=== PATIENT | male | born 1975 | race Caucasian/White ===

== ENCOUNTER 2017-07-09 08:53 | Emergency (ER) | payer OTHER, SELFPAY ==
[2017-07-09 08:55] VITALS: BP 146/78; PULSE 81; RESP 18; TEMP 36.7; O2SAT 100; BMI 25.1
--- NOTE | 2017-07-09 09:05 | RAD_ITS ---
STUDY: X-RAY - RIGHT HAND REASON FOR EXAM: Male, 41 years old. Laceration to the distal aspect of the fifth digit. TECHNIQUE: 3 view(s) of the hand. COMPARISON: None. FINDINGS: Normal radiocarpal articulation. Normal distal radioulnar joint. Normal visualized carpal bones. Normal carpal articulations Normal carpometacarpal articulation of the thumb. Normal second through fifth carpometacarpal joints. Normal metacarpi. Normal metacarpophalangeal joint of the thumb. Normal interphalangeal joint of the thumb. Normal proximal and distal phalanges of the thumb. Normal metacarpophalangeal joints of the second through fifth fingers. Normal proximal and distal interphalangeal joints of the second through fifth fingers. Normal phalanges of the second through fifth fingers. Soft tissue injury. RAD/Hand Min 3 Views IMPRESSION: Soft tissue injury. No bony abnormality is seen. No radiopaque foreign body is present. Electronically Signed: Raheem Torres MD at 9:31 EST Tel [phone], Service support ,
--- NOTE | 2017-07-09 09:07 | ED.VISSUMM ---
- ER Visit Summary Date of Service: 07/09/17 Chief Complaint: Right small finger laceration History of Present Illness: The patient is a 41 M presenting with right small finger laceration. Patient states he was using a saw and looked down and noticed bleeding of his right small finger. He is unsure how this occurred. This was not a work-related injury. He is unsure of his last tetanus immunization. No other injuries. Physical Examination: Vitals are stable. Patient is afebrile. Alert no acute distress. HEENT exam is unremarkable. Lungs are clear and equal bilaterally. Heart is regular rate and rhythm. Extremities: 1.5 cm laceration to the dorsal finger pad of the distal right small finger, 2 cm laceration to the lateral nail on the volar aspect of the finger. Tendon function is intact. Skin is warm and dry. No focal neurologic deficit. Normal strength and sensation Remainder of exam is unremarkable. Emergency Department Course and Treatment: Patient was given tetanus IM. Laceration was repaired under sterile conditions. Irrigated with saline. 4, 5-0 simple sutures were placed in the dorsal laceration. 3, 5-0 simple sutures were placed in the volar laceration. Wound was cleaned and dressed. Advised wound care instructions. Advised to return to ED for any signs of infection. Disposition: Discharge home Impression: Right small finger laceration, laceration repair This note was generated with [employer] dictation software. It may contain incorrect words, spelling, and punctuation that were not noted in review of the chart prior to signing ED Disposition - Plan for ED Patient: Chief Complaint: Laceration Referrals: Luan Arnold [Primary Care Provider] -
[2017-07-09] MEDS: Diphth,Pertuss(Acell),Tet Vac 0.5 ML Vial IM (09:17)
--- NOTE | 2017-07-09 10:11 | ED.DEP ---
ED Disposition - Plan for ED Patient: Chief Complaint: Laceration Instructions: ED Laceration Hand Referrals: Luan Arnold [Primary Care Provider] -
[2017-07-09 10:21] VITALS: PULSE 89; RESP 18; O2SAT 98
--- NOTE | 2017-07-09 10:22 | ED.RN ---
THIS NURSE REVIEWED D/C INSTRUCTIONS WITH PT. PT VERBALIZED UNDERSTANDING OF INSTRUCTIONS. PT DENIES FURTHER NEEDS OR QUESTIONS AT THIS TIME. PT AMBULATES FROM ROOM ON OWN WITHOUT ASSISTANCE FROM STAFF
== END 2017-07-09 10:32 | disposition home or self-care (01) ==
PROVIDERS: Emergency Provider Emergency Medicine; Family Provider Family Medicine; PCP Family Medicine
DX: S61.316A Laceration without foreign body of right little finger with damage to nail, initial encounter (principal); W31.89XA Contact with other specified machinery, initial encounter; Y93.89 Activity, other specified; Y92.9 Unspecified place or not applicable; K21.9 Gastro-esophageal reflux disease without esophagitis; Z79.899 Other long term (current) drug therapy
CPT/HCPCS: 12002; 73130; 90471; 90715; 99283

== ENCOUNTER 2018-03-17 03:46 | Inpatient (IN) | payer OTHER, SELFPAY ==
[2018-03-17] VITALS (16 sets, daily range): BP systolic 95–126; BP diastolic 63–81; PULSE 56–84; RESP 16–21; TEMP 36.8–37.1; O2SAT 92–98; BMI 25.7
--- NOTE | 2018-03-17 03:42 | ECHOD_ITS ---
[id number] ECHO^ECHOD^Echo Complete [id number] TAG_START Cardiovascular Services Echocardiogram [address] [place], [place] [address] Ordering Physician: Yuli Zhang TAG_ENDED TAG_START Name: CRISTINA GÓMEZ Study Date: 03/18/2018 10:30 AM BP: 111/77 mmHg Patient Location: [facility] [place] BSA: 2.0 m2 : 1975 Gender: Male Height: 71 in Age: 42 yrs Weight: 175 lb History: Afib/Flutter, GERD, DARA, Palpitations TAG_ENDED Reason For Study: Afib/Flutter Procedure This was a 2D Doppler, Color Flow transthoracic echocardiogram. Exam performed in department. Left Ventricle Normal size and thickness. The estimated ejection fraction is 55 %. Unable to assess diastolic dysfunction due to arrhythmia. No regional wall motion abnormalities noted. TAG_START I Segments Size 1-2 small X - Cannot 1 - Normal 2 - 3 - Akinetic 4 - Dyskinetic3-5 moderate Interpret Hypokinetic 6-14 large 5 - Aneurysmal 15-16 diffuse TAG_ENDED Right Ventricle Normal size and thickness. Normal systolic function. Atria Normal left atrium. Normal right atrium. Normal atrial septum. Mitral Valve The mitral valve is structurally normal. No prolapse or stenosis seen. Tricuspid Valve Normal tricuspid valve. Trivial tricuspid valve insufficiency. Right ventricular systolic pressure estimated to be 36 mmHg. Aortic Valve Normal aortic valve. Trisinus/trileaflet aortic valve. Pulmonic Valve Normal pulmonic valve. Great Vessels Normal aortic root. Normal arch. Normal inferior vena cava. Inferior vena cava collapse with sniff. Pericardium/Pleural No pericardial effusion. MMode/2D Measurements & Calculations LVIDd: 4.4 cm IVSd: 1.1 cm LVOT diam: 2.0 cm LVIDs: 3.3 cm LVPWd: 1.00 cm LVOT area: 3.1 cm2 RVDd: 4.1 cm FS: 24.2 % Ao root diam: 4.0 cm LAV(MOD-bp): 57.9 ml LVAd ap4: 26.9 cm2 LA dimension: 3.5 cm LAV(MOD-bp) Indexed: 29.1 ml/m2 EDV(MOD-sp4): 76.8 ml LAV(MOD-sp2): 49.8 ml EDV(sp4-el): 80.0 ml LAV(MOD-sp4): 50.3 ml LVAs ap4: 17.2 cm2 ESV(MOD-sp4): 36.6 ml ESV(sp4-el): 37.1 ml EF(MOD-sp4): 52.3 % EF(sp4-el): 53.6 % SV(MOD-sp4): 40.2 ml SV(sp4-el): 42.9 ml LA A4 area: 19.4 cm2 RA A4 area: 18.1 cm2 Time Measurements MV dec time: 0.23 sec Doppler Measurements & Calculations MV E max salvador: 72.6 cm/sec Lat Peak E' Salvador: 16.1 cm/sec Med Peak E' Salvador: 8.7 cm/sec E/E' lat: 4.5 E/E' med: 8.3 Ao V2 max: 98.4 cm/sec LV V1 max: 86.2 cm/sec SV(LVOT): 46.8 ml Ao max P.9 mmHg LV V1 max P.0 mmHg Ao V2 mean: 69.7 cm/sec LV V1 mean P.4 mmHg Ao mean P.1 mmHg LV V1 mean: 54.7 cm/sec Ao V2 VTI: 16.6 cm LV V1 VTI: 15.1 cm VIC(I,D): 2.8 cm2 VIC(V,D): 2.7 cm2 PA V2 max: 88.9 cm/sec TR max salvador: 231.5 cm/sec TR max P.4 mmHg Interpretation Summary The estimated ejection fraction is 55 %. Unable to assess diastolic dysfunction due to arrhythmia. Trivial tricuspid valve insufficiency. Right ventricular systolic pressure estimated to be 36 mmHg. Pt appears to be in atrial fibrillation. There is no comparison study available. TAG_START TAG_ENDED Ordering Physician: Yuli Zhang Referring Physician: Luan Arnold Performed By: Matt Bhat RCS
[2018-03-17] MEDS: Enoxaparin 80 MG/0.8 ML Syringe SC ×2 (04:21→17:19)
--- NOTE | 2018-03-17 04:23 | PCM.HP.STD ---
Problem List (1) Atrial fibrillation with RVR Status: Acute (2) Chest pain Status: Acute Qualifiers: Chest pain type: unspecified Qualified Code(s): R07.9 - Chest pain, unspecified (3) Hypokalemia Status: Acute (4) Anxiety and depression Status: Chronic (5) Arrhythmia Status: Chronic Qualifiers: Arrhythmia type: unspecified cardiac arrhythmia Qualified Code(s): I49.9 - Cardiac arrhythmia, unspecified (6) GERD (gastroesophageal reflux disease) Status: Chronic Qualifiers: Esophagitis presence: esophagitis presence not specified Qualified Code(s): K21.9 - Gastro-esophageal reflux disease without esophagitis (7) DARA (obstructive sleep apnea) Status: Chronic History of Present Illness Date of Admission: 03/17/18 Chief Complaint: Palpitations, chest pain The patient is a 42 y/o M w/ PMHx: DARA, GERD w/ Hiatal Hernia, Anxiety and Depression, Tachycardic dysrhythmia who presented to OSH ED on 03/17/18 with onset of left sided, chest pain, described as pressure and tightness without radiation intermittently w/ palpitations x 3 days, worsened on day of transition to OSH ED w/ at that time associated dyspnea starting at ~ 9 pm, rated at that time 3-4/10 in severity, prompting transition to ED with noted new onset atrial fibrillation with RVR upon ED work-up with transition to [facility] as direct admission on 03/17/18 for continued cardiac evaluation and management. Patient normally follows w/ Dr. Petersen for his noted tachycardic dysrhythmia but has never had atrial fibrillation prior. At OSH ([facility]) ED work-up included VS: T 98.1, HR 100, RR 20, BP 165/93, 99% on RA, CBC w/ WBC 7.9, Hgb 17.3, Plts 283 without shift, CMP w/ K 3.1, BUN/Cr 13/1.0, glucose 142, Trop <0.01, D-dimer 232, follow-up CTPA negative for acute PE, no aneurysm, no infection, EKG atrial fibrillation w/ RVR. At the OSH patient was administered Potassium 40 mEq x 1, 20 mg IV cardizem and transitioned to Cardizem drip with rate improvement from 150s-->100. EMS had noted to [facility] upon presentation to their facility that upon evaluation initially at patient's home his rate was > 200. The patient noted that his chest pressure completely resolved with rate control. Past Medical History Past Medical History (Chronic Problems): Chronic Problems (Last Updated 08/15/17 @ 14:01 by Katya Alvarado) Anxiety and depression (Chronic) Arrhythmia (Chronic) DARA (obstructive sleep apnea) (Chronic) Other specified cardiac device in situ (Chronic) GERD (gastroesophageal reflux disease) (Chronic) Medical History: Medical History (Last Updated 08/15/17 @ 14:01 by Katya Alvarado) Other specified cardiac device in situ (Chronic) Z95.818 Palpitations (Acute) R00.2 GERD (gastroesophageal reflux disease) (Chronic) K21.9 Anxiety F41.9 Hiatal hernia K44.9 Inguinal hernia K40.90 DARA (obstructive sleep apnea) G47.33 Allergies No Known Allergies Allergy (Verified 03/17/18 04:03) Home Medications: Ambulatory Orders Medication Instructions Recorded Pantoprazole Sodium [Protonix] 20 mg PO DAILY 09/02/15 Paroxetine HCl [Paxil] 10 mg PO DAILY 09/02/15 Surgical History: Surgical History (Last Reviewed 12/12/17 @ 13:42 by Grace Berman) History of cholecystectomy Z90.49 History of nasal surgery Z98.890 Hx of appendectomy Z90.49 Surgical History: - - Loop recorder, cholecystectomy, appendectomy, neck surgery with fusion secondary to trauma. Psychiatric History: Anxiety, Depression Lives: Spouse/ Significant Other, With Family Smoking Status: Never smoker Tobacco Use: Non-smoker Alcohol: None Drugs: None - *Family History Maternal Family History: Family History (Last Reviewed 12/12/17 @ 13:42 by Grace Berman) Father Hypertension Sister SVT (supraventricular tachycardia) History Items: - - Patient notes a maternal and paternal family history of heart disease. Paternal Family History: Family History (Last Reviewed 12/12/17 @ 13:42 by Grace Berman) Father Hypertension Sister SVT (supraventricular tachycardia) History Items: - - Patient notes a maternal and paternal family history of heart disease. Review of Systems Constitutional: Reports: Fatigue. Denies: Chills, Fever, Weight Change HEENT: Denies: Head Aches, Sinus Congestion, Sinus Drainage Cardiovascular: Reports: Chest Pain, Chest Pressure, Chest Tightness, Palpitations. Denies: Light Headedness, Orthopnea, Syncope Respiratory: Reports: Shortness of Breath, Shortness of breath at rest, Shortness of breath upon exertion. Denies: Cough, Sputum production Gastrointestinal: Denies: Abdominal Pain, Nausea, Vomiting Genitourinary: Denies: Dysuria Musculoskeletal: Denies: Joint Pain, Joint Tenderness Skin: Denies: Rash, Wounds Neurological: Denies: Numbness, Tingling, Focal weakness Psychiatric: Denies: Anxiety, Depression, Homicidal Ideations, Suicidal Ideations Hematologic/ Lymphatic: Denies: Easy Bruising, Easy Bleeding VTE Information - Inpt Only VTE Present on Admission: No VTE Mechan Device Prophylaxis: SCD's VTE Pharm Prophylaxis ordered?: Yes Patient Problems: Active and Suspected Problems (Last Updated 08/15/17 @ 14:01 by Katya Alvarado) Atrial fibrillation with RVR (Acute) Chest pain (Acute) Hypokalemia (Acute) Subjective: Patient seated upright in the bed, no acute distress, denies any current chest discomfort. Objective: Physical Examination: General: awake, alert, oriented x 3 and cooperative, seated upright in bed in no apparent distress. Skin: normal color, turgor, no icterus, cyanosis. HEENT: AT/NC, EOMI, PERRLA, MMM, no carotid bruits or JVD noted. Lungs: CTA bilaterally, moderate effort, mild decrease BL bases, no rales, ronchi or wheezing. Heart: Regular, rate controlled; no gallop, rub audible. Abdomen: soft, NTTP, ND, normal BS, no HSM. Extremities: no cyanosis, clubbing, or edema. Neurological: patient awake, alert, oriented x 3; cognitive function intact; pupils equally reactive to light and accomodation; cranial nerves II-XII grossly normal, moving all 4 extremities, no focal deficits, strength preserved. Psychiatric: affect appears normal, no acute evidence of depressive or anxiety feelings. - Physical Exam Vital Signs Pulse 76 03/17/18 03:51 Weight: 184 lb 8.43 oz Body Mass Index (BMI) 25.7 Assessment/Plan All Active Problems (Last Updated 08/15/17 @ 14:01 by Katya Alvarado) Atrial fibrillation with RVR (Acute) Chest pain (Acute) Hypokalemia (Acute) Palpitations (Acute) The patient is a 42 y/o M w/ PMHx: DARA, GERD w/ Hiatal Hernia, Anxiety and Depression, Tachycardic dysrhythmia who presented to OSH ED on 03/17/18 with onset of left sided, chest pain, described as pressure and tightness without radiation intermittently w/ palpitations x 3 days, worsened on day of transition to OSH ED w/ at that time associated dyspnea starting at ~ 9 pm, rated at that time 3-4/10 in severity, prompting transition to ED with noted new onset atrial fibrillation with RVR upon ED work-up with transition to [facility] as direct admission on 03/17/18 for continued cardiac evaluation and management. (1) Chest pain w/ New onset, Paroxsymal atrial fibrillation: OSH EKG in ED w/ atrial fibrillation w/ RVR. Patient administered cardizem bolus at OSH ED and transitioned to cardizem drip with improvement. Will admit directed to PCU, maintain on telemetry, obtain cardiac enzyme serial set, obtain magnesium level, obtain ECHO, obtain TSH level. Will continue on cardizem drip with plan for oral transition after 24 hours if appropriate. Will initiate therapeutic lovenox pending CM assist w/ assessment for oral regimen costs if felt appropriate upon discharge, i.e. planned later cardioversion. Cardiology consulted, pending as given history of exact noted onset of symptoms if does not convert may be appropriate for cardioversion. From review of Dr. Petersen records patient had implantable loop recorder prior that did not demonstrate any episodes of AF. (2) Hypokalemia: Admission K+ 3.1, supplementation given at OSH ED, repeat level in AM. (3) Anxiety and Depression: Continue home paxil regimen. (4) DARA: CPAP non-compliant but given presentation likely contributing, will order CPAP and encourage. (5) GERD w/ Hiatal Hernia: PPI. (6) DVT Prophylaxis: SCDs, lovenox therapeutic regimen. Code Visit Inpatient E&M: 47394 Init Hosp L3
[2018-03-17] MEDS: 0.9% NaCl Peripheral Flush Adult/Peds IV ×2 (04:58→10:24)
[2018-03-17 05:04] LABS: Thyroid Stim Hormone (TSH) 1.72 uIU/mL (0.358-3.74)
[2018-03-17 05:16] LABS: Cholesterol 159 mg/dL (200); High Density Lipoprotein 41 mg/dL; Triglycerides 60 mg/dL; Very Low Density Lipoprotein 12 mg/dL (5-40)
--- NOTE | 2018-03-17 05:55 | EKG12_ITS ---
Test Reason : AM EKG Blood Pressure : / mmHG Vent. Rate : 062 BPM Atrial Rate : 067 BPM P-R Int : 000 ms QRS Dur : 084 ms QT Int : 398 ms P-R-T Axes : 000 069 049 degrees QTc Int : 403 ms Atrial fibrillation Abnormal ECG Confirmed by CLIFF BAILON, MARLI ([id number]), avid editor MARIA ELENA GÓMEZ ([id number]) on 03/21/2018 4:15:19 PM Referred By: LISETH Confirmed By:MARLI CORONADO MD
--- NOTE | 2018-03-17 07:40 | PN_ITS ---
Patient Problems: Active and Suspected Problems (Last Updated 08/15/17 @ 14:01 by Katya Alvarado) Atrial fibrillation with RVR (Acute) Chest pain (Acute) Hypokalemia (Acute) Subjective: Patient was seen and examined. Admitted last night with Valentina. deepthi with RVR. Patient has been off Cardizem drip for a couple of hours. Overnight, telemetry is showing controlled ventricular response with episodes of bradycardia. He denies any chest pain or dizziness or shortness of breath. He denies any history of A. fib. History of palpitations status post implanted loop recorder, follows with Dr. Petersen. He last saw Dr. Petersen in November 2017, device check showed no arrhythmias. Vitals/I&O's: Vital Signs Temp Pulse Resp BP Pulse Ox 98.2 F 56 L 19 H 97/67 97 03/17/18 03:51 03/17/18 07:37 03/17/18 06:00 03/17/18 06:00 03/17/18 04:15 Oxygen Delivery Method Room Air Weight: 83.7 kg Body Mass Index (BMI) 25.7 Intake and Output for Last 24 Hours 03/15/18 03/16/18 03/17/18 23:59 23:59 23:59 Intake Total 536 / 536 Balance 536 / 536 General: Alert, Oriented x3, Cooperative, No apparent distress HEENT: Atraumatic, PERRLA, EOMI, Normocephalic Oral: Moist Mucosa Neck: Supple, No JVD, Negative Carotid Bruits Lungs: Clear to auscultation, Normal air movement Cardiovascular: Regular rate, Regular Rhythm, Normal S1, Normal S2, No murmurs, - - Left precordial implanted loop recorder Abdomen: Bowel Sounds Present, Soft, Non Tender, Non-Distended, No Hepato- splenomegaly Extremities: No edema Skin: No rashes, No breakdown Musculoskeletal: No Tenderness to Palpation of Joints or Extremities Lymphatic: No Cervical, Supraclavicular, or Inguinal Adenopathy Neurological: Cranial nerves II-XII grossly intact, Motor Exam 5/5 strength throughout Psych/Mental Status: Normal Affect, Appropriate Laboratory Results 03/17/18 04:25: TSH 1.72 03/17/18 04:25: Troponin I < 0.015, Triglycerides 60, Cholesterol 159, LDL Cholesterol 106, VLDL Cholesterol 12, HDL Cholesterol 41 03/17/18 07:23: Troponin I Pending Current Medications Acetaminophen (Tylenol) 650 mg PO Q6H PRN PRN PRN Reason: Mild Pain (scale 0-3)/T>100.7 Al Hydroxide/Mg Hydroxide (Mylanta Ii) 30 ml PO Q6H PRN PRN PRN Reason: Gastric burning Enoxaparin Sodium (Lovenox) 80 mg SC Q12 [facility] Last Admin: 03/17/18 04:21 Dose: 80 mg Diltiazem HCl 125 mg/ Dextrose 125 mls @ 5 mls/hr IV .Q25H [facility] Last Admin: 03/17/18 04:25 Dose: Not Given Sodium Chloride () 250 mls @ 15 mls/hr IV .[id number] PRN PRN Reason: SALINE FLUSH Magnesium Hydroxide (Milk Of Magnesia) 30 ml PO DAILY PRN PRN Reason: Constipation Morphine Sulfate () 2 - 4 mg IV Q3H PRN PRN PRN Reason: Severe Pain (pain scale 6-10) Morphine Sulfate () 1 - 2 mg IV Q4H PRN PRN PRN Reason: Moderate Pain (pain scale 4-5) Ondansetron HCl (Zofran) 4 mg IV Q8H PRN PRN PRN Reason: NAUSEA Oxycodone HCl (Oxyir) 5 mg PO Q4H PRN PRN PRN Reason: Moderate Pain (pain scale 4-5) Pantoprazole Sodium (Protonix) 20 mg PO QHS [facility] Paroxetine HCl (Paxil) 10 mg PO DAILY [facility] Promethazine HCl (Phenergan) 12.5 mg IV Q6H PRN PRN PRN Reason: NAUSEA/VOMITING Sodium Chloride () 5 - 30 ml IV UD PRN PRN Reason: SALINE FLUSH Last Admin: 03/17/18 04:58 Dose: 20 ml Medical Necessity - Tobacco Use Smoking Status: Never smoker Tobacco Use: Non-smoker Assessment/Plan All Active Problems (Last Updated 08/15/17 @ 14:01 by Katya Alvarado) Atrial fibrillation with RVR (Acute) Chest pain (Acute) Hypokalemia (Acute) Palpitations (Acute) 42-year-old male with past medical history of palpitations status post imp lantable loop recorder, anxiety, GERD who comes in with palpitations that happened yesterday as well as chest discomfort. Patient was seen earlier in [facility] ED and diagnosed with A. fib and started on Cardizem drip and transferred here. He has since been managed in ICU in PCU status. 1. A. fib with RVR, newly diagnosed, history of palpitations, status post implantable loop recorder, [id number] score 0-1, started on therapeutic Lovenox for possible cardioversion if patient does not spontaneously cardiovert Cardiology consulted, off Cardizem at the moment, will continue to monitor on te lemetry. Would hold off starting Cardizem drip or oral beta-blockers as patient's heart rate keeps going down to less than 39. 2D echo is pending 2. Chest discomfort, likely related to A. fib with RVR, EKG shows no acute ST-T changes, initial troponin is negative, will trend troponins 3. Hypokalemia, replace, recheck pending 4. GERD, on PPI 5. Anxiety, on Paxil 6. DVT prophylaxis-patient is on therapeutic Lovenox Code Visit Inpatient E&M: 61753 Subs Hosp L2
[2018-03-17] MEDS: PARoxetine 10 MG Tablet PO (10:20)
[2018-03-17] MEDS: dilTIAZem CD 120 MG Capsule PO (10:20)
[2018-03-17 10:34] LABS: Absolute Lymphocyte Count 1.97 X10^3/ul (0.83-4.51); Absolute Neutrophil Count 2.4 X10^3/uL (2.0-7.7); Basophil# 0.01 X10^3/uL; Basophil% 0.2 % (0-1); Eosinophil# 0.05 X10^3/uL; Hematocrit 41.8 % (40-54); Hemoglobin 14.5 g/dl (13.0-16.5); Lymphocyte # 1.97 X10^3/ul (4.0); Lymphocyte % 41.2 % (19-41); Mean Corp Hgb Conc 34.7 g/gl (32-36); Mean Corpuscular Hgb 30.3 pg (27.0-32.0); Mean Corpuscular Volume 87.4 fL (80-94); Mean Platelet Vol. 10.1 fl (6.2-12.0); Monocyte# 0.37 X10^3/uL; Monocyte% 7.7 % (0-10); Neutrophil # 2.38 X10^3/uL (2.7-7.7); Neutrophil % 49.9 % (47-70); Platelet Count 214 K/mm3 (150-450); RBC Distribution Width CV 12.7 % (11.6-14.6); RBC Distribution Width SD 40.8 fl (35.1-43.9); Red Blood Count 4.78 M/mm3 (4.6-6.2); White Blood Count 4.8 K/mm3 (4.4-11.0)
[2018-03-17 10:35] LABS: POSITIVE COUNT NO; POSITIVE DIFFERENTIAL NO; POSITIVE MORPHOLOGY NO
[2018-03-17 10:41] LABS: Erythrocyte Sedimentation Rate < 1 mm/hr (0-15)
[2018-03-17 10:49] LABS: ALB/GLOB Ratio 1.1 RATIO (0.9-2.4); AST(SGOT) 10 U/L (15-37); Alanine Aminotransfer ALT/SGPT 19 U/L (16-61); Albumin, Serum 3.2 g/dL (3.2-5.0); Alkaline Phosphatase 47 U/L (45-117); Anion Gap 6 (5-15); BUN 10 mg/dL (7-18); BUN/Creat Ratio 11.2 RATIO (10-20); Calcium,Total 8.1 mg/dL (8.5-10.1); Chloride 108 mmol/L (98-107); Creatinine, Serum 0.89 mg/dL (0.70-1.30); EST Glomerular Filtration Rate 98 mL/min (>60); Est Glom Filt Rate - Afr Amer 119 mL/min (>60); Estimated Creatinine Clearance 112.81 ml/min; Glucose 117 mg/dL (74-106); Potassium 3.9 mmol/L (3.5-5.1); Protein, Total 6.2 g/dL (6.4-8.2); Sodium Level 142 mmol/L (136-145)
--- NOTE | 2018-03-17 11:02 | PCM.CONS.C ---
Problem List (1) Atrial fibrillation with RVR Status: Acute (2) Chest pain Status: Acute Qualifiers: Chest pain type: unspecified Qualified Code(s): R07.9 - Chest pain, unspecified (3) Arrhythmia Status: Chronic Qualifiers: Arrhythmia type: unspecified cardiac arrhythmia Qualified Code(s): I49.9 - Cardiac arrhythmia, unspecified (4) DARA (obstructive sleep apnea) Status: Chronic (5) Palpitations Status: Acute Reason for Consult Date of Consultation: 03/17/18 Reason for Consultation: Atrial fibrillation, palpitations, chest pain. History of Present Illness: The patient is a 42 year old M nondiabetic, non-smoker, patient of Dr. Landeros, [employer] of [facility], history of obstructive sleep apnea but does not use his CPAP, occasional alcohol use, does use chewing tobacco. Patient has never been diagnosed with atrial fibrillation before but has had palpitations in the past specifically according to him supraventricular tachycardia which lasted about a minute. He did have a loop recorder inserted about 2 years ago. He also states he had a heart catheterization about 5-6 years ago which was reportedly normal. His last stress test was 2 years ago which was reportedly normal per the patient and his significant other. Yesterday evening, while sitting in the [facility] house, the patient developed palpitations, and when they did not resolved he was put on the monitor at the fire station and found to be in atrial fibrillation with rapid ventricular response. When it did not improve after a few minutes he was brought here by squad for evaluation. In the emergency room he was found to have atrial fibrillation with rapid ventricular response, and was treated with IV Cardizem and placed on a Cardizem drip. In addition he has complained of intermittent chest pain which he describes as a pressure-like sensation and non-pleuritic over the last 3 days. His pain lasted 1-2 minutes, had no associated shortness of breath, nausea, vomiting or pleuritic nature. Overnight the patient's heart rate was controlled with IV Cardizem drip and it has been discontinued this morning. His troponins are negative x2 at this point. His EKG from 02/04/18 showed normal sinus rhythm, normal axis, normal intervals. No previous myocardial infarction. His EKG from 03/17/18 shows atrial fibrillation with controlled ventricular spines, and J-point elevation along the inferior and lateral leads. Patient denies any presyncope, syncope, flulike symptoms, or recent colds. [] Past Medical History Allergies/Adverse Reactions: Allergies No Known Allergies Allergy (Verified 03/17/18 04:03) Home Medications: Ambulatory Orders Medication Instructions Recorded Pantoprazole Sodium [Protonix] 20 mg PO QHS 09/02/15 Paroxetine HCl [Paxil] 10 mg PO DAILY 09/02/15 Past Medical History (Chronic Problems): Chronic Problems (Last Updated 08/15/17 @ 14:01 by Katya Alvarado) Anxiety and depression (Chronic) Arrhythmia (Chronic) DARA (obstructive sleep apnea) (Chronic) Other specified cardiac device in situ (Chronic) GERD (gastroesophageal reflux disease) (Chronic) Surgical History: - - Loop recorder, cholecystectomy, appendectomy, neck surgery with fusion secondary to trauma. Psychiatric History: Anxiety, Depression - *Family History Maternal Family History: Family History (Last Reviewed 12/12/17 @ 13:42 by Grace Berman) Father Hypertension Sister SVT (supraventricular tachycardia) History Items: - - Patient notes a maternal and paternal family history of heart disease. Paternal Family History: Family History (Last Reviewed 12/12/17 @ 13:42 by Grace Berman) Father Hypertension Sister SVT (supraventricular tachycardia) History Items: - - Patient notes a maternal and paternal family history of heart disease. Lives: Spouse/ Significant Other, With Family Smoking Status: Never smoker Tobacco Use: Non-smoker Alcohol: None Drugs: None Review of Systems - Review of Systems General: Denies: Fever, Night Sweats, Fatigue Cardiovascular: Reports: Chest Discomfort, Chest Discomfort at Rest, Palpitations. Denies: Shortness of Breath, Orthopnea, PND, Peripheral Edema, Lightheadedness, Dizziness, Near Syncope, Syncope Respiratory: Denies: Cough, Sputum Production, Hemoptysis Gastrointestinal: Denies: Hematemesis, Hematochezia, Melena Genitourinary: Denies: Dysuria, Hematuria Skin: Denies: Rash Subjectve: Patient laying in bed, no acute distress. Objective: Vital Signs Temp Pulse Resp BP Pulse Ox 98.2 F 60 18 108/70 98 03/17/18 08:00 03/17/18 08:00 03/17/18 08:00 03/17/18 08:00 03/17/18 08:00 Oxygen Delivery Method Room Air Weight: 184 lb 8.43 oz Body Mass Index (BMI) 25.7 Intake and Output for Last 24 Hours 03/15/18 03/16/18 03/17/18 23:59 23:59 23:59 Intake Total 536 / 536 Balance 536 / 536 General: Awake, Alert, Oriented x 3 HEENT: PERRL, EOMI, Sclera Non Icteric Neck: Supple, Good ROM, No Lymph Node Enlargement Lungs: Clear to auscultation Cardiovascular: Irregular Rhythm, Normal S1, Normal S2, No Murmurs, No Rubs, No Gallops Vascular: No Carotid Bruits, Normal Femoral Pulses, Normal Radial Pulses, Normal Dorsalis Pedal Pulse, Normal Posterior Tibial Pulses Abdomen: Bowel Sounds Present, Soft, Non Tender, No HSM, No Organomegaly Extremities: No Cyanosis, No Clubbing, No edema Neurological: No Focal Motor or Sensory Deficit 03/17/18 04:25: Troponin I < 0.015, Triglycerides 60, Cholesterol 159, LDL Cholesterol 106, VLDL Cholesterol 12, HDL Cholesterol 41 03/17/18 07:23: Troponin I < 0.015 03/17/18 10:25: Troponin I < 0.015 03/17/18 10:25: Sodium 142, Potassium 3.9, Chloride 108 H, Carbon Dioxide 28.0, Anion Gap 6, BUN 10, Creatinine 0.89, Est GFR (MDRD) Af Amer 119, Est GFR (MDRD) Non-Af 98, BUN/Creatinine Ratio 11.2, Glucose 117 H, Calcium 8.1 L, Total Bilirubin 0.80 03/17/18 10:25: WBC 4.8, RBC 4.78, Hgb 14.5, Hct 41.8, MCV 87.4, MCH 30.3, MCHC 34.7, RDW 12.7, RDW Differential 40.8, Plt Count 214, MPV 10.1, Immature Gran % (Auto) 0.000, Neut % (Auto) 49.9, Lymph % (Auto) 41.2 H, [place] % (Auto) 7.7, Eos % (Auto) 1.0, Baso % (Auto) 0.2, Absolute Neuts (auto) 2.4, Total Counted Not Reportable Rhythm: Telemetry shows atrial fibrillation with controlled ventricular response. EKG: As above ECHO: Pending Stress Test: Pending Cardiac Cath: PCI: CT Surgery: Holter monitor: EPS: PPM: CXR: Chest CT Scan: Assessment/Plan 1. Atrial fibrillation: Patient has recurrent palpitations and in fact has a loop recorder placed several years ago. His last catheterization was around 5 or 6 years ago and was reportedly normal. Nonetheless the patient has developed chest pain on and off for the past 3 days which appears to be pressure-like in quality and last 1-2 minutes. Superimposed upon this the patient developed atrial fibrillation with rapid ventricular response. He has known sleep apnea but does not use a CPAP as he is unable to tolerate the mask. At this point I recommend the patient be completely ruled out for myocardial infarction with a third set of troponins. If all 3 are negative I recommend he undergo a 2D echo with Doppler as well as a treadmill echocardiogram to assess for possible coronary ischemia. If either 1 of these are grossly abnormal he may require a diagnostic coronary angiogram. If his echo and stress test are within normal limits we will hold off on catheterization. In the meantime we have discontinued his IV Cardizem drip and will switch him to Cardizem CD 120 mg p.o. daily. In addition we will check a sed rate a TSH and T4 as well. Patient denies [id number] medications, and has not had alcohol in several weeks. I would not recommend a drug screening at this time. In addition he will continue on full dose Lovenox therapy at 1 mg/kg subcu twice daily. Would recommend switching him over to Eliquis therapy if his stress test is negative and would then recommend DC cardioversion in 3 weeks time if he does not spontaneously convert. Another alternative would be a transesophageal echocardiogram guided DC cardioversion, but he would still require anticoagulation therapy. I will defer this to Dr. Petersen his primary color making supervisor. 2. Hypercholesterolemia: Patient's LDL and HDL cholesterol are fairly well controlled given his risk factors. 3. Thank you very much for the opportunity to participate in the cardiac care of your patient. Consultation time took place between 830 and 9:05 AM. Code Visit Inpatient E&M: 10810 In Hosp L2
--- NOTE | 2018-03-17 11:06 | CON.PCM_ITS ---
Problem List (1) Atrial fibrillation with RVR Status: Acute (2) Chest pain Status: Acute Qualifiers: Chest pain type: unspecified Qualified Code(s): R07.9 - Chest pain, unspecified (3) Arrhythmia Status: Chronic Qualifiers: Arrhythmia type: unspecified cardiac arrhythmia Qualified Code(s): I49.9 - Cardiac arrhythmia, unspecified (4) DARA (obstructive sleep apnea) Status: Chronic (5) Palpitations Status: Acute Reason for Consult Date of Consultation: 03/17/18 Reason for Consultation: Atrial fibrillation, palpitations, chest pain. History of Present Illness: The patient is a 42 year old M nondiabetic, non-smoker, patient of Dr. Landeros, [employer] of [facility], history of obstructive sleep apnea but does not use his CPAP, occasional alcohol use, does use chewing tobacco. Patient has never been diagnosed with atrial fibrillation before but has had palpitations in the past specifically according to him supraventricular tachyc ardia which lasted about a minute. He did have a loop recorder inserted about 2 years ago. He also states he had a heart catheterization about 5-6 years ago which was reportedly normal. His last stress test was 2 years ago which was reportedly normal per the patient and his significant other. Yesterday evening, while sitting in the [facility] house, the patient developed palpitations, and when they did not resolved he was put on the monitor at the fire station and found to be in atrial fibrillation with rapid ventricular response. When it did not improve after a few minutes he was brought here by squad for evaluation. In the emergency room he was found to have atrial fibrillation with rapid ventricular response, and was treated with IV Cardizem and placed on a Cardizem drip. In addition he has complained of intermittent chest pain which he describes as a pressure-like sensation and non-pleuritic over the last 3 days. His pain lasted 1-2 minutes, had no associated shortness of breath, nausea, vomiting or pleuritic nature. Overnight the patient's heart rate was controlled with IV Cardizem drip and it has been discontinued this morning. His troponins are negative x2 at this point. His EKG from 02/04/18 showed normal sinus rhythm, normal axis, normal intervals. No previous myocardial infarction. His EKG from 03/17/18 shows atrial fibrillation with controlled ventricular spines, and J-point elevation along the inferior and lateral leads. Patient denies any presyncope, syncope, flulike symptoms, or recent colds. [] Past Medical History Allergies/Adverse Reactions: Allergies No Known Allergies Allergy (Verified 03/17/18 04:03) Home Medications: Ambulatory Orders Medication Instructions Recorded Pantoprazole Sodium [Protonix] 20 mg PO QHS 09/02/15 Paroxetine HCl [Paxil] 10 mg PO DAILY 09/02/15 Past Medical History (Chronic Problems): Chronic Problems (Last Updated 08/15/17 @ 14:01 by Katya Alvarado) Anxiety and depression (Chronic) Arrhythmia (Chronic) DARA (obstructive sleep apnea) (Chronic) Other specified cardiac device in situ (Chronic) GERD (gastroesophageal reflux disease) (Chronic) Surgical History: - - Loop recorder, cholecystectomy, appendectomy, neck surgery with fusion secondary to trauma. Psychiatric History: Anxiety, Depression - *Family History Maternal Family History: Family History (Last Reviewed 12/12/17 @ 13:42 by Grace Berman) Father Hypertension Sister SVT (supraventricular tachycardia) History Items: - - Patient notes a maternal and paternal family history of heart disease. Paternal Family History: Family History (Last Reviewed 12/12/17 @ 13:42 by Grace Berman) Father Hypertension Sister SVT (supraventricular tachycardia) History Items: - - Patient notes a maternal and paternal family history of heart disease. Lives: Spouse/ Significant Other, With Family Smoking Status: Never smoker Tobacco Use: Non-smoker Alcohol: None Drugs: None Review of Systems - Review of Systems General: Denies: Fever, Night Sweats, Fatigue Cardiovascular: Reports: Chest Discomfort, Chest Discomfort at Rest, Palpitations. Denies: Shortness of Breath, Orthopnea, PND, Peripheral Edema, Lightheadedness, Dizziness, Near Syncope, Syncope Respiratory: Denies: Cough, Sputum Production, Hemoptysis Gastrointestinal: Denies: Hematemesis, Hematochezia, Melena Genitourinary: Denies: Dysuria, Hematuria Skin: Denies: Rash Subjectve: Patient laying in bed, no acute distress. Objective: Vital Signs Temp Pulse Resp BP Pulse Ox 98.2 F 60 18 108/70 98 03/17/18 08:00 03/17/18 08:00 03/17/18 08:00 03/17/18 08:00 03/17/18 08:00 Oxygen Delivery Method Room Air Weight: 184 lb 8.43 oz Body Mass Index (BMI) 25.7 Intake and Output for Last 24 Hours 03/15/18 03/16/18 03/17/18 23:59 23:59 23:59 Intake Total 536 / 536 Balance 536 / 536 General: Awake, Alert, Oriented x 3 HEENT: PERRL, EOMI, Sclera Non Icteric Neck: Supple, Good ROM, No Lymph Node Enlargement Lungs: Clear to auscultation Cardiovascular: Irregular Rhythm, Normal S1, Normal S2, No Murmurs, No Rubs, No Gallops Vascular: No Carotid Bruits, Normal Femoral Pulses, Normal Radial Pulses, Normal Dorsalis Pedal Pulse, Normal Posterior Tibial Pulses Abdomen: Bowel Sounds Present, Soft, Non Tender, No HSM, No Organomegaly Extremities: No Cyanosis, No Clubbing, No edema Neurological: No Focal Motor or Sensory Deficit 03/17/18 04:25: Troponin I < 0.015, Triglycerides 60, Cholesterol 159, LDL Cholesterol 106, VLDL Cholesterol 12, HDL Cholesterol 41 03/17/18 07:23: Troponin I < 0.015 03/17/18 10:25: Troponin I < 0.015 03/17/18 10:25: Sodium 142, Potassium 3.9, Chloride 108 H, Carbon Dioxide 28.0, Anion Gap 6, BUN 10, Creatinine 0.89, Est GFR (MDRD) Af Amer 119, Est GFR (MDRD) Non-Af 98, BUN/Creatinine Ratio 11.2, Glucose 117 H, Calcium 8.1 L, Total Bilir ubin 0.80 03/17/18 10:25: WBC 4.8, RBC 4.78, Hgb 14.5, Hct 41.8, MCV 87.4, MCH 30.3, MCHC 34.7, RDW 12.7, RDW Differential 40.8, Plt Count 214, MPV 10.1, Immature Gran % (Auto) 0.000, Neut % (Auto) 49.9, Lymph % (Auto) 41.2 H, [place] % (Auto) 7.7, Eos % (Auto) 1.0, Baso % (Auto) 0.2, Absolute Neuts (auto) 2.4, Total Counted Not Reportable Rhythm: Telemetry shows atrial fibrillation with controlled ventricular response. EKG: As above ECHO: Pending Stress Test: Pending Cardiac Cath: PCI: CT Surgery: Holter monitor: EPS: PPM: CXR: Chest CT Scan: Assessment/Plan 1. Atrial fibrillation: Patient has recurrent palpitations and in fact has a loop recorder placed several years ago. His last catheterization was around 5 or 6 years ago and was reportedly normal. Nonetheless the patient has developed chest pain on and off for the past 3 days which appears to be pressure-like in quality and last 1-2 minutes. Superimposed upon this the patient developed atrial fibrillation with rapid ventricular response. He has known sleep apnea but does not use a CPAP as he is unable to tolerate the mask. At this point I recommend the patient be completely ruled out for myocardial infarction with a third set of troponins. If all 3 are negative I recommend he undergo a 2D echo with Doppler as well as a treadmill echocardiogram to assess for possible coronary ischemia. If either 1 of these are grossly abnormal he may require a diagnostic coronary angiogram. If his echo and stress test are within normal limits we will hold off on catheterization. In the meantime we have discontinued his IV Cardizem drip and will switch him to Cardizem CD 120 mg p.o. daily. In addition we will check a sed rate a TSH and T4 as well. Patient denies [id number] medications, and has not had alcohol in several weeks. I would not recommend a drug screening at this time. In addition he will continue on full dose Lovenox therapy at 1 mg/kg subcu twice daily. Would recommend switching him over to Eliquis therapy if his stress test is negative and would then recommend DC cardioversion in 3 weeks time if he does not spontaneously convert. Another alternative would be a transesophageal echocardiogram guided DC cardioversion, but he would still require anticoagulation therapy. I will defer this to Dr. Petersen his primary assistant golf coach. 2. Hypercholesterolemia: Patient's LDL and HDL cholesterol are fairly well controlled given his risk factors. 3. Thank you very much for the opportunity to participate in the cardiac care of your patient. Consultation time took place between 830 and 9:05 AM. Code Visit Inpatient E&M: 04658 Init Hosp L2
[2018-03-17] MEDS: Pantoprazole Sodium 20 MG Tablet PO (22:26)
[2018-03-18] VITALS (7 sets, daily range): BP systolic 111–126; BP diastolic 75–81; PULSE 65–94; RESP 17–18; TEMP 36.7–36.9; O2SAT 96–97
[2018-03-18] MEDS: Enoxaparin 80 MG/0.8 ML Syringe SC (05:37)
--- NOTE | 2018-03-18 05:55 | STE_ITS ---
[id number] ECHO^CYNTHIA^Stress Test Echo w/o Contrast [id number] TAG_START Cardiovascular Services Stress Echocardiogram [address] [address] Ordering Physician: Roel Mckoy TAG_ENDED TAG_START Name: CRISTINA GÓMEZ Study Date: 03/18/2018 10:12 AM BP: 118/84 mmHg Patient Location: ICU^[id number] BSA: 2.0 m2 : 1975 Gender: Male Height: 71 in Age: 42 yrs Weight: 175 lb History: DARA, New Onset Atrial Fibrillation, SVT, Depression, Anxiety, Loop Recorder Medications: Cardizem, Lovenox, Protonix, Paxil TAG_ENDED Reason For Study: Atrial Fibrillation Stress Results Protocol: Silvestre Protocol Maximum Predicted HR: 176 bpm Target HR: 150 bpm % Maximum Predicted HR: 102 % DurationHeart Rate Stage (mm:ss) (bpm) BP Comment Baseline 86 118/84No Chest Pain Silvestre Protocol Stage I 3:00 148 132/70No Chest Pain Silvestre Protocol Stage II 3:00 126 142/72No Chest Pain Silvestre Protocol Stage III 3:00 179 140/62No Chest Pain Recovery 122 122/60No Chest Pain Stress Duration: 9:00 mm:ss Maximum Stress HR: 179 bpm METS: 10 TAG_START I Segments Size 1-2 small X - Cannot 1 - Normal 2 - 3 - Akinetic 4 - Dyskinetic3-5 moderate Interpret Hypokinetic 6-14 large 5 - Aneurysmal 15-16 diffuse TAG_ENDED Baseline Echocardiogram Findings The estimated ejection fraction is 55 %. Stress Echo Wall motion Data Resting WM Intermediate WM Stress WM Wall Motion Stress No regional wall motion abnormalities noted. EKG Data Atrial fibrillation with controlled ventricular response. The patient exercised according to the regular Silvestre protocol for a total duration of 9:00. The maximum heart rate attained was 193 beats per minute. This was 109% of maximum predicted heart rate. The patient exercised into stage 4 of the Silvestre protocol. During stress, there were no ST or T wave changes noted to suggest ischemia. No clinical angina was noted. Interpretation Summary The estimated ejection fraction is 55 %. Normal, adequate, treadmill echocardiogram. Negative for ischemia by EKG and echocardiographic criteria. No anginal symptoms noted. Patient had baseline atrial fibrillation with controlled ventricular response to increased, which remained persistent during stress testing. He had rare PVCs. Appropriate blood pressure response to exercise. Average exercise capacity for age. Final LVEF of 65%. No complications. TAG_START TAG_ENDED Ordering Physician: Roel Mckoy Referring Physician: Roel Mckoy Performed By: Matt Bhat RCS
[2018-03-18 06:23] LABS: Absolute Lymphocyte Count 2.39 X10^3/ul (0.83-4.51); Absolute Neutrophil Count 2.1 X10^3/uL (2.0-7.7); Basophil# 0.05 X10^3/uL; Eosinophil# 0.08 X10^3/uL; Eosinophils% 1.6 % (0-5); Hematocrit 47.5 % (40-54); Hemoglobin 16.3 g/dl (13.0-16.5); Lymphocyte # 2.39 X10^3/ul (4.0); Lymphocyte % 47.7 % (19-41); Mean Corp Hgb Conc 34.3 g/gl (32-36); Mean Corpuscular Volume 87.5 fL (80-94); Mean Platelet Vol. 10.6 fl (6.2-12.0); Monocyte# 0.43 X10^3/uL; Monocyte% 8.6 % (0-10); Neutrophil # 2.06 X10^3/uL (2.7-7.7); Neutrophil % 41.1 % (47-70); Platelet Count 226 K/mm3 (150-450); RBC Distribution Width CV 12.7 % (11.6-14.6); RBC Distribution Width SD 40.2 fl (35.1-43.9); Red Blood Count 5.43 M/mm3 (4.6-6.2)
[2018-03-18 06:31] LABS: Anion Gap 7 (5-15); BUN 13 mg/dL (7-18); BUN/Creat Ratio 13.5 RATIO (10-20); Calcium,Total 8.6 mg/dL (8.5-10.1); Chloride 105 mmol/L (98-107); Creatinine, Serum 0.96 mg/dL (0.70-1.30); EST Glomerular Filtration Rate 90 mL/min (>60); Est Glom Filt Rate - Afr Amer 109 mL/min (>60); Estimated Creatinine Clearance 104.58 ml/min; Glucose 94 mg/dL (74-106); Potassium 4.1 mmol/L (3.5-5.1); Sodium Level 141 mmol/L (136-145)
[2018-03-18 06:39] LABS: POSITIVE COUNT NO; POSITIVE DIFFERENTIAL NO; POSITIVE MORPHOLOGY NO
--- NOTE | 2018-03-18 09:05 | PCM.PN.HOSP ---
Patient Problems: Active and Suspected Problems (Last Updated 08/15/17 @ 14:01 by Katya Alvarado) Atrial fibrillation with RVR (Acute) Chest pain (Acute) Hypokalemia (Acute) Subjective: Patient was seen and examined. No new complaints. Remains in atrial fibrillation, rate controlled. No acute events overnight. Going for stress echo this morning. Objective: Physical exam: General: Alert, Oriented x3, Cooperative, No apparent distress HEENT: Atraumatic, PERRLA, EOMI, Normocephalic Oral: Moist Mucosa Neck: Supple, No JVD, Negative Carotid Bruits Lungs: Clear to auscultation, Normal air movement Cardiovascular: Regular rate, Regular Rhythm, Normal S1, Normal S2, No murmurs, - - Left precordial implanted loop recorder Abdomen: Bowel Sounds Present, Soft, Non Tender, Non-Distended, No Hepato-splenomegaly Extremities: No edema Skin: No rashes, No breakdown Musculoskeletal: No Tenderness to Palpation of Joints or Extremities Lymphatic: No Cervical, Supraclavicular, or Inguinal Adenopathy Neurological: Cranial nerves II-XII grossly intact, Motor Exam 5/5 strength throughout Psych/Mental Status: Normal Affect, Appropriate Vitals/I&O's: Vital Signs Temp Pulse Resp BP Pulse Ox 98.4 F 81 18 111/75 96 03/18/18 08:24 03/18/18 08:24 03/18/18 08:24 03/18/18 08:24 03/18/18 08:24 Oxygen Delivery Method Room Air Weight: 83.7 kg Body Mass Index (BMI) 25.7 Intake and Output for Last 24 Hours 03/16/18 03/17/18 03/18/18 23:59 23:59 23:59 Intake Total 1496 / 1496 780 / 780 Balance 1496 / 1496 780 / 780 Laboratory Results 03/17/18 10:25: Troponin I < 0.015 03/17/18 10:25: Sodium 142, Potassium 3.9, Chloride 108 H, Carbon Dioxide 28.0, Anion Gap 6, BUN 10, Creatinine 0.89, Estim Creat Clear Calc 112.81, Est GFR (MDRD) Af Amer 119, Est GFR (MDRD) Non-Af 98, BUN/Creatinine Ratio 11.2, Glucose 117 H, Calcium 8.1 L, Total Bilirubin 0.80, AST 10 L, ALT 19, Alkaline Phosphatase 47, Total Protein 6.2 L, Albumin 3.2, Globulin 3.0, Albumin/Globulin Ratio 1.1 03/17/18 10:25: WBC 4.8, RBC 4.78, Hgb 14.5, Hct 41.8, MCV 87.4, MCH 30.3, MCHC 34.7, RDW 12.7, RDW Differential 40.8, Plt Count 214, MPV 10.1, Immature Gran % (Auto) 0.000, Neut % (Auto) 49.9, Lymph % (Auto) 41.2 H, [place] % (Auto) 7.7, Eos % (Auto) 1.0, Baso % (Auto) 0.2, Absolute Neuts (auto) 2.4, Absolute Lymphs (auto) 1.97, Total Counted Not Reportable 03/17/18 10:25: ESR < 1 03/18/18 05:40: WBC 5.0, RBC 5.43, Hgb 16.3, Hct 47.5, MCV 87.5, MCH 30.0, MCHC 34.3, RDW 12.7, RDW Differential 40.2, Plt Count 226, MPV 10.6, Immature Gran % (Auto) 0.000, Neut % (Auto) 41.1 L, Lymph % (Auto) 47.7 H, [place] % (Auto) 8.6, Eos % (Auto) 1.6, Baso % (Auto) 1.0, Absolute Neuts (auto) 2.1, Absolute Lymphs (auto) 2.39, Total Counted Not Reportable 03/18/18 05:40: Sodium 141, Potassium 4.1, Chloride 105, Carbon Dioxide 29.0, Anion Gap 7, BUN 13, Creatinine 0.96, Estim Creat Clear Calc 104.58, Est GFR (MDRD) Af Amer 109, Est GFR (MDRD) Non-Af 90, BUN/Creatinine Ratio 13.5, Glucose 94, Calcium 8.6 Current Medications Acetaminophen (Tylenol) 650 mg PO Q6H PRN PRN PRN Reason: Mild Pain (scale 0-3)/T>100.7 Al Hydroxide/Mg Hydroxide (Mylanta Ii) 30 ml PO Q6H PRN PRN PRN Reason: Gastric burning Diltiazem HCl (Cardizem Cd) 120 mg PO DAILY [facility] Last Admin: 03/17/18 10:20 Dose: 120 mg Enoxaparin Sodium (Lovenox) 80 mg SC Q12@0600,1800 [facility] Last Admin: 03/18/18 05:37 Dose: 80 mg Sodium Chloride () 250 mls @ 15 mls/hr IV .[id number] PRN PRN Reason: SALINE FLUSH Magnesium Hydroxide (Milk Of Magnesia) 30 ml PO DAILY PRN PRN Reason: Constipation Morphine Sulfate () 2 - 4 mg IV Q3H PRN PRN PRN Reason: Severe Pain (pain scale 6-10) Morphine Sulfate () 1 - 2 mg IV Q4H PRN PRN PRN Reason: Moderate Pain (pain scale 4-5) Ondansetron HCl (Zofran) 4 mg IV Q8H PRN PRN PRN Reason: NAUSEA Oxycodone HCl (Oxyir) 5 mg PO Q4H PRN PRN PRN Reason: Moderate Pain (pain scale 4-5) Pantoprazole Sodium (Protonix) 20 mg PO QHS [facility] Last Admin: 03/17/18 22:26 Dose: 20 mg Paroxetine HCl (Paxil) 10 mg PO DAILY [facility] Last Admin: 03/17/18 10:20 Dose: 10 mg Promethazine HCl (Phenergan) 12.5 mg IV Q6H PRN PRN PRN Reason: NAUSEA/VOMITING Sodium Chloride () 5 - 30 ml IV UD PRN PRN Reason: SALINE FLUSH Last Admin: 03/17/18 10:24 Dose: 10 ml Medical Necessity - Tobacco Use Smoking Status: Never smoker Tobacco Use: Non-smoker Assessment/Plan All Active Problems (Last Updated 08/15/17 @ 14:01 by aKtya Alvarado) Atrial fibrillation with RVR (Acute) Chest pain (Acute) Hypokalemia (Acute) Palpitations (Acute) 42-year-old male with past medical history of palpitations status post implantable loop recorder, anxiety, GERD who comes in with palpitations that happened 2 days ago as well as chest discomfort. Patient was seen earlier in [facility] ED and diagnosed with A. fib and started on Cardizem drip and transferred here. Remains in ICU in PCU status. 1. A. fib with RVR, newly diagnosed, [id number] score 0-1, history of palpitations, status post implantable loop recorder, TSH is normal, no electrolyte abnormalities, Remains in A. fib, rate controlled, started on Cardizem, on Lovenox therapeutic dosing 2. Chest discomfort, likely related to A. fib with RVR, EKG shows no acute ST-T changes, troponins negative, stress echo this a.m. 3. Hypokalemia, resolved 4. GERD, on PPI 5. Anxiety, on Paxil 6. DVT prophylaxis-patient is on therapeutic Lovenox Code Visit Inpatient E&M: 16983 Subs Hosp L2
--- NOTE | 2018-03-18 09:10 | PN_ITS ---
Patient Problems: Active and Suspected Problems (Last Updated 08/15/17 @ 14:01 by Katya Alvarado) Atrial fibrillation with RVR (Acute) Chest pain (Acute) Hypokalemia (Acute) Subjective: Patient was seen and examined. No new complaints. Remains in atrial fibrillation, rate controlled. No acute events overnight. Going for stress echo this morning. Objective: Physical exam: General: Alert, Oriented x3, Cooperative, No apparent distress HEENT: Atraumatic, PERRLA, EOMI, Normocephalic Oral: Moist Mucosa Neck: Supple, No JVD, Negative Carotid Bruits Lungs: Clear to auscultation, Normal air movement Cardiovascular: Regular rate, Regular Rhythm, Normal S1, Normal S2, No murmurs, - - Left precordial implanted loop recorder Abdomen: Bowel Sounds Present, Soft, Non Tender, Non-Distended, No Hepato- splenomegaly Extremities: No edema Skin: No rashes, No breakdown Musculoskeletal: No Tenderness to Palpation of Joints or Extremities Lymphatic: No Cervical, Supraclavicular, or Inguinal Adenopathy Neurological: Cranial nerves II-XII grossly intact, Motor Exam 5/5 strength throughout Psych/Mental Status: Normal Affect, Appropriate Vitals/I&O's: Vital Signs Temp Pulse Resp BP Pulse Ox 98.4 F 81 18 111/75 96 03/18/18 08:24 03/18/18 08:24 03/18/18 08:24 03/18/18 08:24 03/18/18 08:24 Oxygen Delivery Method Room Air Weight: 83.7 kg Body Mass Index (BMI) 25.7 Intake and Output for Last 24 Hours 03/16/18 03/17/18 03/18/18 23:59 23:59 23:59 Intake Total 1496 / 1496 780 / 780 Balance 1496 / 1496 780 / 780 Laboratory Results 03/17/18 10:25: Troponin I < 0.015 03/17/18 10:25: Sodium 142, Potassium 3.9, Chloride 108 H, Carbon Dioxide 28.0, Anion Gap 6, BUN 10, Creatinine 0.89, Estim Creat Clear Calc 112.81, Est GFR (MDRD) Af Amer 119, Est GFR (MDRD) Non-Af 98, BUN/Creatinine Ratio 11.2, Glucose 117 H, Calcium 8.1 L, Total Bilirubin 0.80, AST 10 L, ALT 19, Alkaline Phosphatase 47, Total Protein 6.2 L, Albumin 3.2, Globulin 3.0, Albumin/Globulin Ratio 1.1 03/17/18 10:25: WBC 4.8, RBC 4.78, Hgb 14.5, Hct 41.8, MCV 87.4, MCH 30.3, MCHC 34.7, RDW 12.7, RDW Differential 40.8, Plt Count 214, MPV 10.1, Immature Gran % (Auto) 0.000, Neut % (Auto) 49.9, Lymph % (Auto) 41.2 H, [place] % (Auto) 7.7, Eos % (Auto) 1.0, Baso % (Auto) 0.2, Absolute Neuts (auto) 2.4, Absolute Lymphs (auto) 1.97, Total Counted Not Reportable 03/17/18 10:25: ESR < 1 03/18/18 05:40: WBC 5.0, RBC 5.43, Hgb 16.3, Hct 47.5, MCV 87.5, MCH 30.0, MCHC 34.3, RDW 12.7, RDW Differential 40.2, Plt Count 226, MPV 10.6, Immature Gran % (Auto) 0.000, Neut % (Auto) 41.1 L, Lymph % (Auto) 47.7 H, [place] % (Auto) 8.6, Eos % (Auto) 1.6, Baso % (Auto) 1.0, Absolute Neuts (auto) 2.1, Absolute Lymphs (auto) 2.39, Total Counted Not Reportable 03/18/18 05:40: Sodium 141, Potassium 4.1, Chloride 105, Carbon Dioxide 29.0, Anion Gap 7, BUN 13, Creatinine 0.96, Estim Creat Clear Calc 104.58, Est GFR (MDRD) Af Amer 109, Est GFR (MDRD) Non-Af 90, BUN/Creatinine Ratio 13.5, Glucose 94, Calcium 8.6 Current Medications Acetaminophen (Tylenol) 650 mg PO Q6H PRN PRN PRN Reason: Mild Pain (scale 0-3)/T>100.7 Al Hydroxide/Mg Hydroxide (Mylanta Ii) 30 ml PO Q6H PRN PRN PRN Reason: Gastric burning Diltiazem HCl (Cardizem Cd) 120 mg PO DAILY [facility] Last Admin: 03/17/18 10:20 Dose: 120 mg Enoxaparin Sodium (Lovenox) 80 mg SC Q12@0600,1800 [facility] Last Admin: 03/18/18 05:37 Dose: 80 mg Sodium Chloride () 250 mls @ 15 mls/hr IV .[id number] PRN PRN Reason: SALINE FLUSH Magnesium Hydroxide (Milk Of Magnesia) 30 ml PO DAILY PRN PRN Reason: Constipation Morphine Sulfate () 2 - 4 mg IV Q3H PRN PRN PRN Reason: Severe Pain (pain scale 6-10) Morphine Sulfate () 1 - 2 mg IV Q4H PRN PRN PRN Reason: Moderate Pain (pain scale 4-5) Ondansetron HCl (Zofran) 4 mg IV Q8H PRN PRN PRN Reason: NAUSEA Oxycodone HCl (Oxyir) 5 mg PO Q4H PRN PRN PRN Reason: Moderate Pain (pain scale 4-5) Pantoprazole Sodium (Protonix) 20 mg PO QHS [facility] Last Admin: 03/17/18 22:26 Dose: 20 mg Paroxetine HCl (Paxil) 10 mg PO DAILY [facility] Last Admin: 03/17/18 10:20 Dose: 10 mg Promethazine HCl (Phenergan) 12.5 mg IV Q6H PRN PRN PRN Reason: NAUSEA/VOMITING Sodium Chloride () 5 - 30 ml IV UD PRN PRN Reason: SALINE FLUSH Last Admin: 03/17/18 10:24 Dose: 10 ml Medical Necessity - Tobacco Use Smoking Status: Never smoker Tobacco Use: Non-smoker Assessment/Plan All Active Problems (Last Updated 08/15/17 @ 14:01 by Katya Alvarado) Atrial fibrillation with RVR (Acute) Chest pain (Acute) Hypokalemia (Acute) Palpitations (Acute) 42-year-old male with past medical history of palpitations status post implantable loop recorder, anxiety, GERD who comes in with palpitations that happened 2 days ago as well as chest discomfort. Patient was seen earlier in [facility] ED and diagnosed with A. fib and started on Cardizem drip and transferred here. Remains in ICU in PCU status. 1. A. fib with RVR, newly diagnosed, [id number] score 0-1, history of palpitations, status post implantable loop recorder, TSH is normal, no electrolyte abnormalities, Remains in A. fib, rate controlled, started on Cardizem, on Lovenox therapeutic dosing 2. Chest discomfort, likely related to A. fib with RVR, EKG shows no acute ST-T changes, troponins negative, stress echo this a.m. 3. Hypokalemia, resolved 4. GERD, on PPI 5. Anxiety, on Paxil 6. DVT prophylaxis-patient is on therapeutic Lovenox Code Visit Inpatient E&M: 30155 Subs Hosp L2
--- NOTE | 2018-03-18 09:29 | CASEMGMT ---
RN JAMAAL Donnelly Pt presented to ER with atrial fib. To ICU on cardizem gtt. Presently on Lovenox, probable Eliquis on dc. If ordered, on dc, can give Eliquis savings card. PCP: Dr. Bhavya Arnold [facility] Insurance: [employer] Prescription Benefit:?yes LNOK: , Mavis Thrasher Living Arrangements: own home Transportation: drives DME/HHC: CPAP- does not wear. ? Plan: Home.
--- NOTE | 2018-03-18 10:49 | PN.CARD_ITS ---
Subjectve: The patient is awake and alert this day. He denies any additional ongoing palpitations or rapid rates or chest discomfort/dyspnea. He states he feels much better since his cardiac rate is under better control. Objective: Vital Signs Temp Pulse Resp BP Pulse Ox 98.4 F 81 18 111/75 96 03/18/18 08:24 03/18/18 08:24 03/18/18 08:24 03/18/18 08:24 03/18/18 08:24 Oxygen Delivery Method Room Air Weight: 184 lb 8.43 oz Body Mass Index (BMI) 25.7 Intake and Output for Last 24 Hours 03/16/18 03/17/18 03/18/18 23:59 23:59 23:59 Intake Total 1496 / 1496 780 / 780 Balance 1496 / 1496 780 / 780 General: Awake, Alert, Oriented x 3, Cooperative, No Acute Distress HEENT: Atraumatic, Normocephalic, PERRL, EOMI, Sclera Non Icteric Oral: Moist Mucosa Neck: Supple, Good ROM, No JVD Lungs: Clear to auscultation Cardiovascular: Irregular Rhythm, Normal S1, Normal S2 Vascular: No Carotid Bruits Abdomen: Bowel Sounds Present, Soft, Non Tender Extremities: No Cyanosis, No Clubbing, No edema Neurological: No Focal Motor or Sensory Deficit Psych/Mental Status: Appropriate, Normal Affect 03/17/18 10:25: Troponin I < 0.015 03/17/18 10:25: Sodium 142, Potassium 3.9, Chloride 108 H, Carbon Dioxide 28.0, Anion Gap 6, BUN 10, Creatinine 0.89, Est GFR (MDRD) Af Amer 119, Est GFR (MDRD) Non-Af 98, BUN/Creatinine Ratio 11.2, Glucose 117 H, Calcium 8.1 L, Total Bilirubin 0.80 03/18/18 05:40: WBC 5.0, RBC 5.43, Hgb 16.3, Hct 47.5, MCV 87.5, MCH 30.0, MCHC 34.3, RDW 12.7, RDW Differential 40.2, Plt Count 226, MPV 10.6, Immature Gran % (Auto) 0.000, Neut % (Auto) 41.1 L, Lymph % (Auto) 47.7 H, [place] % (Auto) 8.6, Eos % (Auto) 1.6, Baso % (Auto) 1.0, Absolute Neuts (auto) 2.1, Total Counted Not Reportable 03/18/18 05:40: Sodium 141, Potassium 4.1, Chloride 105, Carbon Dioxide 29.0, Anion Gap 7, BUN 13, Creatinine 0.96, Est GFR (MDRD) Af Amer 109, Est GFR (MDRD) Non-Af 90, BUN/Creatinine Ratio 13.5, Glucose 94, Calcium 8.6 Rhythm: Atrial fibrillation EKG: Atrial fibrillation ECHO: Pending Stress Test: Pending Medical Necessity - Tobacco Use Smoking Status: Never smoker Tobacco Use: Non-smoker Assessment/Plan 1. Atrial fibrillation At the present time he feels better with his rate under better control. His cardiac enzymes have been negative. His ECG is demonstrated no new acute changes. He is pending evaluation with an echocardiogram to assess his atrial size and ventricular wall motion/systolic function and a exercise tolerance test/imaging study in the form of a stress echocardiogram to evaluate for any obvious ongoing evidence of stress-induced myocardial ischemia that would warrant further invasive evaluation and/or care. Depending upon the results, especially if he does not need additional invasive evaluation or care, then he will be considered for medical management with rate control therapy and anticoagulant therapy. He can then be considered for future attempt at regaining sinus rhythm with synchronized biphasic DC cardioversion if he does not regain sinus rhythm himself in the interim. 2. Obstructive sleep apnea He will need continued evaluation and care of this as this may be a contributing factor to his atrial dysrhythmia. 3. Chest pain Is unclear whether his chest discomfort is related to his atrial dysrhythmia or a separate finding either cardiac or noncardiac. Thus he will continue his cardiac evaluation and care as noted above. Comment: The above was discussed and reviewed with the patient and his spouse. This note was generated using a voice recognition system and there may be incorrect words, spelling or punctuation that were not noted when reviewing the office note prior to saving.
--- NOTE | 2018-03-18 11:31 | PN.CARD_ITS ---
Subjectve: Patient doing well, no 24-hour events. Telemetry showed atrial for ablation with controlled ventricular response. Troponins negative x3. Echo and stress test negative today. Objective: Vital Signs Temp Pulse Resp BP Pulse Ox 98.4 F 81 18 111/75 96 03/18/18 08:24 03/18/18 08:24 03/18/18 08:24 03/18/18 08:24 03/18/18 08:24 Oxygen Delivery Method Room Air Weight: 184 lb 8.43 oz Body Mass Index (BMI) 25.7 Intake and Output for Last 24 Hours 03/16/18 03/17/18 03/18/18 23:59 23:59 23:59 Intake Total 1496 / 1496 780 / 780 Balance 1496 / 1496 780 / 780 General: Awake, Alert, Oriented x 3 HEENT: PERRL, EOMI, Sclera Non Icteric Neck: Supple, Good ROM, No Lymph Node Enlargement Lungs: Clear to auscultation Cardiovascular: Irregular Rhythm, Normal S1, Normal S2, No Murmurs, No Rubs, No Gallops Vascular: No Carotid Bruits, Normal Femoral Pulses, Normal Radial Pulses, Normal Dorsalis Pedal Pulse, Normal Posterior Tibial Pulses Abdomen: Bowel Sounds Present, Soft, Non Tender, No HSM, No Organomegaly Extremities: No Cyanosis, No Clubbing, No edema Neurological: No Focal Motor or Sensory Deficit 03/18/18 05:40: WBC 5.0, RBC 5.43, Hgb 16.3, Hct 47.5, MCV 87.5, MCH 30.0, MCHC 34.3, RDW 12.7, RDW Differential 40.2, Plt Count 226, MPV 10.6, Immature Gran % (Auto) 0.000, Neut % (Auto) 41.1 L, Lymph % (Auto) 47.7 H, [place] % (Auto) 8.6, Eos % (Auto) 1.6, Baso % (Auto) 1.0, Absolute Neuts (auto) 2.1, Total Counted Not Reportable 03/18/18 05:40: Sodium 141, Potassium 4.1, Chloride 105, Carbon Dioxide 29.0, Anion Gap 7, BUN 13, Creatinine 0.96, Est GFR (MDRD) Af Amer 109, Est GFR (MDRD) Non-Af 90, BUN/Creatinine Ratio 13.5, Glucose 94, Calcium 8.6 Rhythm: EKG: ECHO: Mild global LV dysfunction with an EF around 55%, RVSP of 36 mmHg. Stress Test: Negative for inducible ischemia. Cardiac Cath: PCI: CT Surgery: Holter monitor: EPS: PPM: CXR: Chest CT Scan: Medical Necessity - Tobacco Use Smoking Status: Never smoker Tobacco Use: Non-smoker Assessment/Plan 1. Atrial fibrillation: Patient has recurrent palpitations and in fact has a loop recorder placed several years ago. His last catheterization was around 5 or 6 years ago and was reportedly normal. Nonetheless the patient has developed chest pain on and off for the past 3 days prior to admission which appears to be pressure-like in quality and last 1-2 minutes. Superimposed upon this the patient developed atrial fibrillation with rapid ventricular response. He has known sleep apnea but does not use a CPAP as he is unable to tolerate the mask. Patient underwent a 2D echo with Doppler this morning which demonstrated mild global LV dysfunction with EF around 55%, RVSP of 36 mmHg. His stress echocardiogram was negative for inducible ischemia. At this point I would recommend discontinuation of his Lovenox and switching him to Eliquis 5 mg p.o. twice daily and continuing his Cardizem CD 120 mg p.o. daily. He will need anticoagulation for a total of 3 weeks time followed by elective DC cardioversion if he does not spontaneously convert. He does not require a catheterization at this time. I believe the patient may be discharged home. He can follow-up with Dr. Mckoy going forward. 2. Hypercholesterolemia: Patient's LDL and HDL cholesterol are fairly well controlled given his risk factors. 3. Thank you very much for the opportunity to participate in the cardiac care of your patient. Patient may be discharged home and follow-up with Dr. Mckoy going forward. Recommend repeat office visit in 2 weeks time for EKG and blood pressure. Code Visit Inpatient E&M: 56441 Subs Hosp L2
--- NOTE | 2018-03-18 11:38 | PCM.DC ---
- Discharge Diagnoses Current Active Problems: Current Active and Chronic Problems (Last Updated 08/15/17 @ 14:01 by Katya Alvarado) Atrial fibrillation with RVR (Acute) Chest pain (Acute) Hypokalemia (Acute) Anxiety and depression (Chronic) Arrhythmia (Chronic) DARA (obstructive sleep apnea) (Chronic) Reason(s) for Visit for Discharge Instructions: Palpitations, chest discomfort You will use the following diet at home:: Cardiac Your food should be the consistency of: Regular Your liquids should be the consistency of: Regular/Thin Discharge Activity: Return to Normal Activity Additional Instructions: You are being discharged on Eliquis and Cardizem. Continue to monitor your blood pressure and heart rate. Let your outbound sales agent knowe if you experience any dizziness, SOB or chest discomfort Allergies/Adverse Reactions: Allergies No Known Allergies Allergy (Verified 03/17/18 04:03) Medications to take at Discharge Pantoprazole Sodium [Protonix] 20 mg PO QHS 09/02/15 Paroxetine HCl [Paxil] 10 mg PO DAILY 09/02/15 Apixaban [Eliquis] 5 mg PO BID #60 tablet 03/18/18 Diltiazem CD [Cardizem CD] 120 mg PO DAILY #30 capsule 03/18/18 The following prescriptions were given: Diltiazem CD [Cardizem CD] 120 mg PO DAILY #30 capsule Apixaban [Eliquis] 5 mg PO BID #60 tablet Primary Care Physician: Luan Arnold [Primary Care Provider] - Please follow up with your Primary Care Physician in: within 1-2 weeks Test Results: Test results from this visit will be discussed in further detail at your follow-up appointment, if applicable. Please Follow Up With: Roel Mckoy MD When: in 3-4 weeks Proposed Discharge Date: 03/18/18
--- NOTE | 2018-03-18 11:41 | DCINST_ITS ---
- Discharge Diagnoses Current Active Problems: Current Active and Chronic Problems (Last Updated 08/15/17 @ 14:01 by Katya Alvarado) Atrial fibrillation with RVR (Acute) Chest pain (Acute) Hypokalemia (Acute) Anxiety and depression (Chronic) Arrhythmia (Chronic) DARA (obstructive sleep apnea) (Chronic) Reason(s) for Visit for Discharge Instructions: Palpitations, chest discomfort You will use the following diet at home:: Cardiac Your food should be the consistency of: Regular Your liquids should be the consistency of: Regular/Thin Discharge Activity: Return to Normal Activity Additional Instructions: You are being discharged on Eliquis and Cardizem. Continue to monitor your blood pressure and heart rate. Let your scientific software developer knowe if you experience any dizziness, SOB or chest discomfort Allergies/Adverse Reactions: Allergies No Known Allergies Allergy (Verified 03/17/18 04:03) Medications to take at Discharge Pantoprazole Sodium [Protonix] 20 mg PO QHS 09/02/15 Paroxetine HCl [Paxil] 10 mg PO DAILY 09/02/15 Apixaban [Eliquis] 5 mg PO BID #60 tablet 03/18/18 Diltiazem CD [Cardizem CD] 120 mg PO DAILY #30 capsule 03/18/18 The following prescriptions were given: Diltiazem CD [Cardizem CD] 120 mg PO DAILY #30 capsule Apixaban [Eliquis] 5 mg PO BID #60 tablet Primary Care Physician: Luan Arnold [Primary Care Provider] - Please follow up with your Primary Care Physician in: within 1-2 weeks Test Results: Test results from this visit will be discussed in further detail at your follow- up appointment, if applicable. Please Follow Up With: Roel Mckoy MD When: in 3-4 weeks Proposed Discharge Date: 03/18/18
[2018-03-18] MEDS: PARoxetine 10 MG Tablet PO (11:43)
[2018-03-18] MEDS: dilTIAZem CD 120 MG Capsule PO (11:43)
--- NOTE | 2018-03-18 11:44 | DS.PCM_ITS ---
Discharge Date and Diagnosis - Problem List Patient Problems: Active and Suspected Problems (Last Updated 08/15/17 @ 14:01 by Katya Alvarado) Atrial fibrillation with RVR (Acute) Chest pain (Acute) Hypokalemia (Acute) Date of Admission: 03/17/18 Date of Discharge: 03/18/18 - Primary Discharge Diagnosis Active and Suspected Problems (Last Updated 08/15/17 @ 14:01 by Katya Alvarado) Atrial fibrillation with RVR (Acute) Chest pain (Acute) Hypokalemia (Acute) - Secondary Discharge Diagnosis Chronic Problems (Last Updated 08/15/17 @ 14:01 by Katya Alvarado) Anxiety and depression (Chronic) Arrhythmia (Chronic) DARA (obstructive sleep apnea) (Chronic) Other specified cardiac device in situ (Chronic) GERD (gastroesophageal reflux disease) (Chronic) Hospital Course and Treatment Imaging Results: 03/18/18 05:55 Stress Test Echo w/o Contrast [ECHO] Routine Cardiology Operations: None Procedures: 2-D Echocardiogram, Stress test Summary of Care Provided: 42-year-old male with past medical history of palpitations status post implantable loop recorder, follows with cardiology in the outpatient, anxiety, GERD, DARA, not on CPAP who comes in with palpitations and chest discomfort that happened on the day of admission. 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 He made a friend put him on telemetry and showed A. fib. He was sent to the [facility] ED. There, he was diagnosed with A. fib and started on Cardizem drip and subsequently transferred here. He was managed in ICU in PCU status. He was on Cardizem drip for a few hours. Cardizem drip was switched of one heart rate was controlled. His low potassium noted in the ED was corrected on admission here. Cardiology was consulted. Transitioned to oral Cardizem. Troponins x3 were negative. He underwent stress echo was negative. He was discharged on Cardizem p.o. as well as Eliquis. He would follow-up with cardiology in 2 weeks for blood pressure check as well as repeat EKG. He will follow-up with cardiology for DC cardioversion in 3-4 weeks. Patient Problems: Active and Suspected Problems (Last Updated 08/15/17 @ 14:01 by Katya Alvarado) Atrial fibrillation with RVR (Acute) Chest pain (Acute) Hypokalemia (Acute) Subjective: See progress note on day of discharge. Objective: See progress note on day of discharge. - Physical Exam Vital Signs Temp Pulse Resp BP Pulse Ox 98.4 F 81 18 111/75 96 03/18/18 08:24 03/18/18 08:24 03/18/18 08:24 03/18/18 08:24 03/18/18 08:24 Oxygen Delivery Method Room Air Weight: 83.7 kg Body Mass Index (BMI) 25.7 Intake and Output for Last 24 Hours 03/16/18 03/17/18 03/18/18 23:59 23:59 23:59 Intake Total 1496 / 1496 780 / 780 Balance 1496 / 1496 780 / 780 Laboratory Tests Past 24 Hrs 03/18/18 03/18/18 05:40 05:40 WBC 5.0 RBC 5.43 Hgb 16.3 Hct 47.5 MCV 87.5 MCH 30.0 MCHC 34.3 RDW 12.7 RDW Differential 40.2 Plt Count 226 MPV 10.6 Immature Gran % (Auto) 0.000 Neut % (Auto) 41.1 L Lymph % (Auto) 47.7 H [place] % (Auto) 8.6 Eos % (Auto) 1.6 Baso % (Auto) 1.0 Absolute Neuts (auto) 2.1 Absolute Lymphs (auto) 2.39 Total Counted Not Reportable Sodium 141 Potassium 4.1 Chloride 105 Carbon Dioxide 29.0 Anion Gap 7 BUN 13 Creatinine 0.96 Estim Creat Clear Calc 104.58 Est GFR (MDRD) Af Amer 109 Est GFR (MDRD) Non-Af 90 BUN/Creatinine Ratio 13.5 Glucose 94 Calcium 8.6 Discharge Diet: Low fat/ Low Cholesterol, 2000 mg Sodium Diet Discharge Activity: Return to Normal Activity Home Medications: Medications to take at Discharge Pantoprazole Sodium [Protonix] 20 mg PO QHS 09/02/15 Paroxetine HCl [Paxil] 10 mg PO DAILY 09/02/15 Apixaban [Eliquis] 5 mg PO BID #60 tablet 03/18/18 Diltiazem CD [Cardizem CD] 120 mg PO DAILY #30 capsule 03/18/18 Following Prescrptions Were Given to Patient: Diltiazem CD [Cardizem CD] 120 mg PO DAILY #30 capsule Apixaban [Eliquis] 5 mg PO BID #60 tablet Primary Care Physician: Luan Arnold [Primary Care Provider] - Please follow up with your Primary Care Physician in: within 1-2 weeks Please Follow Up With: Roel Mckoy MD When: in 3-4 weeks Disposition: Home Minutes spent on discharge:: 35 Patient Condition:: Stable Medical Necessity - Tobacco Use Smoking Status: Never smoker Tobacco Use: Non-smoker Meaningful Use Info Meaningful Use Diagnoses (Choose all that apply): None applicable Code Visit OBSV E&M: 45118 Observation care discharge
== END 2018-03-18 12:55 | disposition home or self-care (01) | DRG 310 ==
PROVIDERS: Internal Medicine; Internal Medicine Cardiovascular Disease; Admitting Provider Family Medicine; Family Provider Family Medicine; PCP Family Medicine; Visit Provider Family Medicine
DX: I48.91 Unspecified atrial fibrillation (principal); G47.33 Obstructive sleep apnea (adult) (pediatric); K21.9 Gastro-esophageal reflux disease without esophagitis; K44.9 Diaphragmatic hernia without obstruction or gangrene; E87.6 Hypokalemia; F41.9 Anxiety disorder, unspecified; R07.9 Chest pain, unspecified; F32.9 Major depressive disorder, single episode, unspecified
CPT/HCPCS: 80048; 80053; 80061; 84443; 84484; 85025; 85652; 93005; 93017; 93306; 93350; A4216

== ENCOUNTER 2018-04-07 11:34 | Emergency (ER) | payer OTHER, SELFPAY ==
[2018-04-07 11:36] VITALS: BP 163/96; PULSE 90; RESP 12; TEMP 36.8; O2SAT 97; BMI 27.8
--- NOTE | 2018-04-07 11:57 | EKG12_ITS ---
Test Reason : PALPS Blood Pressure : / mmHG Vent. Rate : 089 BPM Atrial Rate : 090 BPM P-R Int : 190 ms QRS Dur : 090 ms QT Int : 346 ms P-R-T Axes : 071 071 036 degrees QTc Int : 420 ms Normal sinus rhythm Normal ECG Confirmed by AMOS BAILON, VANDANA ([id number]), newspaper editor managing MARIA ELENA GÓMEZ ([id number]) on 04/10/2018 1:00:52 PM Referred By: IVELISSE/RUBINA Confirmed By:VANDANA TRINIDAD MD
--- NOTE | 2018-04-07 12:11 | ED.VISSUMM ---
- ER Visit Summary Date of Service: 04/07/18 Chief Complaint: [] Palpitations history of A. 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 fib RVR he was admitted to the hospital extensive workup echogram and other evaluation per cardiology. He was seen by Dr. Petersen. He was started on Cardizem CD 120 a day and Eliquis which has been taking he has been doing fine, he indicates he was instructed to follow-up with [facility] cardiology for an abalation procedure, there is some issue with his insurance companies preferring that he have that procedure at [facility] has been trying to work through that, he was told to contact his chicken hatchery helper regarding that, because of the weekend he was unable to reach anyone, he does not have that appointment scheduled because of all the above, Today he was usual state of health when he had about a 4 to 5-minute spell of rapid heart rate that resolved spontaneously and he came to the emergency department Had no fever no cough no chest pain he is feeling fine otherwise he does report he drank about 2 cups of coffee just before the onset of the rapid heart rate he has no current symptoms Physical Examination: [] 163/90, General, no distress resting comfortably no complaints HEENT is generally unremarkable The neck is supple no adenopathy Cardiovascular, regular rate and rhythm, he is in a sinus rhythm about 80 on the monitor Lungs, clear bilateral Abdomen, soft nontender Extremities, no clubbing cyanosis or edema Neurologic, awake alert answering questions appropriately moving all 4 extremities Thank Test Results: [] Emergency Department Course and Treatment: [] EKG shows a sinus rhythm he has no complaints she is resting comfortably in the bed, we did page Dr. Petersen his chicken hatchery helper to discuss the above, Dr. Villafuerte, was manager simulation discussed the case with him in detail agreed he can be discharged home for studies are unremarkable he asked the patient was started on Cardizem 180 a day continue the anticoagulation and that he should follow-up with the cardiovascular center [facility] or [facility] approved by his insurance company Discussed all the above with the patient he is remained in a sinus rhythm he will avoid the coffee he was given a prescription for the Cardizem 180 a day and he will return for change in symptoms Treatment Plan: [] Home stable Disposition: [] Impression: [] Palpitations, history of A. fib RVR This note was generated with [employer] dictation software. It may contain incorrect words, spelling, and punctuation that were not noted in review of the chart prior to signing ED Disposition - Plan for ED Patient: Chief Complaint: Palpitations Referrals: Luan Arnold [Primary Care Provider] -
[2018-04-07 12:16] LABS: Absolute Lymphocyte Count 2.17 X10^3/ul (0.83-4.51); Absolute Neutrophil Count 2.8 X10^3/uL (2.0-7.7); Basophil# 0.05 X10^3/uL; Basophil% 0.9 % (0-1); Eosinophil# 0.07 X10^3/uL; Eosinophils% 1.2 % (0-5); Hematocrit 45.6 % (40-54); Hemoglobin 16.6 g/dl (13.0-16.5); Lymphocyte # 2.17 X10^3/ul (4.0); Lymphocyte % 38.5 % (19-41); Mean Corp Hgb Conc 36.4 g/gl (32-36); Mean Corpuscular Hgb 30.9 pg (27.0-32.0); Mean Corpuscular Volume 84.8 fL (80-94); Mean Platelet Vol. 10.5 fl (6.2-12.0); Monocyte# 0.53 X10^3/uL; Monocyte% 9.4 % (0-10); Neutrophil % 49.8 % (47-70); POSITIVE COUNT NO; POSITIVE DIFFERENTIAL NO; POSITIVE MORPHOLOGY NO; Platelet Count 243 K/mm3 (150-450); RBC Distribution Width CV 12.3 % (11.6-14.6); RBC Distribution Width SD 37.8 fl (35.1-43.9); Red Blood Count 5.38 M/mm3 (4.6-6.2); White Blood Count 5.6 K/mm3 (4.4-11.0)
--- NOTE | 2018-04-07 12:16 | ED.DCSUM_ITS ---
- ER Visit Summary Date of Service: 04/07/18 Chief Complaint: [] Palpitations history of A. 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 fib RVR he was admitted to the hospital extensive workup echogram and other evaluation per cardiology. He was seen by Dr. Petersen. He was started on Cardizem CD 120 a day and Eliquis which has been taking he has been doing fine, he indicates he was instructed to follow-up with [facility] cardiology for an abalation procedure, there is some issue with his insurance companies preferring that he have that procedure at [facility] has been trying to work through that, he was told to contact his cardiac cath lab radiology technologist regarding that, because of the weekend he was unable to reach anyone, he does not have that appointment scheduled because of all the above, Today he was usual state of health when he had about a 4 to 5-minute spell of rapid heart rate that resolved spontaneously and he came to the emergency department Had no fever no cough no chest pain he is feeling fine otherwise he does report he drank about 2 cups of coffee just before the onset of the rapid heart rate he has no current symptoms Physical Examination: [] 163/90, General, no distress resting comfortably no complaints HEENT is generally unremarkable The neck is supple no adenopathy Cardiovascular, regular rate and rhythm, he is in a sinus rhythm about 80 on the monitor Lungs, clear bilateral Abdomen, soft nontender Extremities, no clubbing cyanosis or edema Neurologic, awake alert answering questions appropriately moving all 4 extremities Thank Test Results: [] Emergency Department Course and Treatment: [] EKG shows a sinus rhythm he has no complaints she is resting comfortably in the bed, we did page Dr. Petersen his cardiac cath lab radiology technologist to discuss the above, Dr. Villafuerte, was decoration checker discussed the case with him in detail agreed he can be discharged home for studies are unremarkable he asked the patient was started on Cardizem 180 a day continue the anticoagulation and that he should follow-up with the cardiovascular center [facility] or [facility] approved by his insurance company Discussed all the above with the patient he is remained in a sinus rhythm he will avoid the coffee he was given a prescription for the Cardizem 180 a day and he will return for change in symptoms Treatment Plan: [] Home stable Disposition: [] Impression: [] Palpitations, history of A. fib RVR This note was generated with [employer] dictation software. It may contain incorrect words, spelling, and punctuation that were not noted in review of the chart prior to signing ED Disposition - Plan for ED Patient: Chief Complaint: Palpitations Referrals: Luan Arnold [Primary Care Provider] -
[2018-04-07] MEDS: dilTIAZem 60 MG Tablet PO (12:21)
[2018-04-07 12:37] LABS: Anion Gap 9 (5-15); BUN 14 mg/dL (7-18); BUN/Creat Ratio 13.1 RATIO (10-20); Calcium,Total 8.4 mg/dL (8.5-10.1); Chloride 106 mmol/L (98-107); Creatinine, Serum 1.07 mg/dL (0.70-1.30); EST Glomerular Filtration Rate 80 mL/min (>60); Est Glom Filt Rate - Afr Amer 96 mL/min (>60); Estimated Creatinine Clearance 90.97 ml/min; Glucose 121 mg/dL (74-106); Potassium 3.4 mmol/L (3.5-5.1); Sodium Level 140 mmol/L (136-145)
--- NOTE | 2018-04-07 13:35 | ED.DEP ---
ED Disposition - Plan for ED Patient: Chief Complaint: Palpitations Instructions: ED Palpitations, ED Paroxysmal Atrial Flutter Referrals: Luan Arnold [Primary Care Provider] -
[2018-04-07 13:46] VITALS: BP 142/85; PULSE 78; RESP 22; O2SAT 96
[2018-04-07 14:10] VITALS: PULSE 75; RESP 14; O2SAT 99
== END 2018-04-07 14:58 | disposition home or self-care (01) ==
LOC: ED 12:50
PROVIDERS: Emergency Provider Emergency Medicine; Family Provider Family Medicine; PCP Family Medicine
DX: I48.91 Unspecified atrial fibrillation (principal); Z79.01 Long term (current) use of anticoagulants
CPT/HCPCS: 80048; 84484; 85025; 93005; 99285; A4216

== ENCOUNTER 2018-04-08 11:12 | Emergency (ER) | payer OTHER, SELFPAY ==
[2018-04-07 11:36] VITALS: BMI 27.8
[2018-04-08 11:13] VITALS: BP 135/99; PULSE 76; RESP 15; TEMP 37.1; O2SAT 97; BMI 25.1
--- NOTE | 2018-04-08 12:09 | ED.DCSUM_ITS ---
- ER Visit Summary Date of Service: 04/08/18 Chief Complaint: Palpitations History of Present Illness: The patient is a 42 M presenting for evaluation secondary to palpitations. Patient states that the end of last month he was in the hospital secondary to new onset atrial fibrillation. Patient reports that he had rates close to 200, was brought into the hospital and was rate controlled. He was still in atrial fibrillation when he was discharged, but had plans for outpatient cardioversion. Patient spontaneously cardioverted however. Patient is currently on Eliquis for blood thinning, and on Cardizem for rate control. Patient states that intermittently he has been having issues with significant palpitations with any sort of exertion. He was seen in the emergency department for this yesterday, and had his Cardizem increased from 120 mg daily to 180 mg daily. Patient states he was unable to obtain in the 180 mg tablets as his pharmacy did not have them so he only took 120 mg today. Patient states that even with light exertion he is having issues with palpitations. Denies any chest pain or shortness of breath. He denies any significant caffeine usage. He denies any fevers or other associated symptoms. Physical Examination: Vital signs are within normal limits, patient is afebrile. General: Patient is well-nourished well-developed and in no acute distress. Head: Normocephalic, atraumatic Eyes: Pupils equal round and reactive bilaterally, extra occular motion intact bialterally ENT: Moist mucous membranes Neck: Supple, no lymphadenopathy, no JVD, no meningismus CVS: Heart regular rate and rhythm, no murmurs, rubs or gallops, radial pulses 2+ bilaterally Resp: Respirations nondistressed, lung sounds clear bilaterally Abdomen: Soft, nontender, nondistended, no palpable masses, normal bowel sounds Back: Nontender Extremities: Nontender, atraumatic, active full range of motion, no peripheral edema Skin: warm, no rashes, no petechia Neuro: Alert and oriented x 4, CN 2-12 intact, no lateralizing neurological defecits Psyc: Normal affect Test Results: EKG demonstrates sinus rhythm at [address] segments normal T waves no evidence of acute ischemia or arrhythmia Emergency Department Course and Treatment: Patient presenting for evaluation secondary to palpitations. Patient had a recent workup for paroxysmal A. fib. I do not believe that he requires further workup as he is currently on anticoagulation and medical therapy. I discussed his case with Dr. Freeman. He recommended giving the patient an additional dose of Cardizem in the emergency department. He then recommended that the patient start on his increased dose of Cardizem 180 mg daily, and in addition to that he will call in flecainide for the patient to start on. I informed the patient of this, and the patient was discharged in stable condition. Disposition: Discharge Impression: 1. Paroxysmal A. fib This note was generated with [employer] dictation software. It may contain incorrect words, spelling, and punctuation that were not noted in review of the chart prior to signing ED Disposition - Plan for ED Patient: Disposition: Home or Assisted Living Chief Complaint: Palpitations Diagnosis: Afib Instructions: ED Afib Referrals: Chino Petersen MD [STAFF PHYSICIAN] -
[2018-04-08 12:21] VITALS: BP 134/95; PULSE 75; PULSE 80; RESP 11; RESP 17; O2SAT 98
[2018-04-08] MEDS: dilTIAZem CD 120 MG Capsule PO (12:21)
--- NOTE | 2018-04-08 12:33 | EKGRS_ITS ---
Test Reason : PALPATATIONS Blood Pressure : / mmHG Vent. Rate : 075 BPM Atrial Rate : 075 BPM P-R Int : 184 ms QRS Dur : 084 ms QT Int : 370 ms P-R-T Axes : 059 058 036 degrees QTc Int : 413 ms Normal sinus rhythm Normal ECG Confirmed by AMOS BAILON, VANDANA ([id number]), scientific editor MARIA ELENA GÓMEZ ([id number]) on 04/10/2018 11:19:01 AM Referred By: YANIQUE Confirmed By:VANDANA TRINIDAD MD
== END 2018-04-08 12:22 | disposition home or self-care (01) ==
LOC: ED 12:13
PROVIDERS: Emergency Provider Emergency Medicine; Family Provider Family Medicine; PCP Family Medicine
DX: I48.0 Paroxysmal atrial fibrillation (principal); F32.9 Major depressive disorder, single episode, unspecified; Z79.01 Long term (current) use of anticoagulants; Z79.899 Other long term (current) drug therapy
CPT/HCPCS: 93005; 99284

== ENCOUNTER 2018-05-01 21:30 | Emergency (ER) | payer OTHER, SELFPAY ==
[2018-05-01 21:31] VITALS: BP 116/78; PULSE 76; RESP 12; TEMP 36.8; O2SAT 98; BMI 26.0
--- NOTE | 2018-05-01 21:55 | EKG12_ITS ---
Test Reason : CP Blood Pressure : / mmHG Vent. Rate : 070 BPM Atrial Rate : 070 BPM P-R Int : 206 ms QRS Dur : 090 ms QT Int : 392 ms P-R-T Axes : 078 062 044 degrees QTc Int : 423 ms Normal sinus rhythm Normal ECG Confirmed by AMOS BAILON, VANDANA ([id number]), editorial project manager MARIA ELENA GÓMEZ ([id number]) on 05/03/2018 9:49:38 AM Referred By: DR JEAN BAPTISTE Confirmed By:VANDANA TRINIDAD MD
--- NOTE | 2018-05-01 22:00 | RAD_ITS ---
STUDY: X-RAY CHEST REASON FOR EXAM: Male, 42 years old. Chest pain TECHNIQUE: AP portable COMPARISON: August 06, 2012 FINDINGS: The lungs are clear and expanded. There is no demonstrated pleural abnormality. Normal size heart. Normal mediastinum and brittni. Normal visualized pulmonary arteries. Normal visualized aortic arch and descending thoracic aorta. Normal visualized thoracic spine. Normal visualized ribs, clavicles, and shoulders. There is no demonstrated abnormality of the visualized soft tissue structures of the upper abdomen. RAD/Chest 1 View (Portable) IMPRESSION: Normal x-ray examination of the chest. Electronically Signed: Marlon Hansen MD at 23:05 EST , Service support ,
[2018-05-01] MEDS: 0.9% Normal Saline 1,000 ML 150 ML IV (22:03)
[2018-05-01] MEDS: Aspirin 81 MG TAB.CHEW 324 MG PO (22:04)
[2018-05-01 22:26] LABS: Anion Gap 8 (5-15); BUN 18 mg/dL (7-18); BUN/Creat Ratio 16.5 RATIO (10-20); Calcium,Total 8.4 mg/dL (8.5-10.1); Chloride 102 mmol/L (98-107); Creatinine, Serum 1.09 mg/dL (0.70-1.30); EST Glomerular Filtration Rate 78 mL/min (>60); Est Glom Filt Rate - Afr Amer 94 mL/min (>60); Glucose 88 mg/dL (74-106); Potassium 3.6 mmol/L (3.5-5.1); Sodium Level 141 mmol/L (136-145)
[2018-05-01 22:27] LABS: Absolute Lymphocyte Count 1.72 X10^3/ul (0.83-4.51); Absolute Neutrophil Count 2.3 X10^3/uL (2.0-7.7); Basophil# 0.03 X10^3/uL; Basophil% 0.7 % (0-1); Eosinophil# 0.05 X10^3/uL; Eosinophils% 1.1 % (0-5); Hemoglobin 15.2 g/dl (13.0-16.5); Lymphocyte # 1.72 X10^3/ul (4.0); Lymphocyte % 37.3 % (19-41); Mean Corp Hgb Conc 35.3 g/gl (32-36); Mean Corpuscular Hgb 29.8 pg (27.0-32.0); Mean Corpuscular Volume 84.3 fL (80-94); Monocyte# 0.49 X10^3/uL; Monocyte% 10.6 % (0-10); Neutrophil # 2.31 X10^3/uL (2.7-7.7); Neutrophil % 50.1 % (47-70); Platelet Count 232 K/mm3 (150-450); RBC Distribution Width CV 11.9 % (11.6-14.6); RBC Distribution Width SD 36.5 fl (35.1-43.9); White Blood Count 4.6 K/mm3 (4.4-11.0)
[2018-05-01 22:30] LABS: POSITIVE COUNT NO; POSITIVE DIFFERENTIAL NO; POSITIVE MORPHOLOGY NO
[2018-05-01 22:38] VITALS: BP 115/86; PULSE 66; RESP 16; O2SAT 99
--- NOTE | 2018-05-01 23:05 | ED.DCSUM_ITS ---
- ER Visit Summary Date of Service: 05/01/18 Chief Complaint: Chest pain History of Present Illness: The patient is a [address] Trinity Arnold. He reports that he had right-sided chest pain 6 days ago. He went to [facility] and had a blood work and EKG that were normal. He was ramos sferred to [facility] and had a heart catheterization 5 days ago. Reports that this showed a 40% LAD lesion. However, he states that there was not good flow through this. Because of this he was transferred to [facility]. Saw cardiothoracic surgeon there who stated that at this time he does not need a bypass but he is right on the verge of that. He was discharged yesterday. Is instructed to go to the hospital if he developed chest pain. Patient reports that approximately 1 hour ago at rest he had the onset of a dull right-sided chest pain is 4-10 at worst and is pain-free currently. It was worsened by nothing including exertion. Is relieved by nitroglycerin. States that he is nauseated after taking nitro. He denies any nausea prior to this. No shortness of breath or diaphoresis. Review of systems is otherwise negative. Physical Examination: Vitals: Stable. Afebrile. General: Well-nourished and well-developed. Head: Normocephalic atraumatic. Neck: Supple, no lymphadenopathy. No JVD. Nontender. Cardiovascular: Regular rate and rhythm. No murmurs. Respiratory: No respiratory distress. Clear to auscultation bilaterally. Abdominal: Soft, nontender, nondistended, normal bowel sounds. No guarding, rebound, or peritoneal signs. Back: Nontender. Extremities: Nontender, no edema. Skin: Normal color, no rash. Neurologic: Alert and oriented ?3. Cranial nerves II through XII are intact. Normal strength and sensation. Psych: Normal affect. Test Results: EKG sinus at 70 and is unchanged from last month. Troponin is negative. Chem-7 more for calcium 8.4. CBC is more for monocytes of 11. Chest x-ray is normal. Emergency Department Course and Treatment: Patient was treated with aspirin p.o. After his labs returned he was given Imdur p.o. Treatment Plan: Patient was discussed with Dr. Freeman. He will be placed on Imdur at home. Instructed follow-up Dr. Petersen as soon as possible. Return to the emergency department for any worsening symptoms. Disposition: To home in improved and stable condition. Impression: 1. Atypical chest pain. 2. MEAGAN score of 2. 3. Coagulopathy on Eliquis. This note was generated with [employer] dictation software. It may contain incorrect words, spelling, and punctuation that were not noted in review of the chart prior to signing ED Disposition - Plan for ED Patient: Disposition: [facility] Chief Complaint: Chest Pain Instructions: ED Chest Pain Atypical Unkn Cause Prescriptions: Isosorbide Mononitrate [Imdur] 30 mg PO DAILY #30 tablet Referrals: Chino Petersen MD [STAFF PHYSICIAN] - As soon as possible
[2018-05-01] MEDS: Isosorbide Mononitrate 30 MG Tablet PO (23:30)
[2018-05-01 23:39] VITALS: BP 109/81; PULSE 72; RESP 18; O2SAT 100
--- NOTE | 2018-05-01 23:40 | ED.RN ---
THIS NURSE REVIEWED D/C INSTRUCTIONS WITH PT AND VISITOR. PT VERBALIZED UNDERSTANDING OF INSTRUCTIONS. IV D/C. IV CATHETER INTACT. PT TOLERATED WELL. PT DENIES FURTHER NEEDS OR QUESTIONS AT THIS TIME. PT AMBULATES FROM ROOM ON OWN WITHOUT ASSISTANCE FROM STAFF
--- OUTSIDE RECORDS SUMMARY | 2018-06-17 22:51 | XMS RPT_ITS | Summary of Care ---
:1975 Author Organization [facility] Address [address] [place] [address] Phone Care Team Providers Name Role Phone Unavailable Primary Care Provider Unavailable Reason for Visit Reason Comments Referral Encounter Details Date Type Department Care Team Description 04/02/2018 Telephone [facility] EvgenyMine Referral [address] [place] [address] Social History Tobacco Use Types Packs/Day Years Used Date Never Assessed Sex Assigned at Date Recorded Not on file as of this encounter Plan of Treatment Upcoming Encounters Date Type Specialty Care Team Description 04/18/2018 Clinical Support Cardiovascular Medicine Encounter 04/18/2018 Office Visit Electrophysiology Celeste Rush MD [address] [facility] [address] [place] [address] Health Maintenance Due Date Last Done Comments HIV SCREENING DISCUSSION 1986 TETANUS 09/14/1991 TDAP (ADULT) 1992 LIPID SCREENING 2013 INFLUENZA VACCINE (#1) 2018 as of this encounter
--- OUTSIDE RECORDS SUMMARY | 2018-06-17 22:51 | XMS RPT_ITS | Summary of Care ---
:1975 Author Organization [facility] Address [address] [place] [address] Phone Care Team Providers Name Role Phone Unavailable Primary Care Provider Unavailable Encounter Details Date Type Department Care Team Description 04/03/2018 Outside Orders Central Scheduling Provider, [address] [address] Allergies No Known Allergiesas of this encounter Medications Prescription Sig. Disp. Refills Start Date End Date Status pantoprazole [address] Take 20 mg by Active tablet DR mouth daily. paroxetine 10 MG Tab Take 10 mg by Active tablet mouth daily. apixaban (ELIQUIS) 5 MG Take 5 mg by mouth Active Tab tablet every 12 hours. diltiazem 120 MG Cap SR Take 120 mg by Active 24HR capsule XL mouth daily. as of this encounter Social History Tobacco Use Types Packs/Day Years Used Date Never Smoker Smokeless Tobacco: Never Used Alcohol Use Drinks/Week oz/Week Comments No Sex Assigned at Date Recorded Not on file as of this encounter Plan of Treatment Upcoming Encounters Date Type Specialty Care Team Description 04/18/2018 Clinical Support Cardiovascular Medicine Encounter 04/18/2018 Office Visit Electrophysiology Celeste Rush MD [address] [place] [address] Health Maintenance Due Date Last Done Comments HIV SCREENING DISCUSSION 1986 TETANUS 09/14/1991 TDAP (ADULT) 1992 LIPID SCREENING 2013 INFLUENZA VACCINE (#1) 2018 as of this encounter Procedures Procedure Name Priority Date/Time Associated Diagnosis Comments ECG (OUTSIDE) Routine 04/01/2018 12:00 AM EST STRESS TEST (OUTSIDE) Routine 03/18/2018 12:00 AM EDT in this encounter Results ECG (OUTSIDE) (04/01/2018) Narrative Performed At STRESS TEST (OUTSIDE) (03/18/2018) Narrative Performed At in this encounter
--- OUTSIDE RECORDS SUMMARY | 2018-06-17 22:53 | XMS RPT_ITS ---
:1975 Author Organization OHIP Support Name Relationship Address Phone MAVIS GÓMEZ Unavailable [address] + [place], [place] [phone] MAVIS GÓMEZ Unavailable [address] Unavailable [place], [place] [phone] NOT GIVEN Unavailable [address] [place] [address] MAVIS GÓMEZ Unavailable [address] + [place], [place] [phone] MAVIS GÓMEZ Unavailable [address] Unavailable [place], [place] [phone] NOT GIVEN Unavailable [address] Unavailable [place], [place] [phone] [place] [address] 1 Unavailable [address] + [place] [address] MAVIS GÓMEZ Unavailable [address] + [place] [address] MAVIS GÓMEZ Unavailable [address] + [place], [place] [phone] MAVIS GÓMEZ Unavailable [address] Unavailable [place], [place] [phone] NOT GIVEN Unavailable [address] [place] [address] [facility] 1 Unavailable [address] + [place] [address] MAVIS GÓMEZ Unavailable [address] + [place] [address] MAVIS GÓMEZ Unavailable [address] + [place] [address] MAVIS GÓMEZ Unavailable [address] + [place] [address] MAVIS GÓMEZ Unavailable [address] + [place], [place] [phone] MAVIS GÓMEZ Unavailable [address] Unavailable [place], [place] [phone] NOT GIVEN Unavailable [address] [place] [address] MAVIS GÓMEZ Unavailable [address] + [place], [place] [phone] MAVIS GÓMEZ Unavailable [address] Unavailable [place], [place] [phone] NOT GIVEN Unavailable [address] [place] [address] [facility] 1 Unavailable [address] + [place] [address] MAVIS GÓMEZ Unavailable [address] + [place] [address] [facility] 1 Unavailable [address] + [place] [address] MAVIS GÓMEZ Unavailable [address] + [place] [address] [facility] 1 Unavailable [address] + [place] [address] MAVIS GÓMEZ Unavailable [address] + [place] [address] [facility] 1 Unavailable [address] + [facility] [place] [place] [address] MAVIS GÓMEZ Unavailable [address] + [place] [address] [facility] 1 Unavailable [address] + [place] [address] MAVIS GÓMEZ Unavailable [address] + [place] [address] [facility] 1 Unavailable [address] + [place] [address] MAVIS GÓMEZ Unavailable [address] + [place] [address] [facility] 1 Unavailable [address] + [place] [address] MAVIS GÓMEZ Unavailable [address] + [place] [address] [facility] 1 Unavailable [address] + [place] [address] MAVIS GÓMEZ Unavailable [address] + [place] [address] [facility] 1 Unavailable [address] + [place] [address] MAVIS GÓMEZ Unavailable [address] + [place] [address] [facility] 1 Unavailable [address] + [place] [address] MAVIS GÓMEZ Unavailable [address] + [place] [address] MAVIS GÓMEZ Unavailable [address] + [place], [place] [phone] MAVIS GÓMEZ Unavailable [address] Unavailable [place], [place] [phone] NOT GIVEN Unavailable [address] [place] [address] [facility] 1 Unavailable / +/ [place] [address] MAVIS GÓMEZ Unavailable [address] + [place] [address] MAVIS GÓMEZ Unavailable [address] + [place], [place] [phone] MAVIS GÓMEZ Unavailable [address] Unavailable [place], [place] [phone] NOT GIVEN Unavailable [address] [place] [address] [facility] 1 Unavailable / +/ [place] [address] MAVIS GÓMEZ Unavailable [address] + [place] [address] [facility] 1 Unavailable / +/ [place] [address] MAVIS GÓMEZ Unavailable [address] + [place] [address] [facility] 1 Unavailable / +/ [place] [address] MAVIS GÓMEZ Unavailable [address] + [place] [address] [facility] 1 Unavailable / +/ [facility] [place] [place] [address] GÓMEZ, MAVIS Unavailable [address] [facility] [address] + [place] [address] [facility] 1 Unavailable / +/ [facility] [place] [place] [address] GÓMEZ, MAVIS Unavailable [address] [facility] [address] + [place] [address] [facility] 1 Unavailable / +/ [facility] [place] [address] GÓMEZ, MAVIS Unavailable [address] [facility] [address] + [place] [address] Care Team Providers Name Role Phone Brown, Luan Primary Care Unavailable Rebel Melendez Attending Unavailable Chino Petersen Attending Unavailable Brown, Luan Referring Unavailable Brown, Luan Primary Care Unavailable Dinah Torres Attending Unavailable Katya Alvarado Attending Unavailable Nelsy Awad Attending Unavailable Brown, Luan Referring Unavailable Nelsy Awad Attending Unavailable Brown, Luan Referring Unavailable Nelsy Awad Attending Unavailable Brown, Luan Referring Unavailable Brown, Luan Primary Care Unavailable Quique Pruitt Attending Unavailable Brown, Luan Referring Unavailable Brown, Luan Primary Care Unavailable Nelsy Awad Attending Unavailable Brown, Luan Referring Unavailable White, Yuli Admitting Unavailable White, Yuli Attending Unavailable Brown, Luan Primary Care Unavailable Roel Mckoy Consulting Unavailable White, Yuli Admitting Unavailable White, Yuli Attending Unavailable Brown, Luan Primary Care Unavailable White, Yuli Consulting Unavailable White, Yuli Admitting Unavailable Roel Mckoy Attending Unavailable Brown, Luan Primary Care Unavailable Roel Mckoy Consulting Unavailable White, Yuli Consulting Unavailable White, Yuli Admitting Unavailable Paintsil, Livingston Attending Unavailable Brown, Luan Primary Care Unavailable Javi Mckoyel Consulting Unavailable White, Yuli Consulting Unavailable White, Yuli Admitting Unavailable Chino Petersen Attending Unavailable Brown, Luan Primary Care Unavailable Javi Mckoyel Consulting Unavailable White, Yuli Consulting Unavailable Nelsy Awad Attending Unavailable Brown, Luan Referring Unavailable Quique Pruitt Attending Unavailable Brown, Luan Referring Unavailable Roel Mckoy Attending Unavailable White, Yuli Referring Unavailable Brown, Luan Primary Care Unavailable Deepa Harman Attending Unavailable Brown, Luan Primary Care Unavailable Elpidio Negron Attending Unavailable NESTOR LYON MD Admitting Unavailable NESTOR LYON MD Attending Unavailable PHYSICIAN, NOT RECORDED Primary Care Unavailable IRON VALDES, DR. Rosa BANKS Consulting Unavailable LUCIA VALDES, DR. LR Consulting Unavailable JULIAN VALDES, MD. JUNIE Palacio Consulting Unavailable DALTON CALDWELL Admitting Unavailable DAVID BRADY Referring Unavailable IZAIAH, ALYSIA Attending Unavailable IZAIAH, ALYSIA Referring Unavailable CANTILLOROEL Salvador Admitting Unavailable IZAIAH, ALYSIA Attending Unavailable SILVESTRE CHO Referring Unavailable DREANN-MARIE KAPLAN Admitting Unavailable KARTHIK REYES Attending Unavailable JAMIE QUINONES Referring Unavailable JUNIE REYES Attending Unavailable CHINO PETERSEN Referring Unavailable LUAN TYLER Primary Care Unavailable JAYSON, LUAN Referring Unavailable ALFREDO IBARRA DO Admitting Unavailable ALFREDO IBARRA DO Attending Unavailable ALFREDO IBARRA DO Primary Care Unavailable LUAN TYLER Consulting Unavailable PROVIDER, UNKNOWN Consulting Unavailable PROVIDER, UNKNOWN Consulting Unavailable PROVIDER, UNKNOWN Consulting Unavailable SHAWN CERVANTES DO Admitting Unavailable SHAWN CERVANTES DO Attending Unavailable LUAN TYLER Referring Unavailable SHAWN CERVANTES DO Primary Care Unavailable LUAN TYLER Consulting Unavailable PROVIDER, UNKNOWN Consulting Unavailable PROVIDER, UNKNOWN Consulting Unavailable PROVIDER, UNKNOWN Consulting Unavailable LUCILLE LOPEZ MD Admitting Unavailable LUCILLE LOPEZ MD Attending Unavailable LUCILLE LOPEZ MD Primary Care Unavailable LUAN TYLER Consulting Unavailable LUAN TYLER Referring Unavailable PROVIDER, UNKNOWN Consulting Unavailable PROVIDER, UNKNOWN Consulting Unavailable PROVIDER, UNKNOWN Consulting Unavailable HABERBERGER, RONAN M Admitting Unavailable HABERBERGER, RONAN M Attending Unavailable LUAN TYLER Referring Unavailable HABERBERGER, RONAN M Primary Care Unavailable LUAN TYLER Consulting Unavailable PROVIDER, UNKNOWN Consulting Unavailable PROVIDER, UNKNOWN Consulting Unavailable PROVIDER, UNKNOWN Consulting Unavailable HABERBERGER, RONAN M Admitting Unavailable HABERBERGER, RONAN M Attending Unavailable LUAN TYLER Referring Unavailable HABERBERGER, RONAN M Primary Care Unavailable JAYSON LUAN Consulting Unavailable PROVIDER, UNKNOWN Consulting Unavailable PROVIDER, UNKNOWN Consulting Unavailable PROVIDER, UNKNOWN Consulting Unavailable TOR, DR FREDDY Frost Admitting Unavailable TOR, DR FREDDY Frost Attending Unavailable TOR, DR FREDDY Frost Primary Care Unavailable LUAN TYLER Consulting Unavailable PROVIDER, UNKNOWN Consulting Unavailable PROVIDER, UNKNOWN Consulting Unavailable PROVIDER, UNKNOWN Consulting Unavailable EPIFANIO, DR STACI Tomlinson Admitting Unavailable EPIFANIO, DR STACI Tomlinson Attending Unavailable LUAN TYLER Referring Unavailable EPIFANIO, DR STACI Tomlinson Primary Care Unavailable LUAN TYLER Consulting Unavailable PROVIDER, UNKNOWN Consulting Unavailable PROVIDER, UNKNOWN Consulting Unavailable PROVIDER, UNKNOWN Consulting Unavailable PROBLEMS PROBLEMS DATE TYPE CONDITION / CODE ATTENDING STATUS SOURCE 05/26/2018 Active Unknown / UNK(Unknown) KARTHIK REYES Active [facility] [place] Repository 05/09/2018 Active Paroxysmal atrial IZAIAH, Active [facility] fibrillation / [facility] I48.0(ICD-10) [place] Repository 05/09/2018 Active Acute ischemic heart IZAIAH, Active [facility] disease, unspecified / [facility] I24.9(ICD-10) [place] Repository 05/08/2018 Active Chest pain, IZAIAH, Active [facility] unspecified / [facility] R07.9(ICD-10) [place] Repository 04/29/2018 Active Supraventricular IZAIAH, Active [facility] tachycardia / [facility] I47.1(ICD-10) [place] Repository 04/29/2018 Active Tachycardia, IZAIAH, Active [place] unspecified / [facility] R00.0(ICD-10) [place] Repository 04/29/2018 Active Orthostatic IZAIAH, Active [facility] hypotension / [facility] I95.1(ICD-10) [place] Repository 04/28/2018 Active Atherosclerotic heart IZAIAH, 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 Results must be interpreted within the clinical setting. 1.Non-ischemic pathology can also cause elevated troponin levels (e.g., acute pulmonary embolism, myocarditis, pericarditis, heart failure, intracranial injury, rhabdomyolisis, sepsis, shock and renal insufficiency). 2.Approximately 1% of healthy adults have elevated troponin levels. 3.Analytical false positive results rarely occur(due to multiple interferences such as heterophile antibodies). Performed By: #### [id number] #### [facility],[address] [place] [id number] CBC Collected: 06/11/2018 Status: F Source: [facility] 8:32 AM [facility] REPOSITORY TYPE CODE TESTS RESULT OUT OF RANGE REFERENCE UNITS LAB CBC(LOINC) CBC Result Comment: CBC-COMPLETE BLOOD COUNT LAB WBC(LOINC) 4.5 - 10.8 x 10EE3/UL WBC 5.0 LAB RBC(LOINC) 4.50 - x 10EE6/UL 6.00 RBC 5.43 LAB HEMOGLOBIN(LOINC) 13.0 - g/dl 17.5 HEMOGLOBIN 16.8 LAB HEMATOCRIT(LOINC) 40.0 - % 52.0 HEMATOCRIT 46.6 LAB MCV(LOINC) 81 - 98 fl MCV 86 LAB MCH(LOINC) 27 - 33 pg MCH 31 LAB MCHC(LOINC) 32 - 36 X10 3 MCHC 36 LAB RDW/CV(LOINC) 12.0 - % 15.6 RDW/CV 13.1 LAB PLATELET(LOINC) 150 - 450 x10EE3/UL PLATELET 225 LAB MPV(LOINC) 6.4 - 10.5 fl MPV 8.9 Result Comment: AUTOMATED DIFFERENTIAL LAB NEUT %(LOINC) 46.0 - 76.0 % NEUT % 52.0 LAB LYMPH %(LOINC) 20.0 - 45.0 % LYMPH % 35.2 LAB MONOS %(LOINC) 0.0 - 10.0 % MONOS % 9.9 LAB EO %(LOINC) 0.0 - 7.0 % EO % 1.9 LAB BASO %(LOINC) 0.0 - 2.0 % BASO % 1.0 LAB Lymph #(LOINC) 0.80 - 2.80 x10EE3/U L Lymph # 1.80 LAB Neut #(LOINC) 1.50 - 7.10 x10EE3/U L Neut # 2.60 LAB Wake #(LOINC) 0.20 - 1.00 x10EE3/U L Wake # 0.50 LAB EO #(LOINC) 0.00 - 0.50 x10EE3/U L EO # 0.10 LAB Baso #(LOINC) 0.00 - 0.10 x10EE3/U L Baso # 0.00 LAB MANUAL DIFF(LOINC) MANUAL DIFF N/A LAB MORPHOLOGY(LOINC ) MORPHOLOGY N/A Result Comment: {CD] Performed By: #### [id number] #### [place] [id number] TROPONIN Collected: 06/11/2018 Status: F Source: [facility] 8:32 [facility] REPOSITORY TYPE CODE TESTS RESULT OUT OF REFERENCE UNITS RANGE LAB TROPONIN 0.00 - 0.05 ng/ml I(LOINC) TROPONIN I <0.01 Result Comment: Elevated troponin (above the 99th percentile) usually indicates myocardial ischemia. Results must be interpreted within the clinical setting. 1.Non-ischemic pathology can also cause elevated troponin levels (e.g., acute pulmonary embolism, myocarditis, pericarditis, heart failure, intracranial injury, rhabdomyolisis, sepsis, shock and renal insufficiency). 2.Approximately 1% of healthy adults have elevated troponin levels. 3.Analytical false positive results rarely occur(due to multiple interferences such as heterophile antibodies). Performed By: #### [id number] #### [place] [id number] CMP WITH EGFR Collected: 06/11/2018 Status: F Source: [facility] 8:[address] [place] [address] TYPE CODE TESTS RESULT OUT OF RANGE REFERENCE UNITS LAB CMP with eGFR(LOINC) CMP with eGFR Result Comment: COMPREHENSIVE METABOLIC PANEL LAB SODIUM(LOINC) 136 - 145 mmol/l SODIUM 137 LAB POTASSIUM(LOINC) 3.5 - 5.1 mmol/L POTASSIUM 4.2 LAB CHLORIDE(LOINC) 98 - 107 mmol/L CHLORIDE 101 LAB CO2(LOINC) 21.0 - mmol/L 31.0 CO2 31.0 LAB GLUCOSE(LOINC) 74 - 106 mg/dl GLUCOSE High 107 LAB BUN(LOINC) 6 - 20 mg/dl BUN 16 LAB CREATININE(LOINC) 0.7 - 1.3 mg/dl CREATININE 1.0 LAB AST/SGOT(LOINC) 13 - 39 U/L AST/SGOT 23 LAB ALK PHOS(LOINC) 38 - 126 U/L ALK PHOS 51 LAB CALCIUM(LOINC) 8.6 - mg/dl 10.2 CALCIUM 9.4 LAB TOTAL 6.4 - 8.3 g/dl PROTEIN(LOINC) TOTAL PROTEIN 7.1 LAB ALBUMIN(LOINC) 3.4 - 4.8 g/dL ALBUMIN 4.6 LAB GLOBULIN(LOINC) 1.5 - 3.8 G/DL GLOBULIN 2.5 LAB A/G RATIO(LOINC) 0.9 - 1.6 A/G High RATIO 1.8 LAB TOTAL BILI(LOINC) 0.0 - 1.5 mg/dl TOTAL BILI 1.0 LAB B/C RATIO(LOINC) 0 - 30 ratio B/C RATIO 16 LAB ALT/SGPT(LOINC) 10 - 40 U/L ALT/SGPT High 42 LAB ANION GAP(LOINC) 10 - 20 mmol/L ANION Low GAP 9 LAB AGE(LOINC) years AGE 42 LAB eGFR(LOINC) 60 - 999 ML/MINUTE eGFR >60 LAB eGFR(AA)(LOINC) 60 - 999 ML/MINUTE eGFR(AA) >60 Result Comment: ACCORDING TO THE NATIONAL KIDNEY DISEASE EDUCATION PROGRAM(NKDE), A NORMAL eGFR IS A VALUE GREATER THAN OR EQUAL TO 60 ML/MIN/1.73 SQ METERS. CHRONIC KIDNEY DISEASE: <60mL/MIN/1.73 SQ METERS KIDNEY FAILURE: <15mL/MIN/1.73 SQ METERS THIS TEST SHOULD ONLY BE USED FOR PATIENTS 18 YEARS OF AGE AND OLDER. Performed By: #### [id number] #### [facility],[address] [place] [address] CNC Observed: 05/30/2018 Status: COMPLETED Source: [place] 12:00 AM [facility] [place] REPOSITORY Letter Text May 30, 2018 Cristina Gómez [address] [place] [address] Dear Mr. Gómez, The nurses and staff of J5-2 nursing unit at [facility] hope this letter finds you feeling well and progressing in your recovery. It was an honor for us to provide your nursing care. We know that placing our Patients First and maintaining a culture of continuous improvement, each and every day, are essential to the success of our organization. We want to hear from you. If you have any comments, questions or concerns about your hospital stay, please feel free to contact me, Juan Ramon Monge RN at [phone] or e-mail [email or web address]. Additionally, you will receive a survey in the mail asking you to rate the care you received while in the hospital. Please take the time to complete and send back the survey. I personally review all the results and would appreciate your feedback. Please consider completing this survey for each individual visit. Thank you in advance for your participation and thank you for choosing the [facility] for your healthcare needs. Sincerely, Juan Ramon Monge RN Nurse [employer] Operator J5-2 Thoracic Surgery Step-down Unit NURSING PROG Observed: 05/28/2018 Status: COMPLETED Source: [place] 2:14 PM [facility] REPOSITORY HNO ID: [id number] Author: Valerie (Rn) NIRU Aviles Service: (none) Author Type: Registered Nurse Type: Nursing Progress Note Filed: 05/28/2018 2:17 PM Note Text: Nursing Progress Note Patient Name: Cristina Gómez [address] Event(s) / Intervention Note: The patient complained of the following problems: chest pain. The time of the event occurred at: 1415. The following intervention(s) were initiated: primary team [id number] paged and notified. BP 117/57 HR 67, NSR on tele. Pt describes the pain to be dull and achy, not radiating with no SOB or palpitations. After the initiated interventions, the following observation(s) were made: nothing further noted. Will continue to observe and check with patient.. This note was completed by: Valerie Aviles RN CNDS Observed: 05/28/2018 Status: COMPLETED Source: [place] 1:29 PM [facility] REPOSITORY HNO ID: [id number] Author: Karthik Reyes Service: Cardiovascular Medicine Author Type: Physician Type: Discharge Summaries Filed: 06/10/2018 11:30 AM Note Text: Department of Cardiovascular Medicine Discharge Summary PATIENT NAME: Cristina Gómez ADMISSION DATE: 05/26/2018 DISCHARGE DATE: 05/28/2018 Attending Physician: Karthik Reyes Code Status: Not on file Primary Service: i Clinical Cardiology A Admission Diagnosis: Discharge Diagnosis: Chest pain Secondary Diagnoses: Patient Active Hospital Problem List: Angina at rest (HCC) (05/26/2018) Reason for Hospitalization: Chest Pain Hospital Course: Mr. 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 He was medically managed and planned to follow up with Dr. Bliss on 06/13 for coronary CTA for anatomic and functional evaluation of myocardial bridge, as well as for stress testing He was readmitted on 05/26/2017 due to similar complains. Pain resolved with nitroglycerine patch. Patient got a CTA Coronaries for anatomical and function evaluation - which showed 'normal variant coronary anatomy without evidence of atherosclerotic changes or stenotic disease'. Patient has a loop recorder tod detect underlying arrhythmias which did showed sinus rhythm and no evidence of arryhtmias since 05/08. Dr. Bliss has been following this patient as outpatient and recommended a - Dobutamine nuclear stress testing PET which is now rescheduled for Jun 13 2017. Consults: None Major Procedure or Operation: None Other Procedures, Testing AND Radiology: None Patient Condition at Discharge: Improved Disposition: Home/Self Care Information Provided to the Patient: Patient given copy of After Visit Summary which included activity instructions, diet instructions, wound care instructions, medication instructions and follow up appointment ALLERGIES No Known Allergies Discharge Medications: Current Discharge Medication List CONTINUE these medications which have NOT CHANGED atorvastatin (LIPITOR) 80 mg Take 80 mg by mouth daily at bedtime. Qty: 90 tablet Refills: 3 metoprolol succinate ER (TOPROL XL) 12.5 mg Take 12.5 mg by mouth twice daily. Qty: 90 tablet Refills: 3 esomeprazole (NexIUM) 1 capsule Take 1 capsule by mouth once daily. flecainide (TAMBOCOR) 1 tablet Take 1 tablet by mouth every 12 hours. aspirin 81 mg Take 81 mg by mouth once daily. Qty: 90 tablet Refills: 1 nitroglycerin sublingual (NITROQUICK) 0.4 mg Dissolve 0.4 mg under the tongue every 5 minutes as needed. Qty: 1 Bottle of 25 Refills: 0 ELIQUIS 5 mg Take 5 mg by mouth twice daily. 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 Highest Readmission Risk Score: 9 The 30 day readmissions risk score is derived from an internally validated risk model which evaluates patient level characteristics, utilization history, medication orders and lab results up until the day of discharge. Patients with a score of 40 or above are considered highest risk for readmission. Specific patient level drivers will be listed at the bottom of the summary. This patient?s risk for 30-day readmission is determined using the following contributing drivers Pt variables contributing to increased readmission risk: 12 Most Recent BUN Result 11 Active Medication Orders 8.8 First Resulted Calcium During Admission 2 Number of Hospitalizations (12 mos.) 1 Insurance - Medicare 1 Active Anticoagulant Electronically SIGNED by Licensed Independent Practitioner: Vale Castanon DO PROGRESS Observed: 05/28/2018 Status: COMPLETED Source: [place] 5:54 AM [facility] REPOSITORY [facility] ID: [id number] Author: Karthik Reyes Service: Cardiovascular Medicine Author Type: Physician Type: Progress Notes Filed: 05/28/2018 1:09 PM Note Text: [facility]ICINE PROGRESS NOTE PRIMARY SERVICE: Hvi Clinical Cardiology A HOSPITAL DAY: # 2 INTERVAL HISTORY No overnight events. VSS. No chest pain. Loop recorder shows no arrhythmias since 04/28. CTA yesterday - Normal variant coronary anatomy without evidence of atherosclerotic changes or stenotic disease. Plan for today Dobutamine stress test. Possible discharge if patient is pain free. PHYSICAL EXAM BP 115/61 Pulse 62 Temp 36.7 ?C (98 ?F) (Oral) Resp 18 Ht 177.8 cm (5' 10) Wt 78.7 kg (173 lb 8 oz) SpO2 95% BMI 24.89 kg/m? Intake/Output Summary (Last 24 hours) at 05/28/18 0556 Last data filed at 05/27/18 1807 Gross per 24 hour Intake 820 ml Output 400 ml Net 420 ml General Appearance: Well developed HEENT: PERRLA and EOM's intact Lungs: Clear Heart: Regular rate AND rhythm Abdomen: Soft Skin: Warm Musculoskeletal: No deformities Neurologic/Psychiatric: Oriented to time, place AND person MEDICATIONS Current hospital medications: perflutren lipid microspheres 1.1 mg/mL 1.3 mL injection (TouchOfModern) 1.3 mL INTRAVENOUS DIRECTED PRN iv contrast (radiology procedure) INTRAVENOUS DIRECTED PRN flecainide 100 mg tab(s) (TAMBOCOR) 100 mg ORAL q 12 H apixaban 5 mg tab(s) (ELIQUIS) 5 mg ORAL BID pantoprazole DR 40 mg tab(s) (PROTONIX) 40 mg ORAL DAILY (6 AM) aspirin 81 mg chewable tab(s) 81 mg ORAL DAILY nitroglycerin sublingual 0.4 mg tab(s) (NITROQUICK) 0.4 mg SUBLINGUAL q 5 MIN PRN atorvastatin 80 mg tab(s) (LIPITOR) 80 mg ORAL AT BEDTIME metoprolol succinate ER 12.5 mg tab(s) (TOPROL XL) 12.5 mg ORAL BID acetaminophen 325-650 mg tab(s) (TYLENOL) 325-650 mg ORAL q 4 H PRN docusate sodium 100 mg cap(s) (COLACE) 100 mg ORAL BID PRN PARoxetine 10 mg tab(s) (PAXIL) 10 mg ORAL DAILY DATA Recent Labs 05/28/18 0320 05/27/18 0257 05/26/18 2315 WBC 5.05 5.40 5.16 HB 15.9 14.5 14.7 HCT 44.3 41.2 41.0 PLT 244 211 216 Recent Labs 05/28/18 0320 05/27/18 0257 05/26/18 2315 NA 141 143 142 K 3.8 4.2 4.6 CO2 27 29 28 BUN 12 10 10 CREAT 0.97 1.05 0.98 GLUC 81 93 101* MG 2.2 2.0 2.1 IMAGING EKG: most recent image reviewed, most recent report reviewed, Sinus rhythm ? TELE: most recent recordings reviewed ? CXR: most recent image reviewed, most recent report reviewed ? Echocardiogram: most recent image reviewed, most recent report reviewed, 04/29/2018 - Exam indication: Acute chest pain with suspected CA - The left ventricle is normal in size. There is no left ventricular hypertrophy. Left ventricular systolic function is normal. EF = 58 ? 5% (2D 4-ch.) Optison contrast used for endocardial border detection. Normal left ventricular diastolic function. - The right ventricle is normal in size. Right ventricular systolic function is normal. - Estimated right ventricular systolic pressure is 22 mmHg consistent with normal pulmonary artery pressures. Estimated right atrial pressure is 5 mmHg. - Exam was compared with the prior echocardiographic exam performed on 02-04-2014. Similar findings reported. ? Cardiac Catheterization: most recent image reviewed, most recent report reviewed, 05/08/2018 Coronary Anatomy: Left Dominant Injection Site(s): Left Main Coronary Artery and Right Coronary Artery LMT: - The proximal LMT is narrowed 20 % - focal disease. ?Additional Comment: There is an area of mild disease in the proximal LMT with <30% stenosis. IVUS showed eccentric plaque in this location with minimal luminal area of 12.4 mm2. ? LAD: - The proximal LAD - mild diffuse disease. - The mid LAD - mild diffuse disease and myocardial bridge. - The distal - mild diffuse disease and myocardial bridge. ?Additional Comment: The proximal LAD has no significant disease and gives rise to ?a large first diagonal vessel. In the mid to distal LAD there is a long segment myocardial bridge with mild systolic compression. The mid and distal LAD also have ?mild diffuse coronary artery disease. iFR before the myocardial bridge was 0.92, and iFR after the myocardial bridge was 0.89. The distal LAD wraps around the apex ?to supply the distal posterior interventricular septum. ? LCX: - The Circumflex is normal. ?Additional Comment: Large, dominant vessel with no significant disease. ? RAMUS: - The Ramus is normal. RCA: - RCA is normal. ?Additional Comment: Small, non-dominant vessel. ? IVUS Results: There is eccentric plaque in the proximal LMT with minimal luminal area of 12.4 mm2. Impression: 1. Mild eccentric plaque in the proximal LMT with <30% stenosis, MLA 12.4 mm2 2. 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 3. Mild coronary artery disease in the LAD. ? Recommended Treatment: Medical Therapy. Plan: 1. Risk factor reduction and optimal medical therapy for coronary artery disease. 2. Follow up with Dr. Bliss for coronary CTA and exercise stress test for further anatomic/functional evaluation of LAD myocardial bridge. ASSESSMENT AND PLAN None. ?Last triggered event dated 03/17/18 EGM shows AF with 4 second pause. ?AF triggered event dated 03/16/18 lasting 53 hours. Anticoagulants listed Eliquis ? ASSESSMENT AND PLAN: 42 year old male with PMH significant for paroxysmal atrial fibrillation on flecainide, CAD with myocardial bridge, anxiety, POTS syndrome who presents as a transfer from an outside hospital for further evaluation of chest pain, resolved on presentation. ? #Chest pain - Occurred at rest, R sided, substernal, relieved with nitroglycerin - Trop negative, EKG w/o ischemic changes - Arrived with nitroglycerin patch, chest pain free - Known history of CAD and myocardial bridge, treated with medical therapy a recent admission, due for stress test and coronary CTA for anatomical and functional evaluation - History of arrhythmia with loop recorder - Pain does not coorelate with food, he has been on acid suppression as well as had normal manometry back in 2014 during initial evaluation ? Plan: - Repeat troponin, EKG - Monitor on telemetry - Consider exercise stress testing to assess for ischemia - Loop recorder check to assess for arrhythmia which may be precipitating chest pain/tachycardia and increasing myocardial demand ? #Myocardial bridge #CAD - Long segment myocardial bridge in the mid-distal LAD with mild systolic compression and iFR 0.89 beyond the bridge, and 0.92 proximal to the bridge - Due for CTA evaluation as outpatient - Has been prescribed and taking NG as outpatient for relief, with good response ? Plan: - Continue atorvastatin 80mg - Continue ASA 81mg - Continue metoprolol succinate 12.5mg BID - Consider discontinuation of nitrates for pain, can consider CCB (limited titration of beta oralia due to HR - Reach out to Dr. Bliss for further recommendations given the continuity on last admissions, he was due to follow up on 06/13 for further evaluation - Can consider coronary CTA ? #Paroxysmal atrial fibrillation - CHADSVASC 1 (vascular disease history) - Sinus rhythm on arrival EKG ? Plan: - Continue apixaban 5mg BID - Continue flecainide 100mg q12hr - Monitor on tele - Maintain K >4, Mg >2 ? #POTS - Diagnosed 2013 after abnormal tilt table test and other evaluation, seen by Dr. Quinones on 12/28/2014, continued on conservative management ? Plan: - Monitor for symptoms ? #Anxiety - Related to health conditions ? Plan: - Continue paroxetine ? Case discussed with Dr. Reyes Case to be discussed with staff SIGNATURE: Veronica Kumari MD PATIENT NAME: Cristina Gómez DATE: May 28, 2018 TIME: 5:56 AM PAGER/CONTACT #: SEE BELOW For communication after 5 pm on weekdays and after 12 pm on weekends, please page the following: - Clinical Cardiology patients on all floors: page [phone] - Other Cardiology patients on J5 and J6: page [phone] - Other Cardiology patients on J7 and J8: page [phone] [facility] STAFF PHYSICIAN NOTE OF PERSONAL INVOLVEMENT IN CARE ? I have reviewed the history and physical examination obtained and documented by the resident and I personally participated in the trejo components. I have discussed the case and management of the patient's care. The following comments revise or confirm relevant trejo components of their note. ? Very pleasant 42-year-old man admitted for evaluation and management of chest discomfort. He has a history of paroxysmal atrial fibrillation [on flecainide], history of intermittent PVCs/NSVT [has a loop recorder], POTS, mild angiographic CAD, mid LAD myocardial bridging. Has had recurrent admissions for assessment of chest discomfort. ? No new symptoms. Underwent a coronary CT yesterday BP 114/71 Pulse 68 Temp 36.8 ?C (98.2 ?F) (Oral) Resp 18 Ht 177.8 cm (5' 10) Wt 76.7 kg (169 lb) SpO2 98% BMI 24.25 kg/m? ? ? Troponins negative ILR check with no arrhythmias since 05/08/18 ECG - sinus bradycardia, otherwise normal ? Cardiac catheterization performed 05/08/18 reviewed. Impression: 1. Mild eccentric plaque in the proximal LMT with <30% stenosis, MLA 12.4 mm2 2. 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 3. Mild coronary artery disease in the LAD. ? Recommended Treatment: Medical Therapy. CT chest - Left Anterior Descending Coronary Artery: The LAD is a normal size vessel that wraps around the apex. It gives rise to 2 acute diagonal branches. ? Incidental note of a shallow (2 mm) short bridge of the mid LAD. ?There is no significant atherosclerotic change or stenotic disease. ? ? ? 1. Recurrent chest pain, negative troponins. No significant ECG changes. He does have mild angiographic CAD and evidence of a mid to distal LAD myocardial bridge with a negative iFR. Coronary CT with no significant new findings, note made of a shallow short bridge in the mid LAD. - Continue current medications - Anticipate discharge today - Follow-up with Dr. Bliss with a prior dobutamine PET ? ? Karthik Reyes M.D. [facility] Department of Cardiovascular Medicine Heart and Vascular [place] [facility] Desk J2-[address] [place] [address] Office ? [phone] extension [phone] Office Appointments: [phone] -[phone] extension [phone] CBC Collected: 05/28/2018 Status: F Source: [place] 3:20 AM [facility] REPOSITORY TYPE CODE TESTS RESULT OUT OF REFERENCE UNITS RANGE LAB WBC 3.70-11.00 k/uL WBC 5.05 LAB RBC 4.20-6.00 m/uL RBC 5.22 LAB HGB 13.0-17.0 g/dL Hemoglobin 15.9 LAB HCT 39.0-51.0 % Hematocrit 44.3 LAB MCV 80.0-100.0 fL MCV 84.9 LAB MCH 26.0-34.0 pG MCH 30.5 LAB MCHC 30.5-36.0 g/dL MCHC 35.9 LAB RDWCV 11.5-15.0 % RDW-CV 12.0 LAB PLTCT 150-400 k/uL Platelet Count 244 LAB MPV 9.0-12.7 fL MPV 10.9 LAB ABSNUC <0.01 k/uL Absolute High nRBC 0.01 Performed By: #### CBC, PT, BMP, MG1 #### [place] [address] PROTIME Collected: 05/28/2018 Status: F Source: [place] 3:20 AM [facility] REPOSITORY TYPE CODE TESTS RESULT OUT OF RANGE REFERENCE UNITS LAB PSEC 9.7-13.0 sec PT Sec 11.0 LAB INR 0.9-1.3 PT INR 1.0 Result Comment: Vitamin K Antagonist (VKA) Therapeutic Range: INR 2 to 3 (Target INR of 2.5) Note: For patients treated with VKA drugs, such as warfarin, the [employer]eless College of Chest [employer]icians 2012 Guideline recommends a therapeutic INR range of 2 to 3 (target INR of 2.5). This recommendation includes high-risk patients with antiphospholipid syndrome with previous arterial or venous thromboembolism, current-generation mechanical or bioprosthetic aortic heart valve replacement. Note: Patients with mechanical aortic valve replacement and additional risk factors for thromboembolic events (atrial fibrillation, previous thromboembolism, LV dysfunction, hypercoagulable conditions) or an older generation mechanical AVR (i.e., ball in-Cage) or any mechanical MVR should have a INR therapeutic range of 2.5 to 3.5 (target INR of 3). Tamiko GH, et al. Chest 2012, 141:7S-47S Mary RA, et al. [facility] 2017, 70: 252-289 Performed By: #### CBC, PT, BMP, MG1 #### [facility] [address] [place] [address] BASIC METABOLIC PANL Collected: 05/28/2018 Status: F Source: [place] 3:20 AM [facility] REPOSITORY TYPE CODE TESTS RESULT OUT OF REFERENCE UNITS RANGE LAB GLU 74-99 mg/dL Glucose 81 Result Comment: The Stateless Diabetes Association (ADA) provides guidance for cutoff values for fasting glucose and random glucose. The ADA defines fasting as no caloric intake for at least 8 hours. Fas ting plasma glucose results between 100 to 125 mg/dL indicate increased risk for diabetes (prediabetes). Fasting plasma glucose results greater than or equal to 126 mg/dL meet the criteria for diagnosis of diabetes. In the absence of unequivocal hyperglycemia, results should be confirmed by repeat testing. In a patient with classic symptoms of hyperglycemia or hyperglycemic crisis, random plasma glucose results greater than or equal to 200 mg/dL meet the criteria for diagnosis of diabetes. Reference: Standards of Medical Care in Diabetes 2016, Stateless Diabetes Association. Diabetes Care. 2016.39(Suppl 1). LAB BUN 9-24 mg/dL BUN 12 LAB CRET 0.73-1.22 mg/dL Creatinine 0.97 LAB NA 136-144 mmol/L Sodium 141 LAB K 3.7-5.1 mmol/L Potassium 3.8 LAB CL 97-105 mmol/L Chloride 102 LAB CO2 22-30 mmol/L CO2 27 LAB AGAP 9-18 mmol/L Anion Gap 12 LAB CA 8.5-10.2 mg/dL Calcium, Total 9.0 LAB GFRAA eGFR- Amer. >60 LAB GFRNAA . eGFR-All Other Races >60 Result Comment: eGFR (Estimated GFR) Units of measure: mL/min/1.73 meters squared eGFR is derived from the reexpressed MDRD Study equation using the following parameters: serum creatinine, age, gender and race. The creatinine assay has been calibrated to be traceable to IDMS. An eGFR <60 mL/min/1.73m2 for >3 months is consistent with chronic kidney disease. Refer to KDOQI guidelines for clinical interpretation. In patients with unstable renal function, e.g. those with acute kidney injury, the eGFR may not accurately reflect actual GFR. Performed By: #### CBC, PT, BMP, MG1 #### [facility] [place] [address] [place], [place] [address] MAGNESIUM Collected: 05/28/2018 Status: F Source: [place] 3:20 AM [facility] REPOSITORY TYPE CODE TESTS RESULT OUT OF REFERENCE UNITS RANGE LAB MG 1.7-2.3 mg/dL Magnesium 2.2 Performed By: #### CBC, PT, BMP, MG1 #### [facility] [address] [place], [place] [address] CK, TOTAL AND CKMB Collected: 05/27/2018 Status: F Source: [place] 4:56 PM [facility] REPOSITORY TYPE CODE TESTS RESULT OUT OF REFERENCE UNITS RANGE LAB CK 51-298 U/L 58 CK LAB MB <7.7 ng/mL MB <1.0 LAB CKMBRI 0.0-4.0 % CK CK MB MB % not % reported with CK <100 U/L. Performed By: #### CKCKMB, KARLA #### [facility] [place] [address] [place], [place] [address] TROPONIN T Collected: 05/27/2018 Status: F Source: [place] 4:56 PM [facility] REPOSITORY TYPE CODE TESTS RESULT OUT OF REFERENCE UNITS RANGE LAB TROPT 0.000-0.029 ng/mL Troponin T <0.010 Performed By: #### CKCKMB, KARLA #### [facility] [address] [place], [place] [address] CTA CORONARY W IVCON Observed: 05/27/2018 Status: F Source: [place] 2:59 PM [facility] REPOSITORY * * *Final Report* * * DATE OF EXAM: May 27 2018 2:59PM JQC [id number] - CTA CORONARY W IVCON / PROCEDURE REASON: Map coronary arteries, prior to repeat cardiac revascularization * * * * Physician Interpretation * * * * Coronary CTA dated 05/27/2018 2:59 PM Comparison: None History: 42 year old male with atrial fibrillation and suspected coronary artery disease. There is need to define coronary anatomy. Technique: Multi-detector CT technology was employed (Siemens Somatom Force dual source scanner). Axial, sequential imaging with prospective gating and minimal slice thickness was performed following the IV administration of contrast material. Because of the patient's cardiovascular disease history, a low-osmolar contrast agent was used (70 ml Omnipaque 350). The patient was premedicated with 0.3 mg sublingual nitroglycerin for heart rate control and coronary dilation, respectively. CT Dose-Length Product (DLP): [address] Dose Reduction Employed: Yes For optimization of anatomic evaluation, multiplanar reconstruction, maximum intensity projections, and advanced 3-D off-line postprocessing were performed on a dedicated stand-alone workstation under the direct supervision of the interpreting physician. RESULT: Potential study limitations: None. The chest wall, mediastinum, and pericardium are unremarkable. The pulmonary arteries appear normal. No significant adenopathy is identified in the axilla, mediastinum, and brittni. Lung windows reveal left lower lung lobe atelectasis. There is no pulmonary parenchymal mass, infiltrate, or pleural effusion. The cardiac chambers demonstrate normal atrioventricular and ventriculoarterial concordance, and systemic and pulmonary venous return. The cardiac chamber sizes appear normal. The aortic valve is trileaflet, and free from calcifications. The visualized thoracic aorta is normal in course, caliber, and contour. There is no acute aortic pathology, such as dissection, intramural hematoma, or contained rupture. The aortic arch is not included on this examination. Coronary anatomy: There is normal origin of the coronary arteries. Left Main Coronary Artery: The left main is normal sized vessel that trifurcates into the LAD, ramus intermedius and circumflex. There is no significant atherosclerotic change or stenotic disease. Left Anterior Descending Coronary Artery: The LAD is a normal size vessel that wraps around the apex. It gives rise to 2 acute diagonal branches. Incidental note of a shallow (2 mm) short bridge of the mid LAD. There is no significant atherosclerotic change or stenotic disease. Ramus intermedius Artery: The ramus artery is a normal size vessel. There is no significant atherosclerotic change or stenotic disease. Left Circumflex Coronary Artery: The LCX is a normal size vessel, which is dominant. It gives rise to 2 obtuse marginal branches. In its distal segment it bifurcates into the PDA and PV branch. There is no significant atherosclerotic change or stenotic disease. Right Coronary Artery: The RCA is a normal size vessel, which is non-dominant. It gives rise to a conus branch, AV hamilton branch, and 1 acute marginal branches. There is no significant atherosclerotic change or stenotic disease. Limited images of the upper abdomen reveal no abnormalities of the visualized organs. IMPRESSION: Normal variant coronary anatomy without evidence of atherosclerotic changes or stenotic disease. Associate Professor Of Mathematics: ZACH Transcribe Date/Time: May 27 2018 3:04P Dictated by : MELINA BELTRE MD This examination was interpreted and the report reviewed and electronically signed by: CHINO BOYLE MD on May 27 2018 5:35PM EST [id number] Observed: 05/27/2018 Status: COMPLETED Source: [place] 2:55 PM [facility] REPOSITORY HNO ID: [id number] Author: VINAYAK Decker (Ct) Service: Radiology Author Type: Clinical Dairy Lab Technician Type: Progress Notes Filed: 05/27/2018 2:59 PM Note Text: Radiology Service Progress Note PATIENT NAME: Cristina Gómez DATE OF SERVICE: May 27, 2018 TIME: 2:59 PM PATIENT IDENTITY VERIFICATION COMPLETED USING TWO (2) METHODS: Patient confirmed name verbally and ID band matches.. PATIENT GENDER DATA: Male PATIENT RELEVANT IMPLANT DATA REVIEWED: Yes RADIOLOGY DEPARTMENT: CT; Exam(s) Completed: CTA Cardiac PERIPHERAL IV DATA: Inpatient: see LDA documentation SIGNED BY: VINAYAK Decker May 27, 2018 2:59 PM PROGRESS Observed: 05/27/2018 Status: COMPLETED Source: [place] 2:46 PM [facility] REPOSITORY O ID: [id number] Author: Mónica (Rn) NIRU Siddiqui Service: Radiology Author Type: Registered Nurse Type: Progress Notes Filed: 05/27/2018 2:48 PM Note Text: Radiology Service Progress Note PATIENT NAME: Cristina Gómez DATE OF SERVICE: May 27, 2018 TIME: 2:46 PM PATIENT WEIGHT: 173 LBS PATIENT IDENTITY VERIFICATION COMPLETED USING TWO (2) METHODS: Patient confirmed name verbally and ID band matches.. PATIENT GENDER DATA: Male CONTRAST INDUCED NEPHROPATHY RISK FACTORS: Not applicable CREATININE: Creatinine Date Value Ref Range Status 05/27/2018 1.05 0.73 - 1.22 mg/dL Final 05/26/2018 0.98 0.73 - 1.22 mg/dL Final 05/09/2018 1.02 0.73 - 1.22 mg/dL Final eGFR-All Other Races Date Value Ref Range Status 05/27/2018 >60 . Final Comment: eGFR (Estimated GFR) Units of measure: mL/min/1.73 meters squared eGFR is derived from the reexpressed MDRD Study equation using the following parameters: serum creatinine, age, gender and race. The creatinine assay has been calibrated to be traceable to IDMS. An eGFR <60 mL/min/1.73m2 for >3 months is consistent with chronic kidney disease. Refer to KDOQI guidelines for clinical interpretation. In patients with unstable renal function, e.g. those with acute kidney injury, the eGFR may not accurately reflect actual GFR. eGFR- Date Value Ref Range Status 05/27/2018 >60 Final P.O.C.T. RESULTS: N/A May 27, 2018 TREATMENT: No Hydration needed. ALLERGIES: Reviewed and unchanged CONTRAST ALLERGY: NO. IV SITE: Inpatient - refer to LDA documentation IV SITE APPEARANCE: Clean,Dry and Intact SIGNED BY: Mónica Siddiqui RN May 27, 2018 2:46 PM Radiology Service Progress Note PATIENT NAME: Cristina Gómez DATE OF SERVICE: May 27, 2018 TIME: 2:47 PM PATIENT IDENTITY VERIFICATION COMPLETED USING TWO (2) METHODS: Patient confirmed name verbally and ID band matches.. PATIENT GENDER DATA: Male PATIENT RELEVANT IMPLANT DATA REVIEWED: Yes ALLERGIES: Reviewed and unchanged MEDICATIONS REVIEWED: YES PROCEDURE TYPE: CT: Beta Blocking and CT: NTG SL PATIENT SCREENING: CHF: No, Heart Block: No, Aortic Stenosis: No, Aortic Insufficiency: No, Asthmatic/Bronchospastic Disease: No, IV Beta Blocking (Lopressor/Metoprolol Tartrate): No and Medications that may enhance heart rate, slowing the effect of betablockers or calcium channel blockers: No Aortic Stenosis: No, Aortic Insufficiency: No, Constrictive Pericarditis: No, Hypertrophic/Restrictive Cardiomyopathy: No, Use of Phosphodiesterase - 5 Inhibitors: No and Stress test planned for later today: No IV SITE: Inpatient - refer to LDA documentation PERIPHERAL IV ACCESS: Inpatient see LDA documentation CARDIAC MEDICATIONS: Nitroglycerin 0.3 mg SL given and Metoprolol (Lopressor) 5 mg IV dose(s) given for a total of 0 mg given PATIENT DISCHARGED TO: Patient transferred to [facility]. Report called to floor RN. SIGNED BY: Mónica Siddiqui RN May 27, 2018 2:47 PM PROGRESS Observed: 05/27/2018 Status: COMPLETED Source: [place] 2:45 PM [facility] [place] REPOSITORY HNO ID: [id number] Author: Mónica Del Rosario) NIRU Siddiqui Service: Radiology Author Type: Registered Nurse Type: Progress Notes Filed: 05/27/2018 2:46 PM Note Text: PATIENT EDUCATION RADIOLOGY TOPIC: Pre- Procedure Teaching:Logistics / Protocols / Complication Prevention Post- Procedure Teaching: Symptom Management / Wound Care READINESS TO LEARN COGNITIVE ABILITY: Alert and oriented MOTIVATION TO LEARN: Eager Interested FAMILY SUPPORT: Unable to assess - Family not present INSTRUCTION PROVIDED TO: Patient PATIENT LEARNS BEST BY: Individual Instruction Verbal Instruction FACTORS AFFECTING LEARNING: None PHYSICAL LIMITATIONS AFFECTING LEARNING: None LEARNING RESPONSE Procedure: Radiology Procedures: CTA Coronary METHOD OF INSTRUCTION: Verbal instruction PATIENT / FAMILY RESPONSE: Verbalizes understanding of: Pre Procedure Instructions Post Procedure Instructions FOLLOW-UP PLAN: Complete - No need for follow-up Electronically Signed By Mónica Siddiqui RN CASE MGT INIT Observed: 05/27/2018 Status: COMPLETED Source: [place] 8:48 AM [facility] REPOSITORY HNO ID: [id number] Author: Denisha CastroRn) NIRU Triana Service: Care Management Author Type: Registered Nurse Type: Care Mgt Initial Assessment Filed: 05/27/2018 9:21 AM Note Text: CARE MANAGEMENT: ASSESSMENT AND DISCHARGE PLAN SERVICE DATE: 05/27/2018 SERVICE TIME: 8:30 PRIMARY CARE PHYSICIAN: Luan Tyler MD ADMISSION STATUS: Inpatient Needs Prior to Discharge: None 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 Health Issues Impacting Discharge Plan: Readmit with Chest pain Last Admission Date: Previous admit date: 05/06/2018 Is this Within the Past 30 days? Yes Is This a Planned Readmission? No: Recurrent symptoms of underlying disease Followed Up with Appointment Prior to Admission: Patient scheduled, but readmitted prior Where Did the Patient Come From? Home Intervention Taken to Avoid Future Readmission? Advance Directive: Current Advance Directive: None Instrument Maker And Repairer Attempted to Assist with AD Completion: Yes Health Literacy: 1. How often do you need to have someone help you when you read instructions, pamphlets, or other written material from your doctor or pharmacy? Never - 1 2. How confident are you filling out medical forms by yourself? Extremely - 1 If Patient scores > 3 on either question, the following interventions were put into place: Patient did not score > 3 FUNCTIONAL AND COGNITIVE/BEHAVIORAL PRIOR TO ADMISSION: Baseline Mental Status: Alert AND Oriented, Person, Place , Time and Situation Functional Status: Independent Does Patient Currently Receive Any Community Services or Home Care? None Equipment Prior to Admission: None Has the Patient Been in a Long Term Facility in the Past 30 days? 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 No Caregiver Needed Patient's transition needs and plan for meeting these needs: To return to home Does the patient have an acute stroke diagnosis, or has the patient had a stroke during this admission? No Medication Adherence: I am convinced of the importance of my prescription medication: Agree completely - 0 I worry that my prescription medication will do more harm than good to me Disagree completely - 0 I feel financially burdened by my cms-bg-exckrs expenses for my prescription medication: Disagree completely - 0 Patient is categorized as low risk < 2 Are you interested in bedside delivery of your medications? No Food Concerns: In the Last Month, Have You had Trouble Getting Food? No trouble getting food During the Last Month, Have You Worried Whether Your Food Would Run Out Before You Had Enough Money to Buy More? No Is the Patient Psychosocially Complex? No ASSESSMENT AND PLAN: Medical Needs: Readmit with CP PAST MEDICAL HISTORY Diagnosis Date - Anxiety ? - Arrhythmia ? - Cardiac device in situ ? - Chest pain ? - Coronary artery disease 04/28/2018 - Depression ? - Epigastric pain 08/06/13 - GERD (gastroesophageal reflux disease) 08/06/13 - Hiatal hernia ? - Hypokalemia ? - Inguinal hernia ? - Light headedness 08/06/13 - DARA (obstructive sleep apnea) ? - PAF (paroxysmal atrial fibrillation) ([facility]) ? - Palpitations Psychosocial Needs: None FREEDOM OF CHOICE EXPLAINED: No as no skilled DC needs identified at present. POTENTIAL TRANSITION PLANS Home 42 yr old male from [facility] readmitted last pm with c/o Chest Pain. Recent admission ADMISSION DATE: 05/06/2018 DISCHARGE DATE: 05/09/2018 Met with pt re dc needs/planning and transition of care. 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 Awaiting medical POC. Anticiapte basic DC needs. CM following. SIGNATURE: Denisha Triana RN PATIENT NAME: Cristina Gómez DATE: May 27, 2018 TIME: 8:48 AM PAGER/CONTACT #: [phone] CBC Collected: 05/27/2018 Status: F Source: [place] 2:57 AM [facility] REPOSITORY TYPE CODE TESTS RESULT OUT OF REFERENCE UNITS RANGE LAB WBC 3.70-11.00 k/uL WBC 5.40 LAB RBC 4.20-6.00 m/uL RBC 4.84 LAB HGB 13.0-17.0 g/dL Hemoglobin 14.5 LAB HCT 39.0-51.0 % Hematocrit 41.2 LAB MCV 80.0-100.0 fL MCV 85.1 LAB MCH 26.0-34.0 pG MCH 30.0 LAB MCHC 30.5-36.0 g/dL MCHC 35.2 LAB RDWCV 11.5-15.0 % RDW-CV 12.3 LAB PLTCT 150-400 k/uL Platelet Count 211 LAB MPV 9.0-12.7 fL MPV 11.1 LAB ABSNUC <0.01 k/uL Absolute nRBC <0.01 Performed By: #### CBC, PT, BMP, MG1 #### [facility] [address] [place], [place] [address] PROTIME Collected: 05/27/2018 Status: F Source: [place] 2:57 AM [facility] REPOSITORY TYPE CODE TESTS RESULT OUT OF RANGE REFERENCE UNITS LAB PSEC 9.7-13.0 sec PT Sec 11.4 LAB INR 0.9-1.3 PT INR 1.1 Result Comment: Vitamin K Antagonist (VKA) Therapeutic Range: INR 2 to 3 (Target INR of 2.5) Note: For patients treated with VKA drugs, such as warfarin, the Stateless College of Chest Physicians 2012 Guideline recommends a therapeutic INR range of 2 to 3 (target INR of 2.5). This recommendation includes high-risk patients with antiphospholipid syndrome with previous arterial or venous thromboembolism, current-generation mechanical or bioprosthetic aortic heart valve replacement. Note: Patients with mechanical aortic valve replacement and additional risk factors for thromboembolic events (atrial fibrillation, previous thromboembolism, LV dysfunction, hypercoagulable conditions) or an older generation mechanical AVR (i.e., ball in-Cage) or any mechanical MVR should have a INR therapeutic range of 2.5 to 3.5 (target INR of 3). Tamiko GH, et al. Chest 2012, 141:7S-47S Mary RA, et al. JAC 2017, 70: 252-289 Performed By: #### CBC, PT, BMP, MG1 #### [facility] [address] [place], [place] [address] BASIC METABOLIC PANL Collected: 05/27/2018 Status: F Source: [place] 2:57 AM [facility] REPOSITORY TYPE CODE TESTS RESULT OUT OF REFERENCE UNITS RANGE LAB GLU 74-99 mg/dL Glucose 93 Result Comment: The Stateless Diabetes Association (ADA) provides guidance for cutoff values for fasting glucose and random glucose. The ADA defines fasting as no caloric intake for at least 8 hours. Fas ting plasma glucose results between 100 to 125 mg/dL indicate increased risk for diabetes (prediabetes). Fasting plasma glucose results greater than or equal to 126 mg/dL meet the criteria for diagnosis of diabetes. In the absence of unequivocal hyperglycemia, results should be confirmed by repeat testing. In a patient with classic symptoms of hyperglycemia or hyperglycemic crisis, random plasma glucose results greater than or equal to 200 mg/dL meet the criteria for diagnosis of diabetes. Reference: Standards of Medical Care in Diabetes 2016, Stateless Diabetes Association. Diabetes Care. 2016.39(Suppl 1). LAB BUN 9-24 mg/dL BUN 10 LAB CRET 0.73-1.22 mg/dL Creatinine 1.05 LAB NA 136-144 mmol/L Sodium 143 LAB K 3.7-5.1 mmol/L Potassium 4.2 LAB CL 97-105 mmol/L Chloride 103 LAB CO2 22-30 mmol/L CO2 29 LAB AGAP 9-18 mmol/L Anion Gap 11 LAB CA 8.5-10.2 mg/dL Calcium, Total 8.8 LAB GFRAA eGFR- Amer. >60 LAB GFRNAA . eGFR-All Other Races >60 Result Comment: eGFR (Estimated GFR) Units of measure: mL/min/1.73 meters squared eGFR is derived from the reexpressed MDRD Study equation using the following parameters: serum creatinine, age, gender and race. The creatinine assay has been calibrated to be traceable to IDMS. An eGFR <60 mL/min/1.73m2 for >3 months is consistent with chronic kidney disease. Refer to KDOQI guidelines for clinical interpretation. In patients with unstable renal function, e.g. those with acute kidney injury, the eGFR may not accurately reflect actual GFR. Performed By: #### CBC, PT, BMP, MG1 #### [facility] [address], [place] [address] MAGNESIUM Collected: 05/27/2018 Status: F Source: [place] 2:57 AM [facility] REPOSITORY TYPE CODE TESTS RESULT OUT OF REFERENCE UNITS RANGE LAB MG 1.7-2.3 mg/dL Magnesium 2.0 Performed By: #### CBC, PT, BMP, MG1 #### [facility] [address] [place], [place] [address] CK, TOTAL AND CKMB Collected: 05/27/2018 Status: F Source: [place] 2:57 AM [facility] REPOSITORY TYPE CODE TESTS RESULT OUT OF REFERENCE UNITS RANGE LAB CK 51-298 U/L 58 CK LAB MB <7.7 ng/mL MB <1.0 LAB CKMBRI 0.0-4.0 % CK CK MB MB % not % reported with CK <100 U/L. Performed By: #### CKCKMB, KARLA #### [address] [address] TROPONIN T Collected: 05/27/2018 Status: F Source: [place] 2:57 AM [facility] REPOSITORY TYPE CODE TESTS RESULT OUT OF REFERENCE UNITS RANGE LAB TROPT 0.000-0.029 ng/mL Troponin T <0.010 Performed By: #### CKCKMB, KARLA #### [place] [id number] [place], [place] [address] CBC AND DIFFERENTIAL Collected: 05/26/2018 Status: F Source: [place] 11:15 PM [facility] REPOSITORY TYPE CODE TESTS RESULT OUT OF REFERENCE UNITS RANGE LAB WBC 3.70-11.00 k/uL WBC 5.16 LAB RBC 4.20-6.00 m/uL RBC 4.77 LAB HGB 13.0-17.0 g/dL Hemoglobin 14.7 LAB HCT 39.0-51.0 % Hematocrit 41.0 LAB MCV 80.0-100.0 fL MCV 86.0 LAB MCH 26.0-34.0 pG MCH 30.8 LAB MCHC 30.5-36.0 g/dL MCHC 35.9 LAB RDWCV 11.5-15.0 % RDW-CV 12.2 LAB PLTCT 150-400 k/uL Platelet Count 216 LAB MPV 9.0-12.7 fL MPV 11.2 LAB ANEUT % Neut% 44.4 LAB AANEUT 1.45-7.50 k/uL Abs Neut 2.28 LAB ALYMP % Lymph% 44.6 LAB AALYMP 1.00-4.00 k/uL Abs Lymph 2.30 LAB AMONO % Wake% 8.3 LAB AAMONO <0.87 k/uL Abs Wake 0.43 LAB AEOS % Eosin% 1.7 LAB AAEOS <0.46 k/uL Abs Eosin 0.09 LAB ABASO % Baso% 1.0 LAB AABASO <0.11 k/uL Abs Baso 0.05 LAB AUNRBC 0 /100 WBC NRBCs 0.0 LAB ABNRBC <0.01 k/uL Absolute nRBC <0.01 LAB DTYP DTYPE Auto Diff Performed By: #### CBCDIF, CKCKMB, CMP, MG1, KARLA #### [facility] [address] [place], [place] [address] CK, TOTAL AND CKMB Collected: 05/26/2018 Status: F Source: [place] 11:15 PM [facility] REPOSITORY TYPE CODE TESTS RESULT OUT OF RANGE REFERENCE UNITS LAB CK 51-298 U/L CK 67 Result Comment: Results may be falsely increased due to interference by hemolysis. Suggest reorder as clinically indicated. LAB MB <7.7 ng/mL <1.0 MB LAB CKMBRI 0.0-4.0 % CK MB % not reported CK MB % with CK <100 U/L. Performed By: #### CBCDIF, CKCKMB, CMP, MG1, KARLA #### [address] [address] COMP METABOLIC PANEL Collected: 05/26/2018 Status: F Source: [place] 11:15 PM [facility] REPOSITORY TYPE CODE TESTS RESULT OUT OF REFERENCE UNITS RANGE LAB TP 6.3-8.0 g/dL Low Protein, Total 6.2 LAB ALB 3.9-4.9 g/dL Low Albumin 3.8 LAB CA 8.5-10.2 mg/dL Calcium, Total 8.8 LAB TBIL 0.2-1.3 mg/dL Bilirubin, Total 0.6 LAB ALKP 38-113 U/L Alkaline Phosphatase 51 LAB AST 14-40 U/L AST 27 Result Comment: Results may be falsely increased due to interference by hemolysis. Suggest reorder as clinically indicated. LAB GLU 74-99 mg/dL High Glucose 101 Result Comment: The Stateless Diabetes Association (ADA) provides guidance for cutoff values for fasting glucose and random glucose. The ADA defines fasting as no caloric intake for at least 8 hours. Fas ting plasma glucose results between 100 to 125 mg/dL indicate increased risk for diabetes (prediabetes). Fasting plasma glucose results greater than or equal to 126 mg/dL meet the criteria for diagnosis of diabetes. In the absence of unequivocal hyperglycemia, results should be confirmed by repeat testing. In a patient with classic symptoms of hyperglycemia or hyperglycemic crisis, random plasma glucose results greater than or equal to 200 mg/dL meet the criteria for diagnosis of diabetes. Reference: Standards of Medical Care in Diabetes 2016, Stateless Diabetes Association. Diabetes Care. 2016.39(Suppl 1). LAB BUN 9-24 mg/dL BUN 10 LAB CRET 0.73-1.22 mg/dL Creatinine 0.98 LAB NA 136-144 mmol/L Sodium 142 LAB K 3.7-5.1 mmol/L Potassium 4.6 Result Comment: Results may be falsely increased due to interference by hemolysis. Suggest reorder as clinically indicated. LAB CL 97-105 mmol/L Chloride 103 LAB CO2 22-30 mmol/L CO2 28 LAB AGAP 9-18 mmol/L Anion Gap 11 LAB ALT 10-54 U/L ALT 40 Result Comment: Results may be falsely increased due to interference by hemolysis. Suggest reorder as clinically indicated. LAB GFRAA eGFR- Amer. >60 LAB GFRNAA . eGFR-All Other Races >60 Result Comment: eGFR (Estimated GFR) Units of measure: mL/min/1.73 meters squared eGFR is derived from the reexpressed MDRD Study equation using the following parameters: serum creatinine, age, gender and race. The creatinine assay has been calibrated to be traceable to IDMS. An eGFR <60 mL/min/1.73m2 for >3 months is consistent with chronic kidney disease. Refer to KDOQI guidelines for clinical interpretation. In patients with unstable renal function, e.g. those with acute kidney injury, the eGFR may not accurately reflect actual GFR. Performed By: #### CBCDIF, CKCKMB, CMP, MG1, KARLA #### [facility] [address] [place], [place] [address] MAGNESIUM Collected: 05/26/2018 Status: F Source: [place] 11:15 PM [facility] REPOSITORY TYPE CODE TESTS RESULT OUT OF REFERENCE UNITS RANGE LAB MG 1.7-2.3 mg/dL Magnesium 2.1 Result Comment: Results may be falsely increased due to interference by hemolysis. Suggest reorder as clinically indicated. Performed By: #### CBCDIF, CKCKMB, CMP, MG1, KARLA #### [facility] [address] [place], [place] [address] TROPONIN T Collected: 05/26/2018 Status: F Source: [place] 11:15 PM [facility] REPOSITORY TYPE CODE TESTS RESULT OUT OF REFERENCE UNITS RANGE LAB TROPT 0.000-0.029 ng/mL Troponin T <0.010 Result Comment: Results may be falsely decreased due to interference by hemolysis. Suggest reorder as clinically indicated. Performed By: #### CBCDIF, CKCKMB, CMP, MG1, KARLA #### [facility] [address] [place], [place] [address] ECG COMPLETE W Observed: 05/26/2018 Status: F Source: [place] INTERPRETATION 9:50 PM [facility] REPOSITORY NAME : CRISTINA GÓMEZ PID : [id number] : 1975 Gender : Male Race : ORD : [id number] Procedure Date : May 26 2018 21:50:42 Edit Date : May 28 2018 11:37:18 Diagnosis:SINUS BRADYCARDIA OTHERWISE NORMAL ECG Confirmed by MD ROCKY, PhD, DEMETRIO ([id number]) on 05/28/2018 11:37:13 AM Ventricular Rate : 55 BPM Atrial Rate : 55 BPM P-R Interval : 200 ms QRS Duration : 92 ms Q-T Interval : 440 ms QTC Calculation(Bezet) : 420 ms P Maypearl : 52 degrees R Maypearl : 60 degrees T Maypearl : 37 degrees Test Reason : chest pain Location : 352 : J52 4 Overread By : MD ROCKY, PhD,DEMETRIO Edited By : MD ROCKY, PhD,DEMETRIO Referred By : , Acquired by : YANE ORELLANA PROGRESS Observed: 05/26/2018 Status: COMPLETED Source: [place] 9:34 PM [facility] REPOSITORY HNO ID: [id number] Author: Simi Contreras (Rt) Service: Radiology Author Type: Dairy Lab Technician Type: Progress Notes Filed: 05/26/2018 9:35 PM Note Text: Radiology Service Progress Note PATIENT NAME: Cristina Gómez DATE OF SERVICE: May 26, 2018 TIME: 9:34 PM PATIENT IDENTITY VERIFICATION COMPLETED USING TWO (2) METHODS: Patient confirmed name verbally and Date of . PATIENT GENDER DATA: Male PATIENT RELEVANT IMPLANT DATA REVIEWED: Yes RADIOLOGY DEPARTMENT: General X-ray: Exam(s) Completed: Chest X-Ray PERIPHERAL IV DATA: Not applicable SIGNED BY: RT Cecilia May 26, 2018 9:34 PM XR CHEST 2V FRONTAL/LAT Observed: 05/26/2018 Status: F Source: [place] 9:33 PM [facility] REPOSITORY * * *Final Report* * * DATE OF EXAM: May 26 2018 9:33PM JIX [id number] - XR CHEST 2V FRONTAL/LAT / PROCEDURE REASON: Chest pain * * * * Physician Interpretation * * * * EXAMINATION: CHEST RADIOGRAPH (2 VIEW FRONTAL and LATERAL) CLINICAL HISTORY: Chest pain, MQ: XC2_5 Comparison: 04/28/2018 RESULT: Lines, tubes, and devices: A loop recorder superimposes the left hemithorax in the anterior chest wall. Lungs and pleura: The lungs are free of focal consolidation. There is no pleural effusion or pneumothorax. Cardiomediastinal silhouette: The heart size is normal. The mediastinal contours are unchanged. Other: Minimal endplate degenerative changes are seen in the thoracic spine. IMPRESSION: No acute radiographic abnormality. Associate Professor Of Mathematics: PSCB Transcribe Date/Time: May 27 2018 6:57A Dictated by : MARY MIJARES MD This examination was interpreted and the report reviewed and electronically signed by: MARY MIJARES MD on May 27 2018 6:58AM EST [id number] HISTORY PHYSICAL Observed: 05/26/2018 Status: COMPLETED Source: [place] 9:08 PM [facility] REPOSITORY HNO ID: [id number] Author: Karthik Reyes Service: Cardiovascular Medicine Author Type: Physician Type: HANDP Filed: 05/27/2018 2:55 PM Note Text: [facility] H[facility] PHYSICAL Cristina Gómez [id number] PRIMARY SERVICE: Cardiology: Clinical CHIEF COMPLAINT: Chest pain HPI: This is a 42 year old male with PMH significant for: - Paroxysmal atrial fibrillation on flecainide 100mg q12h, and apixaban 5mg BID - History of NSVT, PVC with loop recorder - POTS, diagnosed 2014 on tilt table - C4-C5 fusion Presenting as a transfer from [facility] for further evaluation of chest pain. He was recently admitted twice in April 2018 to the Interventional Cardiology service. First on 04/28 after presenting to an outside hospital with chest pain, OSH cardiac cath report noted L main disease, yet no significant stenosis on review, planned for medical management, discharged with follow up. 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 He was medically managed and planned to follow up with Dr. Bliss on 06/13 for coronary CTA for anatomic and functional evaluation of myocardial bridge, as well as for stress testing. Since his recent discharge, he endorses intermittent chest pain at rest, which has been relieved with 1 SL nitroglycerin, as well as some residual tingling on his L chest following the recent cardiac cath. He presented to the ED today after an episode of R sided, substernal chest pain which awoke him from a nap. He denies any associated SOB, palpitations, loss of consciousness, focal weakness, numbness, nausea, or any other symptoms. He waited for about 10 mins for the pain to subside, eventually took 1 SL nitroglycerin without relief. In concern that this pain was different from his prior presentations, he presented to his local ED. When he arrived, he was vitally stable and saturating well on room air, his chest pain was 5/10 on presentation. EKG showed sinus rhythm, and sinus rhythm with 1st degree AV block. Labs were notable for WBC 4.9, Hb 16.3, CMP unremarkable, troponin I negative. He was given 1L normal saline, 3 SL nitroglycerin tabs, and eventually had nitro patch placed, after which his pain subsided completely and was rated 0/10. He denies any illicit drug use, excessive alcohol use (1-2 beers on weekends), and has quit smoking cigarettes since his recent hospitalization. HISTORY History obtained from: Patient PAST MEDICAL HISTORY: PAST MEDICAL HISTORY Diagnosis Date - Anxiety - Arrhythmia - Cardiac device in situ - Chest pain - Coronary artery disease 04/28/2018 - Depression - Epigastric pain 08/06/13 - GERD (gastroesophageal reflux disease) 08/06/13 - Hiatal hernia - Hypokalemia - Inguinal hernia - Light headedness 08/06/13 - DARA (obstructive sleep apnea) - PAF (paroxysmal atrial fibrillation) (HCC) - Palpitations - Paroxysmal atrial fibrillation (HCC) 04/29/2018 PAST SURGICAL HISTORY: PAST SURGICAL HISTORY Procedure Laterality Date - EGD W/O OR W/BRUSH/WASH 08/06/13 - G-ESOPH REFLX TST W/ELECTROD 08/06/13 - LAPAROSCOPIC APPENDECTOMY 2010 - LAPAROSCOPIC CHOLEYCYSTECTOMY 2010 - PAST SURGICAL HISTORY OF fusion c4 and c5 FAMILY HISTORY: FAMILY HISTORY Problem Relation Age of Onset - Diabetes Maternal Grandfather - Heart Paternal Grandmother - Cancer Paternal Grandmother - Hypertension Father - Cancer Paternal Grandfather lung - Heart Sister SVT SOCIAL HISTORY: Social History Substance Use Topics - Smoking status: Never Smoker - Smokeless tobacco: Never Used - Alcohol use No 1-2 beers/week Quit tobacco, 2 months ago MEDICATIONS: Prior to Admission Medications: atorvastatin (LIPITOR) 80 mg tablet Take 1 tablet by mouth daily at bedtime. metoprolol succinate ER (TOPROL XL) 25 mg 24 hr tablet Take 0.5 tablets by mouth twice daily. esomeprazole (NEXIUM) 40 mg capsule Take 1 capsule by mouth once daily. flecainide (TAMBOCOR) 100 mg tablet Take 1 tablet by mouth every 12 hours. aspirin 81 mg chewable tablet Take 1 tablet by mouth once daily. nitroglycerin sublingual (NITROQUICK) 0.4 mg SL tablet Dissolve 1 tablet under the tongue every 5 minutes as needed. ELIQUIS 5 mg tab(s) Take 5 mg by mouth twice daily. Current hospital medications: flecainide 100 mg tab(s) (TAMBOCOR) 100 mg ORAL q 12 H apixaban 5 mg tab(s) (ELIQUIS) 5 mg ORAL BID pantoprazole DR 40 mg tab(s) (PROTONIX) 40 mg ORAL DAILY (6 AM) aspirin 81 mg chewable tab(s) 81 mg ORAL DAILY nitroglycerin sublingual 0.4 mg tab(s) (NITROQUICK) 0.4 mg SUBLINGUAL q 5 MIN PRN atorvastatin 80 mg tab(s) (LIPITOR) 80 mg ORAL AT BEDTIME metoprolol succinate ER 12.5 mg tab(s) (TOPROL XL) 12.5 mg ORAL BID acetaminophen 325-650 mg tab(s) (TYLENOL) 325-650 mg ORAL q 4 H PRN docusate sodium 100 mg cap(s) (COLACE) 100 mg ORAL BID PRN PARoxetine 10 mg tab(s) (PAXIL) 10 mg ORAL DAILY ALLERGIES: ALLERGIES No Known Allergies COMPLETE REVIEW OF SYSTEMS: PAIN ASSESSMENT: Negative for pain presently GENERAL: No weight loss, malaise or fevers HEENT: + Headache following nitroglycerin application NECK: Negative for lumps, goiter, pain and significant neck swelling RESPIRATORY: Negative for cough, wheezing or shortness of breath CARDIOVASCULAR: Negative for chest pain (at present), leg swelling or palpitations GI: Negative for abdominal discomfort, nausea, vomiting MUSCULOSKELETAL: Negative for joint pain or swelling, back pain or muscle pain. SKIN: Negative for lesions, rash, and itching. PSYCH: Negative for anxiety See HPI: Remaining ROS reviewed and negative. PHYSICAL EXAM: 05/26/18 2000 05/26/18 2258 05/27/18 0148 05/27/18 0533 BP: 116/75 120/74 116/72 Pulse: 60 68 68 Resp: 16 17 Temp: 36.8 ?C (98.2 ?F) 36.6 ?C (97.9 ?F) 36.4 ?C (97.6 ?F) TempSrc: Oral Oral Oral SpO2: 97% 97% 98% General: Well developed and well nourished appearance. No acute distress. Skin: No rash on chest, arms or legs. Warm, dry. Head/Eyes: Sclera clear, normal conjunctiva. EOMI. Mouth/Pharynx: Teeth: Fair dentition. Neck: No JVD. Supple. No lesions. Lungs: Normal respiratory effort. Clear lungs without rhonchi, rales, wheezing. Breasts: Deferred Heart: Normal PMI. No lifts or thrills. Regular rate and rhythm. Normal S1, S2. No S3. No S4. No murmurs. No rubs. Vascular: DP/Radial pulses normal. Abdomen: Soft abdomen, nontender, nondistended without mass. Normal bowel sounds. Musculoskeletal: No kyphoscoliosis. No joint deformities. Extremities: No clubbing or cyanosis. No edema. Warm digits. Neurologic/Psychiatric: Oriented to person, place, time. Normal affect. No gross focal neurologic deficits. DATA: Laboratory: Recent Labs 05/27/1825605/26/185 WBC 5.40 5.16 HB 14.5 14.7 HCT 41.2 41.0 PLT 211 216 Recent Labs 05/27/1825605/26/185 NA 143 142 K 4.2 4.6 BUN 10 10 CREAT 1.05 0.98 GLUC 93 101* MG 2.0 2.1 Recent Labs 05/26/182314 CK 67 MB <1.0 TROPT <0.010 Recent Labs 05/27/18256 INR 1.1 EKG: most recent image reviewed, most recent report reviewed, Sinus rhythm TELE: most recent recordings reviewed CXR: most recent image reviewed, most recent report reviewed Echocardiogram: most recent image reviewed, most recent report reviewed, 04/29/2018 - Exam indication: Acute chest pain with suspected CA - The left ventricle is normal in size. There is no left ventricular hypertrophy. Left ventricular systolic function is normal. EF = 58 ? 5% (2D 4-ch.) Optison contrast used for endocardial border detection. Normal left ventricular diastolic function. - The right ventricle is normal in size. Right ventricular systolic function is normal. - Estimated right ventricular systolic pressure is 22 mmHg consistent with normal pulmonary artery pressures. Estimated right atrial pressure is 5 mmHg. - Exam was compared with the prior echocardiographic exam performed on 02-04-2014. Similar findings reported. Cardiac Catheterization: most recent image reviewed, most recent report reviewed, 05/08/2018 Coronary Anatomy: Left Dominant Injection Site(s): Left Main Coronary Artery and Right Coronary Artery LMT: - The proximal LMT is narrowed 20 % - focal disease. ?Additional Comment: There is an area of mild disease in the proximal LMT with <30% stenosis. IVUS showed eccentric plaque in this location with minimal luminal area of 12.4 mm2. ? LAD: - The proximal LAD - mild diffuse disease. - The mid LAD - mild diffuse disease and myocardial bridge. - The distal - mild diffuse disease and myocardial bridge. ?Additional Comment: The proximal LAD has no significant disease and gives rise to ?a large first diagonal vessel. In the mid to distal LAD there is a long segment myocardial bridge with mild systolic compression. The mid and distal LAD also have ?mild diffuse coronary artery disease. iFR before the myocardial bridge was 0.92, and iFR after the myocardial bridge was 0.89. The distal LAD wraps around the apex ?to supply the distal posterior interventricular septum. ? LCX: - The Circumflex is normal. ?Additional Comment: Large, dominant vessel with no significant disease. ? RAMUS: - The Ramus is normal. RCA: - RCA is normal. ?Additional Comment: Small, non-dominant vessel. ? IVUS Results: There is eccentric plaque in the proximal LMT with minimal luminal area of 12.4 mm2. Impression: 1. Mild eccentric plaque in the proximal LMT with <30% stenosis, MLA 12.4 mm2 2. 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 3. Mild coronary artery disease in the LAD. ? Recommended Treatment: Medical Therapy. Plan: 1. Risk factor reduction and optimal medical therapy for coronary artery disease. 2. Follow up with Dr. Bliss for coronary CTA and exercise stress test for further anatomic/functional evaluation of LAD myocardial bridge. Loop recorder evaluation 05/08/2018: PRESENTING RHYTHM: Normal Sinus Rhythm ? BATTERY STATUS: Normal. ? ARRHYTHMIAS since 04/08/18 remote: None. Last triggered event dated 03/17/18 EGM shows AF with 4 second pause. AF triggered event dated 03/16/18 lasting 53 hours. Anticoagulants listed Eliquis ASSESSMENT AND PLAN: 42 year old male with PMH significant for paroxysmal atrial fibrillation on flecainide, CAD with myocardial bridge, anxiety, POTS syndrome who presents as a transfer from an outside hospital for further evaluation of chest pain, resolved on presentation. #Chest pain - Occurred at rest, R sided, substernal, relieved with nitroglycerin - Trop negative, EKG w/o ischemic changes - Arrived with nitroglycerin patch, chest pain free - Known history of CAD and myocardial bridge, treated with medical therapy a recent admission, due for stress test and coronary CTA for anatomical and functional evaluation - History of arrhythmia with loop recorder - Pain does not coorelate with food, he has been on acid suppression as well as had normal manometry back in 2014 during initial evaluation Plan: - Repeat troponin, EKG - Monitor on telemetry - Consider exercise stress testing to assess for ischemia - Loop recorder check to assess for arrhythmia which may be precipitating chest pain/tachycardia and increasing myocardial demand #Myocardial bridge #CAD - Long segment myocardial bridge in the mid-distal LAD with mild systolic compression and iFR 0.89 beyond the bridge, and 0.92 proximal to the bridge - Due for CTA evaluation as outpatient - Has been prescribed and taking NG as outpatient for relief, with good response Plan: - Continue atorvastatin 80mg - Continue ASA 81mg - Continue metoprolol succinate 12.5mg BID - Consider discontinuation of nitrates for pain, can consider CCB (limited titration of beta oralia due to HR - Reach out to Dr. Bliss for further recommendations given the continuity on last admissions, he was due to follow up on 06/13 for further evaluation - Can consider coronary CTA #Paroxysmal atrial fibrillation - CHADSVASC 1 (vascular disease history) - Sinus rhythm on arrival EKG Plan: - Continue apixaban 5mg BID - Continue flecainide 100mg q12hr - Monitor on tele - Maintain K >4, Mg >2 #POTS - Diagnosed 2013 after abnormal tilt table test and other evaluation, seen by Dr. Quinones on 12/28/2014, continued on conservative management Plan: - Monitor for symptoms #Anxiety - Related to health conditions Plan: - Continue paroxetine Case discussed with Dr. Reyes SIGNATURE: Vale Castanon DO PAGER: [phone] DATE OF SERVICE: 05/26/2018 TIME OF SERVICE: 9:[address] [facility] STAFF PHYSICIAN NOTE OF PERSONAL INVOLVEMENT IN CARE I have reviewed the history and physical examination obtained and documented by the resident and I personally participated in the trejo components. I have discussed the case and management of the patient's care. The following comments revise or confirm relevant trejo components of their note. Very pleasant 42-year-old man admitted for evaluation and management of chest discomfort. He has a history of paroxysmal atrial fibrillation [on flecainide], history of intermittent PVCs/NSVT [has a loop recorder], POTS, mild angiographic CAD, mid LAD myocardial bridging. Has had recurrent admissions for assessment of chest discomfort. Currently free of symptoms. Physical Examination: BP 114/72 Pulse 72 Temp 36.7 ?C (98 ?F) (Oral) Resp 18 Wt 78.7 kg (173 lb 8 oz) SpO2 96% BMI 24.89 kg/m? General: Well appearing, in no acute distress. Skin: No clubbing. No cyanosis. Neck: Supple, JVP normal, no carotid bruits, carotids have a normal upstroke, no thyromegaly. Lungs: Clear to auscultation bilaterally. Heart: Regular rhythm. PMI 5th ICS LMCL, S1nl, S2nl. No murmur, added sounds or rub Abdomen: Soft, nontender, BS normal, no organomegaly, no bruits. Extremities: No peripheral edema bilaterally. Grade 4/4 distal pulses bilaterally. Neuro: Oriented x3, alert, cooperative, gait coordinated. Troponins negative ILR check with no arrhythmias since 05/08/18 ECG - sinus bradycardia, otherwise normal Cardiac catheterization performed 05/08/18 reviewed. Impression: 1. Mild eccentric plaque in the proximal LMT with <30% stenosis, MLA 12.4 mm2 2. 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 3. Mild coronary artery disease in the LAD. ? Recommended Treatment: Medical Therapy. 1. Recurrent chest pain, negative troponins. No significant ECG changes. He does have mild angiographic CAD and evidence of a mid to distal LAD myocardial bridge with a negative iFR. Discussed with his teacher industrial arts [Dr Bliss]. There is still some concern that his myocardial bridge may be contributing to his symptoms. She has planned for a coronary CT + a dobutamine PET followed by a dobutamine iFR cath if necessary. - Continue current medications - Ambulate - We will see if we can get a coronary CTA as an inpatient. Karthik Reyes M.D. [facility] Department of Cardiovascular Medicine Heart and Vascular [place] [facility] Desk M5-[address] [place] [address] Office ? [phone] extension [phone] Office Appointments: [phone] -[phone] extension [phone] NURSING PROG Observed: 05/26/2018 Status: COMPLETED Source: [place] 8:55 PM [facility] REPOSITORY HNO ID: [id number] Author: Simi (Nakul Freitas RN Service: Nursing Author Type: Registered Nurse Type: Nursing Progress Note Filed: 05/26/2018 8:59 PM Note Text: Admission/Transfer Note PATIENT NAME: Cristina Gómez Patient admitted from outside hospital via stretcher in stable condition with Heparin drip running at 1000 units/hr (19mL) infused on transport. Medication has been disconnected awaiting MD orders. No current complaint of Chest pain, vitals WNL (see flowsheet). Actions taken: Patient oriented to room and call light function. Skin assessment done with NIRU Brenner. Pt. Educated on falls risk precautions. Will continue to monitor. This note was completed by: Simi Freitas RN TROPONIN Collected: 05/26/2018 Status: F Source: [facility] 6:00 PM [facility] REPOSITORY TYPE CODE TESTS RESULT OUT OF REFERENCE UNITS RANGE LAB TROPONIN 0.00 - 0.05 ng/ml I(LOINC) TROPONIN I <0.01 Result Comment: Elevated troponin (above the 99th percentile) usually indicates myocardial ischemia. Results must be interpreted within the clinical setting. 1.Non-ischemic pathology can also cause elevated troponin levels (e.g., acute pulmonary embolism, myocarditis, pericarditis, heart failure, intracranial injury, rhabdomyolisis, sepsis, shock and renal insufficiency). 2.Approximately 1% of healthy adults have elevated troponin levels. 3.Analytical false positive results rarely occur(due to multiple interferences such as heterophile antibodies). Performed By: #### [id number] #### [facility],[address] [place] [address] CBC Collected: 05/26/2018 Status: F Source: [facility] 2:50 PM [facility] REPOSITORY TYPE CODE TESTS RESULT OUT OF RANGE REFERENCE UNITS LAB CBC(LOINC) CBC Result Comment: CBC-COMPLETE BLOOD COUNT LAB WBC(LOINC) 4.5 - 10.8 x 10EE3/UL WBC 4.9 LAB RBC(LOINC) 4.50 - x 10EE6/UL 6.00 RBC 5.39 LAB HEMOGLOBIN(LOINC) 13.0 - g/dl 17.5 HEMOGLOBIN 16.3 LAB HEMATOCRIT(LOINC) 40.0 - % 52.0 HEMATOCRIT 46.3 LAB MCV(LOINC) 81 - 98 fl MCV 86 LAB MCH(LOINC) 27 - 33 pg MCH 30 LAB MCHC(LOINC) 32 - 36 X10 3 MCHC 35 LAB RDW/CV(LOINC) 12.0 - % 15.6 RDW/CV 12.9 LAB PLATELET(LOINC) 150 - 450 x10EE3/UL PLATELET 212 LAB MPV(LOINC) 6.4 - 10.5 fl MPV 9.2 Result Comment: AUTOMATED DIFFERENTIAL LAB NEUT %(LOINC) 46.0 - 76.0 % Low NEUT % 43.2 LAB LYMPH %(LOINC) 20.0 - 45.0 % LYMPH % High 45.3 LAB MONOS %(LOINC) 0.0 - 10.0 % MONOS % 8.3 LAB EO %(LOINC) 0.0 - 7.0 % EO % 2.3 LAB BASO %(LOINC) 0.0 - 2.0 % BASO % 0.9 LAB Lymph #(LOINC) 0.80 - 2.80 x10EE3/U L Lymph # 2.20 LAB Neut #(LOINC) 1.50 - 7.10 x10EE3/U L Neut # 2.10 LAB Wake #(LOINC) 0.20 - 1.00 x10EE3/U L Wake # 0.40 LAB EO #(LOINC) 0.00 - 0.50 x10EE3/U L EO # 0.10 LAB Baso #(LOINC) 0.00 - 0.10 x10EE3/U L Baso # 0.00 LAB MANUAL DIFF(LOINC) MANUAL DIFF N/A LAB MORPHOLOGY(LOINC ) MORPHOLOGY N/A Result Comment: {CD] Performed By: #### [id number] #### [facility],[address] [place] [address] TROPONIN Collected: 05/26/2018 Status: F Source: [facility] 2:50 PM [facility] REPOSITORY TYPE CODE TESTS RESULT OUT OF REFERENCE UNITS RANGE LAB TROPONIN 0.00 - 0.05 ng/ml I(LOINC) TROPONIN I <0.01 Result Comment: Elevated troponin (above the 99th percentile) usually indicates myocardial ischemia. Results must be interpreted within the clinical setting. 1.Non-ischemic pathology can also cause elevated troponin levels (e.g., acute pulmonary embolism, myocarditis, pericarditis, heart failure, intracranial injury, rhabdomyolisis, sepsis, shock and renal insufficiency). 2.Approximately 1% of healthy adults have elevated troponin levels. 3.Analytical false positive results rarely occur(due to multiple interferences such as heterophile antibodies). Performed By: #### [id number] #### [facility],[address] [place], [place] [id number] CMP WITH EGFR Collected: 05/26/2018 Status: F Source: [facility] 2:50 PM [facility] REPOSITORY TYPE CODE TESTS RESULT OUT OF RANGE REFERENCE UNITS LAB CMP with eGFR(LOINC) CMP with eGFR Result Comment: COMPREHENSIVE METABOLIC PANEL LAB SODIUM(LOINC) 136 - 145 mmol/l SODIUM 140 LAB POTASSIUM(LOINC) 3.5 - 5.1 mmol/L POTASSIUM 3.6 LAB CHLORIDE(LOINC) 98 - 107 mmol/L CHLORIDE 103 LAB CO2(LOINC) 21.0 - mmol/L 31.0 CO2 30.4 LAB GLUCOSE(LOINC) 74 - 106 mg/dl GLUCOSE High 125 LAB BUN(LOINC) 6 - 20 mg/dl BUN 10 LAB CREATININE(LOINC) 0.7 - 1.3 mg/dl CREATININE 1.0 LAB AST/SGOT(LOINC) 13 - 39 U/L AST/SGOT 20 LAB ALK PHOS(LOINC) 38 - 126 U/L ALK PHOS 51 LAB CALCIUM(LOINC) 8.6 - mg/dl 10.2 CALCIUM 9.0 LAB TOTAL 6.4 - 8.3 g/dl PROTEIN(LOINC) TOTAL PROTEIN 6.7 LAB ALBUMIN(LOINC) 3.4 - 4.8 g/dL ALBUMIN 4.4 LAB GLOBULIN(LOINC) 1.5 - 3.8 G/DL GLOBULIN 2.3 LAB A/G RATIO(LOINC) 0.9 - 1.6 A/G High RATIO 1.9 LAB TOTAL BILI(LOINC) 0.0 - 1.5 mg/dl TOTAL BILI 0.7 LAB B/C RATIO(LOINC) 0 - 30 ratio B/C RATIO 10 LAB ALT/SGPT(LOINC) 10 - 40 U/L ALT/SGPT High 43 LAB ANION GAP(LOINC) 10 - 20 mmol/L ANION GAP 10 LAB AGE(LOINC) years AGE 42 LAB eGFR(LOINC) 60 - 999 ML/MINUTE eGFR >60 LAB eGFR(AA)(LOINC) 60 - 999 ML/MINUTE eGFR(AA) >60 Result Comment: ACCORDING TO THE NATIONAL KIDNEY DISEASE EDUCATION PROGRAM(NKDE), A NORMAL eGFR IS A VALUE GREATER THAN OR EQUAL TO 60 ML/MIN/1.73 SQ METERS. CHRONIC KIDNEY DISEASE: <60mL/MIN/1.73 SQ METERS KIDNEY FAILURE: <15mL/MIN/1.73 SQ METERS THIS TEST SHOULD ONLY BE USED FOR PATIENTS 18 YEARS OF AGE AND OLDER. Performed By: #### [id number] #### [facility],[address] [place] [id number] EMERGENCY REPORT Observed: 05/26/2018 Status: F Source: [facility] 2:38 PM [facility] REPORT NAME ACCOUNT SEX AGE ADMIT DISCHARGE PT MED. RECORD# NUMBER DATE DATE TYPE DALIA [id number] Loy 42 05/26/18 3 CRISTINA [id number] ROOM: ER DATE OF : 1975 DICTATING PHYSICIAN: Freddy Alexis CHIEF COMPLAINT: Chest pain. HISTORY OF PRESENT ILLNESS: The patient presents with mid to right-sided chest pain that he had when he awoke after falling asleep on a chair at home. He has known coronary artery disease. He is being evaluated at the [facility] for this. He has been having some intermittent chest pain usually that comes at rest or with very minimal activity, and it usually improves with nitroglycerin. He awoke with a fairly severe 7 out of 10 pain that is not radiating. He did take a nitro, which helped, but he continues to have pain after 15 minutes so presents here for evaluation. He has no associated nausea, vomiting, shortness of breath, or diaphoresis. PAST MEDICAL HISTORY: As mentioned, known coronary artery disease. He had a heart catheterization, which showed 40% proximal LAD lesion and a 20% mid LAD lesion. This was done just in the last couple of months. He has a teacher industrial arts at the [facility], and is scheduled to see them within the next couple of weeks. He did have an episode of atrial fibrillation earlier and an episode of V tach earlier. He is on his medications per med rec list. Otherwise, other medical problems include reflux and elevated cholesterol. PAST SURGICAL HISTORY: Previous appendectomy, cholecystectomy, and orthopedic cervical surgery. MEDICATIONS: Per med rec list. ALLERGIES: No known allergies. 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 He does not smoke. He uses oral tobacco occasionally. He drinks alcohol rarely. He does not use other drugs. He is and accompanied here with his . REVIEW OF SYSTEMS: No recent injury or trauma. No fever or chills. No underlying bowel or bladder symptoms. No rashes or bleeding disorders. PHYSICAL EXAMINATION: This is a 42-year-old well-nourished, developed pleasant male alert, appropriate, does not appear toxic or in acute distress. Skin is pink, warm, and dry. HEENT: All normal. Neck is supple without adenopathy. Lungs are clear Page 1 of 2 CRISTINA GÓMEZ Emergency Room Report without crackles or wheezes. Cardiac exam is regular rhythm without any ectopy, murmurs, gallops, or rubs. He has no chest wall tenderness. Abdomen is soft and nontender. Good peripheral pulses. Good capillary refill. No cyanosis, clubbing, or edema. No redness, tenderness, or asymmetry. Vital signs: Temperature 97.3, pulse 71, respirations 16, blood pressure 130/97. DIAGNOSTIC DATA: EKG on arrival showed a normal sinus rhythm, basically normal EKG. A number of laboratory studies were obtained and these were essentially all within normal limits most notably with a troponin of less than 0.01. CBC was normal. CMP was normal. EMERGENCY DEPARTMENT COURSE AND TREATMENT: His O2 saturation was 98%. He was given another nitroglycerin sublingual and his pain resolved completely after that. I paged and eventually talked to the teacher industrial arts that is content director for his teacher industrial arts, Dr. Cooney, at the [facility]. He at that point felt that if his troponins ruled out and he remained pain free that he could be discharged to home with some change in his medications. However, just after I talked to him on the phone and went in to talk to Cristina, he states that his pain was starting to return, so at that point he was given another nitroglycerin, which improved. It actually took 3 more nitroglycerin to completely relieve his pain and Nitro paste was placed at that time. He presently remains pain free. DIAGNOSIS: Atypical chest pain. PLAN/DISPOSITION: With his recurrence of pain, I felt that transfer to [facility] is most appropriate. I discussed it with the teacher industrial arts content director there, and they did accept the patient in transfer. He did recommend starting heparin as well, which has been done. 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 Review of his previous records revealed that all troponins have always been negative. He is awaiting transfer to [facility] as of this dictation. Dictated By: Freddy Alexis MD 05/26/18 17:44 JOB #: [id number] Transcribed By: am 05/26/18 18:45 Electronically signed by: NICHOL Alexis M.D. 05/30/18 19:55 Page 2 of 2 CRISTINA GÓMEZ Emergency Room Report CARDIOLOGY VISIT Observed: 05/20/2018 Status: F Source: [place] RE[place] 11:29 [place] [facility] [place] [facility] [address] [place] [address]. [address] [place] [address] OFFICE VISIT Date of Service: 05/20/18 MR#: [id number] Acct: [id number] Name: CRISTINA GÓMEZ Rep #: [id number] : 1975 Provider: Chino Petersen MD Age/Sex: 42/M [place] [facility] [place] Status: Signed HPI HPI Details: CRISTINA GÓMEZ, is a 42 M who presents to the office today for outpatient cardiovascular follow-up. 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 He was evaluated at his local institution and then at [facility] in [place], [place]. This led to a diagnostic cardiac catheterization. Based upon the report his left ventricle was thought to be normal with an LVEF of 55-60%, the left main coronary artery had what was thought to be a proximal 40% stenosis, the LAD had a mid 20% stenosis, there was no comment on any evidence of CAD regarding the LCx or RCA systems. He subsequently underwent FFR of the mid LAD which was reported at 0.75 after a bridging segment and 0.82 prior to a bridging segment. The left main also underwent evaluation with an intravascular ultrasound with a report of 6.2 mm . He was then transferred to the [facility] for an additional opinion. After further review at the [facility] he was deemed not to have angiographically significant appearing CAD and was thought to be able to remain on his medical management including his antiarrhythmic therapy with flecainide. He states that he does have another appointment with the [facility] system to further evaluate his bridging segment. He is unsure as to what diagnostic study they are planning for him. At the present time he states he is back to work and back to normal activity. He has had no symptoms of chest discomfort or difficulty breathing. He has had no issues of ongoing palpitations or rapid rates. There is been no near syncope or syncope. He is continued with his medications without any adverse event Intake Vital Signs05/20/18 Body Mass Index (BMI) 26.0 05/20/18 Height 5 ft 11 in 05/20/18 Weight: 176 lb 05/20/18 Body Mass Index (BMI) 24.5 05/20/18 Blood Pressure 110/68 Intake Visit Reasons: post cath at [place] Allergies No Known Allergies Allergy (Verified 05/20/18 10:41) Medications Paroxetine HCl [Paxil] 10 mg PO DAILY 09/02/15 [History Confirmed 05/20/18] apixaban 5 mg tablet 5 mg PO BID #180 tab 04/01/18 [Rx Confirmed 05/20/18] flecainide 100 mg tablet 100 mg PO Q12H #60 tab 04/08/18 [Rx Confirmed 05/20/18] Esomeprazole Mag Trihydrate [Nexium] 20 mg PO DAILY 05/01/18 [History Confirmed 05/20/18] Nitroglycerin [Nitrostat] 0.4 mg SUBLINGUAL Q5M PRN 05/01/18 [History Confirmed 05/20/18] aspirin 81 mg tablet,delayed release 81 mg PO DAILY 05/20/18 [History Confirmed 05/20/18] atorvastatin 80 mg tablet 80 mg PO QHS 05/20/18 [History Confirmed 05/20/18] metoprolol tartrate 25 mg tablet 12.5 mg PO BID tab 05/20/18 [History Confirmed 05/20/18] [facility] Medical History Paroxysmal atrial fibrillation (Chronic) Atrial fibrillation with RVR (Acute) Chest pain (Acute) Hypokalemia (Acute) Anxiety and depression (Chronic) Arrhythmia (Chronic) DARA (obstructive sleep apnea) (Chronic) Other specified cardiac device in situ (Chronic) Palpitations (Acute) GERD (gastroesophageal reflux disease) (Chronic) Anxiety (Chronic) Hiatal hernia (Chronic) Inguinal hernia (Chronic) DARA (obstructive sleep apnea) (Chronic) Surgical History History of fusion of cervical spine (Chronic 09/2013) History of cholecystectomy (Resolved) History of nasal surgery (Resolved) Hx of appendectomy (Resolved) Family History Father Hypertension Sister SVT (supraventricular tachycardia) Social History Smoking Status: Never smoker alcohol intake: never substance use type: does not use caffeine: Yes Type: coffee Number of servings: 1 ROS Const Const: Positive for fatigue (started beta oralia); negative for weakness, weight gain, weight loss, frequent falls or excessive sweating Eyes Eyes: Negative for change in vision, blurry vision or transient loss of vision ENT ENT: Negative for dizziness or balance problems Cardio Chest Pain: No Palpitations: Yes (occasional) feels like its: irregular Edema: None Muscle aches with walking: None Resp Respiratory: Negative for SOB with activity or SOB at rest GI GI: Negative vomiting or vomiting blood/hematemesis : Negative for hematuria Musc Musc: Positive for muscle aches/ myalgia (joints); negative for balance problems, muscle weakness or joint pain Skin Skin: Negative non-healing lesions or rash Neuro Neuro: Negative for weakness, blurry vision, dizziness, lightheadedness, frequent falls or orthostatic symptoms Hardeep Hematologic/Lymphatic: Negative for easy bleeding Endo Endo: Positive for fatigue (started beta oralia); negative for excessive sweating Psych Psych: Negative for anxiety or depression Allergy Allergy/Immunology: Negative for hives, Negative for rash Cardiology Exam Const Appearance: cooperative, healthy appearing, comfortable, no acute distress, well developed and well groomed Nutritional Appearance: average body habitus and well nourished Orientation: alert, awake and oriented x3 Head Head: normal to inspection, normocephalic and atraumatic Ears: hearing grossly normal bilaterally Nose: external nose normal Face and Sinus: face symmetric Mouth: oral mucosae normal Teeth and gingiva: fair dentition Eyes Eyelids: eyelids normal Conjunctivae: conjunctivae normal Pupils: PERRL EOM: EOM intact bilaterally Neck Neck: no JVD, normal visual inspection and full ROM Carotids: normal carotid upstroke Chest Chest inspection: normal inspection of the chest, normal respiratory effort and symmetric chest movement; negative cough Auscultation: Bilateral: Clear to Auscultation Cardio Rate: regular rate Rhythm: regular rhythm Heart sounds: S1 normal and S2 normal; negative rub, gallop or murmur GI GI: normal to inspection, soft and bowel sounds present Neuro General: alert, awake and oriented x3 Skin Skin: no rashes or lesions noted Extremities Pulses: Normal: Right Posterior Tibial Pulse, Left Posterior Tibial Pulse, Right Radial Pulse, Left Radial Pulse Lower Extremity Edema: None: Bilateral Psych Psychological: normal affect Assessment AND Plan 1. CAD (coronary artery disease) I25.10 Plan Based upon the aforementioned findings he does have an element of coronary artery disease. However it appears it was deemed non-angiographically and nonhemodynamically significant. He was told by the [facility] team, as per their medical records, that he could remain on medical management including his flecainide therapy. Thus at the present time he will continue risk factor evaluation care as well. He will continue with follow-up with the [facility] as previously arranged. He will keep us updated on his additional diagnostic studies or therapeutic interventions. 2. Paroxysmal atrial fibrillation I48.0 Plan He appears remaining in a regular controlled rhythm at this time. He will continue his current medical management. He will be followed for any obvious changes. Plan Detail Other Medications New: Additional Comments He will be scheduled for an outpatient visit approximately 6 months unless needed sooner. Thank you for allowing me to participate in the care of your patient. Please don't hesitate to call if any issues arise. This note was generated using a voice recognition system and there may be incorrect words, spelling or punctuation that were not noted when reviewing the office note prior to saving. Follow Up 6 Months (PFM) Coding Level of Care Code Off vis,est,level 3 Diagnoses CAD (coronary artery disease) I25.10 Paroxysmal atrial fibrillation I48.0 Coding Level of Care Code Off vis,est,level 3 Diagnoses CAD (coronary artery disease) I25.10 Paroxysmal atrial fibrillation I48.0 Supplemental Info Supplemental Information Labs LDL Cholesterol 106 mg/dL (0-130) 03/17/18 HDL Cholesterol 41 mg/dL (40-) 03/17/18 Triglycerides 60 mg/dL (-199) 03/17/18 VLDL Cholesterol 12 mg/dL (5-40) 03/17/18 Diagnostics Electrocardiogram 05/01/18 Echocardiogram 03/17/18 Stress Echocardiogram 03/18/18 Stress Test 10/03/16 Pacemaker Check 03/20/18 Chest X-Ray 05/01/18 05/20/18 1129 <Electronically signed by Chino Petersen MD> Date Chino Petersen MD Cosigner Signature: Date (if applicable) CC: Luan Tyler MD PROGRESS Observed: 05/09/2018 Status: COMPLETED Source: [place] 1:52 PM [facility] [place] REPOSITORY O ID: [id number] Author: Jose Bay (Jabari) Yoko Service: Cardiovascular Medicine Author Type: Physician General House Worker Type: Progress Notes Filed: 05/09/2018 1:54 PM Note Text: [facility] PROGRESS NOTE Cristina Gómez [id number] PRIMARY SERVICE: Cardiology: Interventional [facility]VI Staff Note: ASSESSMENT AND PLAN: Problem Sob (Shortness of Breath) see plan CAD Paroxysmal Atrial Fibrillation (Hcc) History- afib and history of SVT--- has history of orthostasis tachycardia Tilt 01/2014: Formal Read: Abnormal tilt with early progressive orthostatic tachycardia, mild diastolic and systolic orthostasis, but no symptoms, syncope, loss of consciousness, vasovagal response, EKG changes or arrhythmias last seen by shonna in 12/2014 with loop recorder implant- no records from then -has been on Diltiazem, flecanide and eliquis at home which have been held Plan see plan CAD for management Resume flecanide Post cath resume eliquis, start metoprolol 12.5 bid, stop cardizem Pots (Postural Orthostatic Tachycardia Syndrome) see plan CAD Coronary Artery Disease On 04/28/2018 he was transferred to [facility] for CABG, however the data obtained includes an IVUS of LM that is 6.2 mm2 and an FFR that is >0.8, and only decreases to 0.75 when distal to a myocardial bridge in distal LAD, and given such data, no clear indication for CABG. Plan was for aggressive cardiovascular risk factor modifications and follow up with EP re his symptomatic PVC's (might be realted to his bridge) and his POTS. He was scheduled for follow up with local EP. Echo - The left ventricle is normal in size. There is no left ventricular hypertrophy. Left ventricular systolic function is normal. EF = 58 ? 5% (2D 4-ch.) Optison contrast used for endocardial border detection. Normal left ventricular diastolic function. - The right ventricle is normal in size. Right ventricular systolic function is normal. - Estimated right ventricular systolic pressure is 22 mmHg consistent with normal pulmonary artery pressures. Estimated right atrial pressure is 5 mmHg. He presents to OSH with complaints of midsternal radiating to Left chest, chest pain associated with SOB with exertion, including walking with trash cans last PM. Biomakers negative, EKG with NSR with no acute changes. Transferred to [facility] for further evaluation. He is stable with no chest pain on admission. Plan -Plan cardiac cath on Sun to repeat LM images and IVUS for further assessment - ASA 81 mg daily - Atorvastatin 80 mg daily - At this time will again hold Diltiazem until ischemia ruled out.monitor need for EP to come back to assess prior. If cath okay can again resume. -Will hold eliquis and bridge with heparin -cath 05/08/18 Impression: 1. Mild eccentric plaque in the proximal LMT with <30% stenosis. 2. 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 3. Mild coronary artery disease in the mid to distal LAD. ? Recommended Treatment: Medical Therapy ? SUBJECTIVE: INTERVAL HISTORY: No CP, SOB See HPI: Remaining ROS reviewed and negative OBJECTIVE: MEDICATIONS: Current hospital medications: acetaminophen 325-650 mg tab(s) (TYLENOL) 325-650 mg ORAL q 4 H PRN apixaban 5 mg tab(s) (ELIQUIS) 5 mg ORAL BID aspirin 81 mg chewable tab(s) 81 mg ORAL DAILY atorvastatin 80 mg tab(s) (LIPITOR) 80 mg ORAL AT BEDTIME docusate sodium 100 mg cap(s) (COLACE) 100 mg ORAL BID PRN flecainide 100 mg tab(s) (TAMBOCOR) 100 mg ORAL q 12 H metoprolol succinate ER 12.5 mg tab(s) (TOPROL XL) 12.5 mg ORAL BID NaCl 0.9% 2-10 mL 2-10 mL INTRAVENOUS q 12 H nitroglycerin sublingual 0.4 mg tab(s) (NITROQUICK) 0.4 mg SUBLINGUAL q 5 MIN PRN potassium chloride ER 10-60 mEq tab(s) (K-DUR, KLOR-CON) 10- 60 mEq ORAL PRN PHYSICAL EXAM: 05/09/18 0617 05/09/18 0700 05/09/18 0904 05/09/18 1155 BP: 112/65 123/62 Pulse: 81 83 Resp: 16 Temp: (!) 35.4 ?C (95.7 ?F) TempSrc: Oral SpO2: 97% Weight: 77.9 kg (171 lb 12.8 oz) Height: 177.8 cm (5' 10) General Appearance: Well developed HEENT: Neck: JVD - no Lungs: Clear Heart: Regular rate AND rhythm, 1/6 DAVID LSB Abdomen: Soft, Non-tender and Organomegaly - no Skin: Warm and Dry Extremities: No edema. Pulses palpable throughout. R radial 2+, no hematoma Musculoskeletal: No deformities Neurologic/Psychiatric: Oriented to time, place AND person Intake/Output Summary (Last 24 hours) at 05/09/18 1354 Last data filed at 05/09/18 1032 Gross per 24 hour Intake 0 ml Output 1450 ml Net -1450 ml TELEMETRY: , Kermit DATA: Laboratory: Recent Labs 05/09/18 0704 05/08/18 1046 05/08/18 0442 05/07/18 2102 WBC 5.78 4.69 5.48 -- HB 15.1 15.4 15.7 -- HCT 43.0 43.9 44.0 -- PLT 237 258 249 -- NA 141 141 -- -- K 4.1 4.2 -- 4.0 CHLOR 103 104 -- -- CO2 25 27 -- -- BUN 11 12 -- -- CREAT 1.02 1.04 -- -- GLUC 87 88 -- -- Care Coordination Discharge Management: I personally spent greater than 30 minutes involved in the discharge management of this patient. All medications and potential SE were discussed with the patient Case discussed with Dr. Bliss SIGNATURE: Jose Babcock PA-C PAGER: [phone] DATE of SERVICE: 05/09/2018 TIME of SERVICE: 0900 PLAN OF CARE Observed: 05/09/2018 Status: COMPLETED Source: [place] 9:16 AM [facility] REPOSITORY HNO ID: [id number] Author: Mariama Galindo (Solid Waste Collector) Service: (none) Author Type: (none) Type: Plan of Care Filed: 05/09/2018 9:16 AM Note Text: BATCH MAKER BEDSIDE DELIVERY SURVEY 1. Patient to use [facility] Bedside Delivery - YES 2. If fax, patient would like us to fax prescriptions to Pharmacy of choice a. Pharmacy: b. Location: c. Phone: 3. Insurance card on file - YES 4. Credit card for payment - NO No prescriptions yet. Please page [phone] upon discharge. CBC Collected: 05/09/2018 Status: F Source: [place] 7:04 AM [facility] REPOSITORY TYPE CODE TESTS RESULT OUT OF REFERENCE UNITS RANGE LAB WBC 3.70-11.00 k/uL WBC 5.78 LAB RBC 4.20-6.00 m/uL RBC 5.06 LAB HGB 13.0-17.0 g/dL Hemoglobin 15.1 LAB HCT 39.0-51.0 % Hematocrit 43.0 LAB MCV 80.0-100.0 fL MCV 85.0 LAB MCH 26.0-34.0 pG MCH 29.8 LAB MCHC 30.5-36.0 g/dL MCHC 35.1 LAB RDWCV 11.5-15.0 % RDW-CV 12.3 LAB PLTCT 150-400 k/uL Platelet Count 237 LAB MPV 9.0-12.7 fL MPV 10.7 LAB ABSNUC <0.01 k/uL Absolute nRBC <0.01 Performed By: #### CBC, BMP, MG1 #### [facility] [address] [place], [place] [address] BASIC METABOLIC PANL Collected: 05/09/2018 Status: F Source: [place] 7:04 AM [facility] REPOSITORY TYPE CODE TESTS RESULT OUT OF REFERENCE UNITS RANGE LAB GLU 74-99 mg/dL Glucose 87 Result Comment: The Stateless Diabetes Association (ADA) provides guidance for cutoff values for fasting glucose and random glucose. The ADA defines fasting as no caloric intake for at least 8 hours. Fas ting plasma glucose results between 100 to 125 mg/dL indicate increased risk for diabetes (prediabetes). Fasting plasma glucose results greater than or equal to 126 mg/dL meet the criteria for diagnosis of diabetes. In the absence of unequivocal hyperglycemia, results should be confirmed by repeat testing. In a patient with classic symptoms of hyperglycemia or hyperglycemic crisis, random plasma glucose results greater than or equal to 200 mg/dL meet the criteria for diagnosis of diabetes. Reference: Standards of Medical Care in Diabetes 2016, Stateless Diabetes Association. Diabetes Care. 2016.39(Suppl 1). LAB BUN 9-24 mg/dL BUN 11 LAB CRET 0.73-1.22 mg/dL Creatinine 1.02 LAB NA 136-144 mmol/L Sodium 141 LAB K 3.7-5.1 mmol/L Potassium 4.1 LAB CL 97-105 mmol/L Chloride 103 LAB CO2 22-30 mmol/L CO2 25 LAB AGAP 9-18 mmol/L Anion Gap 13 LAB CA 8.5-10.2 mg/dL Calcium, Total 8.9 LAB GFRAA eGFR- Amer. >60 LAB GFRNAA . eGFR-All Other Races >60 Result Comment: eGFR (Estimated GFR) Units of measure: mL/min/1.73 meters squared eGFR is derived from the reexpressed MDRD Study equation using the following parameters: serum creatinine, age, gender and race. The creatinine assay has been calibrated to be traceable to IDMS. An eGFR <60 mL/min/1.73m2 for >3 months is consistent with chronic kidney disease. Refer to KDOQI guidelines for clinical interpretation. In patients with unstable renal function, e.g. those with acute kidney injury, the eGFR may not accurately reflect actual GFR. Performed By: #### CBC, BMP, MG1 #### [facility] [address] [place], [place] [address] MAGNESIUM Collected: 05/09/2018 Status: F Source: [place] 7:04 AM [facility] REPOSITORY TYPE CODE TESTS RESULT OUT OF REFERENCE UNITS RANGE LAB MG 1.7-2.3 mg/dL Magnesium 2.0 Performed By: #### CBC, BMP, MG1 #### [facility] [address] [place], [place] [id number] CNCO Observed: 05/09/2018 Status: COMPLETED Source: [place] 12:00 AM [facility] REPOSITORY Letter Text Name: Cristina Gómez : 1975 [facility]#: [id number] Date of Service: 05/09/2018 Page:2 Alysia Bliss MD, MSc [facility] Department of Cardiovascular Medicine Adult Congenital Heart Disease Interventional Cardiology [address] [place] [address] Office: [phone] Appointment Desk: [phone] 05/09/2018 Re: Cristina Gómez DATE OF : 1975 To Whom It May Concern: I had the pleasure of seeing , and he is cleared to return to work SundayMay 122017 from a cardiac standpoint. Please do not hesitate to contact my office if you have any questions or if I can be of further assistance. Again, thank you for allowing me to participate in the care of Cristina Gómez. Sincerely, Alysia Bliss MD, MSc (Signed electronically to expedite mailing) / cc: CRISTINA GÓMEZ [address] [address] Letter Text May 22, 2018 Cristina Gómez [address] [address] Dear Mr. Gómez, The nurses and staff of J7-3 nursing unit at [facility] hope this letter finds you feeling well and progressing in your recovery. It was an honor for us to provide your nursing care. We know that placing our Patients First and maintaining a culture of continuous improvement, each and every day, are essential to the success of our organization. We want to hear from you. If you have any comments, questions or concerns about your hospital stay, please feel free to contact me, Elder Peralta RN at [phone] or e-mail [email or web address]. Additionally, you will receive a survey in the mail asking you to rate the care you received while in the hospital. Please take the time to complete and send back the survey. I personally review all the results and would appreciate your feedback. Please consider completing this survey for each individual visit. Thank you in advance for your participation and thank you for choosing the [facility] for your healthcare needs. Sincerely, Elder Peralta RN Nurse Bullet Slug Casting Machine Operator J7-3 Cardiology Step-down Unit PLAN OF CARE Observed: 05/08/2018 Status: COMPLETED Source: [place] 6:44 PM [facility] REPOSITORY HNO ID: [id number] Author: Junie Michael MD (Fel) Service: Cardiovascular Medicine Author Type: Fellow Type: Plan of Care Filed: 05/08/2018 6:52 PM Note Text: Cardiology X-Cover Reason for call: Right visual field disturbance. Mr. Gómez is a 42M with pAF admitted with chest pain. Now s/p C ro r/o LMCA disease. Upon return to room he reports that he felt well but upon sitting up he felt Right visual field waves worse with looking right. No nausea, no dizziness. Upon arrival patient eating dinner with no complaints. Says that waves have receeded and are now essentially gone though can be provoked by looking right quickly. Tele shows ongoing NSR, no AF. Exam: Well appearing, at bedside. Making jokes Full visual hill intact to Normal finger to nose Normal eye tracking though Right sided beating saccades lasting 2 beats that worsen vis CN intact. Assessment: Resolving visual field disturbance: Normal neurologic exam, though low threshold for cross-sectional imaging and neurology consultation. - Given resolution, will monitor patient closely. Advised patient to call with any change or worsening. At this time suspect this may be secondary to saccades from medications impacting vestibular system Junie Michael MD Cardiovascular Medicine Fellow Pager [phone] (please see below for after hours communication) ? For communication after 5 pm on weekdays and after 12 pm on weekends, please page the following: - Clinical Cardiology patients on all floors: page [phone] - For patients on Heart Failure A, Imaging, Clinical SOX ANALYST/PA: page [phone] - For patients on EP, EP TCI, Intervention, Heart Failure B, J33: page [phone] NURSING PROG Observed: 05/08/2018 Status: COMPLETED Source: [place] 6:34 PM [facility] REPOSITORY HNO ID: [id number] Author: Ghislaine Del Rosario) NIRU Jade Service: (none) Author Type: Registered Nurse Type: Nursing Progress Note Filed: 05/08/2018 6:42 PM Note Text: Nursing Progress Note Patient Name: Cristina Gómez Patient Location: [facility] 009/J7-3-09 Event(s) / Intervention Note: The patient complained of the following problems: vision changes to right .reports it is like a wave to right eye denies cp or sob vss occurred at 1830 neuro check wnl tiated: Dr. michael notified.and came to bedside for exam After the initiated interventions, the following observation(s) were made: patient appears improved.pt reports it is getting better. This note was completed by: Ghislaine Jade RN PROGRESS Observed: 05/08/2018 Status: COMPLETED Source: [place] 12:11 PM [facility] [place] REPOSITORY O ID: [id number] Author: Ricardo Hebert ([facility]) [place] Service: Cardiovascular Medicine Author Type: Nurse Practitioner Type: Progress Notes Filed: 05/08/2018 12:12 PM Note Text: [facility] CARDIOVASCULAR MEDICINE PROGRESS NOTE PRIMARY SERVICE: Hvi Card Intervention HOSPITAL DAY: # 2 INTERVAL HISTORY Hemodynamically stable overnight. Plan for C today. PHYSICAL EXAM BP 109/67 Pulse 68 Temp 36.3 ?C (97.3 ?F) (Oral) Resp 18 Ht 177.8 cm (5' 10) Wt 78.2 kg (172 lb 8 oz) SpO2 97% BMI 24.75 kg/m? Intake/Output Summary (Last 24 hours) at 05/08/18 1211 Last data filed at 05/08/18 0900 Gross per 24 hour Intake 860 ml Output 1430 ml Net -570 ml General Appearance: No acute distress HEENT: JVD - no Lungs: Clear and Respiratory effort: normal Heart: Regular rate AND rhythm and S1, S2 normal Abdomen: Soft, Round and Non-tender Skin: Warm and Dry Musculoskeletal: No deformities Neurologic/Psychiatric: Oriented to time, place AND person MEDICATIONS Current hospital medications: acetaminophen 325-650 mg tab(s) (TYLENOL) 325-650 mg ORAL q 4 H PRN aspirin 81 mg chewable tab(s) 81 mg ORAL DAILY atorvastatin 80 mg tab(s) (LIPITOR) 80 mg ORAL AT BEDTIME docusate sodium 100 mg cap(s) (COLACE) 100 mg ORAL BID PRN flecainide 100 mg tab(s) (TAMBOCOR) 100 mg ORAL q 12 H NaCl 0.9% 2-10 mL 2-10 mL INTRAVENOUS q 12 H NaCl 0.9% iv infusion 150 mL/hr INTRAVENOUS CONTINUOUS nitroglycerin sublingual 0.4 mg tab(s) (NITROQUICK) 0.4 mg SUBLINGUAL q 5 MIN PRN potassium chloride ER 10-60 mEq tab(s) (K-DUR, KLOR-CON) 10- 60 mEq ORAL PRN DATA Recent Labs 05/08/18 1046 05/08/18 0442 05/07/18 0530 WBC 4.69 5.48 5.75 HB 15.4 15.7 16.2 HCT 43.9 44.0 46.2 PLT 258 249 280 Recent Labs 05/07/18 2102 05/07/18 1610 05/06/18 1212 NA -- -- 140 K 4.0 3.7 3.6* CO2 -- -- 23 BUN -- -- 15 CREAT -- -- 0.96 GLUC -- -- 93 IMAGING Reviewed ASSESSMENT AND PLAN Cristina Gómez is a 42 year old male with history of atrial fibrillation (on Cardizem, Flecainide, and Eliquis) and POTS. On 04/28/2018 he was transferred to [facility] for CABG, however the data obtained includes an IVUS of LM that is 6.2 mm2 and an FFR that is >0.8, and only decreases to 0.75 when distal to a myocardial bridge in distal LAD, and given such data, no clear indication for CABG. Plan was for aggressive cardiovascular risk factor modifications and follow up with EP re his symptomatic PVC's (might be realted to his bridge) and his POTS. He was scheduled for follow up with local EP. He presents to OSH with complaints of midsternal radiating to Left chest, chest pain associated with SOB with exertion, including walking with trash cans last PM. Biomakers negative, EKG with NSR with no acute changes. Transferred to [facility] for further evaluation. He is stable with no chest pain on admission. Plan for [facility] 05/08 Problem Sob (Shortness of Breath) see plan CAD. Chest Pain see plan CAD. Paroxysmal Atrial Fibrillation (Hcc) History- afib and history of SVT--- has history of orthostasis tachycardia Tilt 01/2014: Formal Read: Abnormal tilt with early progressive orthostatic tachycardia, mild diastolic and systolic orthostasis, but no symptoms, syncope, loss of consciousness, vasovagal response, EKG changes or arrhythmias last seen by shonna in 12/2014 with loop recorder implant- no records from then -has been on Diltiazem, flecanide and eliquis at home which have been held Plan see plan CAD for management Resume flecanide Pots (Postural Orthostatic Tachycardia Syndrome) see plan CAD. Coronary Artery Disease On 04/28/2018 he was transferred to [facility] for CABG, however the data obtained includes an IVUS of LM that is 6.2 mm2 and an FFR that is >0.8, and only decreases to 0.75 when distal to a myocardial bridge in distal LAD, and given such data, no clear indication for CABG. Plan was for aggressive cardiovascular risk factor modifications and follow up with EP re his symptomatic PVC's (might be realted to his bridge) and his POTS. He was scheduled for follow up with local EP. Echo - The left ventricle is normal in size. There is no left ventricular hypertrophy. Left ventricular systolic function is normal. EF = 58 ? 5% (2D 4-ch.) Optison contrast used for endocardial border detection. Normal left ventricular diastolic function. - The right ventricle is normal in size. Right ventricular systolic function is normal. - Estimated right ventricular systolic pressure is 22 mmHg consistent with normal pulmonary artery pressures. Estimated right atrial pressure is 5 mmHg. He presents to OSH with complaints of midsternal radiating to Left chest, chest pain associated with SOB with exertion, including walking with trash cans last PM. Biomakers negative, EKG with NSR with no acute changes. Transferred to [facility] for further evaluation. He is stable with no chest pain on admission. Plan -Plan cardiac cath on Sun to repeat LM images and IVUS for further assessment - ASA 81 mg daily - Atorvastatin 80 mg daily - At this time will again hold Diltiazem until ischemia ruled out.monitor need for EP to come back to assess prior. If cath okay can again resume. -Will hold eliquis and bridge with heparin ? Case to be discussed with staff SIGNATURE: Anup Schofield CNP PATIENT NAME: Cristina Gómez DATE: May 08, 2018 TIME: 12:11 PM PAGER/CONTACT #: SEE BELOW For communication after 5 pm on weekdays and after 12 pm on weekends, please page the following: - Clinical Cardiology patients on all floors: page [phone] - Other Cardiology patients on J5 and J6: page [phone] - Other Cardiology patients on J7 and J8: page [phone] ETX [id number] CBC Collected: 05/08/2018 Status: F Source: [place] 10:46 AM [facility] REPOSITORY TYPE CODE TESTS RESULT OUT OF REFERENCE UNITS RANGE LAB WBC 3.70-11.00 k/uL WBC 4.69 LAB RBC 4.20-6.00 m/uL RBC 5.16 LAB HGB 13.0-17.0 g/dL Hemoglobin 15.4 LAB HCT 39.0-51.0 % Hematocrit 43.9 LAB MCV 80.0-100.0 fL MCV 85.1 LAB MCH 26.0-34.0 pG MCH 29.8 LAB MCHC 30.5-36.0 g/dL MCHC 35.1 LAB RDWCV 11.5-15.0 % RDW-CV 12.0 LAB PLTCT 150-400 k/uL Platelet Count 258 LAB MPV 9.0-12.7 fL MPV 10.5 LAB ABSNUC <0.01 k/uL Absolute nRBC <0.01 Performed By: #### CBC, BMP, MG1 #### [facility] [address] [place], [place] [address] BASIC METABOLIC PANL Collected: 05/08/2018 Status: F Source: [place] 10:46 AM [facility] REPOSITORY TYPE CODE TESTS RESULT OUT OF REFERENCE UNITS RANGE LAB GLU 74-99 mg/dL Glucose 88 Result Comment: The Stateless Diabetes Association (ADA) provides guidance for cutoff values for fasting glucose and random glucose. The ADA defines fasting as no caloric intake for at least 8 hours. Fas ting plasma glucose results between 100 to 125 mg/dL indicate increased risk for diabetes (prediabetes). Fasting plasma glucose results greater than or equal to 126 mg/dL meet the criteria for diagnosis of diabetes. In the absence of unequivocal hyperglycemia, results should be confirmed by repeat testing. In a patient with classic symptoms of hyperglycemia or hyperglycemic crisis, random plasma glucose results greater than or equal to 200 mg/dL meet the criteria for diagnosis of diabetes. Reference: Standards of Medical Care in Diabetes 2016, Stateless Diabetes Association. Diabetes Care. 2016.39(Suppl 1). LAB BUN 9-24 mg/dL BUN 12 LAB CRET 0.73-1.22 mg/dL Creatinine 1.04 LAB NA 136-144 mmol/L Sodium 141 LAB K 3.7-5.1 mmol/L Potassium 4.2 LAB CL 97-105 mmol/L Chloride 104 LAB CO2 22-30 mmol/L CO2 27 LAB AGAP 9-18 mmol/L Anion Gap 10 LAB CA 8.5-10.2 mg/dL Calcium, Total 9.0 LAB GFRAA eGFR- Amer. >60 LAB GFRNAA . eGFR-All Other Races >60 Result Comment: eGFR (Estimated GFR) Units of measure: mL/min/1.73 meters squared eGFR is derived from the reexpressed MDRD Study equation using the following parameters: serum creatinine, age, gender and race. The creatinine assay has been calibrated to be traceable to IDMS. An eGFR <60 mL/min/1.73m2 for >3 months is consistent with chronic kidney disease. Refer to KDOQI guidelines for clinical interpretation. In patients with unstable renal function, e.g. those with acute kidney injury, the eGFR may not accurately reflect actual GFR. Performed By: #### CBC, BMP, MG1 #### [facility] [address] [place], [place] [address] MAGNESIUM Collected: 05/08/2018 Status: F Source: [place] 10:46 AM [facility] REPOSITORY TYPE CODE TESTS RESULT OUT OF REFERENCE UNITS RANGE LAB MG 1.7-2.3 mg/dL Magnesium 2.0 Performed By: #### CBC, BMP, MG1 #### [facility] [address] [place], [place] [address] ECG COMPLETE W Observed: 05/08/2018 Status: F Source: [place] [facility] 10:28 AM [facility] REPOSITORY NAME : CRISTINA GÓMEZ PID : [id number] : 1975 Gender : Male Race : ORD : [id number] Procedure Date : May 08 2018 10:28:29 Edit Date : May 09 2018 10:57:13 Diagnosis:NORMAL SINUS RHYTHM NORMAL ECG Confirmed by RAMON HERRERA M.D. ([id number]) on 05/09/2018 10:47:32 AM Ventricular Rate : 67 BPM Atrial Rate : 67 BPM P-R Interval : 202 ms QRS Duration : 92 ms Q-T Interval : 402 ms QTC Calculation(Bezet) : 424 ms P Maypearl : 86 degrees R Maypearl : 59 degrees T Maypearl : 63 degrees Test Reason : CHEST PAIN / SOB Location : 373 : [id number] Overread By : RAMON HERRERA M.D. Edited By : RAMON HERRERA M.D. Referred By : Freddy SCHOFIELD Acquired by : LINDA ELMORE CBC Collected: 05/08/2018 Status: F Source: [place] 4:42 AM [facility] REPOSITORY TYPE CODE TESTS RESULT OUT OF REFERENCE UNITS RANGE LAB WBC 3.70-11.00 k/uL WBC 5.48 LAB RBC 4.20-6.00 m/uL RBC 5.16 LAB HGB 13.0-17.0 g/dL Hemoglobin 15.7 LAB HCT 39.0-51.0 % Hematocrit 44.0 LAB MCV 80.0-100.0 fL MCV 85.3 LAB MCH 26.0-34.0 pG MCH 30.4 LAB MCHC 30.5-36.0 g/dL MCHC 35.7 LAB RDWCV 11.5-15.0 % RDW-CV 12.1 LAB PLTCT 150-400 k/uL Platelet Count 249 LAB MPV 9.0-12.7 fL MPV 11.0 LAB ABSNUC <0.01 k/uL Absolute nRBC <0.01 Performed By: #### CBC #### [facility] [address] [place] [address] POTASSIUM Collected: 05/07/2018 Status: F Source: [place] 9:02 PM [facility] REPOSITORY TYPE CODE TESTS RESULT OUT OF REFERENCE UNITS RANGE LAB K 3.7-5.1 mmol/L Potassium 4.0 Performed By: #### K1 #### [facility] [address] [place], [place] [address] PROGRESS Observed: 05/07/2018 Status: COMPLETED Source: [place] 7:08 PM [facility] REPOSITORY HNO ID: [id number] Author: Jose Bay (Jabari) Yoko Service: Cardiovascular Medicine Author Type: Physician General House Worker Type: Progress Notes Filed: 05/07/2018 7:13 PM Note Text: [facility] PROGRESS NOTE Cristina Gómez [id number] PRIMARY SERVICE: Cardiology: Interventional HVI Staff Note: ASSESSMENT AND PLAN: Problem Sob (Shortness of Breath) see plan CAD. Chest Pain see plan CAD. Paroxysmal Atrial Fibrillation (Hcc) History- afib and history of SVT--- has history of orthostasis tachycardia Tilt 01/2014: Formal Read: Abnormal tilt with early progressive orthostatic tachycardia, mild diastolic and systolic orthostasis, but no symptoms, syncope, loss of consciousness, vasovagal response, EKG changes or arrhythmias last seen by shonna in 12/2014 with loop recorder implant- no records from then -has been on Diltiazem, flecanide and eliquis at home which have been held Plan see plan CAD for management Resume flecanide Pots (Postural Orthostatic Tachycardia Syndrome) see plan CAD. Coronary Artery Disease On 04/28/2018 he was transferred to [facility] for CABG, however the data obtained includes an IVUS of LM that is 6.2 mm2 and an FFR that is >0.8, and only decreases to 0.75 when distal to a myocardial bridge in distal LAD, and given such data, no clear indication for CABG. Plan was for aggressive cardiovascular risk factor modifications and follow up with EP re his symptomatic PVC's (might be realted to his bridge) and his POTS. He was scheduled for follow up with local EP. Echo - The left ventricle is normal in size. There is no left ventricular hypertrophy. Left ventricular systolic function is normal. EF = 58 ? 5% (2D 4-ch.) Optison contrast used for endocardial border detection. Normal left ventricular diastolic function. - The right ventricle is normal in size. Right ventricular systolic function is normal. - Estimated right ventricular systolic pressure is 22 mmHg consistent with normal pulmonary artery pressures. Estimated right atrial pressure is 5 mmHg. He presents to OSH with complaints of midsternal radiating to Left chest, chest pain associated with SOB with exertion, including walking with trash cans last PM. Biomakers negative, EKG with NSR with no acute changes. Transferred to [facility] for further evaluation. He is stable with no chest pain on admission. Plan -Plan cardiac cath on Sun to repeat LM images and IVUS for further assessment - ASA 81 mg daily - Atorvastatin 80 mg daily - At this time will again hold Diltiazem and Flecainide until ischemia ruled out.monitor need for EP to come back to assess prior. If cath okay can again resume. -Will hold eliquis and bridge with heparin ? SUBJECTIVE: INTERVAL HISTORY: No CP, SOB See HPI: Remaining ROS reviewed and negative OBJECTIVE: MEDICATIONS: Current hospital medications: acetaminophen 325-650 mg tab(s) (TYLENOL) 325-650 mg ORAL q 4 H PRN aspirin 81 mg chewable tab(s) 81 mg ORAL DAILY atorvastatin 80 mg tab(s) (LIPITOR) 80 mg ORAL AT BEDTIME docusate sodium 100 mg cap(s) (COLACE) 100 mg ORAL BID PRN [START ON 05/08/2018] flecainide 100 mg tab(s) (TAMBOCOR) 100 mg ORAL q 12 H NaCl 0.9% 2-10 mL 2-10 mL INTRAVENOUS q 12 H nitroglycerin sublingual 0.4 mg tab(s) (NITROQUICK) 0.4 mg SUBLINGUAL q 5 MIN PRN potassium chloride ER 10-60 mEq tab(s) (K-DUR, KLOR-CON) 10- 60 mEq ORAL PRN PHYSICAL EXAM: 05/07/18 0940 05/07/18 1410 05/07/18 1538 05/07/18 1821 BP: 115/71 121/69 111/61 116/65 Pulse: 68 74 75 73 Resp: 16 Temp: (!) 35.7 ?C (96.3 ?F) 36.2 ?C (97.2 ?F) 36.6 ?C (97.9 ?F) TempSrc: Oral Oral Oral SpO2: 96% 97% 97% Weight: Height: General Appearance: Well developed HEENT: Neck: JVD - no Lungs: Clear Heart: Regular rate AND rhythm, 1/6 DAVID LSB Abdomen: Soft, Non-tender and Organomegaly - no Skin: Warm and Dry Extremities: No edema. Pulses palpable throughout. Musculoskeletal: No deformities Neurologic/Psychiatric: Oriented to time, place AND person Intake/Output Summary (Last 24 hours) at 05/07/18 1913 Last data filed at 05/07/18 1500 Gross per 24 hour Intake 360 ml Output 1750 ml Net -1390 ml TELEMETRY: SR DATA: Laboratory: Recent Labs 05/07/18 1610 05/07/18 0530 05/06/18 1212 WBC -- 5.75 5.79 HB -- 16.2 16.7 HCT -- 46.2 47.5 PLT -- 280 298 NA -- -- 140 K 3.7 -- 3.6* CHLOR -- -- 102 CO2 -- -- 23 BUN -- -- 15 CREAT -- -- 0.96 GLUC -- -- 93 Echo: CONCLUSIONS: - Exam indication: Acute chest pain with suspected CA - The left ventricle is normal in size. There is no left ventricular hypertrophy. Left ventricular systolic function is normal. EF = 58 ? 5% (2D 4-ch.) Optison contrast used for endocardial border detection. Normal left ventricular diastolic function. - The right ventricle is normal in size. Right ventricular systolic function is normal. - Estimated right ventricular systolic pressure is 22 mmHg consistent with normal pulmonary artery pressures. Estimated right atrial pressure is 5 mmHg. - Exam was compared with the prior echocardiographic exam performed on 02-04-2014. Similar findings reported. Case discussed with Dr. Bliss SIGNATURE: Jose Babcock PA-C PAGER: [phone] DATE of SERVICE: 05/07/2018 TIME of SERVICE: 0900 POTASSIUM Collected: 05/07/2018 Status: F Source: [place] 4:10 PM [facility] REPOSITORY TYPE CODE TESTS RESULT OUT OF REFERENCE UNITS RANGE LAB K 3.7-5.1 mmol/L Potassium 3.7 Performed By: #### K1 #### [facility] [address] [place], [place] [address] CASE MGT INIT Observed: 05/07/2018 Status: COMPLETED Source: [place] NATALIIA 12:19 PM [facility] REPOSITORY HNO ID: [id number] Author: Juno (Rn) NIRU Tripp Service: Case Management Author Type: Registered Nurse Type: Care Mgt Initial Assessment Filed: 05/07/2018 12:57 PM Note Text: CARE MANAGEMENT: ASSESSMENT AND DISCHARGE PLAN SERVICE DATE: 05/07/2018 SERVICE TIME: 12:20 PM PRIMARY CARE PHYSICIAN: Luan Tyler MD-confirmed ADMISSION STATUS: Inpatient Needs Prior to Discharge: None 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 Yes Is This a Planned Readmission? No: Recurrent symptoms of underlying disease Followed Up with Appointment Prior to Admission: Patient scheduled, but readmitted prior Where Did the Patient Come From? Home Intervention Taken to Avoid Future Readmission? 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 How often do you need to have someone help you when you read instructions, pamphlets, or other written material from your doctor or pharmacy? Never - 1 2. How confident are you filling out medical forms by yourself? Extremely - 1 If Patient scores > 3 on either question, the following interventions were put into place: Patient did not score > 3 FUNCTIONAL AND COGNITIVE/BEHAVIORAL PRIOR TO ADMISSION: Baseline Mental Status: Alert AND Oriented, Person, Place , Time and Situation Functional Status: Independent Does Patient Currently Receive Any Community Services or Home Care? None Equipment Prior to Admission: None Has the Patient Been in a Long Term Facility in the Past 30 days? No SOCIAL: Living Arrangement: Home Lives With: Spouse and children Financial Resources: Employed: [employer] Primary Contact: Extended Emergency Contact Information Primary Emergency Contact: Mavis Gómez Address: [address] [address] Mobile Relation: Spouse Supportive: Yes Other Important Patient Contacts: None Caregiver Assessment: Caregiver is ready, willing and able to meet the patient's needs as recommended by the inter-professional team? No Caregiver Needed Patient's transition needs and plan for meeting these needs: Independent with ADLs prior to admssion. Does the patient have an acute stroke diagnosis, or has the patient had a stroke during this admission? No Medication Adherence: I am convinced of the importance of my prescription medication: Agree completely - 0 I worry that my prescription medication will do more harm than good to me Disagree mostly - 0 I feel financially burdened by my cwl-uq-tcsala expenses for my prescription medication: Disagree mostly -0 Patient is categorized as low risk < 2 Are you interested in bedside delivery of your medications? Yes Food Concerns: In the Last Month, Have You had Trouble Getting Food? No trouble getting food During the Last Month, Have You Worried Whether Your Food Would Run Out Before You Had Enough Money to Buy More? No Is the Patient Psychosocially Complex? No ASSESSMENT AND PLAN: Medical Needs: None Psychosocial Needs: None FREEDOM OF CHOICE EXPLAINED: N/A POTENTIAL TRANSITION PLANS No Services Indicated 42 YO presents with chest pain. Met with patient at the bedside, explained CM role. 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 Has transportation upon discharge. No skilled needs identified. CM will continue to follow medical course and discharge accordingly. SIGNATURE: Juno Tripp RN PATIENT NAME: Cristina Gómez DATE: May 07, 2018 TIME: 12:19 PM PAGER/CONTACT #: [phone] CBC Collected: 05/07/2018 Status: F Source: [place] 5:30 AM [facility] REPOSITORY TYPE CODE TESTS RESULT OUT OF REFERENCE UNITS RANGE LAB WBC 3.70-11.00 k/uL WBC 5.75 LAB RBC 4.20-6.00 m/uL RBC 5.34 LAB HGB 13.0-17.0 g/dL Hemoglobin 16.2 LAB HCT 39.0-51.0 % Hematocrit 46.2 LAB MCV 80.0-100.0 fL MCV 86.5 LAB MCH 26.0-34.0 pG MCH 30.3 LAB MCHC 30.5-36.0 g/dL MCHC 35.1 LAB RDWCV 11.5-15.0 % RDW-CV 12.4 LAB PLTCT 150-400 k/uL Platelet Count 280 LAB MPV 9.0-12.7 fL MPV 11.2 LAB ABSNUC <0.01 k/uL Absolute nRBC <0.01 Performed By: #### CBC #### [facility] [address] [place], [place] [address] CNDS Observed: 05/06/2018 Status: COMPLETED Source: [place] 1:16 PM [facility] REPOSITORY O ID: [id number] Author: Jose Babcock (Pa) Service: Cardiovascular Medicine Author Type: Physician General House Worker Type: Discharge Summaries Filed: 05/09/2018 2:26 PM Note Text: Attestation signed by Alysia Bliss at 05/15/2018 12:[address] 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 I have reviewed the documentation obtained and documented by the Nurse Practitioner and have reviewed and updated the problem list as appropriate. I have personally performed a face to face assessment of the patient and have personally participated in the trejo components. I have discussed the case and management of the patient's care. STAFF PHYSICIAN: Alysia Bliss MD DATE OF SERVICE: May 09, 2018 TIME OF SERVICE: 12:35 PM Department of Cardiovascular Medicine Discharge Summary PATIENT NAME: Cristina Gómez ADMISSION DATE: 05/06/2018 DISCHARGE DATE: 05/09/2018 Attending Physician: Alysia Bliss Code Status: Not on file Primary Service: Hvi Card Intervention Admission Diagnosis: Chest Pain Discharge Diagnosis: Chest pain Secondary Diagnoses: Patient Active Hospital Problem List: Coronary artery disease (04/28/2018) Paroxysmal atrial fibrillation (HCC) (04/29/2018) POTS (postural orthostatic tachycardia syndrome) (04/29/2018) SOB (shortness of breath) (05/06/2018) Chest pain (05/06/2018) Reason for Hospitalization: Cristina Gómez is a 42 year old male with history of atrial fibrillation (on Cardizem, Flecainide, and Eliquis) and POTS. On 04/28/2018 he was transferred to [facility] for CABG, however the data obtained includes an IVUS of LM that is 6.2 mm2 and an FFR that is >0.8, and only decreases to 0.75 when distal to a myocardial bridge in distal LAD, and given such data, no clear indication for CABG. Plan was for aggressive cardiovascular risk factor modifications and follow up with EP re his symptomatic PVC's (might be realted to his bridge) and his POTS. He was scheduled for follow up with local EP. ? He presents to OSH with complaints of midsternal radiating to Left chest, chest pain associated with SOB with exertion, including walking with trash cans last PM. Biomakers negative, EKG with NSR with no acute changes. Transferred to [facility] for further evaluation. He is stable with no chest pain on admission. Hospital Course: Patient was underwent cardiac catheterization with recommendations for medical therapy and follow up coronary CTA and exercise stress test in 1 month. Peak CK/Troponin 65/<0.01. Also patient had transient visual field disturbance post cath and this am lasting 10 minutes, resolved and neuro exam was normal. He will be scheduled for Neuro outpt evaluation. Consults: None Major Procedure or Operation: Cardiac cath Impression: 1. Mild eccentric plaque in the proximal LMT with <30% stenosis. 2. 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 3. Mild coronary artery disease in the mid to distal LAD. ? Recommended Treatment: Medical Therapy. Plan: 1. Risk factor reduction and optimal medical therapy for coronary artery disease. 2. Follow up with Dr. Bliss for coronary CTA and exercise stress test for further anatomic/functional evaluation of LAD myocardial bridge. Other Procedures, Testing AND Radiology: Echo: CONCLUSIONS: - Exam indication: Acute chest pain with suspected CA - The left ventricle is normal in size. There is no left ventricular hypertrophy. Left ventricular systolic function is normal. EF = 58 ? 5% (2D 4-ch.) Optison contrast used for endocardial border detection. Normal left ventricular diastolic function. - The right ventricle is normal in size. Right ventricular systolic function is normal. - Estimated right ventricular systolic pressure is 22 mmHg consistent with normal pulmonary artery pressures. Estimated right atrial pressure is 5 mmHg. - Exam was compared with the prior echocardiographic exam performed on 02-04-2014. Similar findings reported. ? Patient Condition at Discharge: Stable Disposition: Home/Self Care Information Provided to the Patient: Patient given copy of After Visit Summary which included activity instructions, diet instructions, wound care instructions, medication instructions and follow up appointment ALLERGIES No Known Allergies Discharge Medications: Current Discharge Medication List START taking these medications iv contrast (will be provided with radiology test) CTA Coronary. No IV access, insert saline lock prior to the sedation, infusion, injection for imaging exam. Discontinue saline lock post exam. If Pt. has a central line or IVAD, may access for administration according to line specific nursing protocol. Once exam is complete flush line and de-access according to line specific nursing protocol in the CT contrast administration guidelines link. Qty: 1 Each Refills: 0 metoprolol succinate ER (TOPROL XL) 12.5 mg Take 12.5 mg by mouth twice daily. Qty: 90 tablet Refills: 3 CONTINUE these medications which have CHANGED atorvastatin (LIPITOR) 80 mg Take 80 mg by mouth daily at bedtime. Qty: 90 tablet Refills: 3 CONTINUE these medications which have NOT CHANGED aspirin 81 mg Take 81 mg by mouth once daily. Qty: 90 tablet Refills: 1 ELIQUIS 5 mg Take 5 mg by mouth twice daily. Refills: 0 esomeprazole (NexIUM) 1 capsule Take 1 capsule by mouth once daily. flecainide (TAMBOCOR) 1 tablet Take 1 tablet by mouth every 12 hours. nitroglycerin sublingual (NITROQUICK) 0.4 mg Dissolve 0.4 mg under the tongue every 5 minutes as needed. Qty: 1 Bottle of 25 Refills: 0 STOP taking these medications diltiazem CD (CARDIZEM CD, CARTIA XT) 120 mg Comments: Reason for Stopping: hyoscyamine (LEVSIN) 0.125 mg Comments: Reason for Stopping: LORazepam (ATIVAN) 0.5 mg tab Comments: Reason for Stopping: Transitions of Care Critical Issues: Outpatient Management: * Are there important medication changes and/or outstanding issues that need to be addressed: None * What is the plan for follow up: Dr. Reyes EP- appointment has been requested for you- Please call to schedule follow up appointment. [address], [place] [address] [address]. Petersen -appointment has been requested for you- Please call to schedule follow up appointment. [address], [place] [address] Future Appointments Date Time Provider Department Center 06/13/2018 10:30 AM [id number] FABIÁN-2 CAFSMN CARD J BLD 06/13/2018 12:45 PM [id number] MAIN J (I-STAT) RCTMJ RADIO J BLDG 06/13/2018 1:45 PM [id number], JOANNA CARCMN CARD J BLD 06/13/2018 1:45 PM [id number], JOANNA CARCMN CARD J BLD Please see local Neurologist to evaluate your visual disturbance. Highest Readmission Risk Score: 6 The 30 day readmissions risk score is derived from an internally validated risk model which evaluates patient level characteristics, utilization history, medication orders and lab results up until the day of discharge. Patients with a score of 40 or above are considered highest risk for readmission. Specific patient level drivers will be listed at the bottom of the summary. This patient?s risk for 30-day readmission is determined using the following contributing drivers Pt variables contributing to increased readmission risk: 11 Most Recent BUN Result 1 Insurance - Medicare 1 Number of Hospitalizations (12 mos.) Electronically SIGNED by Licensed Independent Practitioner: Melissa Umana APRN.SCRUB WOMAN HISTORY PHYSICAL Observed: 05/06/2018 Status: COMPLETED Source: [place] 1:02 PM [facility] REPOSITORY HNO ID: [id number] Author: Melissa Umana Service: Cardiovascular Medicine Author Type: Nurse Practitioner Type: HANDP Filed: 05/06/2018 1:26 PM Note Text: Attestation signed by Alysia Bliss at 05/15/2018 12:[address] [facility] STAFF PHYSICIAN NOTE OF PERSONAL INVOLVEMENT IN CARE IMPRESSION/PLAN: Patient is a 42 year old male with afib, and CAD, and above stated history, outside cath with no indication for CABG, but sent back for chest pain, we will repeat our own investigation here for a definitive answer. Continue medical management. I have reviewed the documentation obtained and documented by the Nurse Practitioner and have reviewed and updated the problem list as appropriate. I have personally performed a face to face assessment of the patient and have personally participated in the trejo components. I have discussed the case and management of the patient's care. STAFF PHYSICIAN: Alysia Bliss MD DATE OF SERVICE: May 06, 2018 TIME OF SERVICE: 12:31 PM [facility] CARDIOVASCULAR MEDICINE HISTORY AND PHYSICAL (Template ID [id number]) Cristina Gómez [id number] PRIMARY SERVICE: Cardiovascular Medicine: Intervention DATE OF ADMISSION: 05/06/2018 CHIEF COMPLAINT chest pain HISTORY OF PRESENT ILLNESS Cristina Gómez is a 42 year old male with history of atrial fibrillation (on Cardizem, Flecainide, and Eliquis) and POTS. On 04/28/2018 he was transferred to [facility] for CABG, however the data obtained includes an IVUS of LM that is 6.2 mm2 and an FFR that is >0.8, and only decreases to 0.75 when distal to a myocardial bridge in distal LAD, and given such data, no clear indication for CABG. Plan was for aggressive cardiovascular risk factor modifications and follow up with EP re his symptomatic PVC's (might be realted to his bridge) and his POTS. He was scheduled for follow up with local EP. He presents to OSH with complaints of midsternal radiating to Left chest, chest pain associated with SOB with exertion, including walking with trash cans last PM. Biomakers negative, EKG with NSR with no acute changes. Transferred to [facility] for further evaluation. He is stable with no chest pain on admission. PAST MEDICAL HISTORY PAST MEDICAL HISTORY Diagnosis Date - Anxiety - Arrhythmia - Cardiac device in situ - Chest pain - Coronary artery disease 04/28/2018 - Depression - Epigastric pain 08/06/13 - GERD (gastroesophageal reflux disease) 08/06/13 - Hiatal hernia - Hypokalemia - Inguinal hernia - Light headedness 08/06/13 - DARA (obstructive sleep apnea) - PAF (paroxysmal atrial fibrillation) (HCC) - Palpitations - Paroxysmal atrial fibrillation (HCC) 04/29/2018 PAST SURGICAL HISTORY Procedure Laterality Date - EGD W/O OR W/BRUSH/WASH 08/06/13 - G-ESOPH REFLX TST W/ELECTROD 08/06/13 - LAPAROSCOPIC APPENDECTOMY 2010 - LAPAROSCOPIC CHOLEYCYSTECTOMY 2010 - PAST SURGICAL HISTORY OF fusion c4 and c5 FAMILY HISTORY FAMILY HISTORY Problem Relation Age of Onset - Diabetes Maternal Grandfather - Heart Paternal Grandmother - Cancer Paternal Grandmother - Hypertension Father - Cancer Paternal Grandfather lung - Heart Sister SVT SOCIAL HISTORY Social History Substance Use Topics - Smoking status: Never Smoker - Smokeless tobacco: Never Used - Alcohol use No HOME MEDICATIONS aspirin 81 mg chewable tablet Take 1 tablet by mouth once daily. atorvastatin (LIPITOR) 80 mg tablet Take 1 tablet by mouth daily at bedtime. diltiazem CD (CARDIZEM CD, CARTIA XT) 120 mg 24 hr capsule Take 120 mg by mouth once daily. ELIQUIS 5 mg tab(s) Take 5 mg by mouth twice daily. esomeprazole (NEXIUM) 40 mg capsule Take 1 capsule by mouth once daily. flecainide (TAMBOCOR) 100 mg tablet Take 1 tablet by mouth every 12 hours. nitroglycerin sublingual (NITROQUICK) 0.4 mg SL tablet Dissolve 1 tablet under the tongue every 5 minutes as needed. hyoscyamine (LEVSIN) 0.125 mg tablet Take 1 tablet by mouth three times daily with meals. LORazepam (ATIVAN) 0.5 mg tab Take by mouth every 6 hours as needed. INPATIENT MEDICATIONS No current hospital medications on file. ALLERGIES ALLERGIES No Known Allergies REVIEW OF SYSTEMS Constitutional: No weight loss, malaise or fevers. HEENT: Negative for frequent or significant headaches Respiratory: see HPI Cardiovascular: see HPI Gastrointestinal: Negative for abdominal discomfort, blood in stools or black stools or change in bowel habits Genitourinary: No history of dysuria, frequency, or incontinence Endocrine: Negative for cold or heat intolerance, polyuria, polydipsia and goiter Hematologic: Negative for prolonged bleeding, bruising easily or swollen nodes Neurologic: No history or headaches, syncope, paralysis, seizures or tremors Integumentary: Negative for lesions, rash, and itching. PHYSICAL EXAM BP 121/71 Pulse 77 Temp 36.3 ?C (97.3 ?F) (Oral) Resp 18 Ht 177.8 cm (5' 10) Wt 77.9 kg (171 lb 12.8 oz) SpO2 96% BMI 24.65 kg/m? General: no acute distress- walking around hallways without difficulty Skin warm and dry Neck- no JVP or bruits Lungs- breath sounds clear throughout. Heart- RRR, no murmur Abd- Soft nontedner, +BSx4 ext- no edema, distal pulses intact. Musculoskeletal: No deformities Neurologic/Psychiatric: Oriented to time, place AND person, MAEx4 and No gross focal neurologic deficits DATA Laboratory: No results found for: CHOL, HDL, LDL, TG No results found for: HBA1C EKG: reviewed Chest Radiograph: reviewed Echocardiogram: reveiwed Stress Testing: NA Cardiac Catheterization: reviewed Other Radiology: reviewed ASSESSMENT AND PLAN Cristina Gómez is a 42 year old male with history of atrial fibrillation (on Cardizem, Flecainide, and Eliquis) and POTS. On 04/28/2018 he was transferred to [facility] for CABG, however the data obtained includes an IVUS of LM that is 6.2 mm2 and an FFR that is >0.8, and only decreases to 0.75 when distal to a myocardial bridge in distal LAD, and given such data, no clear indication for CABG. Plan was for aggressive cardiovascular risk factor modifications and follow up with EP re his symptomatic PVC's (might be realted to his bridge) and his POTS. He was scheduled for follow up with local EP. He presents to OSH with complaints of midsternal radiating to Left chest, chest pain associated with SOB with exertion, including walking with trash cans last PM. Biomakers negative, EKG with NSR with no acute changes. Transferred to [facility] for further evaluation. He is stable with no chest pain on admission. Active Hospital Problems Diagnosis - Coronary artery disease On 04/28/2018 he was transferred to [facility] for CABG, however the data obtained includes an IVUS of LM that is 6.2 mm2 and an FFR that is >0.8, and only decreases to 0.75 when distal to a myocardial bridge in distal LAD, and given such data, no clear indication for CABG. Plan was for aggressive cardiovascular risk factor modifications and follow up with EP re his symptomatic PVC's (might be realted to his bridge) and his POTS. He was scheduled for follow up with local EP. Echo - The left ventricle is normal in size. There is no left ventricular hypertrophy. Left ventricular systolic function is normal. EF = 58 ? 5% (2D 4-ch.) Optison contrast used for endocardial border detection. Normal left ventricular diastolic function. - The right ventricle is normal in size. Right ventricular systolic function is normal. - Estimated right ventricular systolic pressure is 22 mmHg consistent with normal pulmonary artery pressures. Estimated right atrial pressure is 5 mmHg. He presents to OSH with complaints of midsternal radiating to Left chest, chest pain associated with SOB with exertion, including walking with trash cans last PM. Biomakers negative, EKG with NSR with no acute changes. Transferred to [facility] for further evaluation. He is stable with no chest pain on admission. Plan -Plan cardiac cath on Sun to repeat LM images and IVUS for further assessment - ASA 81 mg daily - Atorvastatin 80 mg daily - At this time will again hold Diltiazem and Flecainide until ischemia ruled out.monitor need for EP to come back to assess prior. If cath okay can again resume. -Will hold eliquis and bridge with heparin. ? - Paroxysmal atrial fibrillation (HCC) History- afib and history of SVT--- has history of orthostasis tachycardia Tilt 01/2014: Formal Read: Abnormal tilt with early progressive orthostatic tachycardia, mild diastolic and systolic orthostasis, but no symptoms, syncope, loss of consciousness, vasovagal response, EKG changes or arrhythmias last seen by shonna in 12/2014 with loop recorder implant- no records from then -has been on Diltiazem, flecanide and eliquis at home which have been held Plan see plan CAD for management - SOB (shortness of breath) see plan CAD - Chest pain see plan CAD - POTS (postural orthostatic tachycardia syndrome) see plan CAD Case to be discussed with staff- Dr. Izaiah Umana APRN.[employer]CR[employer] WOMAN Pager [phone] (please see below for after hours communication) 05/06/2018 1:02 PM For communication after 5 pm on weekdays and after 12 pm on weekends, please page the following: - Clinical Cardiology patients on all floors: page [phone] - Other Cardiology patients on J5 and J6: page [phone] - Other Cardiology patients on J7 and J8: page [phone] CBC Collected: 05/06/2018 Status: F Source: [place] 12:12 PM [facility] REPOSITORY TYPE CODE TESTS RESULT OUT OF REFERENCE UNITS RANGE LAB WBC 3.70-11.00 k/uL WBC 5.79 LAB RBC 4.20-6.00 m/uL RBC 5.62 LAB HGB 13.0-17.0 g/dL Hemoglobin 16.7 LAB HCT 39.0-51.0 % Hematocrit 47.5 LAB MCV 80.0-100.0 fL MCV 84.5 LAB MCH 26.0-34.0 pG MCH 29.7 LAB MCHC 30.5-36.0 g/dL MCHC 35.2 LAB RDWCV 11.5-15.0 % RDW-CV 12.2 LAB PLTCT 150-400 k/uL Platelet Count 298 LAB MPV 9.0-12.7 fL MPV 11.1 LAB ABSNUC <0.01 k/uL Absolute nRBC <0.01 Performed By: #### CBC #### [facility] [address] [place], [place] [address] APTT Collected: 05/06/2018 Status: F Source: [place] 12:12 PM [facility] REPOSITORY TYPE CODE TESTS RESULT OUT OF RANGE REFERENCE UNITS LAB APTT 23.0-32.4 sec APTT 29.1 Result Comment: Unfractionated Heparin Therapeutic Ranges: Standard Heparin Nomogram: 53 to 78 seconds (anti-Xa level of 0.3 to 0.7 U/ml) Low Dose/ACS Nomogram: 49 to 67 seconds (anti-Xa level of 0.2 to 0.5 U/ml) Stroke Treatment Nomogram: 49 to 67 seconds (anti-Xa level of 0.2 to 0.5 U/ml) Note: The APTT therapeutic range has been determined for the current lot of laboratory APTT reagent in use throughout the [facility]. Performed By: #### PTT, CKCKMB, CMP, KARLA #### [facility] [address] [place], [place] [address] CK, TOTAL AND CKMB Collected: 05/06/2018 Status: F Source: [place] 12:12 PM [facility] REPOSITORY TYPE CODE TESTS RESULT OUT OF REFERENCE UNITS RANGE LAB CK 51-298 U/L 65 CK LAB MB <7.7 ng/mL MB <1.0 LAB CKMBRI 0.0-4.0 % CK CK MB MB % not % reported with CK <100 U/L. Performed By: #### PTT, CKCKMB, CMP, KARLA #### [facility] [address] [place], [place] [address] COMP METABOLIC PANEL Collected: 05/06/2018 Status: F Source: [place] 12:12 PM [facility] REPOSITORY TYPE CODE TESTS RESULT OUT OF REFERENCE UNITS RANGE LAB TP 6.3-8.0 g/dL Protein, Total 7.1 LAB ALB 3.9-4.9 g/dL Albumin 4.4 LAB CA 8.5-10.2 mg/dL Calcium, Total 9.3 LAB TBIL 0.2-1.3 mg/dL Bilirubin, Total 0.6 LAB ALKP 38-113 U/L Alkaline Phosphatase 63 LAB AST 14-40 U/L AST 25 Result Comment: Results may be falsely increased due to interference by hemolysis. Suggest reorder as clinically indicated. LAB GLU 74-99 mg/dL Glucose 93 Result Comment: The Stateless Diabetes Association (ADA) provides guidance for cutoff values for fasting glucose and random glucose. The ADA defines fasting as no caloric intake for at least 8 hours. Fas ting plasma glucose results between 100 to 125 mg/dL indicate increased risk for diabetes (prediabetes). Fasting plasma glucose results greater than or equal to 126 mg/dL meet the criteria for diagnosis of diabetes. In the absence of unequivocal hyperglycemia, results should be confirmed by repeat testing. In a patient with classic symptoms of hyperglycemia or hyperglycemic crisis, random plasma glucose results greater than or equal to 200 mg/dL meet the criteria for diagnosis of diabetes. Reference: Standards of Medical Care in Diabetes 2016, Stateless Diabetes Association. Diabetes Care. 2016.39(Suppl 1). LAB BUN 9-24 mg/dL BUN 15 LAB CRET 0.73-1.22 mg/dL Creatinine 0.96 LAB NA 136-144 mmol/L Sodium 140 LAB K 3.7-5.1 mmol/L Potassium Low 3.6 LAB CL 97-105 mmol/L Chloride 102 LAB CO2 22-30 mmol/L CO2 23 LAB AGAP 9-18 mmol/L Anion Gap 15 LAB ALT 10-54 U/L ALT 32 LAB GFRAA eGFR- Amer. >60 LAB GFRNAA . eGFR-All Other Races >60 Result Comment: eGFR (Estimated GFR) Units of measure: mL/min/1.73 meters squared eGFR is derived from the reexpressed MDRD Study equation using the following parameters: serum creatinine, age, gender and race. The creatinine assay has been calibrated to be traceable to IDMS. An eGFR <60 mL/min/1.73m2 for >3 months is consistent with chronic kidney disease. Refer to KDOQI guidelines for clinical interpretation. In patients with unstable renal function, e.g. those with acute kidney injury, the eGFR may not accurately reflect actual GFR. Performed By: #### PTT, CKCKMB, CMP, KARLA #### [facility] [place] [address] [place], [place] [address] TROPONIN T Collected: 05/06/2018 Status: F Source: [place] 12:12 PM [facility] REPOSITORY TYPE CODE TESTS RESULT OUT OF REFERENCE UNITS RANGE LAB TROPT 0.000-0.029 ng/mL Troponin T <0.010 Performed By: #### PTT, CKCKMB, CMP, KARLA #### [facility] [place] [address] [place], [place] [address] TROPONIN Collected: 05/05/2018 Status: F Source: [place] 11:27 PM [facility] REPOSITORY TYPE CODE TESTS RESULT OUT OF REFERENCE UNITS RANGE LAB TROPONIN 0.00 - 0.05 ng/ml I(LOINC) TROPONIN I <0.01 Result Comment: Elevated troponin (above the 99th percentile) usually indicates myocardial ischemia. Results must be interpreted within the clinical setting. 1.Non-ischemic pathology can also cause elevated troponin levels (e.g., acute pulmonary embolism, myocarditis, pericarditis, heart failure, intracranial injury, rhabdomyolisis, sepsis, shock and renal insufficiency). 2.Approximately 1% of healthy adults have elevated troponin levels. 3.Analytical false positive results rarely occur(due to multiple interferences such as heterophile antibodies). Performed By: #### [id number] #### [place] [address] TROPONIN Collected: 05/05/2018 Status: F Source: [facility] 4:57 PM [facility] REPOSITORY TYPE CODE TESTS RESULT OUT OF REFERENCE UNITS RANGE LAB TROPONIN 0.00 - 0.05 ng/ml I(LOINC) TROPONIN I <0.01 Result Comment: Elevated troponin (above the 99th percentile) usually indicates myocardial ischemia. Results must be interpreted within the clinical setting. 1.Non-ischemic pathology can also cause elevated troponin levels (e.g., acute pulmonary embolism, myocarditis, pericarditis, heart failure, intracranial injury, rhabdomyolisis, sepsis, shock and renal insufficiency). 2.Approximately 1% of healthy adults have elevated troponin levels. 3.Analytical false positive results rarely occur(due to multiple interferences such as heterophile antibodies). Performed By: #### [id number] #### [place] [id number] TROPONIN Collected: 05/05/2018 Status: F Source: [facility] 2:00 PM [facility] REPOSITORY TYPE CODE TESTS RESULT OUT OF REFERENCE UNITS RANGE LAB TROPONIN 0.00 - 0.05 ng/ml I(LOINC) TROPONIN I <0.01 Result Comment: Elevated troponin (above the 99th percentile) usually indicates myocardial ischemia. Results must be interpreted within the clinical setting. 1.Non-ischemic pathology can also cause elevated troponin levels (e.g., acute pulmonary embolism, myocarditis, pericarditis, heart failure, intracranial injury, rhabdomyolisis, sepsis, shock and renal insufficiency). 2.Approximately 1% of healthy adults have elevated troponin levels. 3.Analytical false positive results rarely occur(due to multiple interferences such as heterophile antibodies). Performed By: #### [id number] #### [facility],[address] [place] [address] CHEST 1 VIEW Observed: 05/05/2018 Status: F Source: [facility] 11:15 AM [facility] REPOSITORY [place] [address] Patient: CRISTINA GÓMEZ Phone#: : 1975 Age: 42 Gender: M Pt. Type: ER Account: [id number] Location: [facility] Ordering: DR. RONAN LEONARD Exam Date: 05/05/2018/11:06 Family Phys: LUAN TYLER Charge Code: 781130 Physician: [place] Order #: [id number] DLP Dose#: PROCEDURE: X-RAY CHEST 1 VIEW COMPARISON: [facility], XR, CHEST 1 VIEW, 04/25/2018, 14:56. INDICATIONS: Shortness of breath. FINDINGS: LUNGS: Normal. No significant pulmonary parenchymal abnormalities. VASCULATURE: Normal. Unremarkable pulmonary vasculature. CARDIAC: Normal. No cardiac silhouette abnormality or cardiomegaly. MEDIASTINUM: Normal. No visible mass or adenopathy. PLEURA: Normal. No effusion or pleural thickening. BONES: Normal. No fracture or visible bony lesion. OTHER: Device projects over the left axilla. Monitoring leads project across thorax. CONCLUSION: No acute disease. No significant change has occurred. Dictated by: Daisy Brooks MD on 05/05/2018 at 16:49 Approved by: Daisy Brooks MD on 05/05/2018 at 16:49 CBC Collected: 05/05/2018 Status: F Source: [facility] 11:05 AM [facility] REPOSITORY TYPE CODE TESTS RESULT OUT OF RANGE REFERENCE UNITS LAB CBC(LOINC) CBC Result Comment: CBC-COMPLETE BLOOD COUNT LAB WBC(LOINC) 4.5 - 10.8 x 10EE3/UL WBC 5.1 LAB RBC(LOINC) 4.50 - x 10EE6/UL 6.00 RBC 5.73 LAB HEMOGLOBIN(LOINC) 13.0 - g/dl 17.5 HEMOGLOBIN 17.2 LAB HEMATOCRIT(LOINC) 40.0 - % 52.0 HEMATOCRIT 48.8 LAB MCV(LOINC) 81 - 98 fl MCV 85 LAB MCH(LOINC) 27 - 33 pg MCH 30 LAB MCHC(LOINC) 32 - 36 X10 3 MCHC 35 LAB RDW/CV(LOINC) 12.0 - % 15.6 RDW/CV 12.8 LAB PLATELET(LOINC) 150 - 450 x10EE3/UL PLATELET 287 LAB MPV(LOINC) 6.4 - 10.5 fl MPV 9.4 Result Comment: AUTOMATED DIFFERENTIAL LAB NEUT %(LOINC) 46.0 - 76.0 % NEUT % 55.1 LAB LYMPH %(LOINC) 20.0 - 45.0 % LYMPH % 34.2 LAB MONOS %(LOINC) 0.0 - 10.0 % MONOS % 9.0 LAB EO %(LOINC) 0.0 - 7.0 % EO % 1.3 LAB BASO %(LOINC) 0.0 - 2.0 % BASO % 0.4 LAB Lymph #(LOINC) 0.80 - 2.80 x10EE3/U L Lymph # 1.80 LAB Neut #(LOINC) 1.50 - 7.10 x10EE3/U L Neut # 2.80 LAB Wake #(LOINC) 0.20 - 1.00 x10EE3/U L Wake # 0.50 LAB EO #(LOINC) 0.00 - 0.50 x10EE3/U L EO # 0.10 LAB Baso #(LOINC) 0.00 - 0.10 x10EE3/U L Baso # 0.00 LAB MANUAL DIFF(LOINC) MANUAL DIFF N/A LAB MORPHOLOGY(LOINC ) MORPHOLOGY N/A Result Comment: {CD] Performed By: #### [id number] #### [facility],[address] [place] [address] TROPONIN Collected: 05/05/2018 Status: F Source: [facility] 11:05 AM [facility] REPOSITORY TYPE CODE TESTS RESULT OUT OF REFERENCE UNITS RANGE LAB TROPONIN 0.00 - 0.05 ng/ml I(LOINC) TROPONIN I <0.01 Result Comment: Elevated troponin (above the 99th percentile) usually indicates myocardial ischemia. Results must be interpreted within the clinical setting. 1.Non-ischemic pathology can also cause elevated troponin levels (e.g., acute pulmonary embolism, myocarditis, pericarditis, heart failure, intracranial injury, rhabdomyolisis, sepsis, shock and renal insufficiency). 2.Approximately 1% of healthy adults have elevated troponin levels. 3.Analytical false positive results rarely occur(due to multiple interferences such as heterophile antibodies). Performed By: #### [id number] #### [facility],[address] [place] [address] BMP WITH EGFR Collected: 05/05/2018 Status: F Source: [facility] 11:05 AM [facility] REPOSITORY TYPE CODE TESTS RESULT OUT OF RANGE REFERENCE UNITS LAB BMP with eGFR(LOINC) BMP with eGFR Result Comment: BASIC METABOLIC PANEL LAB SODIUM(LOINC) 136 - 145 mmol/l SODIUM 136 LAB POTASSIUM(LOINC) 3.5 - 5.1 mmol/L POTASSIUM 3.7 LAB CHLORIDE(LOINC) 98 - 107 mmol/L CHLORIDE 99 LAB CO2(LOINC) 21.0 - mmol/L 31.0 CO2 29.2 LAB GLUCOSE(LOINC) 74 - 106 mg/dl GLUCOSE 102 LAB BUN(LOINC) 6 - 20 mg/dl BUN 17 LAB CREATININE(LOINC) 0.7 - 1.3 mg/dl CREATININE 1.0 LAB CALCIUM(LOINC) 8.6 - mg/dl 10.2 CALCIUM 9.2 LAB ANION GAP(LOINC) 10 - 20 mmol/L ANION GAP 12 LAB AGE(LOINC) years AGE 42 LAB eGFR(LOINC) 60 - 999 ML/MINUTE eGFR >60 LAB eGFR(AA)(LOINC) 60 - 999 ML/MINUTE eGFR(AA) >60 Result Comment: ACCORDING TO THE NATIONAL KIDNEY DISEASE EDUCATION PROGRAM(NKDE), A NORMAL eGFR IS A VALUE GREATER THAN OR EQUAL TO 60 ML/MIN/1.73 SQ METERS. CHRONIC KIDNEY DISEASE: <60mL/MIN/1.73 SQ METERS KIDNEY FAILURE: <15mL/MIN/1.73 SQ METERS THIS TEST SHOULD ONLY BE USED FOR PATIENTS 18 YEARS OF AGE AND OLDER. Performed By: #### [id number] #### [facility],[address] [place], [place] [id number] BNP (B-TYPE NATRIURETIC Collected: 05/05/2018 Status: F [facility]05 AM [facility] REPOSITORY TYPE CODE TESTS RESULT OUT OF RANGE REFERENCE UNITS LAB BNP(LOINC) 1 - 100 pg/ml BNP 4 Performed By: #### [id number] #### [facility],[address] [place], [place] [id number] 12 LEAD ELECTROCARDIOGRAM Observed: 05/03/2018 Status: F Source: [place] 9:50 AM [facility] [place] Cardiovascular Services [address] [place] [id number] 12 Lead EKG 05/01/182137 MR#: [id number] Acct: [id number] Name: CRISTINA GÓMEZ Rep #: [id number] : 1975 42 From: Edinson Freeman MD Attending Dr: Status: DEP ER Ordering Dr: Rebel Melendez MD Date: 05/01/18 Location: ED Sex: M C Admitted: Test Reason : CP Blood Pressure : / mmHG Vent. Rate : 070 BPM Atrial Rate : 070 BPM P-R Int : 206 ms QRS Dur : 090 ms QT Int : 392 ms P-R-T Axes : 078 062 044 degrees QTc Int : 423 ms Normal sinus rhythm Normal ECG Confirmed by AMOS BAILON, EDINSON ([id number]), business editor MARIA ELENA GÓMEZ ([id number]) on 05/03/2018 9:49:38 AM Referred By: DR JEAN BAPTISTE Confirmed By:EDINSON FREEMAN MD 05/03/18 0949 Date Edinson Freeman MD CC: Rebel Melendez MD; Luan Tyler MD Signed CNCO Observed: 05/03/2018 Status: COMPLETED Source: [place] 12:00 AM CLINIC OTHER CAMPUS REPOSITORY Letter Text [facility] [place] [address] [facility] [address] Dept: [phone] Dept Junie Reyes MD May 03, 2018 Cristina Gómez [address] [place] [id number] 1975 Dear Cristina Gómez, We missed seeing you for your scheduled appointment with Dr. Reyes on 04/29/18. Our goal is to offer the best possible care to our patients, so we are concerned when you are unable to keep a scheduled appointment. Please call us at [phone] so that we can reschedule your appointment for a day and time that will work for you. If you find it difficult to keep your appointment, please notify our office at least 24 hours in advance so that we may reschedule your appointment. We are glad that you have chosen [facility] for your cardiovascular needs and hope to continue serving you in the future. Sincerely, Junie Reyes M.D. (Signed electronically to expedite mailing) EMERGENCY DEPARTMENT Observed: 05/02/2018 Status: F Source: [place] SUMMARY 1:04 AM [facility] Medical Records Department [address] [place] [address] Emergency Department Summary 05/01/18 2304 MR#: [id number] Acct: [id number] Name: GÓMEZCRISTINA Bay Rep #: [id number] : 1975 42 From: Rebel Melendez MD PCP: Luan Tyler MD Status: DEP ER - ER Visit Summary Date of Service: 05/01/18 Chief Complaint: Chest pain History of Present Illness: The patient is a [address] Trinity Tyler. He reports that he had right-sided chest pain 6 days ago. He went to [facility] and had a blood work and EKG that were normal. He was transferred to [facility] and had a heart catheterization 5 days ago. Reports that this showed a 40% LAD lesion. However, he states that there was not good flow through this. Because of this he was transferred to [facility]. Saw cardiothoracic surgeon there who stated that at this time he does not need a bypass but he is right on the verge of that. He was discharged yesterday. Is instructed to go to the hospital if he developed chest pain. Patient reports that approximately 1 hour ago at rest he had the onset of a dull right-sided chest pain is 4-10 at worst and is pain-free currently. It was worsened by nothing including exertion. Is relieved by nitroglycerin. States that he is nauseated after taking nitro. He denies any nausea prior to this. No shortness of breath or diaphoresis. Review of systems is otherwise negative. Physical Examination: Vitals: Stable. Afebrile. General: Well-nourished and well-developed. Head: Normocephalic atraumatic. Neck: Supple, no lymphadenopathy. No JVD. Nontender. Cardiovascular: Regular rate and rhythm. No murmurs. Respiratory: No respiratory distress. Clear to auscultation bilaterally. Abdominal: Soft, nontender, nondistended, normal bowel sounds. No guarding, rebound, or peritoneal signs. Back: Nontender. Extremities: Nontender, no edema. Skin: Normal color, no rash. Neurologic: Alert and oriented 3. Cranial nerves II through XII are intact. Normal strength and sensation. Psych: Normal affect. Test Results: EKG sinus at 70 and is unchanged from last month. Troponin is negative. Chem-7 more for calcium 8.4. CBC is more for monocytes of 11. Chest x-ray is normal. Emergency Department Course and Treatment: Patient was treated with aspirin p.o. After his labs returned he was given Imdur p.o. Treatment Plan: Patient was discussed with Dr. Freeman. He will be placed on Imdur at home. Instructed follow-up Dr. Petersen as soon as possible. Return to the emergency department for any worsening symptoms. Disposition: To home in improved and stable condition. Impression: 1. Atypical chest pain. 2. MEAGAN score of 2. 3. Coagulopathy on Eliquis. This note was generated with [employer] dictation software. It may contain incorrect words, spelling, and punctuation that were not noted in review of the chart prior to signing ED Disposition - Plan for ED Patient: [facility] Chief Complaint: Chest Pain Instructions: ED Chest Pain Atypical Unkn Cause Prescriptions: Isosorbide Mononitrate [Imdur] 30 mg PO DAILY #30 tablet Referrals: Chino Petersen MD [STAFF PHYSICIAN] - As soon as possible What to do if you have Problems For any increased pain, shortness of breath, bleeding, nausea or vomiting, chest pain, or any unexpected problems, contact your Primary Care Provider. Call [facility] ([phone]) or report to the closest Emergency Room. Call 911 if necessary. 05/02/18 0104 <Electronically signed by Rebel Melendez MD> Date Rebel Melendez MD Cosigner Signature (If Indicated): Date CC: Luan Tyler MD CHEST 1 VIEW Observed: 05/01/2018 Status: F Source: [place] (PORTABLE) 9:56 PM [facility] Imaging Services [address] [place] [address] Chest 1 View (Portable) MR#: [id number] Acct: [id number] Name: CRISTINA GÓMEZ Rep #: [id number] : 1975 M 42 From: Marlon Hansen MD PCP: Luan Tyler MD Status: REG ER Study: Chest 1 View (Portable) Date of Exam: 05/01/18 Exam# [id number] Ordering Dr: Rebel Melendez MD STUDY: X-RAY CHEST REASON FOR EXAM: Male, 42 years old. Chest pain TECHNIQUE: AP portable COMPARISON: August 06, 2012 FINDINGS: The lungs are clear and expanded. There is no demonstrated pleural abnormality. Normal size heart. Normal mediastinum and brittni. Normal visualized pulmonary arteries. Normal visualized aortic arch and descending thoracic aorta. Normal visualized thoracic spine. Normal visualized ribs, clavicles, and shoulders. There is no demonstrated abnormality of the visualized soft tissue structures of the upper abdomen. RAD/Chest 1 View (Portable) IMPRESSION: Normal x-ray examination of the chest. Electronically Signed: Marlon Hansen MD at 23:05 EST , Service support , CC: Rebel Melendez MD; Luan Tyler MD Associate Professor Of Mathematics: Signed BASIC METABOLIC Collected: 05/01/2018 Status: F Source: [place] PROFILE (BMP) 9:37 PM [facility] [facility] [place] CODE TESTS RESULT OUT OF RANGE REFERENCE UNITS LAB L501.0100 74-106 mg/dL Normal GLU 88 Result Comment: Please note revised GLUCOSE reference range effective 2017. LAB L501.1000 7-18 mg/dL Normal BUN 18 LAB L501.1100 0.70-1.30 mg/dL Normal CREAT,SERUM 1.09 Result Comment: The validity of the calculated GFR AND GFRAA in patients over 70 years has not been determined. Clinical correlation is essential. LAB L501.1110 >60 mL/min Normal EST GFR 78 Result Comment: Non- GFR Calc LAB L501.1115 >60 mL/min Normal EST GFR - AA 94 Result Comment: GFR Calc LAB L501.1255 ml/min Normal Estimated CRCL 89.30 LAB L501.1300 10-20 RATIO Normal BUN/CRE 16.5 LAB L501.2200 8.5-10 mg/dL Low .1 CA 8.4 LAB L501.5300 136-14 mmol/L Normal 5 NA 141 LAB L501.5600 3.5-5. mmol/L Normal 1 K 3.6 LAB L501.5900 98-107 mmol/L Normal CL 102 LAB L501.6100 21.0-3 mmol/L Normal 2.0 CO2 31.0 LAB L501.6200 5-15 Normal GAP 8 Performed By: #### L500.2500, L501.4010 #### [facility] [address] [place], [address] TROPONIN-I Collected: 05/01/2018 Status: F Source: [place] 9:37 [place] [facility] [place] CODE TESTS RESULT OUT OF RANGE REFERENCE UNITS LAB L501.4010 <0.045 ng/mL Normal < 0.015 TROPONIN-I Result Comment: TROPONIN-I EXPECTED VALUES <0.045 Negative 0.045 - 0.590 Consistent with Cardiac Damage > OR = 0.600 Critical Value Not every elevated troponin is indicative of CA. These values should be used with clinical judgement in examining the patient's clinical picture for diagnosis. To establish a diagnosis of CA versus myocardial injury, there must be a demonstrated rise and/or fall in the troponin values, in addition to ischemic symptoms, EKG changes, new regional wall motion abnormality, and/or angiographical evidence. PLEASE NOTE: REFERENCE RANGES EDITED 17 Performed By: #### L500.2500, L501.4010 #### [facility] [address] [place], [address] CBC W/DIFF, AUTOMATED Collected: 05/01/2018 Status: F Source: [place] 9:37 [place] [facility] [place] CODE TESTS RESULT OUT OF RANGE REFERENCE UNITS LAB L100.1000 4.4-11.0 K/mm3 Normal WBC 4.6 LAB L100.1200 4.6-6.2 M/mm3 Normal RBC 5.10 LAB L100.1300 13.0-16.5 g/dl Normal HGB 15.2 LAB L100.1400 40-54 % Normal HCT 43.0 LAB L100.1500 80-94 fL Normal MCV 84.3 LAB L100.1600 27.0-32.0 pg Normal MCH 29.8 LAB L100.1700 32-36 g/gl Normal MCHC 35.3 LAB L100.1810 11.6-14.6 % Normal RDW CV 11.9 LAB L100.1820 35.1-43.9 fl Normal RDW SD 36.5 LAB L100.1900 150-450 K/mm3 Normal PLT 232 LAB L100.2000 6.2-12.0 fl Normal MPV 10.0 LAB L100.2100 47-70 % Normal NEUT% 50.1 LAB L100.2200 19-41 % Normal LY% 37.3 LAB L100.2300 0-10 % High MONO% 10.6 LAB L100.2400 0-5 % Normal EO% 1.1 LAB L100.2500 0-1 % Normal BASO% 0.7 LAB L100.2550 0.0-0.9 % Normal IM GRAN % 0.200 Result Comment: IG% - Immature Granulocytes (promyelocytes, myelocytes and metamyelocytes) > 1% indicates that a LEFT SHIFT is Present. LAB L100.2620 2.0-7.7 X10 3/uL Normal Absolute Neut 2.3 LAB L100.2720 0.83-4.51 X10 3/ul Normal Absolute Lymph 1.72 Performed By: #### L100.0100 #### [facility] [address] [place], [address] CNCO Observed: 05/01/2018 Status: COMPLETED Source: [place] 12:00 AM [facility] REPOSITORY Letter Text May 01, 2018 Cristina Gómez [address] [place] [id number] Dear Mr. Gómez, The nurses and staff of J6-1 nursing unit at [facility] hope this letter finds you feeling well and progressing in your recovery. It was an honor for us to provide your nursing care. We know that placing our Patients First and maintaining a culture of continuous improvement, each and every day, are essential to the success of our organization. We want to hear from you. If you have any comments, questions or concerns about your hospital stay, please feel free to contact me, Ghislaine Ross RN at [phone] or e-mail [email or web address]. Additionally, you will receive a survey in the mail asking you to rate the care you received while in the hospital. Please take the time to complete and send back the survey. I personally review all the results and would appreciate your feedback. Please consider completing this survey for each individual visit. Thank you in advance for your participation and thank you for choosing the [facility] for your healthcare needs. Sincerely, Ghislaine Ross RN Nurse Bullet Slug Casting Machine Operator J6-1 Cardiovascular Surgery Step-down Unit PROGRESS Observed: 04/30/2018 Status: COMPLETED Source: [place] 2:15 PM [facility] REPOSITORY HNO ID: [id number] Author: Melissa Umana Service: Cardiovascular Medicine Author Type: Nurse Practitioner Type: Progress Notes Filed: 04/30/2018 2:16 PM Note Text: [facility] CARDIOVASCULAR MEDICINE PROGRESS NOTE PRIMARY SERVICE: Hvi Card Intervention HOSPITAL DAY: # 2 INTERVAL HISTORY no acute events has occasional postural dizziness with elevated HR no chest pain Plan discussed with patient via team PHYSICAL EXAM BP 113/65 Pulse 83 Temp 36.9 ?C (98.5 ?F) (Oral) Resp 17 Ht 177.8 cm (5' 10) Wt 78.8 kg (173 lb 11.2 oz) SpO2 98% BMI 24.92 kg/m? Intake/Output Summary (Last 24 hours) at 04/30/18 1415 Last data filed at 04/30/18 1316 Gross per 24 hour Intake 1830 ml Output 1400 ml Net 430 ml General: no acute distress- walking around hallways without difficulty Skin warm and dry Neck- no JVP or bruits Lungs- breath sounds clear throughout. Heart- RRR, no murmur Abd- Soft nontedner, +BSx4 ext- no edema, distal pulses intact. Musculoskeletal: No deformities Neurologic/Psychiatric: Oriented to time, place AND person, MAEx4 and No gross focal neurologic deficits MEDICATIONS Current hospital medications: acetaminophen 325-650 mg tab(s) (TYLENOL) 325-650 mg ORAL q 4 H PRN aspirin 81 mg chewable tab(s) 81 mg ORAL DAILY atorvastatin 80 mg tab(s) (LIPITOR) 80 mg ORAL AT BEDTIME docusate sodium 100 mg cap(s) (COLACE) 100 mg ORAL BID PRN NaCl 0.9% iv infusion 75 mL/hr INTRAVENOUS CONTINUOUS perflutren lipid microspheres 1.1 mg/mL 1.3 mL injection (DEFINITY) 1.3 mL INTRAVENOUS DIRECTED PRN DATA Recent Labs 04/30/18 0629 04/29/18 0624 04/28/18 0439 WBC 5.12 5.34 5.06 HB 16.4 16.2 15.5 HCT 46.3 46.1 44.1 PLT 245 234 212 Recent Labs 04/30/18 0629 04/29/18 0624 04/28/18 0439 NA 140 140 137 K 4.3 4.1 4.0 CO2 26 24 27 BUN 11 13 11 CREAT 1.02 1.04 1.01 GLUC 82 87 94 MG 2.0 2.0 2.1 IMAGING reviewed ASSESSMENT AND PLAN Cristina Gómez is a 42 year old male with history of atrial fibrillation (on Cardizem, Flecainide, and Eliquis) who presented with chest pain, transferred following a [facility] with concern for left main disease. Problem Coronary Artery Disease Given his symptoms, Mr. Gómez initially proceeded to [facility] but was transferred to [place] for further evaluation with [facility]. While the official report is not available, an addendum from Dr. Larson reports: ?Cardiac catheterization showed borderline left main disease. FFR was 0.82 and (0.75 after the bridging segment in the LAD) and left main cross-sectional area was 6.2 mm2 by IVUS.? His Troponin I was trended and returned negative x3. TTE was notable for normal LVEF with no WMA. There was question of LV thrombus on TTE. (Cath report received-- LM FFR 0.75 mid bridging 0.82 before LAD bridging and IVUS 6.2mm2 Echocardiogram 04/26/18 OSH: 1. Left ventricle: The cavity size is normal. Wall thickness is normal. Systolic function is normal. The estimated ejection fraction is 55-60%. Wall motion is normal; there are no regional wall motion abnormalities. 2. Mitral valve: The annulus is mildly calcified. The leaflets are mildly thickened. 3. Right ventricle: The RV systolic pressure by Doppler Echo - The left ventricle is normal in size. There is no left ventricular hypertrophy. Left ventricular systolic function is normal. EF = 58 ? 5% (2D 4-ch.) Optison contrast used for endocardial border detection. Normal left ventricular diastolic function. - The right ventricle is normal in size. Right ventricular systolic function is normal. - Estimated right ventricular systolic pressure is 22 mmHg consistent with normal pulmonary artery pressures. Estimated right atrial pressure is 5 mmHg. Plan -cath film and report reviewed with Dr. Bliss with no significant stenosis- plan medical management - ASA 81 mg daily - Atorvastatin 80 mg daily - EP- consulted and will resume Diltiazem and Flecainide will schedule follow up locally ? Paroxysmal Atrial Fibrillation (Hcc) History- afib and history of SVT--- has history of orthostasis tachycardia Tilt 01/2014: Formal Read: Abnormal tilt with early progressive orthostatic tachycardia, mild diastolic and systolic orthostasis, but no symptoms, syncope, loss of consciousness, vasovagal response, EKG changes or arrhythmias last seen by shonna in 12/2014 with loop recorder implant- no records from then -has been on Diltiazem, flecanide and eliquis at home which have been held Plan EP consult- will resume home meds and follow up outpatinet Case to be discussed with staff - Dr. Bliss Care Coordination Discharge Management: I personally spent greater than 30 minutes involved in the discharge management of this patient. All medications and potential SE were discussed with the patient. SIGNATURE: Melissa Umana APRN.CNP PATIENT NAME: Cristina Gómez DATE: April 30, 2018 TIME: 2:15 PM PAGER/CONTACT #: SEE [phone] For communication after 5 pm on weekdays and after 12 pm on weekends, please page the following: - Clinical Cardiology patients on all floors: page [phone] - Other Cardiology patients on J5 and J6: page [phone] - Other Cardiology patients on J7 and J8: page [phone] ETX [id number] CBC Collected: 04/30/2018 Status: F Source: [place] 6:29 AM [facility] REPOSITORY TYPE CODE TESTS RESULT OUT OF REFERENCE UNITS RANGE LAB WBC 3.70-11.00 k/uL WBC 5.12 LAB RBC 4.20-6.00 m/uL RBC 5.37 LAB HGB 13.0-17.0 g/dL Hemoglobin 16.4 LAB HCT 39.0-51.0 % Hematocrit 46.3 LAB MCV 80.0-100.0 fL MCV 86.2 LAB MCH 26.0-34.0 pG MCH 30.5 LAB MCHC 30.5-36.0 g/dL MCHC 35.4 LAB RDWCV 11.5-15.0 % RDW-CV 11.7 LAB PLTCT 150-400 k/uL Platelet Count 245 LAB MPV 9.0-12.7 fL MPV 10.5 LAB ABSNUC <0.01 k/uL Absolute nRBC <0.01 Performed By: #### CBC, CMP, MG1 #### [facility] [address] [place], [place] [address] COMP METABOLIC PANEL Collected: 04/30/2018 Status: F Source: [place] 6:29 AM [facility] REPOSITORY TYPE CODE TESTS RESULT OUT OF REFERENCE UNITS RANGE LAB TP 6.3-8.0 g/dL Protein, Total 6.4 LAB ALB 3.9-4.9 g/dL Low Albumin 3.8 LAB CA 8.5-10.2 mg/dL Calcium, Total 9.1 LAB TBIL 0.2-1.3 mg/dL Bilirubin, Total 0.8 LAB ALKP 38-113 U/L Alkaline Phosphatase 56 LAB AST 14-40 U/L AST 18 LAB GLU 74-99 mg/dL Glucose 82 Result Comment: The Stateless Diabetes Association (ADA) provides guidance for cutoff values for fasting glucose and random glucose. The ADA defines fasting as no caloric intake for at least 8 hours. Fas ting plasma glucose results between 100 to 125 mg/dL indicate increased risk for diabetes (prediabetes). Fasting plasma glucose results greater than or equal to 126 mg/dL meet the criteria for diagnosis of diabetes. In the absence of unequivocal hyperglycemia, results should be confirmed by repeat testing. In a patient with classic symptoms of hyperglycemia or hyperglycemic crisis, random plasma glucose results greater than or equal to 200 mg/dL meet the criteria for diagnosis of diabetes. Reference: Standards of Medical Care in Diabetes 2016, Stateless Diabetes Association. Diabetes Care. 2016.39(Suppl 1). LAB BUN 9-24 mg/dL BUN 11 LAB CRET 0.73-1.22 mg/dL Creatinine 1.02 LAB NA 136-144 mmol/L Sodium 140 LAB K 3.7-5.1 mmol/L Potassium 4.3 LAB CL 97-105 mmol/L Chloride 101 LAB CO2 22-30 mmol/L CO2 26 LAB AGAP 9-18 mmol/L Anion Gap 13 LAB ALT 10-54 U/L ALT 16 LAB GFRAA eGFR- Amer. >60 LAB GFRNAA . eGFR-All Other Races >60 Result Comment: eGFR (Estimated GFR) Units of measure: mL/min/1.73 meters squared eGFR is derived from the reexpressed MDRD Study equation using the following parameters: serum creatinine, age, gender and race. The creatinine assay has been calibrated to be traceable to IDMS. An eGFR <60 mL/min/1.73m2 for >3 months is consistent with chronic kidney disease. Refer to KDOQI guidelines for clinical interpretation. In patients with unstable renal function, e.g. those with acute kidney injury, the eGFR may not accurately reflect actual GFR. Performed By: #### CBC, CMP, MG1 #### [facility] [address] [place], [place] [address] MAGNESIUM Collected: 04/30/2018 Status: F Source: [place] 6:29 AM [facility] REPOSITORY TYPE CODE TESTS RESULT OUT OF REFERENCE UNITS RANGE LAB MG 1.7-2.3 mg/dL Magnesium 2.0 Performed By: #### CBC, CMP, MG1 #### [facility] [address] [place], [place] [address] NURSING PROG Observed: 04/29/2018 Status: COMPLETED Source: [place] 1:16 PM [facility] REPOSITORY HNO ID: [id number] Author: Cathy (Rn) NIRU Xie Service: Cardiovascular Medicine Author Type: Registered Nurse Type: Nursing Progress Note Filed: 04/29/2018 1:17 PM Note Text: 04/29/2018 1:16 PM Order reviewed by nurse:yes Medications: Definity - dosage 2.5 mL definity administered IVP x1 during echo examination Reaction: No PROGRESS Observed: 04/29/2018 Status: COMPLETED Source: [place] 11:49 AM [facility] REPOSITORY HNO ID: [id number] Author: Melissa Umana Service: Cardiovascular Medicine Author Type: Nurse Practitioner Type: Progress Notes Filed: 04/29/2018 11:52 AM Note Text: [facility] PROGRESS NOTE Cristina Gómez [id number] PRIMARY SERVICE: Cardiology: Interventional HVI Staff Note: ASSESSMENT AND PLAN: Problem Coronary Artery Disease Given his symptoms, Mr. Gómez initially proceeded to [facility] but was transferred to [place] for further evaluation with [facility]. While the official report is not available, an addendum from Dr. Larson reports: ?Cardiac catheterization showed borderline left main disease. FFR was 0.82 and (0.75 after the bridging segment in the LAD) and left main cross-sectional area was 6.2 mm2 by IVUS.? His Troponin I was trended and returned negative x3. TTE was notable for normal LVEF with no WMA. There was question of LV thrombus on TTE. Echocardiogram 04/26/18 OSH: 1. Left ventricle: The cavity size is normal. Wall thickness is normal. Systolic function is normal. The estimated ejection fraction is 55-60%. Wall motion is normal; there are no regional wall motion abnormalities. 2. Mitral valve: The annulus is mildly calcified. The leaflets are mildly thickened. 3. Right ventricle: The RV systolic pressure by Dopple Plan -We are waiting cath report - ASA 81 mg daily - Atorvastatin 80 mg daily - Holding Diltiazem and Flecainide in light of possible coronary disease; consider starting Metoprolol as alternative agent if needed - TTE with contrast (unlikely to have LV thrombus with normal LVEF and no WMA) ? Paroxysmal Atrial Fibrillation (Hcc) History- afib and history of SVT--- has history of orthostasis tachycardia Tilt 01/2014: Formal Read: Abnormal tilt with early progressive orthostatic tachycardia, mild diastolic and systolic orthostasis, but no symptoms, syncope, loss of consciousness, vasovagal response, EKG changes or arrhythmias last seen by shonna in 12/2014 with loop recorder implant- no records from then -has been on Diltiazem, flecanide and eliquis at home which have been held Plan await final decision of LM disease EP consult Svt (Supraventricular Tachycardia) (Hcc) see plan PAF Pots (Postural Orthostatic Tachycardia Syndrome) SUBJECTIVE: INTERVAL HISTORY: no acute eventws PERTINENT REVIEW OF SYSTEMS: no cp does have dizziness with elevated HR See HPI: Remaining ROS reviewed and negative OBJECTIVE: MEDICATIONS: Current hospital medications: NaCl 0.9% iv infusion 75 mL/hr INTRAVENOUS CONTINUOUS acetaminophen 325-650 mg tab(s) (TYLENOL) 325-650 mg ORAL q 4 H PRN docusate sodium 100 mg cap(s) (COLACE) 100 mg ORAL BID PRN perflutren lipid microspheres 1.1 mg/mL 1.3 mL injection (DEFINITY) 1.3 mL INTRAVENOUS DIRECTED PRN aspirin 81 mg chewable tab(s) 81 mg ORAL DAILY atorvastatin 80 mg tab(s) (LIPITOR) 80 mg ORAL AT BEDTIME PHYSICAL EXAM: 04/29/18 0343 04/29/18 0700 04/29/18 0946 04/29/18 1022 BP: 102/57 110/76 113/68 105/59 Pulse: 68 68 79 Resp: Temp: 36.5 ?C (97.7 ?F) 36.4 ?C (97.5 ?F) 36.5 ?C (97.7 ?F) TempSrc: Oral Oral Oral SpO2: 96% 97% 97% Weight: 78.4 kg (172 lb 12.8 oz) Height: General: no acute distress- walking around hallways without difficulty Skin warm and dry Neck- no JVP or bruits Lungs- breath sounds clear throughout. Heart- RRR, no murmur Abd- Soft nontedner, +BSx4 ext- no edema, distal pulses intact. Musculoskeletal: No deformities Neurologic/Psychiatric: Oriented to time, place AND person, MAEx4 and No gross focal neurologic deficits Intake/Output Summary (Last 24 hours) at 04/29/18 1150 Last data filed at 04/29/18 0914 Gross per 24 hour Intake 840 ml Output 475 ml Net 365 ml TELEMETRY: nsr- tachycardia DATA: Laboratory: Recent Labs 04/29/18 0624 04/28/18 0439 WBC 5.34 5.06 HB 16.2 15.5 HCT 46.1 44.1 PLT 234 212 NA 140 137 K 4.1 4.0 CHLOR 102 99 CO2 24 27 BUN 13 11 CREAT 1.04 1.01 GLUC [address] Bliss SIGNATURE: Melissa Umana APRN.SCRUB WOMAN PAGER: [phone] DATE of SERVICE: 04/29/2018 TIME of SERVICE: 11:52 AM CASE MGT INIT Observed: 04/29/2018 Status: COMPLETED Source: [facility] 11:47 AM [facility] REPOSITORY O ID: [id number] Author: Avril (Rn) NIRU Alaniz Service: (none) Author Type: Registered Nurse Type: Care Mgt Initial Assessment Filed: 04/29/2018 2:20 PM Note Text: CARE MANAGEMENT: ASSESSMENT AND DISCHARGE PLAN SERVICE DATE: 04/29/2018 SERVICE TIME: 11:47 AM PRIMARY CARE PHYSICIAN: Luan Tyler MD ADMISSION STATUS: Inpatient Needs Prior to Discharge: To Be Determined;Discharge Prescriptions 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 No Advance Directive: Current Advance Directive: Living Will In Chart: No Instrument Maker And Repairer Attempted to Assist with AD Completion: Yes Action: Education Provided Health Literacy: 1. How often do you need to have someone help you when you read instructions, pamphlets, or other written material from your doctor or pharmacy? Rarely - 2 2. How confident are you filling out medical forms by yourself? Quite a bit - 2 If Patient scores > 3 on either question, the following interventions were put into place: Use of plain language and active listening with Patient and family, Sit with Patient and Gave Patient the opportunity to ask questions FUNCTIONAL AND COGNITIVE/BEHAVIORAL PRIOR TO ADMISSION: Baseline Mental Status: Alert AND Oriented, Person, Place , Time and Situation Functional Status: Independent Does Patient Currently Receive Any Community Services or Home Care? None Equipment Prior to Admission: None Has the Patient Been in a Long Term Facility in the Past 30 days? 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 Yes Patient's transition needs and plan for meeting these needs: Anticipate basic needs at this time. will be transport home to [place], [place]. Does the patient have an acute stroke diagnosis, or has the patient had a stroke during this admission? No Medication Adherence: I am convinced of the importance of my prescription medication: Agree mostly - 0 I worry that my prescription medication will do more harm than good to me Disagree mostly - 0 I feel financially burdened by my [id number] expenses for my prescription medication: Disagree mostly -0 Patient is categorized as low risk < 2 Are you interested in bedside delivery of your medications? Yes Food Concerns: In the Last Month, Have You had Trouble Getting Food? No trouble getting food During the Last Month, Have You Worried Whether Your Food Would Run Out Before You Had Enough Money to Buy More? No Is the Patient Psychosocially Complex? No ASSESSMENT AND PLAN: Medical Needs: 2 or more chronic diseases Psychosocial Needs: None FREEDOM OF CHOICE EXPLAINED: N/A POTENTIAL TRANSITION PLANS Home 42 year old male admitted to J61 bed 19 for further cardiac evaluation following a LHC procedure at an outside facility. Patient is on RA and did not require the use of any DME or home oxygen prior to admission. 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 He is and lives with his spouse who is at patient's bedside and is very supportive to patient. Patient and verbalized understanding of CM role. No skilled need identified at this time. Case management will continue to assess potential discharge needs. SIGNATURE: Avril Alaniz RN PATIENT NAME: Cristina Gómez DATE: April 29, 2018 TIME: 11:47 AM PAGER/CONTACT #: [phone] CNDS Observed: 04/29/2018 Status: COMPLETED Source: [place] 11:24 AM [facility] REPOSITORY HNO ID: [id number] Author: Melissa Umana Service: Cardiovascular Medicine Author Type: Nurse Practitioner Type: Discharge Summaries Filed: 04/30/2018 2:58 PM Note Text: Attestation signed by Alysia Bliss at 05/01/2018 12:[address] [facility] STAFF PHYSICIAN NOTE OF PERSONAL INVOLVEMENT IN CARE IMPRESSION/PLAN: Mr. Gómez was reportedly transferred to [facility] for CABG, however the data obtained includes an IVUS of LM that is 6.2 mm2 and an FFR that is >0.8, and only decreases to 0.75 when distal to a myocardial bridge in distal LAD, I reviewed the cath report, and given such data, no clear indication for CABG. Needs aggressive cardiovascular risk factor modifications and follow up with EP re his symptomatic PVC's (might be realted to his bridge) and his POTS. Stable for discharge with follow up. I have reviewed the documentation obtained and documented by the Nurse Practitioner and have reviewed and updated the problem list as appropriate. I have personally performed a face to face assessment of the patient and have personally participated in the trejo components. I have discussed the case and management of the patient's care. STAFF PHYSICIAN: Alysia Bliss MD DATE OF SERVICE: April 30, 2018 TIME OF SERVICE: 12:00 PM Department of Cardiovascular Medicine Discharge Summary PATIENT NAME: Cristina Gómez ADMISSION DATE: 04/28/2018 DISCHARGE DATE: 04/30/2018 Attending Physician: Alysia Bliss Code Status: Not on file Primary Service: Hvi Card Intervention Admission Diagnosis: CAD Discharge Diagnosis: CAD Secondary Diagnoses: Patient Active Hospital Problem List: Coronary artery disease (04/28/2018) Paroxysmal atrial fibrillation (HCC) (04/29/2018) SVT (supraventricular tachycardia) ([facility]) (04/29/2018) POTS (postural orthostatic tachycardia syndrome) (04/29/2018) Reason for Hospitalization: Cristina Gómez is a 42 year old male with history of atrial fibrillation (on Cardizem, Flecainide, and Eliquis) who presented with chest pain, transferred following a [facility] with concern for left main disease. Hospital Course: Review of cardiac cath films and report from [facility] reviewed by Dr. Bliss with no significant stenosis- plan medical management Echo with EF 58% with no valvular disease EP consult for history of POTS, afib and palpitations and rhythm control strategy. Plan with determined non-significant CAD to continue home flecainide and diltiazem. He will be scheduled outpatient with EP services Consults: Electrophysiology Major Procedure or Operation: None Other Procedures, Testing AND Radiology: Echo - The left ventricle is normal in size. There is no left ventricular hypertrophy. Left ventricular systolic function is normal. EF = 58 ? 5% (2D 4-ch.) Optison contrast used for endocardial border detection. Normal left ventricular diastolic function. - The right ventricle is normal in size. Right ventricular systolic function is normal. - Estimated right ventricular systolic pressure is 22 mmHg consistent with normal pulmonary artery pressures. Estimated right atrial pressure is 5 mmHg. Patient Condition at Discharge: Stable Disposition: Home/Self Care Information Provided to the Patient: Patient given copy of After Visit Summary which included activity instructions, diet instructions, wound care instructions, medication instructions and follow up appointment ALLERGIES No Known Allergies Discharge Medications: Current Discharge Medication List START taking these medications aspirin 81 mg Take 81 mg by mouth once daily. Qty: 90 tablet Refills: 1 atorvastatin (LIPITOR) 80 mg Take 80 mg by mouth daily at bedtime. Qty: 90 tablet Refills: 1 nitroglycerin sublingual (NITROQUICK) 0.4 mg Dissolve 0.4 mg under the tongue every 5 minutes as needed. Qty: 1 Bottle of 25 Refills: 0 CONTINUE these medications which have NOT CHANGED diltiazem CD (CARDIZEM CD, CARTIA XT) 120 mg Take 120 mg by mouth once daily. Refills: 0 ELIQUIS 5 mg Take 5 mg by mouth twice daily. Refills: 0 esomeprazole (NexIUM) 1 capsule Take 1 capsule by mouth once daily. flecainide (TAMBOCOR) 1 tablet Take 1 tablet by mouth every 12 hours. hyoscyamine (LEVSIN) 0.125 mg Take 0.125 mg by mouth three times daily with meals. Qty: 90 tablet Refills: 2 LORazepam (ATIVAN) 0.5 mg tab Take by mouth every 6 hours as needed. STOP taking these medications metoprolol succinate ER (TOPROL XL) 25 mg Comments: Reason for Stopping: pantoprazole DR (PROTONIX) 40 mg Comments: Reason for Stopping: PARoxetine (PAXIL) 20 mg Comments: Reason for Stopping: Transitions of Care Critical Issues: Outpatient Management: * Are there important medication changes and/or outstanding issues that need to be addressed: None * What is the plan for follow up: Several studies have shown that hospital readmissions are more frequent amongst patients who do not have close followup. Dr. Kaylynn DOTY- appointment has been requested for you- Please call to schedule follow up appointment. [address] [facility] [address], [place] [address] Dr. Petersen -appointment has been requested for you- Please call to schedule follow up appointment. [address], [place] [address] Future Appointments: Please follow-up as recommended by your provider. Highest Readmission Risk Score: 6 The 30 day readmissions risk score is derived from an internally validated risk model which evaluates patient level characteristics, utilization history, medication orders and lab results up until the day of discharge. Patients with a score of 40 or above are considered highest risk for readmission. Specific patient level drivers will be listed at the bottom of the summary. This patient?s risk for 30-day readmission is determined using the following contributing drivers Pt variables contributing to increased readmission risk: 13 Most Recent BUN Result 8.9 First Resulted Calcium During Admission 6 Active Medication Orders 1 Insurance - Medicare Electronically SIGNED by Licensed Independent Practitioner: Melissa Umana APRN.[employer] [facility] CONSULT Observed: 04/29/2018 Status: COMPLETED Source: [place] 11:14 AM [facility] REPOSITORY [facility] ID: [id number] Author: Silvestre Cho MD Service: Cardiovascular Medicine Author Type: Physician Type: Consults Filed: 04/30/2018 4:15 PM Note Text: [facility] ELECTROPHYSIOLOGY CONSULT Cristina Gómez [id number] April 29, 2018 CONSULTING SERVICE: Cardiology: Electrophysiology Consult OUTPATIENT EP: Shonna (2014) PRIMARY SERVICE: Cardiology: Interventional REASON FOR CONSULT: Discontinuation for flecainde for possible LMCA disease HPI: Cristina Gómez is a 42 year old man with history of POTS, atrial fibrillation (on Cardizem, Flecainide, and Eliquis) who presented with chest pain on 04/27 and underwent LHC with possible LMCA disease prompting transfer to [facility] for further evaluation. On admission, given possible CAD, flecainide was discontinued. EP is consulted regarding need for alternate AAT vs continuation. Briefly, Mr. Gómez has was in usual state of health until he developed dull right sided chest pain prompting ED evaluaiton. His troponins were negative x3, but he underwent LHC which showed borderling LM disease with normal IVUS and FFR >0.8. His echo was normal with normal EF. Given concern for LMCA he was transferred to [facility]. On arrival, given concern for CAD, his outpatient AAT for AF, flecainide was discontinued. EP is now consulted regarding need for discontinuation vs continuation. Mr. Gómez reports a long history of palpitations for which he has seen Dr. Quinones in the past for palpitations. He had a reassuring workup but implantable loop recorder was placed for evaluation of symptoms, however patient has not been seen since 2014. He has seen cardiologists in [place] and reports that in February he was diagnosed with atrial fibrillation and was started on diltiazem, flecainide and apixaban. He reports his ILR was not interrogated. PAST MEDICAL HISTORY: PAST MEDICAL HISTORY Diagnosis Date - Anxiety - Arrhythmia - Cardiac device in situ - Chest pain - Coronary artery disease 04/28/2018 - Depression - Epigastric pain 08/06/13 - GERD (gastroesophageal reflux disease) 08/06/13 - Hiatal hernia - Hypokalemia - Inguinal hernia - Light headedness 08/06/13 - DARA (obstructive sleep apnea) - PAF (paroxysmal atrial fibrillation) (HCC) - Palpitations - Paroxysmal atrial fibrillation (HCC) 04/29/2018 PAST SURGICAL HISTORY Procedure Laterality Date - EGD W/O OR W/BRUSH/WASH 08/06/13 - G-ESOPH REFLX TST W/ELECTROD 08/06/13 - LAPAROSCOPIC APPENDECTOMY 2010 - LAPAROSCOPIC CHOLEYCYSTECTOMY 2010 - PAST SURGICAL HISTORY OF fusion c4 and c5 INPATIENT RX: Current hospital medications: acetaminophen 325-650 mg tab(s) (TYLENOL) 325-650 mg ORAL q 4 H PRN docusate sodium 100 mg cap(s) (COLACE) 100 mg ORAL BID PRN perflutren lipid microspheres 1.1 mg/mL 1.3 mL injection (DEFINITY) 1.3 mL INTRAVENOUS DIRECTED PRN aspirin 81 mg chewable tab(s) 81 mg ORAL DAILY atorvastatin 80 mg tab(s) (LIPITOR) 80 mg ORAL AT BEDTIME OUTPATIENT RX: Current Facility-Administered Medications: acetaminophen 325-650 mg tab(s) (TYLENOL) 325-650 mg ORAL q 4 H PRN docusate sodium 100 mg cap(s) (COLACE) 100 mg ORAL BID PRN perflutren lipid microspheres 1.1 mg/mL 1.3 mL injection (DEFINITY) 1.3 mL INTRAVENOUS DIRECTED PRN aspirin 81 mg chewable tab(s) 81 mg ORAL DAILY atorvastatin 80 mg tab(s) (LIPITOR) 80 mg ORAL AT BEDTIME ALLERGIES: ALLERGIES No Known Allergies SOCIAL HISTORY: Social History Substance Use Topics - Smoking status: Never Smoker - Smokeless tobacco: Never Used - Alcohol use No FAMILY HISTORY: FAMILY HISTORY Problem Relation Age of Onset - Diabetes Maternal Grandfather - Heart Paternal Grandmother - Cancer Paternal Grandmother - Hypertension Father - Cancer Paternal Grandfather lung - Heart Sister SVT REVIEW OF SYSTEMS: (positive in BOLD) GEN: fevers, chills/night sweats, weight loss HEENT: congestion, headaches, oral lesions, vision change, fl oaters CV: As per HPI , + palpitations PULM: cough, shortness of breath, wheezing GI: Nausea, vomiting, diarrhea, change in appetite : dysuria, hematuria, change in frequency MSK: swelling, weakness NEURO: numbness, tingling, focal weakness SKIN: rash, skin breakdown Heme/Lymph: new lymph nodes, easy bruising, easy bleeding PHYSICAL EXAM: BP 105/59 Pulse 79 Temp 36.5 ?C (97.7 ?F) (Oral) Resp 20 Ht 177.8 cm (5' 10) Wt 78.4 kg (172 lb 12.8 oz) SpO2 97% BMI 24.79 kg/m? GEN: in no acute distress HEENT: EOMI, sclera anicteric, normal conjuctivae NECK: no carotid bruits CV: RRR, normal S1, S2, no murmurs appreciated PULM: CTAB, normal work of breathing ABD: soft, non-tender, non-distended EXT: warm, no edema NEURO: alert and oriented, no focal deficits SKIN: intact, no rash LABS: Recent Labs 04/29/18 0624 04/28/18 0439 NA 140 137 K 4.1 4.0 CHLOR 102 99 CO2 24 27 BUN 13 11 CREAT 1.04 1.01 GLUC 87 94 MG 2.0 2.1 TBILI 1.0 0.5 ALKPHOS 56 52 ALT 9* 12 AST 11* 12* Recent Labs 04/29/18 0624 04/28/18 0439 WBC 5.34 5.06 HB 16.2 15.5 HCT 46.1 44.1 PLT 234 212 APTT -- 27.6 ECG: reviewed TELEMETRY: reviewed MPI stress 03/2014: REASON FOR TEST: RULE OUT CORONARY ARTERY DISEASE, SYMPTOM EVALUATION. PREVIOUS DIAGNOSIS/CURRENT SYMPTOMS: SYNCOPE/NEAR-SYNCOPE, GERD, PACs, PVCs, PALPITATIONS, LIGHTHEADEDNESS. PROCEDURES: NONE. MEDICATIONS(LAST DOSE): ATIVAN(1D), PANTOPRAZOLE(1D). RESTING ECG: NORMAL SINUS RHYTHM, WNL. OBSERVATION: 1. THE TEST WAS TERMINATED DUE TO GENERAL FATIGUE. 2. NORMAL CHRONOTROPIC REPONSE INDEX (>0.8 NOT ON BETA-ORALIA), ADEQUATE HEART RATE RESPONSE OF 102% PREDICTED MAXIMAL HEART RATE, NORMAL HEART RATE RECOVERY @ 1 MINUTE POST EXERCISE. 3. FUNCTIONAL CAPACITY IS ESTIMATED AT 14.1 METS, STAGE 5 SILVESTRE PROTOCOL[place] [id number], GOOD FUNCTIONAL CAPACITY FOR AGE AND GENDER. 4. NORMAL BLOOD PRESSURE RESPONSE TO STRESS. 5. NORMAL ST SEGMENT RESPONSE TO STRESS. 6. NORMAL MICHAUD TREADMILL SCORE (>/=5). 7. ANGINA WAS NOT PROVOKED BY STRESS, PALPITATIONS WERE NOTED DURING STRESS. 8. ISOLATED VENTRICULAR COUPLET(S) AND/OR TRIPLET(S) DURING STRESS. 9. NO PRIOR TEST FOR COMPARISON AT [facility]. CONCLUSION: NORMAL EXCEPT FOR: VENTRICULAR COUPLETS. ADDITIONAL COMMENTS: V. TRIPLET DURING STRESS (per patient this was symptomatic) ? TTE: - The left ventricle is normal in size. There is no left ventricular hypertrophy. Left ventricular systolic function is normal. EF = 58 ? 5% (2D 4-ch.) Optison contrast used for endocardial border detection. Normal left ventricular diastolic function. - The right ventricle is normal in size. Right ventricular systolic function is normal. - Estimated right ventricular systolic pressure is 22 mmHg consistent with normal pulmonary artery pressures. Estimated right atrial pressure is 5 mmHg. - Exam was compared with the prior echocardiographic exam performed on 02-04-2014. Similar findings reported. ? Cardiac Catheterization 04/26/18 OSH: Official report not available. concerning for left main disease. FFR was documented in notes as 0.82 and (0.75 after the bridging segment in the LAD) and left main cross-sectional area was 6.2 mm2 by IVUS. ASSESSMENT AND RECOMMENDATIONS: Cristina Gómez is a 42 year old man with history of POTS, atrial fibrillation (on Cardizem, Flecainide, and Eliquis) who presented with chest pain on 04/27 and underwent LHC with possible LMCA disease prompting transfer to [facility] for further evaluation. On admission, given possible CAD, flecainide was discontinued. EP is consulted regarding need for alternate AAT vs continuation. # Rhythm control stategy of atrial fibrillation: Patient currently in sinus rhythm. He has previously been on flecainide but there is concern for LMCA disease. The concern regarding flecainide and CAD stems from results of CAST trial in patients with PVCs following acute CA which showed increased mortality with IC agents. However Mr. Gómez does not have any evidence of ischemia or structural heart disease. Patients with non-significant CAD may continue flecainide but should be instructed about warning symptoms, including unexplained fatigue, new or increased chest pain, or syncope. - implantable loop recorder check to verify atrial fibrillation burden/diagnosis.(this has been ordered) - Appreciate staff/interventional evaluation for cath images to determine if patient has significant LMCA - Will discuss with staff need for flecainide continuation vs discontinuation. # Anticoagulation for atrial fibrillation: Mr. Gómez has a CHADSVASC of 0. He is on apixaban as an outpatient. It is unclear what the indication is. - will follow ILR results Thank you for involving us in the care of Cristina Gómez. Don't hesitate to contact us with questions or concerns. This is a preliminary note which reflects the assessment of the authoring cardiovascular medicine fellow only. The patient remains to be seen by and discussed with Electrophysiology staff, at which time the final assessment and recommendations may be edited. Junie Micheal MD Cardiovascular Medicine Fellow Pager [phone] [facility] Staff Leasing Representative I personally interviewed, examined, confirmed and edited the history documented by the Fellow. Assessment : Mr. Gómez is a 42 year old man with a history of orthostasis and sinus tachycardia who subsequently developed paroxysmal atrial fibrillation. He has been treated with the combination of apixaban, flecainide, and diltiazem. He was admitted to [facility] for evaluation of chest pain and then transferred here because of uncertainty about significant CAD. The flecainide was held until this was resolved. Dr. Bliss reviewed the films and concluded there was no significant disease. In that case, there is no contraindication to continuing with flecainide. Plan : Discharge on his prior medical regimen. He can follow up with his other physicians. Silvestre Cho MD NURSING PROG Observed: 04/29/2018 Status: COMPLETED Source: [place] 9:57 AM [facility] REPOSITORY [facility] ID: [id number] Author: Jimbo (Rn) NIRU Winston Service: (none) Author Type: Registered Nurse Type: Nursing Progress Note Filed: 04/29/2018 9:58 AM Note Text: Nursing Progress Note Patient Name: Cristina Gómez Patient Location: [place] [address]/[id number] Daily Note:pt feels lightheaded and nauseous becomes tachy when getting up BP 113/68, HR goesup to 120 when initially standing. Notified [id number]. Awaiting orders, will continue to monitor pt. This note was completed by: Jimbo Winston RN CBC Collected: 04/29/2018 Status: F Source: [place] 6:24 AM [facility] REPOSITORY TYPE CODE TESTS RESULT OUT OF REFERENCE UNITS RANGE LAB WBC 3.70-11.00 k/uL WBC 5.34 LAB RBC 4.20-6.00 m/uL RBC 5.45 LAB HGB 13.0-17.0 g/dL Hemoglobin 16.2 LAB HCT 39.0-51.0 % Hematocrit 46.1 LAB MCV 80.0-100.0 fL MCV 84.6 LAB MCH 26.0-34.0 pG MCH 29.7 LAB MCHC 30.5-36.0 g/dL MCHC 35.1 LAB RDWCV 11.5-15.0 % RDW-CV 11.9 LAB PLTCT 150-400 k/uL Platelet Count 234 LAB MPV 9.0-12.7 fL MPV 10.6 LAB ABSNUC <0.01 k/uL Absolute nRBC <0.01 Performed By: #### CBC, CMP, MG1 #### [facility] [address] [place] [id number] COMP METABOLIC PANEL Collected: 04/29/2018 Status: F Source: [place] 6:24 AM [facility] REPOSITORY TYPE CODE TESTS RESULT OUT OF REFERENCE UNITS RANGE LAB TP 6.3-8.0 g/dL Protein, Total 6.4 LAB ALB 3.9-4.9 g/dL Low Albumin 3.6 LAB CA 8.5-10.2 mg/dL Calcium, Total 9.1 LAB TBIL 0.2-1.3 mg/dL Bilirubin, Total 1.0 LAB ALKP 38-113 U/L Alkaline Phosphatase 56 LAB AST 14-40 U/L Low AST 11 LAB GLU 74-99 mg/dL Glucose 87 Result Comment: The Stateless Diabetes Association (ADA) provides guidance for cutoff values for fasting glucose and random glucose. The ADA defines fasting as no caloric intake for at least 8 hours. Fas ting plasma glucose results between 100 to 125 mg/dL indicate increased risk for diabetes (prediabetes). Fasting plasma glucose results greater than or equal to 126 mg/dL meet the criteria for diagnosis of diabetes. In the absence of unequivocal hyperglycemia, results should be confirmed by repeat testing. In a patient with classic symptoms of hyperglycemia or hyperglycemic crisis, random plasma glucose results greater than or equal to 200 mg/dL meet the criteria for diagnosis of diabetes. Reference: Standards of Medical Care in Diabetes 2016, Stateless Diabetes Association. Diabetes Care. 2016.39(Suppl 1). LAB BUN 9-24 mg/dL BUN 13 LAB CRET 0.73-1.22 mg/dL Creatinine 1.04 LAB NA 136-144 mmol/L Sodium 140 LAB K 3.7-5.1 mmol/L Potassium 4.1 LAB CL 97-105 mmol/L Chloride 102 LAB CO2 22-30 mmol/L CO2 24 LAB AGAP 9-18 mmol/L Anion Gap 14 LAB ALT 10-54 U/L ALT Low 9 LAB GFRAA eGFR- Amer. >60 LAB GFRNAA . eGFR-All Other Races >60 Result Comment: eGFR (Estimated GFR) Units of measure: mL/min/1.73 meters squared eGFR is derived from the reexpressed MDRD Study equation using the following parameters: serum creatinine, age, gender and race. The creatinine assay has been calibrated to be traceable to IDMS. An eGFR <60 mL/min/1.73m2 for >3 months is consistent with chronic kidney disease. Refer to KDOQI guidelines for clinical interpretation. In patients with unstable renal function, e.g. those with acute kidney injury, the eGFR may not accurately reflect actual GFR. Performed By: #### CBC, CMP, MG1 #### [facility] [address] [place], [place] [address] MAGNESIUM Collected: 04/29/2018 Status: F Source: [place] 6:24 AM [facility] REPOSITORY TYPE CODE TESTS RESULT OUT OF REFERENCE UNITS RANGE LAB MG 1.7-2.3 mg/dL Magnesium 2.0 Performed By: #### CBC, CMP, MG1 #### [facility] [address] [place], [place] [address] XR CHEST 1V FRONTAL Observed: 04/28/2018 Status: F Source: [facility] 5:40 AM [facility] REPOSITORY * * *Final Report* * * DATE OF EXAM: Apr 28 2018 5:40AM D[facility] [id number] - XR CHEST 1V FRONTAL PORT / PROCEDURE REASON: Chest pain * * * * Physician Interpretation * * * * EXAMINATION: CHEST RADIOGRAPH (PORTABLE SINGLE VIEW AP) Exam Date/Time: 04/28/2018 5:40 AM Clinical History: Chest pain, MQ: [id number] Comparison: None currently available RESULT: See impression. IMPRESSION: Lines, tubes, and devices: None. Lungs and pleura: Lungs are clear with no consolidation or mass lesion. No pleural effusion or pneumothorax.. Cardiomediastinal silhouette: Heart is within normal. Other: Monitoring device is implanted in the anterior chest wall. Associate Professor Of Mathematics: ZACH Transcribe Date/Time: Apr 28 2018 11:06A Dictated by : ALEX CAMPOVERDE MD This examination was interpreted and the report reviewed and electronically signed by: ALEX CAMPOVERDE MD on Apr 28 2018 11:07AM EST [id number] CBC AND DIFFERENTIAL Collected: 04/28/2018 Status: F Source: [place] 4:39 AM [facility] REPOSITORY TYPE CODE TESTS RESULT OUT OF REFERENCE UNITS RANGE LAB WBC 3.70-11.00 k/uL WBC 5.06 LAB RBC 4.20-6.00 m/uL RBC 5.11 LAB HGB 13.0-17.0 g/dL Hemoglobin 15.5 LAB HCT 39.0-51.0 % Hematocrit 44.1 LAB MCV 80.0-100.0 fL MCV 86.3 LAB MCH 26.0-34.0 pG MCH 30.3 LAB MCHC 30.5-36.0 g/dL MCHC 35.1 LAB RDWCV 11.5-15.0 % RDW-CV 11.9 LAB PLTCT 150-400 k/uL Platelet Count 212 LAB MPV 9.0-12.7 fL MPV 10.5 LAB ANEUT % Neut% 48.4 LAB AANEUT 1.45-7.50 k/uL Abs Neut 2.44 LAB ALYMP % Lymph% 39.3 LAB AALYMP 1.00-4.00 k/uL Abs Lymph 1.99 LAB AMONO % Wake% 9.7 LAB AAMONO <0.87 k/uL Abs Wake 0.49 LAB AEOS % Eosin% 1.8 LAB AAEOS <0.46 k/uL Abs Eosin 0.09 LAB ABASO % Baso% 0.8 LAB AABASO <0.11 k/uL Abs Baso 0.04 LAB AUNRBC 0 /100 WBC NRBCs 0.0 LAB ABNRBC <0.01 k/uL Absolute nRBC <0.01 LAB DTYP DTYPE Auto Diff Performed By: #### CBCDIF, CMP, MG1 #### [facility] [address] [place] [id number] COMP METABOLIC PANEL Collected: 04/28/2018 Status: F Source: [place] 4:39 AM [facility] REPOSITORY TYPE CODE TESTS RESULT OUT OF REFERENCE UNITS RANGE LAB TP 6.3-8.0 g/dL Protein, Total 6.3 LAB ALB 3.9-4.9 g/dL Low Albumin 3.6 LAB CA 8.5-10.2 mg/dL Calcium, Total 8.9 LAB TBIL 0.2-1.3 mg/dL Bilirubin, Total 0.5 LAB ALKP 38-113 U/L Alkaline Phosphatase 52 LAB AST 14-40 U/L Low AST 12 LAB GLU 74-99 mg/dL Glucose 94 Result Comment: The Stateless Diabetes Association (ADA) provides guidance for cutoff values for fasting glucose and random glucose. The ADA defines fasting as no caloric intake for at least 8 hours. Fas ting plasma glucose results between 100 to 125 mg/dL indicate increased risk for diabetes (prediabetes). Fasting plasma glucose results greater than or equal to 126 mg/dL meet the criteria for diagnosis of diabetes. In the absence of unequivocal hyperglycemia, results should be confirmed by repeat testing. In a patient with classic symptoms of hyperglycemia or hyperglycemic crisis, random plasma glucose results greater than or equal to 200 mg/dL meet the criteria for diagnosis of diabetes. Reference: Standards of Medical Care in Diabetes 2016, Stateless Diabetes Association. Diabetes Care. 2016.39(Suppl 1). LAB BUN 9-24 mg/dL BUN 11 LAB CRET 0.73-1.22 mg/dL Creatinine 1.01 LAB NA 136-144 mmol/L Sodium 137 LAB K 3.7-5.1 mmol/L Potassium 4.0 LAB CL 97-105 mmol/L Chloride 99 LAB CO2 22-30 mmol/L CO2 27 LAB AGAP 9-18 mmol/L Anion Gap 11 LAB ALT 10-54 U/L ALT 12 LAB GFRAA eGFR- Amer. >60 LAB GFRNAA . eGFR-All Other Races >60 Result Comment: eGFR (Estimated GFR) Units of measure: mL/min/1.73 meters squared eGFR is derived from the reexpressed MDRD Study equation using the following parameters: serum creatinine, age, gender and race. The creatinine assay has been calibrated to be traceable to IDMS. An eGFR <60 mL/min/1.73m2 for >3 months is consistent with chronic kidney disease. Refer to KDOQI guidelines for clinical interpretation. In patients with unstable renal function, e.g. those with acute kidney injury, the eGFR may not accurately reflect actual GFR. Performed By: #### CBCDIF, CMP, MG1 #### [facility] [address] [place] [id number] MAGNESIUM Collected: 04/28/2018 Status: F Source: [place] 4:39 [facility] REPOSITORY TYPE CODE TESTS RESULT OUT OF REFERENCE UNITS RANGE LAB MG 1.7-2.3 mg/dL Magnesium 2.1 Performed By: #### CBCDIF, CMP, MG1 #### [facility] [address] [place] [id number] PTT,ANTICOAG THERAPY Collected: 04/28/2018 Status: F Source: [place] 4:39 [facility] REPOSITORY TYPE CODE TESTS RESULT OUT OF RANGE REFERENCE UNITS LAB APTT 23.0-32.4 sec APTT 27.6 Result Comment: Unfractionated Heparin Therapeutic Ranges: Standard Heparin Nomogram: 53 to 78 seconds (anti-Xa level of 0.3 to 0.7 U/ml) Low Dose/ACS Nomogram: 49 to 67 seconds (anti-Xa level of 0.2 to 0.5 U/ml) Stroke Treatment Nomogram: 49 to 67 seconds (anti-Xa level of 0.2 to 0.5 U/ml) Note: The APTT therapeutic range has been determined for the current lot of laboratory APTT reagent in use throughout the [facility]. Performed By: #### PTTAC #### [facility] [address] [place] [id number] NURSING PROG Observed: 04/28/2018 Status: COMPLETED Source: [place] 4:36 AM [facility] REPOSITORY [facility] ID: [id number] Author: Soila Del Rosario) NIRU Brenner Service: (none) Author Type: Registered Nurse Type: Nursing Progress Note Filed: 04/28/2018 4:37 AM Note Text: Admission/Transfer Note PATIENT NAME: Cristina Gómez Patient admitted from [facility] via stretcher in stable condition. Actions taken: Patient oriented to room, call light function, prescribed activities, Patient rights and Quiet at night. Skin check done with Vale MARRUFO. This note was completed by: Soila Brenner RN ECG COMPLETE W Observed: 04/28/2018 Status: F Source: [place] INTERPRETATION 3:39 AM [facility] REPOSITORY NAME : CRISTINA GÓMEZ PID : [id number] : 1975 Gender : Male Race : ORD : [id number] Procedure Date : Apr 28 2018 03:39:40 Edit Date : Apr 29 2018 14:02:14 Diagnosis:NORMAL SINUS RHYTHM NORMAL ECG Confirmed by MD ROCKY, PhD, DEMETRIO ([id number]) on 04/29/2018 1:59:29 PM Ventricular Rate : 63 BPM Atrial Rate : 63 BPM P-R Interval : 180 ms QRS Duration : 88 ms Q-T Interval : 392 ms QTC Calculation(Bezet) : 401 ms P Maypearl : 18 degrees R Maypearl : 65 degrees T [place] : 57 degrees Test Reason : cad Location : 361 : J61 [id number] Overread By : MD ROCKY, PhD,DEMETRIO Edited By : MD ROCKY, PhD,DEMETRIO Referred By : DAVID BRADY Acquired by : SONU WILLIAM HISTORY PHYSICAL Observed: 04/28/2018 Status: COMPLETED Source: [place] 3:27 AM [facility] REPOSITORY HNO ID: [id number] Author: Lito Cordoba MD (Fel) Service: Cardiovascular Medicine Author Type: Fellow Type: HANDP Filed: 04/28/2018 9:32 PM Note Text: Attestation signed by Alysia Bliss at 04/29/2018 9:[address] [facility] STAFF PHYSICIAN NOTE OF PERSONAL INVOLVEMENT IN CARE IMPRESSION/PLAN: Mr. Gómez was reportedly transferred to [facility] for CABG, however the data obtained includes an IVUS of LM that is 6.2 mm2 and an FFR that is >0.8, and only decreases when distal to a myocardial bridge in distal LAD, if such data is accurate then no clear indication for CABG, we will await official cath report from outside facility before final decision. I have reviewed the documentation obtained and documented by the Fellow and have reviewed and updated the problem list as appropriate. I have personally performed a face to face assessment of the patient and have personally participated in the trejo components. I have discussed the case and management of the patient's care. STAFF PHYSICIAN: Alysia Bliss MD DATE OF SERVICE: April 29, 2018 TIME OF SERVICE: 9:05 PM [facility]ARDI[facility]IC[facility] HISTORY AND PHYSICAL (Template ID [id number]) Cristina Gómez [id number] PRIMARY SERVICE: Cardiovascular Medicine: Intervention DATE OF ADMISSION: 04/28/2018 CHIEF COMPLAINT Chest pain, concern for left main coronary disease HISTORY OF PRESENT ILLNESS Cristina Gómez is a 42 year old male with history of atrial fibrillation (on Cardizem, Flecainide, and Eliquis) who presented with chest pain on . 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 It lasted for about 2 hours. It was not associated with shortness of breath. However, Mr. Gómez does note that he does think he has had more dyspnea on exertion recently, both at his occupation and with heavy exertion at the gym. Given his symptoms, Mr. Gómez initially proceeded to [facility] but was transferred to [place] for further evaluation with [facility]. While the official report is not available, an addendum from Dr. Larson reports: ?Cardiac catheterization showed borderline left main disease. FFR was 0.82 and (0.75 after the bridging segment in the LAD) and left main cross-sectional area was 6.2 mm2 by IVUS.? His Troponin I was trended and returned negative x3. TTE was notable for normal LVEF with no WMA. There was question of LV thrombus on TTE. PAST MEDICAL HISTORY PAST MEDICAL HISTORY Diagnosis Date - Anxiety - Arrhythmia - Cardiac device in situ - Chest pain - Coronary artery disease 04/28/2018 - Depression - Epigastric pain 08/06/13 - GERD (gastroesophageal reflux disease) 08/06/13 - Hiatal hernia - Hypokalemia - Inguinal hernia - Light headedness 08/06/13 - DARA (obstructive sleep apnea) - PAF (paroxysmal atrial fibrillation) ([facility]) - Palpitations PAST SURGICAL HISTORY Procedure Laterality Date - EGD W/O OR W/BRUSH/WASH 08/06/13 - G-ESOPH REFLX TST W/ELECTROD 08/06/13 - LAPAROSCOPIC APPENDECTOMY 2010 - LAPAROSCOPIC CHOLEYCYSTECTOMY 2010 - PAST SURGICAL HISTORY OF fusion c4 and c5 FAMILY HISTORY FAMILY HISTORY Problem Relation Age of Onset - Diabetes Maternal Grandfather - Heart Paternal Grandmother - Cancer Paternal Grandmother - Hypertension Father - Cancer Paternal Grandfather lung - Heart Sister SVT SOCIAL HISTORY Social History Substance Use Topics - Smoking status: Never Smoker - Smokeless tobacco: Never Used - Alcohol use No HOME MEDICATIONS PARoxetine (PAXIL) 20 mg tablet Take 20 mg by mouth once daily. diltiazem CD (CARDIZEM CD, CARTIA XT) 120 mg 24 hr capsule Take 120 mg by mouth once daily. ELIQUIS 5 mg tab(s) Take 5 mg by mouth twice daily. metoprolol succinate ER (TOPROL XL) 25 mg 24 hr tablet Take 1 tablet by mouth once daily. hyoscyamine (LEVSIN) 0.125 mg tablet Take 1 tablet by mouth three times daily with meals. pantoprazole (PROTONIX) 40 mg tablet Take 40 mg by mouth once daily. LORazepam (ATIVAN) 0.5 mg tab Take by mouth every 6 hours as needed. INPATIENT MEDICATIONS Current hospital medications: acetaminophen 325-650 mg tab(s) (TYLENOL) 325-650 mg ORAL q 4 H PRN docusate sodium 100 mg cap(s) (COLACE) 100 mg ORAL BID PRN perflutren lipid microspheres 1.1 mg/mL 1.3 mL injection (DEFINITY) 1.3 mL INTRAVENOUS DIRECTED PRN aspirin 81 mg chewable tab(s) 81 mg ORAL DAILY atorvastatin 80 mg tab(s) (LIPITOR) 80 mg ORAL AT BEDTIME ALLERGIES ALLERGIES No Known Allergies REVIEW OF SYSTEMS Constitutional: No weight loss, malaise or fevers. HEENT: Negative for frequent or significant headaches Respiratory: See above HPI Cardiovascular: See above HPI Gastrointestinal: Negative for abdominal discomfort, blood in stools or black stools or change in bowel habits Genitourinary: No history of dysuria, frequency, or incontinence Endocrine: Negative for cold or heat intolerance, polyuria, polydipsia and goiter Hematologic: Negative for prolonged bleeding, bruising easily or swollen nodes Neurologic: No history or headaches, syncope, paralysis, seizures or tremors Integumentary: Negative for lesions, rash, and itching. PHYSICAL EXAM BP 118/61 Pulse 66 Temp 36.5 ?C (97.7 ?F) (Oral) Resp 16 Wt 79.4 kg (175 lb) SpO2 97% BMI 25.11 kg/m? General Appearance: Well developed and Well nourished HEENT: PERRLA Lungs: Clear Heart: Regular rate AND rhythm Abdomen: Soft and Non-tender Skin: Warm and Dry Musculoskeletal: No deformities Neurologic/Psychiatric: Oriented to time, place AND person DATA Laboratory: Recent Labs 04/28/18 0439 WBC 5.06 HB 15.5 HCT 44.1 PLT 212 No results found for: CHOL, HDL, LDL, TG No results found for: HBA1C EKG: NSR, no ST-T wave changes Chest Radiograph: Lines, tubes, and devices: ?None. Lungs and pleura: ?Lungs are clear with no consolidation or mass lesion. ? No pleural effusion or pneumothorax.. Cardiomediastinal silhouette: ?Heart is within normal. Other: ?Monitoring device is implanted in the anterior chest wall. Echocardiogram 04/26/18 OSH: 1. Left ventricle: The cavity size is normal. Wall thickness is normal. Systolic function is normal. The estimated ejection fraction is 55-60%. Wall motion is normal; there are no regional wall motion abnormalities. 2. Mitral valve: The annulus is mildly calcified. The leaflets are mildly thickened. 3. Right ventricle: The RV systolic pressure by Dopple Cardiac Catheterization 04/26/18 OSH: Official report not available. Format not supported by [email or web address], however available for review with bedside CDs. ASSESSMENT AND PLAN Cristina Gómez is a 42 year old male with history of atrial fibrillation (on Cardizem, Flecainide, and Eliquis) who presented with chest pain, transferred following a [facility] with concern for left main disease. Active Hospital Problems Diagnosis - Coronary artery disease Chest pain, concern for left main disease: Patient presented on 04/26 with 2 hours of chest pain, troponin negative. LHC at [place] reportedly concerning for left main disease. FFR was documented in notes as 0.82 and (0.75 after the bridging segment in the LAD) and left main cross-sectional area was 6.2 mm2 by IVUS. Personal review of [facility] films show a catheter injecting the roof of the left main in the EDWARDS caudal projection with angiography suggestive of ostial stenosis, however this is not replicated in other views with more direct injections. IVUS images not included on CD. - Await interventional review of cath films - ASA 81 mg daily - Atorvastatin 80 mg daily - Holding Diltiazem and Flecainide in light of possible coronary disease; consider starting Metoprolol as alternative agent if needed - TTE with contrast (unlikely to have LV thrombus with normal LVEF and no WMA) Atrial fibrillation: Recent diagnosis. Loop recorder in place. - Holding Apixaban for now Case to be discussed with staff Lito Cordoba ([id number]) Fellow Physician, PGY4 [facility] Cardiovascular Medicine April 28, 2018 4:00 AM For communication after 5 pm on weekdays and after 12 pm on weekends, please page the following: - Clinical Cardiology patients on all floors: page [phone] - Other Cardiology patients on J5 and J6: page [phone] - Other Cardiology patients on J7 and J8: page [phone] PROGRESS Observed: 04/28/2018 Status: COMPLETED Source: [place] 3:15 AM [facility] REPOSITORY O ID: [id number] Author: Downtime Note Service: (none) Author Type: (none) Type: Progress Notes Filed: 04/28/2018 3:17 AM Note Text: Epic Scheduled Downtime: 04/28/2018 1:00:00 AM to 04/28/2018 3:07:00 AM APTT Collected: 04/27/2018 Status: F Source: [facility] 8:58 PM [facility] REPOSITORY TYPE CODE TESTS RESULT OUT OF REFERENCE UNITS RANGE LAB PDOSE(LOIN C) Heparin dose Heparin IV (APTT) LAB APTT0(LOIN 25.0-35.0 seconds C) High APTT 67.4 Result Comment: For Heparin anticoagulation therapy, the recommended therapeutic range is: 54-77 seconds (APTT Correlation with Anti-Xa therapeutic range of 0.3-0.7 units/ml). PLEASE REFERENCE THE PHARMACY PROTOCOL FOR DOSING. Performed By: #### APTT #### [address] [address] APTT Collected: 04/27/2018 Status: F Source: [facility] 2:17 PM [facility] REPOSITORY TYPE CODE TESTS RESULT OUT OF REFERENCE UNITS RANGE LAB PDOSE(LOIN C) Heparin dose Heparin IV (APTT) LAB APTT0(LOIN 25.0-35.0 seconds C) High APTT 38.3 Result Comment: For Heparin anticoagulation therapy, the recommended therapeutic range is: 54-77 seconds (APTT Correlation with Anti-Xa therapeutic range of 0.3-0.7 units/ml). PLEASE REFERENCE THE PHARMACY PROTOCOL FOR DOSING. Performed By: #### APTT #### [address] [id number] APTT Collected: 04/27/2018 Status: F Source: [facility] 7:25 AM [facility] REPOSITORY TYPE CODE TESTS RESULT OUT OF REFERENCE UNITS RANGE LAB PDOSE(LOIN C) Heparin dose Heparin IV (APTT) LAB APTT0(LOIN 25.0-35.0 seconds C) High APTT 45.9 Result Comment: For Heparin anticoagulation therapy, the recommended therapeutic range is: 54-77 seconds (APTT Correlation with Anti-Xa therapeutic range of 0.3-0.7 units/ml). PLEASE REFERENCE THE PHARMACY PROTOCOL FOR DOSING. Performed By: #### APTT #### [address] [id number] CBC Collected: 04/27/2018 Status: F Source: [facility] 12:34 AM [facility] REPOSITORY TYPE CODE TESTS RESULT OUT OF REFERENCE UNITS RANGE LAB WBC(LOINC) 4.50-10.80 10 3/mcL WBC 5.30 LAB RBCCT(LOINC 4.50-6.00 10 6/mcL ) RBC 5.06 LAB HGB(LOINC) 13.0-17.5 G/dL Hgb 15.4 LAB HCT(LOINC) 40.0-52.0 % Hct 44.5 LAB MCV(LOINC) 81.0-100.0 fL MCV 87.8 LAB MCH(LOINC) 27.0-33.0 pg MCH 30.3 LAB MCHC(LOINC) 32.0-36.0 G/dL MCHC 34.5 LAB RDW(LOINC) 11.5-15.5 % RDW 12.8 LAB PLT(LOINC) 150-450 10 3/mcL Platelet 244 LAB MPV(LOINC) 6.4-10.5 fL MPV 8.6 Performed By: #### CBC, ADIFF, ANEU, APTT, PRO #### [place] [id number] .AUTO DIFF Collected: 04/27/2018 Status: F Source: [facility] 12:34 [facility] REPOSITORY TYPE CODE TESTS RESULT OUT OF REFERENCE UNITS RANGE LAB WESTON(LOINC) 50.0-75.0 % Low Neutrophil % 42.7 LAB LYM(LOINC) 20.0-40.0 % High Lymphocyte % 44.5 LAB MON(LOINC) 2.0-13.0 % Monocyte % 9.9 LAB EO(LOINC) 0.0-6.0 % Eosinophil % 1.9 LAB BAS(LOINC) 0.0-2.5 % Basophil % 1.0 LAB ABLYM(LOIN 0.90-4.32 10 3/mcL C) Lymphocyte, 2.40 Absolute LAB GRETA(LOINC 0.09-1.40 10 3/mcL ) Monocyte, 0.50 Absolute LAB AEOS(LOINC 0.00-0.65 10 3/mcL ) Eosinophil, 0.10 Absolute LAB ABAS(LOINC 0.00-0.27 10 3/mcL ) Basophil, 0.10 Absolute Performed By: #### CBC, ADIFF, ANEU, APTT, PRO #### [place] [address] .NEUABS Collected: 04/27/2018 Status: F Source: [facility] 12:34 AM [facility] REPOSITORY TYPE CODE TESTS RESULT OUT OF REFERENCE UNITS RANGE LAB ANEU(LOINC) 2.25-8.10 10 3/mcL Neutrophil, 2.30 Absolute Performed By: #### CBC, ADIFF, ANEU, APTT, PRO #### [place] [address] APTT Collected: 04/27/2018 Status: F Source: [facility] 12:34 AM [facility] REPOSITORY TYPE CODE TESTS RESULT OUT OF REFERENCE UNITS RANGE LAB PDOSE(LOIN C) Heparin dose Heparin IV (APTT) LAB APTT0(LOIN 25.0-35.0 seconds C) APTT 33.0 Result Comment: For Heparin anticoagulation therapy, the recommended therapeutic range is: 54-77 seconds (APTT Correlation with Anti-Xa therapeutic range of 0.3-0.7 units/ml). PLEASE REFERENCE THE PHARMACY PROTOCOL FOR DOSING. Performed By: #### CBC, ADIFF, ANEU, APTT, PRO #### [place] [address] PRO Collected: 04/27/2018 Status: F Source: [facility] 12:34 AM [facility] REPOSITORY TYPE CODE TESTS RESULT OUT OF REFERENCE UNITS RANGE LAB PT(LOINC) 9.0-14.6 seconds Protime 13.4 Result Comment: Effective 12/03/07, Protime results may be affected by some antibiotics (i.e. Ciprofloxacin, Azithromycin, Bactrim) which may potentiate the action of oral anticoagulants, with further increases in Protime/INR. LAB INR(LOINC) ratio PT International Ratio 1.2 Result Comment: The [employer] (CHEST, 1992, 102:312S-25S) recommended therapeutic range for oral anticoagulant therapy is: LOW RISK: Prophylaxis of venous thrombosis INR: 2.0-3.0 Treatment of pulmonary embolism 2.0-3.0 Prevention of systemic embolism 2.0-3.0 HIGH RISK: Mechanical prosthetic valves 2.5-3.5 Performed By: #### CBC, ADIFF, ANEU, APTT, PRO #### [address] [address] CMP Collected: 04/26/2018 Status: F Source: [facility] 2:31 AM [facility] REPOSITORY TYPE CODE TESTS RESULT OUT OF REFERENCE UNITS RANGE LAB GLU(LOINC) 70-110 mg/dL Glucose Level 92 LAB NA(LOINC) 136-145 mEq/L Sodium Level 140 LAB K(LOINC) 3.5-5.0 mEq/L Potassium Level 3.7 LAB CL(LOINC) 98-110 mEq/L Chloride 106 LAB CO2(LOINC) 22-32 mEq/L CO2 31 LAB EBAL(LOINC 4.0-15.0 mEq/L ) Low Electrolyte Balance 3.0 LAB BUN(LOINC) 8.0-22.0 mg/dL BUN 16.0 LAB CRE(LOINC) 0.60-1.40 mg/dL Creatinine Lvl (s) 0.95 LAB BC(LOINC) 10.0-22.0 ratio BUN/Creatinine 16.8 Ratio LAB CA(LOINC) 8.4-10.1 mg/dL Low Calcium Lvl 8.0 LAB PROT(LOINC 6.0-8.5 G/dL ) Total Protein 6.3 LAB ALB(LOINC) 3.2-4.8 G/dL Albumin Level 3.6 LAB GLB(LOINC) 1.5-3.8 G/dL Globulin 2.7 LAB AG(LOINC) 0.9-1.6 ratio A/G Ratio 1.3 LAB BILT(LOINC 0.2-1.2 mg/dL ) Bili Total 0.6 LAB AP(LOINC) 38-126 U/L Alk Phos 49 LAB AST(LOINC) 8-34 U/L AST/SGOT 10 LAB ALT(LOINC) 12-55 U/L ALT/SGPT 20 Performed By: #### CMP, GFR, CBC, ADIFF, ANEU, LIPID #### [address] [id number] .GFR Collected: 04/26/2018 Status: F Source: [facility] 2:31 AM [facility] REPOSITORY TYPE CODE TESTS RESULT OUT OF REFERENCE UNITS RANGE LAB GFRAA(LOINC ml/min/1.73 ) sqm GFR >60 Stateless Result Comment: GFR Population mean for , Non- Americans Ages 20-29 = 116 mL/min/1.73 sq.m. Ages 30-39 = 107 mL/min/1.73 sq.m. Ages 40-49 = 99 mL/min/1.73 sq.m. Ages 50-59 = 93 mL/min/1.73 sq.m. Ages 60-69 = 85 mL/min/1.73 sq.m. Ages 70+ = 75 mL/min/1.73 sq.m. Chronic Kidney Disease: Less than 60 mL/min/1.73 square meters End Stage Renal Disease: Less than 15 mL/min/1.73 square meters LAB GFRNO(LOINC) ml/min/1.73sqm GFR Non- >60 Result Comment: GFR Population mean for , Non- Americans Ages 20-29 = 116 mL/min/1.73 sq.m. Ages 30-39 = 107 mL/min/1.73 sq.m. Ages 40-49 = 99 mL/min/1.73 sq.m. Ages 50-59 = 93 mL/min/1.73 sq.m. Ages 60-69 = 85 mL/min/1.73 sq.m. Ages 70+ = 75 mL/min/1.73 sq.m. Chronic Kidney Disease: Less than 60 mL/min/1.73 square meters End Stage Renal Disease: Less than 15 mL/min/1.73 square meters Performed By: #### CMP, GFR, CBC, ADIFF, ANEU, LIPID #### [place] [address] CBC Collected: 04/26/2018 Status: F Source: [facility] 2:31 [facility] TYPE CODE TESTS RESULT OUT OF REFERENCE UNITS RANGE LAB WBC(LOINC) 4.50-10.80 10 3/mcL WBC 7.20 LAB RBCCT(LOINC 4.50-6.00 10 6/mcL ) RBC 5.08 LAB HGB(LOINC) 13.0-17.5 G/dL Hgb 15.3 LAB HCT(LOINC) 40.0-52.0 % Hct 44.6 LAB MCV(LOINC) 81.0-100.0 fL MCV 87.8 LAB MCH(LOINC) 27.0-33.0 pg MCH 30.1 LAB MCHC(LOINC) 32.0-36.0 G/dL MCHC 34.3 LAB RDW(LOINC) 11.5-15.5 % RDW 12.9 LAB PLT(LOINC) 150-450 10 3/mcL Platelet 230 LAB MPV(LOINC) 6.4-10.5 fL MPV 8.5 Performed By: #### CMP, GFR, CBC, ADIFF, ANEU, LIPID #### [address] [id number] .AUTO DIFF Collected: 04/26/2018 Status: F Source: [facility] 2:31 AM [facility] REPOSITORY TYPE CODE TESTS RESULT OUT OF REFERENCE UNITS RANGE LAB WESTON(LOINC) 50.0-75.0 % Neutrophil % 57.4 LAB LYM(LOINC) 20.0-40.0 % Lymphocyte % 32.6 LAB MON(LOINC) 2.0-13.0 % Monocyte % 8.2 LAB EO(LOINC) 0.0-6.0 % Eosinophil % 1.3 LAB BAS(LOINC) 0.0-2.5 % Basophil % 0.5 LAB ABLYM(LOIN 0.90-4.32 10 3/mcL C) Lymphocyte, 2.40 Absolute LAB GRETA(LOINC 0.09-1.40 10 3/mcL ) Monocyte, 0.60 Absolute LAB AEOS(LOINC 0.00-0.65 10 3/mcL ) Eosinophil, 0.10 Absolute LAB ABAS(LOINC 0.00-0.27 10 3/mcL ) Basophil, 0.00 Absolute Performed By: #### CMP, GFR, CBC, ADIFF, ANEU, LIPID #### [address] [id number] .NEUABS Collected: 04/26/2018 Status: F Source: [facility] 2:31 AM [facility] REPOSITORY TYPE CODE TESTS RESULT OUT OF REFERENCE UNITS RANGE LAB ANEU(LOINC) 2.25-8.10 10 3/mcL Neutrophil, 4.10 Absolute Performed By: #### CMP, GFR, CBC, ADIFF, ANEU, LIPID #### [address] [id number] LIPID Collected: 04/26/2018 Status: F Source: [facility] 2:31 AM [facility] REPOSITORY TYPE CODE TESTS RESULT OUT OF REFERENCE UNITS RANGE LAB CHOL(LOINC 50-199 mg/dL ) Cholesterol 162 Result Comment: Cholesterol Reference Interval: Less than 200 Desirable 200-239 Borderline high risk 240 and above High risk LAB TRIG(LOINC) 3-149 mg/dL Triglycerides 122 Result Comment: Triglyceride Reference Interval: Less than 150 Normal 150-199 Borderline high risk 200-499 High risk 500 or higher Very high risk LAB HD(LOINC) 40-59 mg/dL HDL Cholesterol 41 Result Comment: HDL Reference Interval: Less than 40 Low - high risk 60 or above Optimal/lowers risk LAB LDL(LOINC) 0-129 mg/dL LDL Cholesterol 97 Result Comment: LDL is a calculated result and requires a 12-hr fast. LDL Reference Interval: Less than 100 Optimal 100-129 Near or above optimal 130-159 Borderline high risk 160-189 High risk 190 and above Very high risk Performed By: #### CMP, GFR, CBC, ADIFF, ANEU, LIPID #### [address] [address] TROPI Collected: 04/26/2018 Status: F Source: [facility] 2:31 [facility] REPOSITORY TYPE CODE TESTS RESULT OUT OF REFERENCE UNITS RANGE LAB TROPI(LOINC 0.000-0.040 ng/mL ) Troponin I <0.015 Result Comment: Troponin I reference ranges (01/26/14): 0.00-0.040 ng/mL Negative and non-diagnostic. >0.040 ng/mL Consistent with cardiac damage, increased clinical risk and possibility of myocardial infarction. Serial measurements, a rise & fall in test results, clinical history, appropriate symptoms and/or ECG changes may help assess possibility of CA. *Other non-acute coronary syndrome conditions such as CHF, myocarditis, pulmonary emboli, sepsis and cardiac surgery could result in myocardial damage and increased troponin levels. Performed By: #### TROPI #### [address] [address] TROPI Collected: 04/25/2018 Status: F Source: [facility] 11:06 PM [facility] REPOSITORY TYPE CODE TESTS RESULT OUT OF REFERENCE UNITS RANGE LAB TROPI(LOINC 0.000-0.040 ng/mL ) Troponin I <0.015 Result Comment: Troponin I reference ranges (01/26/14): 0.00-0.040 ng/mL Negative and non-diagnostic. >0.040 ng/mL Consistent with cardiac damage, increased clinical risk and possibility of myocardial infarction. Serial measurements, a rise & fall in test results, clinical history, appropriate symptoms and/or ECG changes may help assess possibility of CA. *Other non-acute coronary syndrome conditions such as CHF, myocarditis, pulmonary emboli, sepsis and cardiac surgery could result in myocardial damage and increased troponin levels. Performed By: #### TROPI #### [address] [address] MG Collected: 04/25/2018 Status: F Source: [facility] 7:45 [facility] REPOSITORY TYPE CODE TESTS RESULT OUT OF REFERENCE UNITS RANGE LAB MG(LOINC) 1.6-2.4 mg/dL Magnesium Lvl 2.4 Performed By: #### MG, CMP, PBNP, GFR, CBC, ADIFF, ANEU, TSH, TROPI, A1C #### [address] [address] CMP Collected: 04/25/2018 Status: F Source: [facility] [address] [place] [address] REPOSITORY TYPE CODE TESTS RESULT OUT OF REFERENCE UNITS RANGE LAB GLU(LOINC) 70-110 mg/dL Glucose Level 103 LAB NA(LOINC) 136-145 mEq/L Sodium Level 140 LAB K(LOINC) 3.5-5.0 mEq/L Potassium Level 3.7 LAB CL(LOINC) 98-110 mEq/L Chloride 105 LAB CO2(LOINC) 22-32 mEq/L CO2 28 LAB EBAL(LOINC 4.0-15.0 mEq/L ) Electrolyte Balance 7.0 LAB BUN(LOINC) 8.0-22.0 mg/dL BUN 17.0 LAB CRE(LOINC) 0.60-1.40 mg/dL Creatinine Lvl (s) 0.90 LAB BC(LOINC) 10.0-22.0 ratio BUN/Creatinine 18.9 Ratio LAB CA(LOINC) 8.4-10.1 mg/dL Low Calcium Lvl 8.2 LAB PROT(LOINC 6.0-8.5 G/dL ) Total Protein 6.7 LAB ALB(LOINC) 3.2-4.8 G/dL Albumin Level 3.7 LAB GLB(LOINC) 1.5-3.8 G/dL Globulin 3.0 LAB AG(LOINC) 0.9-1.6 ratio A/G Ratio 1.2 LAB BILT(LOINC 0.2-1.2 mg/dL ) Bili Total 0.6 LAB AP(LOINC) 38-126 U/L Alk Phos 53 LAB AST(LOINC) 8-34 U/L AST/SGOT 9 LAB ALT(LOINC) 12-55 U/L ALT/SGPT 22 Performed By: #### MG, CMP, PBNP, GFR, CBC, ADIFF, ANEU, TSH, TROPI, A1C #### [place] [address] PBNP Collected: 04/25/2018 Status: F Source: [facility] 7:45 [facility] REPOSITORY TYPE CODE TESTS RESULT OUT OF REFERENCE UNITS RANGE LAB PBNP(LOINC) 0-450 pg/mL N-Terminal 15 proBNP Result Comment: NT-proBNP results of less than 300 pg/mL effectively rules out acute congestive heart failure with 99% negative predictive value. Performed By: #### MG, CMP, PBNP, GFR, CBC, ADIFF, ANEU, TSH, TROPI, A1C #### [address] [address] .GFR Collected: 04/25/2018 Status: F Source: [facility] 7:45 [facility] REPOSITORY TYPE CODE TESTS RESULT OUT OF REFERENCE UNITS RANGE LAB GFRAA(LOINC ml/min/1.73 ) sqm GFR >60 Stateless Result Comment: GFR Population mean for , Non- Americans Ages 20-29 = 116 mL/min/1.73 sq.m. Ages 30-39 = 107 mL/min/1.73 sq.m. Ages 40-49 = 99 mL/min/1.73 sq.m. Ages 50-59 = 93 mL/min/1.73 sq.m. Ages 60-69 = 85 mL/min/1.73 sq.m. Ages 70+ = 75 mL/min/1.73 sq.m. Chronic Kidney Disease: Less than 60 mL/min/1.73 square meters End Stage Renal Disease: Less than 15 mL/min/1.73 square meters LAB GFRNO(LOINC) ml/min/1.73sqm GFR Non- >60 Result Comment: GFR Population mean for , Non- Americans Ages 20-29 = 116 mL/min/1.73 sq.m. Ages 30-39 = 107 mL/min/1.73 sq.m. Ages 40-49 = 99 mL/min/1.73 sq.m. Ages 50-59 = 93 mL/min/1.73 sq.m. Ages 60-69 = 85 mL/min/1.73 sq.m. Ages 70+ = 75 mL/min/1.73 sq.m. Chronic Kidney Disease: Less than 60 mL/min/1.73 square meters End Stage Renal Disease: Less than 15 mL/min/1.73 square meters Performed By: #### MG, CMP, PBNP, GFR, CBC, ADIFF, ANEU, TSH, TROPI, A1C #### [address] [address] CBC Collected: 04/25/2018 Status: F Source: [facility] 7:45 [facility] REPOSITORY TYPE CODE TESTS RESULT OUT OF REFERENCE UNITS RANGE LAB WBC(LOINC) 4.50-10.80 10 3/mcL WBC 6.40 LAB RBCCT(LOINC 4.50-6.00 10 6/mcL ) RBC 5.13 LAB HGB(LOINC) 13.0-17.5 G/dL Hgb 15.7 LAB HCT(LOINC) 40.0-52.0 % Hct 44.4 LAB MCV(LOINC) 81.0-100.0 fL MCV 86.7 LAB MCH(LOINC) 27.0-33.0 pg MCH 30.6 LAB MCHC(LOINC) 32.0-36.0 G/dL MCHC 35.3 LAB RDW(LOINC) 11.5-15.5 % RDW 13.0 LAB PLT(LOINC) 150-450 10 3/mcL Platelet 236 LAB MPV(LOINC) 6.4-10.5 fL MPV 8.7 Performed By: #### MG, CMP, PBNP, GFR, CBC, ADIFF, ANEU, TSH, TROPI, A1C #### [address] [address] .AUTO DIFF Collected: 04/25/2018 Status: F Source: [facility] 7:45 [facility] REPOSITORY TYPE CODE TESTS RESULT OUT OF REFERENCE UNITS RANGE LAB WESTON(LOINC) 50.0-75.0 % Neutrophil % 53.3 LAB LYM(LOINC) 20.0-40.0 % Lymphocyte % 37.3 LAB MON(LOINC) 2.0-13.0 % Monocyte % 7.8 LAB EO(LOINC) 0.0-6.0 % Eosinophil % 0.9 LAB BAS(LOINC) 0.0-2.5 % Basophil % 0.7 LAB ABLYM(LOIN 0.90-4.32 10 3/mcL C) Lymphocyte, 2.40 Absolute LAB GRETA(LOINC 0.09-1.40 10 3/mcL ) Monocyte, 0.50 Absolute LAB AEOS(LOINC 0.00-0.65 10 3/mcL ) Eosinophil, 0.10 Absolute LAB ABAS(LOINC 0.00-0.27 10 3/mcL ) Basophil, 0.00 Absolute Performed By: #### MG, CMP, PBNP, GFR, CBC, ADIFF, ANEU, TSH, TROPI, A1C #### [place] [address] .NEUABS Collected: 04/25/2018 Status: F Source: [facility] [address] [place] [address] REPOSITORY TYPE CODE TESTS RESULT OUT OF REFERENCE UNITS RANGE LAB ANEU(LOINC) 2.25-8.10 10 3/mcL Neutrophil, 3.40 Absolute Performed By: #### MG, CMP, PBNP, GFR, CBC, ADIFF, ANEU, TSH, TROPI, A1C #### [place] [address] TSH Collected: 04/25/2018 Status: F Source: [facility] [address] [place] [address] REPOSITORY TYPE CODE TESTS RESULT OUT OF RANGE REFERENCE UNITS LAB TSH(LOINC) 0.360-3.740 mcIU/mL TSH 0.750 Result Comment: Please note as of 12/02/16 new pediatric reference intervals were added for this test. Performed By: #### MG, CMP, PBNP, GFR, CBC, ADIFF, ANEU, TSH, TROPI, A1C #### [place] [address] TROPI Collected: 04/25/2018 Status: F Source: [facility] [address] [place] [address] REPOSITORY TYPE CODE TESTS RESULT OUT OF REFERENCE UNITS RANGE LAB TROPI(LOINC 0.000-0.040 ng/mL ) Troponin I <0.015 Result Comment: Troponin I reference ranges (01/26/14): 0.00-0.040 ng/mL Negative and non-diagnostic. >0.040 ng/mL Consistent with cardiac damage, increased clinical risk and possibility of myocardial infarction. Serial measurements, a rise & fall in test results, clinical history, appropriate symptoms and/or ECG changes may help assess possibility of CA. *Other non-acute coronary syndrome conditions such as CHF, myocarditis, pulmonary emboli, sepsis and cardiac surgery could result in myocardial damage and increased troponin levels. Performed By: #### MG, CMP, PBNP, GFR, CBC, ADIFF, ANEU, TSH, TROPI, A1C #### [place] [address] A1C Collected: 04/25/2018 Status: F Source: [facility] 7:45 PM [facility] TYPE CODE TESTS RESULT OUT OF RANGE REFERENCE UNITS LAB A1C(LOINC) 4.0-6.0 % Hgb A1c 4.7 Performed By: #### MG, CMP, PBNP, GFR, CBC, ADIFF, ANEU, TSH, TROPI, A1C #### [place] [address] CHEST 1 VIEW Observed: 04/25/2018 Status: F Source: [facility] 3:05 PM [facility] REPOSITORY [place] [address] Patient: CRISTINA GÓMEZ Phone#: : 1975 Age: 42 Gender: M Pt. Type: ER Account: [id number] Location: 052 Ordering: DR. RONAN LEONARD Exam Date: 04/25/2018/14:56 Family Phys: LUAN TYLER Charge Code: [id number] Physician: [place] Order #: [id number] DLP Dose#: PROCEDURE: X-RAY CHEST 1 VIEW COMPARISON: [facility], , CHEST 2 VIEWS, 04/20/2018, 3:41. INDICATIONS: Chest Pain FINDINGS: LUNGS: Normal. No significant pulmonary parenchymal abnormalities. VASCULATURE: Normal. Unremarkable pulmonary vasculature. CARDIAC: Normal. No cardiac silhouette abnormality or cardiomegaly. MEDIASTINUM: Normal. No visible mass or adenopathy. PLEURA: Normal. No effusion or pleural thickening. BONES: Normal. No fracture or visible bony lesion. OTHER: Negative. CONCLUSION: No acute disease. No significant change has occurred. Artifact overlying the left lower thorax is consistent with a loop recorder. Dictated by: Soumya Art MD on 04/25/2018 at 15:10 Approved by: Soumya Art MD on 04/25/2018 at 15:10 CBC Collected: 04/25/2018 Status: F Source: [facility] [place] 2:50 PM [facility] REPOSITORY TYPE CODE TESTS RESULT OUT OF RANGE REFERENCE UNITS LAB CBC(LOINC) CBC Result Comment: CBC-COMPLETE BLOOD COUNT LAB WBC(LOINC) 4.5 - 10.8 x 10EE3/UL WBC 5.5 LAB RBC(LOINC) 4.50 - x 10EE6/UL 6.00 RBC 5.45 LAB HEMOGLOBIN(LOINC) 13.0 - g/dl 17.5 HEMOGLOBIN 16.6 LAB HEMATOCRIT(LOINC) 40.0 - % 52.0 HEMATOCRIT 46.9 LAB MCV(LOINC) 81 - 98 fl MCV 86 LAB MCH(LOINC) 27 - 33 pg MCH 30 LAB MCHC(LOINC) 32 - 36 X10 3 MCHC 35 LAB RDW/CV(LOINC) 12.0 - % 15.6 RDW/CV 12.9 LAB PLATELET(LOINC) 150 - 450 x10EE3/UL PLATELET 261 LAB MPV(LOINC) 6.4 - 10.5 fl MPV 8.5 Result Comment: AUTOMATED DIFFERENTIAL LAB NEUT %(LOINC) 46.0 - 76.0 % NEUT % 58.9 LAB LYMPH %(LOINC) 20.0 - 45.0 % LYMPH % 31.9 LAB MONOS %(LOINC) 0.0 - 10.0 % MONOS % 7.9 LAB EO %(LOINC) 0.0 - 7.0 % EO % 0.7 LAB BASO %(LOINC) 0.0 - 2.0 % BASO % 0.6 LAB Lymph #(LOINC) 0.80 - 2.80 x10EE3/U L Lymph # 1.80 LAB Neut #(LOINC) 1.50 - 7.10 x10EE3/U L Neut # 3.20 LAB Wake #(LOINC) 0.20 - 1.00 x10EE3/U L Wake # 0.40 LAB EO #(LOINC) 0.00 - 0.50 x10EE3/U L EO # 0.00 LAB Baso #(LOINC) 0.00 - 0.10 x10EE3/U L Baso # 0.00 LAB MANUAL DIFF(LOINC) MANUAL DIFF N/A LAB MORPHOLOGY(LOINC ) MORPHOLOGY N/A Result Comment: {CD] Performed By: #### [id number] #### [place] [address] D-DIMER, QUANTITATIVE Collected: 04/25/2018 Status: F Source: [facility] 2:50 [facility] REPOSITORY TYPE CODE TESTS RESULT OUT OF REFERENCE UNITS RANGE LAB D-DIMER, QUANTITATI VE(LOINC) D-DIMER, QUANTITATIVE Result Comment: QUANT D-DIMER LAB D-DIMER QUANT(LOINC) 0 - 230 ng/ml D-DIMER QUANT 190 Performed By: #### [id number] #### [place] [address] TROPONIN Collected: 04/25/2018 Status: F Source: [facility] 2:50 [facility] REPOSITORY TYPE CODE TESTS RESULT OUT OF REFERENCE UNITS RANGE LAB TROPONIN 0.00 - 0.05 ng/ml I(LOINC) TROPONIN I <0.01 Result Comment: Elevated troponin (above the 99th percentile) usually indicates myocardial ischemia. Results must be interpreted within the clinical setting. 1.Non-ischemic pathology can also cause elevated troponin levels (e.g., acute pulmonary embolism, myocarditis, pericarditis, heart failure, intracranial injury, rhabdomyolisis, sepsis, shock and renal insufficiency). 2.Approximately 1% of healthy adults have elevated troponin levels. 3.Analytical false positive results rarely occur(due to multiple interferences such as heterophile antibodies). Performed By: #### [id number] #### [place] [address] BMP WITH EGFR Collected: 04/25/2018 Status: F Source: [facility] 2:50 PM [facility] REPOSITORY TYPE CODE TESTS RESULT OUT OF RANGE REFERENCE UNITS LAB BMP with eGFR(LOINC) BMP with eGFR Result Comment: BASIC METABOLIC PANEL LAB SODIUM(LOINC) 136 - 145 mmol/l SODIUM 140 LAB POTASSIUM(LOINC) 3.5 - 5.1 mmol/L POTASSIUM 3.5 LAB CHLORIDE(LOINC) 98 - 107 mmol/L CHLORIDE 103 LAB CO2(LOINC) 21.0 - mmol/L 31.0 CO2 28.6 LAB GLUCOSE(LOINC) 74 - 106 mg/dl GLUCOSE High 111 LAB BUN(LOINC) 6 - 20 mg/dl BUN 17 LAB CREATININE(LOINC) 0.7 - 1.3 mg/dl CREATININE 1.1 LAB CALCIUM(LOINC) 8.6 - mg/dl 10.2 CALCIUM 9.4 LAB ANION GAP(LOINC) 10 - 20 mmol/L ANION GAP 12 LAB AGE(LOINC) years AGE 42 LAB eGFR(LOINC) 60 - 999 ML/MINUTE eGFR >60 LAB eGFR(AA)(LOINC) 60 - 999 ML/MINUTE eGFR(AA) >60 Result Comment: ACCORDING TO THE NATIONAL KIDNEY DISEASE EDUCATION PROGRAM(NKDE), A NORMAL eGFR IS A VALUE GREATER THAN OR EQUAL TO 60 ML/MIN/1.73 SQ METERS. CHRONIC KIDNEY DISEASE: <60mL/MIN/1.73 SQ METERS KIDNEY FAILURE: <15mL/MIN/1.73 SQ METERS THIS TEST SHOULD ONLY BE USED FOR PATIENTS 18 YEARS OF AGE AND OLDER. Performed By: #### [id number] #### [place] [address] BNP (B-TYPE NATRIURETIC Collected: 04/25/2018 Status: F Source: [facility]) 2:50 PM [facility] REPOSITORY TYPE CODE TESTS RESULT OUT OF RANGE REFERENCE UNITS LAB BNP(LOINC) 1 - 100 pg/ml BNP 4 Performed By: #### [id number] #### [place] [id number] CBC Collected: 04/20/2018 Status: F Source: [facility] [place] 4:00 AM [facility] REPOSITORY TYPE CODE TESTS RESULT OUT OF RANGE REFERENCE UNITS LAB CBC(LOINC) CBC Result Comment: CBC-COMPLETE BLOOD COUNT LAB WBC(LOINC) 4.5 - 10.8 x 10EE3/UL WBC 5.8 LAB RBC(LOINC) 4.50 - x 10EE6/UL 6.00 RBC 5.39 LAB HEMOGLOBIN(LOINC) 13.0 - g/dl 17.5 HEMOGLOBIN 16.5 LAB HEMATOCRIT(LOINC) 40.0 - % 52.0 HEMATOCRIT 46.2 LAB MCV(LOINC) 81 - 98 fl MCV 86 LAB MCH(LOINC) 27 - 33 pg MCH 31 LAB MCHC(LOINC) 32 - 36 X10 3 MCHC 36 LAB RDW/CV(LOINC) 12.0 - % 15.6 RDW/CV 12.9 LAB PLATELET(LOINC) 150 - 450 x10EE3/UL PLATELET 247 LAB MPV(LOINC) 6.4 - 10.5 fl MPV 8.5 Result Comment: AUTOMATED DIFFERENTIAL LAB NEUT %(LOINC) 46.0 - 76.0 % Low NEUT % 39.7 LAB LYMPH %(LOINC) 20.0 - 45.0 % LYMPH % High 47.1 LAB MONOS %(LOINC) 0.0 - 10.0 % MONOS % High 10.1 LAB EO %(LOINC) 0.0 - 7.0 % EO % 2.2 LAB BASO %(LOINC) 0.0 - 2.0 % BASO % 0.9 LAB Lymph #(LOINC) 0.80 - 2.80 x10EE3/U L Lymph # 2.70 LAB Neut #(LOINC) 1.50 - 7.10 x10EE3/U L Neut # 2.30 LAB Wake #(LOINC) 0.20 - 1.00 x10EE3/U L Wake # 0.60 LAB EO #(LOINC) 0.00 - 0.50 x10EE3/U L EO # 0.10 LAB Baso #(LOINC) 0.00 - 0.10 x10EE3/U L Baso # 0.10 LAB MANUAL DIFF(LOINC) MANUAL DIFF N/A LAB MORPHOLOGY(LOINC ) MORPHOLOGY N/A Result Comment: {CD] Performed By: #### [id number] #### [facility],[address] [place] [address] CMP WITH EGFR Collected: 04/20/2018 Status: F Source: [facility] 4:00 AM [facility] REPOSITORY TYPE CODE TESTS RESULT OUT OF RANGE REFERENCE UNITS LAB CMP with eGFR(LOINC) CMP with eGFR Result Comment: COMPREHENSIVE METABOLIC PANEL LAB SODIUM(LOINC) 136 - 145 mmol/l SODIUM 137 LAB POTASSIUM(LOINC) 3.5 - 5.1 mmol/L POTASSIUM 3.7 LAB CHLORIDE(LOINC) 98 - 107 mmol/L CHLORIDE 103 LAB CO2(LOINC) 21.0 - mmol/L 31.0 CO2 26.8 LAB GLUCOSE(LOINC) 74 - 106 mg/dl GLUCOSE 106 LAB BUN(LOINC) 6 - 20 mg/dl BUN 14 LAB CREATININE(LOINC) 0.7 - 1.3 mg/dl CREATININE 1.0 LAB AST/SGOT(LOINC) 13 - 39 U/L AST/SGOT Low 11 LAB ALK PHOS(LOINC) 38 - 126 U/L ALK PHOS 42 LAB CALCIUM(LOINC) 8.6 - mg/dl 10.2 CALCIUM 9.2 LAB TOTAL 6.4 - 8.3 g/dl PROTEIN(LOINC) TOTAL PROTEIN 6.9 LAB ALBUMIN(LOINC) 3.4 - 4.8 g/dL ALBUMIN 4.3 LAB GLOBULIN(LOINC) 1.5 - 3.8 G/DL GLOBULIN 2.6 LAB A/G RATIO(LOINC) 0.9 - 1.6 A/G High RATIO 1.7 LAB TOTAL BILI(LOINC) 0.0 - 1.5 mg/dl TOTAL BILI 0.6 LAB B/C RATIO(LOINC) 0 - 30 ratio B/C RATIO 14 LAB ALT/SGPT(LOINC) 10 - 40 U/L ALT/SGPT 14 LAB ANION GAP(LOINC) 10 - 20 mmol/L ANION GAP 11 LAB AGE(LOINC) years AGE 42 LAB eGFR(LOINC) 60 - 999 ML/MINUTE eGFR >60 LAB eGFR(AA)(LOINC) 60 - 999 ML/MINUTE eGFR(AA) >60 Result Comment: ACCORDING TO THE NATIONAL KIDNEY DISEASE EDUCATION PROGRAM(NKDE), A NORMAL eGFR IS A VALUE GREATER THAN OR EQUAL TO 60 ML/MIN/1.73 SQ METERS. CHRONIC KIDNEY DISEASE: <60mL/MIN/1.73 SQ METERS KIDNEY FAILURE: <15mL/MIN/1.73 SQ METERS THIS TEST SHOULD ONLY BE USED FOR PATIENTS 18 YEARS OF AGE AND OLDER. Performed By: #### [id number] #### [facility],[address] [place] [id number] MAGNESIUM Collected: 04/20/2018 Status: F Source: [facility] [place] 4:00 AM [facility] TYPE CODE TESTS RESULT OUT OF REFERENCE UNITS RANGE LAB MAGNESIUM( 1.6 - 2.6 mg/dl LOINC) MAGNESIUM 2.4 Performed By: #### [id number] #### [address] [address] TROPONIN Collected: 04/20/2018 Status: F Source: [facility] 4:00 [facility] TYPE CODE TESTS RESULT OUT OF REFERENCE UNITS RANGE LAB TROPONIN 0.00 - 0.05 ng/ml I(LOINC) TROPONIN I <0.01 Result Comment: Elevated troponin (above the 99th percentile) usually indicates myocardial ischemia. Results must be interpreted within the clinical setting. 1.Non-ischemic pathology can also cause elevated troponin levels (e.g., acute pulmonary embolism, myocarditis, pericarditis, heart failure, intracranial injury, rhabdomyolisis, sepsis, shock and renal insufficiency). 2.Approximately 1% of healthy adults have elevated troponin levels. 3.Analytical false positive results rarely occur(due to multiple interferences such as heterophile antibodies). Performed By: #### [id number] #### [address] [address] CHEST 2 VIEWS Observed: 04/20/2018 Status: F [facility] [place] [address] Patient: CRISTINA GÓMEZ Phone#: : 1975 Age: 42 Gender: M Pt. Type: ER Account: [id number] Location: [facility] Ordering: LUCILLE LOPEZ Exam Date: 04/20/2018/3:41 Family Phys: LUAN TYLER Charge Code: [id number] Physician: [place] Order #: [id number] DLP Dose#: PROCEDURE: X-RAY CHEST 2 VIEWS COMPARISON: [facility], XR, CHEST 1 VIEW, 03/16/2018, 23:42. INDICATIONS: Chest pain. FINDINGS: LUNGS: Normal. No significant pulmonary parenchymal abnormalities. VASCULATURE: Normal. Unremarkable pulmonary vasculature. CARDIAC: Normal. No cardiac silhouette abnormality or cardiomegaly. MEDIASTINUM: Normal. No visible mass or adenopathy. Implanted device projects over the cardiac silhouette. PLEURA: Normal. No effusion or pleural thickening. BONES: Normal. No fracture or visible bony lesion. OTHER: Negative. CONCLUSION: No acute disease. No significant change has occurred. Dictated by: Daisy Brooks MD on 04/21/2018 at 15:59 Approved by: Daisy Brooks MD on 04/21/2018 at 15:59 EMERGENCY REPORT Observed: 04/20/2018 Status: F [facility] NAME ACCOUNT SEX AGE ADMIT DISCHARGE PT MED. RECORD# NUMBER DATE DATE TYPE DALIA, [id number] M 42 04/20/18 04/20/18 3 [place] [id number] ROOM: ER DATE OF : 1975 DICTATING PHYSICIAN: Lucille Lopez CHIEF COMPLAINT: This is a 42-year-old male with past medical history significant for atrial fibrillation who presents with chest pain that started approximately 12:30 a.m. HISTORY OF PRESENT ILLNESS: Patient states that he was listening to the radio and woke up due to concern for potential medical emergency. Patient notes a right lateral chest pain, dully and achy in nature. Patient denies shortness of breath, nausea or vomiting, or sweating associated with symptoms. Patient states the symptoms have resolved on the their own. Patient notes no history of smoking, hypertension, hyperlipidemia, family history of heart disease, or history of CAD. Patient is on rate control medication; however, no other medications. PAST MEDICAL HISTORY: Atrial fibrillation. PAST SURGICAL HISTORY: Appendectomy, cholecystectomy. ALLERGIES: No known drug allergies. SOCIAL HISTORY: Denies x3. REVIEW OF SYSTEMS: Ten systems were reviewed and are negative with the exception of those noted in history of present illness. PHYSICAL EXAMINATION: Patient's temperature 97.5, pulse is 76, respiratory rate 19, blood pressure 147/96, O2 saturation 97%. Head is normocephalic, atraumatic. Patient's pupils are equal, round and reactive to light and accommodation. Patient's heart had a regular rate and rhythm. No murmurs, rubs or gallops. Patient's lungs are clear to auscultation bilaterally. Patient's abdomen was soft, nontender, nondistended. Patient's extremities are warm and well perfused. Patient without calf tenderness or swelling. Patient without lower extremity edema. DIAGNOSTIC DATA: White blood cell count 5.8000, hemoglobin 16.5, hematocrit 46.2, platelet count of 247,000. Magnesium 2.4. Troponin not detectable. Sodium 137, potassium 3.7, chloride 103, CO2 26.8, BUN 14, creatinine 1.0, calcium 9.2, GFR greater than 60, glucose 106. AST 11, ALT 14, alkaline phosphatase 42, total protein 6.9, albumin 4.3. Anion gap of 11. EKG with no acute ischemic changes. Chest x-ray with no acute cardiopulmonary process. Page 1 of 2 CRISTINA GÓMEZ Emergency Room Report MEDICAL DECISION MAKING: This is a 42-year-old male presenting with complaint of chest pain that started approximately 3 hours prior to arrival. Patient's chest pain largely resolved without taking anything. EMERGENCY DEPARTMENT COURSE AND TREATMENT: Patient was given aspirin for benefit of acute coronary syndrome; however, review of patient's symptoms and lab work decrease suspicion for acute coronary syndrome. Patient's HEART score of 1 with patient at low risk for ACS. Given this, patient medically cleared for discharge to follow up with primary care physician. Patient with unclear etiology of chest pain; however, likely not cardiac in origin. DIAGNOSIS: Chest pain unspecified PLAN/DISPOSITION: Patient discharged home in stable condition. Dictated By: Lucille [place] MD 04/20/18 05:48 JOB #: [id number] Transcribed By: stella 04/20/18 14:06 Electronically signed by: E-SIGN: Lucille Lopez M.D. 04/23/18 23:48 Page 2 of 2 CRISTINA GÓMEZ Emergency Room Report 12 LEAD ELECTROCARDIOGRAM Observed: 04/19/2018 Status: F Source: [place] 9:15 AM [facility] [facility] Cardiovascular [place] [address] 12 Lead EKG 04/07/18 1139 MR#: [id number] Acct: [id number] Name: CRISTINA GÓMEZ Rep #: [id number] : 1975 42 From: Edinson Freeman MD Attending Dr: Status: DEP ER Ordering Dr: eDepa Harman MD Date: 04/07/18 Location: ED Sex: M C Admitted: Test Reason : PALPS Blood Pressure : / mmHG Vent. Rate : 089 BPM Atrial Rate : 090 BPM P-R Int : 190 ms QRS Dur : 090 ms QT Int : 346 ms P-R-T Axes : 071 071 036 degrees QTc Int : 420 ms Normal sinus rhythm Normal ECG Confirmed by EDINSON FREEMAN MD ([id number]), business editor MARIA ELENA GÓMEZ ([id number]) on 04/10/2018 1:00:52 PM Referred By: IVELISSE/RUBINA Confirmed By:EDINSON FREEMAN MD 04/10/181299 Date Edinson Freeman MD CC: MD Suraj Harman; Luan Tyler MD Signed 12 LEAD EKG W/ Observed: 04/19/2018 Status: F Source: [place] 9:11 AM [facility] [place] [facility] Cardiovascular Services [address] [place] [address] 12 Lead EKG with Rhythm Strip 04/08/18 1115 MR#: [id number] Acct: [id number] Name: CRISTINA GÓMEZ Rep #: [id number] : 1975 42 From: Edinson Freeman MD Attending Dr: Status: DEP ER Ordering Dr: Elpidio Negron MD Date: 04/08/18 Location: ED Sex: M C Admitted: Test Reason : PALPATATIONS Blood Pressure : / mmHG Vent. Rate : 075 BPM Atrial Rate : 075 BPM P-R Int : 184 ms QRS Dur : 084 ms QT Int : 370 ms P-R-T Axes : 059 058 036 degrees QTc Int : 413 ms Normal sinus rhythm Normal ECG Confirmed by EDINSON FREEMAN MD ([id number]), business editor MARIA ELENA GÓMEZ ([id number]) on 04/10/2018 11:19:01 AM Referred By: YANIQUE Confirmed By:EDINSON FREEMAN MD 04/10/18 1119 Date Edinson Freeman MD CC: Elpidio Negron; Luan Tyler MD Signed EMERGENCY DEPARTMENT Observed: 04/08/2018 Status: F Source: [place] SUMMARY 3:54 PM [facility] [place] [facility] Medical Records Department [address] [place] [address] Emergency Department Summary 04/08/18 1206 MR#: [id number] Acct: [id number] Name: CRISTINA GÓMEZ Rep #: [id number] : 1975 42 From: Elpidio Negron MD PCP: Luan Tyler md Status: DEP ER - ER Visit Summary Date of Service: 04/08/18 Chief Complaint: Palpitations History of Present Illness: The patient is a 42 M presenting for evaluation secondary to palpitations. Patient states that the end of last month he was in the hospital secondary to new onset atrial fibrillation. Patient reports that he had rates close to 200, was brought into the hospital and was rate controlled. He was still in atrial fibrillation when he was discharged, but had plans for outpatient cardioversion. Patient spontaneously cardioverted however. Patient is currently on Eliquis for blood thinning, and on Cardizem for rate control. Patient states that intermittently he has been having issues with significant palpitations with any sort of exertion. He was seen in the emergency department for this yesterday, and had his Cardizem increased from 120 mg daily to 180 mg daily. Patient states he was unable to obtain in the 180 mg tablets as his pharmacy did not have them so he only took 120 mg today. Patient states that even with light exertion he is having issues with palpitations. Denies any chest pain or shortness of breath. He denies any significant caffeine usage. He denies any fevers or other associated symptoms. Physical Examination: Vital signs are within normal limits, patient is afebrile. General: Patient is well-nourished well-developed and in no acute distress. Head: Normocephalic, atraumatic Eyes: Pupils equal round and reactive bilaterally, extra occular motion intact bialterally ENT: Moist mucous membranes Neck: Supple, no lymphadenopathy, no JVD, no meningismus CVS: Heart regular rate and rhythm, no murmurs, rubs or gallops, radial pulses 2+ bilaterally Resp: Respirations nondistressed, lung sounds clear bilaterally Abdomen: Soft, nontender, nondistended, no palpable masses, normal bowel sounds Back: Nontender Extremities: Nontender, atraumatic, active full range of motion, no peripheral edema Skin: warm, no rashes, no petechia Neuro: Alert and oriented x 4, CN 2-12 intact, no lateralizing neurological defecits Psyc: Normal affect Test Results: EKG demonstrates sinus rhythm at [address] segments normal T waves no evidence of acute ischemia or arrhythmia Emergency Department Course and Treatment: Patient presenting for evaluation secondary to palpitations. Patient had a recent workup for paroxysmal A. fib. I do not believe that he requires further workup as he is currently on anticoagulation and medical therapy. I discussed his case with Dr. Freeman. He recommended giving the patient an additional dose of Cardizem in the emergency department. He then recommended that the patient start on his increased dose of Cardizem 180 mg daily, and in addition to that he will call in flecainide for the patient to start on. I informed the patient of this, and the patient was discharged in stable condition. Disposition: Discharge Impression: 1. Paroxysmal A. fib This note was generated with [employer] dictation software. It may contain incorrect words, spelling, and punctuation that were not noted in review of the chart prior to signing ED Disposition - Plan for ED Patient: Disposition: Home or Assisted Living Chief Complaint: Palpitations Diagnosis: Afib Instructions: ED Afib Referrals: Chino Petersen MD [STAFF PHYSICIAN] - What to do if you have Problems For any increased pain, shortness of breath, bleeding, nausea or vomiting, chest pain, or any unexpected problems, contact your Primary Care Provider. Call [facility] ([phone]) or report to the closest Emergency Room. Call 911 if necessary. 04/08/18 6309 <Electronically signed by Elpidio Negron MD> Date Elpidio Negron MD Cosigner Signature (If Indicated): Date CC: md Luan Tyler EMERGENCY DEPARTMENT Observed: 04/07/2018 Status: F Source: [place] 3:44 PM [facility] [place] [facility] Medical Records Department [address] [place] [address] Emergency Department Summary 04/07/18 1211 MR#: [id number] Acct: [id number] Name: CRISTINA GÓMEZ Rep #: [id number] : 1975 42 From: Deepa Harman MD PCP: Luan Tyler md Status: DEP ER - ER Visit Summary Date of Service: 04/07/18 Chief Complaint: [] Palpitations history of A. 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 fib RVR he was admitted to the hospital extensive workup echogram and other evaluation per cardiology. He was seen by Dr. Petersen. He was started on Cardizem CD 120 a day and Eliquis which has been taking he has been doing fine, he indicates he was instructed to follow-up with [facility] cardiology for an abalation procedure, there is some issue with his insurance companies preferring that he have that procedure at [facility] has been trying to work through that, he was told to contact his teacher industrial arts regarding that, because of the weekend he was unable to reach anyone, he does not have that appointment scheduled because of all the above, Today he was usual state of health when he had about a 4 to 5-minute spell of rapid heart rate that resolved spontaneously and he came to the emergency department Had no fever no cough no chest pain he is feeling fine otherwise he does report he drank about 2 cups of coffee just before the onset of the rapid heart rate he has no current symptoms Physical Examination: [] 163/90, General, no distress resting comfortably no complaints HEENT is generally unremarkable The neck is supple no adenopathy Cardiovascular, regular rate and rhythm, he is in a sinus rhythm about 80 on the monitor Lungs, clear bilateral Abdomen, soft nontender Extremities, no clubbing cyanosis or edema Neurologic, awake alert answering questions appropriately moving all 4 extremities Thank Test Results: [] Emergency Department Course and Treatment: [] EKG shows a sinus rhythm he has no complaints she is resting comfortably in the bed, we did page Dr. Petersen his teacher industrial arts to discuss the above, Dr. Villafuerte, was content director discussed the case with him in detail agreed he can be discharged home for studies are unremarkable he asked the patient was started on Cardizem 180 a day continue the anticoagulation and that he should follow-up with the cardiovascular center [facility] or [facility] approved by his insurance company Discussed all the above with the patient he is remained in a sinus rhythm he will avoid the coffee he was given a prescription for the Cardizem 180 a day and he will return for change in symptoms Treatment Plan: [] Home stable Disposition: [] Impression: [] Palpitations, history of A. fib RVR This note was generated with [employer] dictation software. It may contain incorrect words, spelling, and punctuation that were not noted in review of the chart prior to signing ED Disposition - Plan for ED Patient: Chief Complaint: Palpitations Referrals: Luan Tyler [Primary Care Provider] - What to do if you have Problems For any increased pain, shortness of breath, bleeding, nausea or vomiting, chest pain, or any unexpected problems, contact your Primary Care Provider. Call [facility] ([phone]) or report to the closest Emergency Room. Call 911 if necessary. 04/07/18 1549 <Electronically signed by Deepa Harman MD> Date Deepa Harman MD Cosigner Signature (If Indicated): Date CC: md Luan Tyler DISCHARGE INSTRUCTION Observed: 04/07/2018 Status: F Source: [place] 1:40 PM [facility] [place] [facility] Medical Records Department [address] [place] [address] Discharge Instruction 04/07/18 1335 MR#: [id number] Acct: [id number] Name: CRISTINA GÓMEZ Rep #: [id number] : 1975 42 From: Deepa Harman MD PCP: Luan Tyler md Status: REG ER ED Disposition - Plan for ED Patient: Chief Complaint: Palpitations Instructions: ED Palpitations, ED Paroxysmal Atrial Flutter Referrals: Luan Tyler [Primary Care Provider] - What to do if you have Problems For any increased pain, shortness of breath, bleeding, nausea or vomiting, chest pain, or any unexpected problems, contact your Primary Care Provider. Call [facility] ([phone]) or report to the closest Emergency Room. Call 911 if necessary. 04/07/18 1340 <Electronically signed by Deepa Harman MD> Date Deepa Harman MD Cosigner Signature (If Indicated): Date CC: md Luan Tyler CBC W/DIFF, AUTOMATED Collected: 04/07/2018 Status: F Source: [place] 11:42 AM [facility] [place] TYPE CODE TESTS RESULT OUT OF RANGE REFERENCE UNITS LAB L100.1000 4.4-11.0 K/mm3 Normal WBC 5.6 LAB L100.1200 4.6-6.2 M/mm3 Normal RBC 5.38 LAB L100.1300 13.0-16.5 g/dl High HGB 16.6 LAB L100.1400 40-54 % Normal HCT 45.6 LAB L100.1500 80-94 fL Normal MCV 84.8 LAB L100.1600 27.0-32.0 pg Normal MCH 30.9 LAB L100.1700 32-36 g/gl High MCHC 36.4 LAB L100.1810 11.6-14.6 % Normal RDW CV 12.3 LAB L100.1820 35.1-43.9 fl Normal RDW SD 37.8 LAB L100.1900 150-450 K/mm3 Normal PLT 243 LAB L100.2000 6.2-12.0 fl Normal MPV 10.5 LAB L100.2100 47-70 % Normal NEUT% 49.8 LAB L100.2200 19-41 % Normal LY% 38.5 LAB L100.2300 0-10 % Normal MONO% 9.4 LAB L100.2400 0-5 % Normal EO% 1.2 LAB L100.2500 0-1 % Normal BASO% 0.9 LAB L100.2550 0.0-0.9 % Normal IM GRAN % 0.200 Result Comment: IG% - Immature Granulocytes (promyelocytes, myelocytes and metamyelocytes) > 1% indicates that a LEFT SHIFT is Present. LAB L100.2620 2.0-7.7 X10 3/uL Normal Absolute Neut 2.8 LAB L100.2720 0.83-4.51 X10 3/ul Normal Absolute Lymph 2.17 Performed By: #### L100.0100 #### [facility] [address] [place], [place], [address] BASIC METABOLIC Collected: 04/07/2018 Status: F Source: [place] PROFILE ([facility]) 11:42 AM [facility] [place] TYPE CODE TESTS RESULT OUT OF RANGE REFERENCE UNITS LAB L501.0100 74-106 mg/dL High GLU 121 Result Comment: Fasting Glucose result from 100 to 125 mg/dL suggests IMPAIRED HOMEOSTASIS per A.D.A. criteria. Please note revised GLUCOSE reference range effective 2017. LAB L501.1000 7-18 mg/dL Normal BUN 14 LAB L501.1100 0.70-1.30 mg/dL Normal CREAT,SERUM 1.07 Result Comment: The validity of the calculated GFR AND GFRAA in patients over 70 years has not been determined. Clinical correlation is essential. LAB L501.1110 >60 mL/min Normal EST GFR 80 Result Comment: Non- GFR Calc LAB L501.1115 >60 mL/min Normal EST GFR - AA 96 Result Comment: GFR Calc LAB L501.1255 ml/min Normal Estimated CRCL 90.97 LAB L501.1300 10-20 RATIO Normal BUN/CRE 13.1 LAB L501.2200 8.5-10 mg/dL Low .1 CA 8.4 LAB L501.5300 136-14 mmol/L Normal 5 NA 140 LAB L501.5600 3.5-5. mmol/L Low 1 K 3.4 LAB L501.5900 98-107 mmol/L Normal CL 106 LAB L501.6100 21.0-3 mmol/L Normal 2.0 CO2 25.0 LAB L501.6200 5-15 Normal GAP 9 Performed By: #### L500.2500, L501.4010 #### [facility] [address] [place], [address] TROPONIN-I Collected: 04/07/2018 Status: F Source: [place] 11:42 AM [facility] [place] TYPE CODE TESTS RESULT OUT OF RANGE REFERENCE UNITS LAB L501.4010 <0.045 ng/mL Normal < 0.015 TROPONIN-I Result Comment: TROPONIN-I EXPECTED VALUES <0.045 Negative 0.045 - 0.590 Consistent with Cardiac Damage > OR = 0.600 Critical Value Not every elevated troponin is indicative of CA. These values should be used with clinical judgement in examining the patient's clinical picture for diagnosis. To establish a diagnosis of CA versus myocardial injury, there must be a demonstrated rise and/or fall in the troponin values, in addition to ischemic symptoms, EKG changes, new regional wall motion abnormality, and/or angiographical evidence. PLEASE NOTE: REFERENCE RANGES EDITED 17 Performed By: #### L500.2500, L501.4010 #### [facility] [address] [place], [address] CARDIOLOGY VISIT Observed: 04/01/2018 Status: F Source: [place] RE[place] 1:05 PM [facility] [place] [place] [facility] [address] [place] [address] OFFICE VISIT Date of Service: 04/01/18 MR#: [id number] Acct: [id number] Name: CRISTINA GÓMEZ Rep #: [id number] : 1975 Provider: SOX ANALYST Quique H Roof Age/Sex: 42/M Location: [facility] Status: Signed HPI HPI Details: CRISTINA GÓMEZ, is a 42 M who presents to the office today for a cardiovascular outpatient follow-up. He has a history of vasovagal symptoms, paroxysmal atrial fibrillation, palpitations, and tachycardia dysrhythmia. Patient was recently admitted to [facility] for atrial fibrillation with RVR. He was started on rate limiting medication and oral anticoagulation. After discharge, he noticed conversion to sinus rhythm and sent a loop recorder manual transmission. Pt denies chest, arm, jaw, or neck discomfort. His exercise tolerance is stable. Pt denies symptoms of CHF, lightheadedness, dizziness, near syncopal or syncopal episodes. Pt denies edema or claudication issues. Pt. denies orthopnea, PND, fever, chills, blood in urine, blood in stool, myalgia, or unexplainable fatigue. He states on episode of palpitations that lasted 30 seconds yesterday morning. This resolved on its own. Intake Vital Signs04/01/18 Height 5 ft 11 in 04/01/18 Weight: 186 lb 04/01/18 Body Mass Index (BMI) 25.9 04/01/18 Blood Pressure 124/70 H Intake Visit Reasons: DC 10- (2 wk f/up) English Teacher Required: No Accompanied by: None Is patient in pain?: No Allergies No Known Allergies Allergy (Verified 04/01/18 10:25) Medications Pantoprazole Sodium [Protonix] 20 mg PO QHS 09/02/15 [History Confirmed 04/01/18] Paroxetine HCl [Paxil] 10 mg PO DAILY 09/02/15 [History Confirmed 04/01/18] apixaban 5 mg tablet 5 mg PO BID #180 tab 04/01/18 [Rx Confirmed 04/01/18] diltiazem CD 120 mg capsule,extended release 24 hr 120 mg PO DAILY #90 cap 04/01/18 [Rx Confirmed 04/01/18] Ejection fraction %: 55 to 59 PFSH Medical History Paroxysmal atrial fibrillation (Chronic) Atrial fibrillation with RVR (Acute) Chest pain (Acute) Hypokalemia (Acute) Anxiety and depression (Chronic) Arrhythmia (Chronic) DARA (obstructive sleep apnea) (Chronic) Other specified cardiac device in situ (Chronic) Palpitations (Acute) GERD (gastroesophageal reflux disease) (Chronic) Anxiety (Chronic) Hiatal hernia (Chronic) Inguinal hernia (Chronic) DARA (obstructive sleep apnea) (Chronic) Surgical History History of fusion of cervical spine (Chronic 09/2013) History of cholecystectomy (Resolved) History of nasal surgery (Resolved) Hx of appendectomy (Resolved) Family History Father Hypertension Sister SVT (supraventricular tachycardia) Social History Smoking Status: Never smoker alcohol intake: never substance use type: does not use caffeine: Yes Type: coffee Number of servings: 1 ROS Const Const: Negative for weakness, body ache, fever(s), chills or fatigue ENT ENT: Negative for dizziness Cardio Chest Pain: No Palpitations: Yes Edema: None Muscle aches with walking: None Resp Respiratory: Negative for SOB with activity, SOB at rest, SOB orthopnea\SOB lying down or paroxysmal nocturnal dyspnea GI GI: Negative nausea, black,tarry stools, bright, red blood in stools or vomiting blood/hematemesis : Negative for hematuria or frequent nighttime urination/ nocturia Musc Musc: Negative for muscle aches/ myalgia Skin Skin: Negative non-healing lesions or rash Neuro Neuro: Negative for lightheadedness, near syncope, syncope, orthostatic symptoms, weakness or dizziness Endo Endo: Negative for fatigue Allergy Allergy/Immunology: Negative for rash Cardiology Exam Const Appearance: cooperative, healthy appearing, comfortable and no acute distress Nutritional Appearance: average body habitus and well nourished Orientation: alert, awake and oriented x3 Head Head: normal to inspection Ears: hearing grossly normal bilaterally Nose: external nose normal Face and Sinus: face symmetric Mouth: oral mucosae normal Eyes General: appearance normal, both eyes and all related structures Eyelids: eyelids normal EOM: EOM intact bilaterally Neck Neck: no JVD and normal visual inspection Carotids: normal carotid upstroke Chest Chest inspection: normal inspection of the chest and normal respiratory effort; negative cough Auscultation: Bilateral: Clear to Auscultation Cardio Rate: regular rate Rhythm: regular rhythm Heart sounds: S1 normal and S2 normal; negative rub, gallop or murmur GI GI: normal to inspection Neuro General: alert, awake, oriented x3 and CN's II-XI intact bilaterally Skin Skin: no rashes or lesions noted Extremities Pulses: Normal: Right Posterior Tibial Pulse, Left Posterior Tibial Pulse, Right Radial Pulse, Left Radial Pulse Lower Extremity Edema: None: Bilateral Psych Psychological: normal affect Supplemental Info Loop recorder check from February 2018 showed 1+ and 1 AF episode. Stored E grams for pause was 4 seconds while patient was on Cardizem drip. Stored e- gram showed atrial fibrillation with RVR at a rate of 188 bpm. Loop recorder check from November 2017 showed no bradycardia, no tacky, no pauses, and no AT/AF episodes, battery of okay, and presenting rhythm of normal sinus rhythm at 68 bpm Stress test from September 2016 was an adequate exercise tolerance test and was negative by ECG, rare PVCs were noted during recovery, isolated PVCs during exercise, and exellent functional capacity. Assessment AND Plan 1. Paroxysmal atrial fibrillation I48.0 Plan Patient was able to accurately detect when he converted to normal sinus rhythm. He sent a manual transmission for his loop recorder. This was confirmed. He also underwent EKG today that showed normal sinus rhythm. His heart rate remains well controlled. He will continue with Cardizem and factor Xa inhibitor. We will continue to monitor. He states that he would like to be evaluated by engine pilot for possible RFA. He will be referred to Dr. Hui at [facility] for further input and recommendation. Orders Referrals: 2. Palpitations R00.2 Plan He does acknowledge one episode of palpitations since discharge from hospital. This was short lasting and resolved without intervention. We will continue to follow this via loop recorder. Orders Referrals: Plan Detail Other Orders Orders: Other Medications Refilled: Additional Comments Thank you for allowing us to participate in the patient's plan of care, if you have any questions please do not hesitate to call. This note was generated using a voice recognition system and there may be incorrect words, spelling, or punctuation that were not noted upon reviewing the office note prior to saving. Coding Level of Care Code Off vis,est,level 3 Diagnoses Paroxysmal atrial fibrillation I48.0 Palpitations R00.2 Coding Level of Care Code Off vis,est,level 3 Diagnoses Paroxysmal atrial fibrillation I48.0 Palpitations R00.2 04/01/18 3783 <Electronically signed by Quique HENRYC> Date Quique Pruitt SOX ANALYSTClint Cosigner Signature: Date (if applicable) CC: md Luan Tyler 12 LEAD EKG PERFORMED Observed: 04/01/2018 Status: F Source: [place] [facility] [place] AM [facility] [address] [place] [address] 12 Lead EKG performed by [facility] 04/01/181034 MR#: [id number] Acct: [id number] Name: CRISTINA GÓMEZ Rep #: [id number] : 1975 42 From: Quique Pruitt SOX ANALYST-C Attending Dr: Quique Pruitt NP Status: DEP AMB Ordering Dr: Quique Pruitt SOX ANALYSTMayC Date: 04/01/18 Location: [facility] Sex: M C Admitted: [facility]12 Lead EKG performed by [facility] ECG Report Interpretation Sinus Rhythm WITHIN NORMAL LIMITSElectronically signed on 04/05/2018 at 15:46 by Chino Petersen Software Version [id number] 04/05/18 1550 Date Quique QUINONEZ CC: md Luan Tyler Date Dictated: 04/01/185 Date Transcribed: 04/01/181034 Associate Professor Of Mathematics: AZALIA Signed 12 LEAD ELECTROCARDIOGRAM Observed: 03/21/2018 Status: F Source: [place] 4:15 PM [facility] Cardiovascular Services [address] [place] [address] 12 Lead EKG 03/17/18 0452 MR#: [id number] Acct: [id number] Name: CRISTINA GÓMEZ Rep #: [id number] : 1975 42 From: Chino Petersen MD Attending Dr: Yuli Zhang Status: DIS IN Ordering Dr: Yuli Zhang Date: 03/17/18 Location: [facility] Sex: M C Admitted: 03/17/18 Test Reason : AM EKG Blood Pressure : / mmHG Vent. Rate : 062 BPM Atrial Rate : 067 BPM P-R Int : 000 ms QRS Dur : 084 ms QT Int : 398 ms P-R-T Axes : 000 069 049 degrees QTc Int : 403 ms Atrial fibrillation Abnormal ECG Confirmed by TRINITY BAILON, CHINO ([id number]), business editor MARIA ELENA GÓMEZ ([id number]) on 03/21/2018 4:15:19 PM Referred By: LISETH Confirmed By:CHINO PETERSEN MD 03/21/18 0485 Date Chino Petersen MD CC: md Luan Tyler; Yuli Zhang Signed PACEMAKER CHECK Observed: 03/21/2018 Status: F Source: [place] 10:13 AM [facility] [place] [address] [place] [address]. [address] [place], [place] [address] Pacemaker Check Date of Service: 03/20/181806 MR#: [id number] Acct: [id number] Name: GÓMEZCRISTINA Rep #: [id number] : 1975 From: Nelsy Awad Age/Sex: 42/M Location: [facility] Status: Signed Billing Codes ILR Device Interrogate: Yes 03/20/181808 <Electronically signed by Nelsy Awad > Date Nelsy Awad 03/21/18 1013<Electronically signed by Chino Petersen MD> Cosigner Signature: Date (if applicable) Chino Petersen MD CC: DISCHARGE SUMMARY Observed: 03/18/2018 Status: F Source: [place] 12:41 PM [facility] [place] Medical Records Department [address] [place] [address] Discharge Summary 03/18/18 1142 MR#: [id number] Acct: [id number] Name: RCISTINA GÓMEZ Rep #: [id number] : 1975 42 From: Charity Vincent MD PCP: Luan Tyler md Status: ADM IN Y Location: ICU [id number] Discharge Date and Diagnosis - Problem List Patient Problems: Active and Suspected Problems (Last Updated 08/15/17 @ 14:01 by Katya Alvarado) Atrial fibrillation with RVR (Acute) Chest pain (Acute) Hypokalemia (Acute) Date of Admission: 03/17/18 Date of Discharge: 03/18/18 - Primary Discharge Diagnosis Active and Suspected Problems (Last Updated 08/15/17 @ 14:01 by Katya Alvarado) Atrial fibrillation with RVR (Acute) Chest pain (Acute) Hypokalemia (Acute) - Secondary Discharge Diagnosis Chronic Problems (Last Updated 08/15/17 @ 14:01 by Katya Alvarado) Anxiety and depression (Chronic) Arrhythmia (Chronic) DARA (obstructive sleep apnea) (Chronic) Other specified cardiac device in situ (Chronic) GERD (gastroesophageal reflux disease) (Chronic) Hospital Course and Treatment Imaging Results: 03/18/18 05:55 Stress Test Echo w/o Contrast [ECHO] Routine Cardiology Operations: None Procedures: 2-D Echocardiogram, Stress test Summary of Care Provided: 42-year-old male with past medical history of palpitations status post implantable loop recorder, follows with cardiology in the outpatient, anxiety, GERD, DARA, not on CPAP who comes in with palpitations and chest discomfort that happened on the day of admission. 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 He made a friend put him on telemetry and showed A. fib. He was sent to the [facility] ED. There, he was diagnosed with A. fib and started on Cardizem drip and subsequently transferred here. He was managed in ICU in PCU status. He was on Cardizem drip for a few hours. Cardizem drip was switched of one heart rate was controlled. His low potassium noted in the ED was corrected on admission here. Cardiology was consulted. Transitioned to oral Cardizem. Troponins x3 were negative. He underwent stress echo was negative. He was discharged on Cardizem p.o. as well as Eliquis. He would follow-up with cardiology in 2 weeks for blood pressure check as well as repeat EKG. He will follow-up with cardiology for DC cardioversion in 3-4 weeks. Patient Problems: Active and Suspected Problems (Last Updated 08/15/17 @ 14:01 by Katya Alvarado) Atrial fibrillation with RVR (Acute) Chest pain (Acute) Hypokalemia (Acute) Subjective: See progress note on day of discharge. Objective: See progress note on day of discharge. - Physical Exam Vital Signs Temp Pulse Resp BP Pulse Ox 98.4 F 81 18 111/75 96 03/18/18 08:24 03/18/18 08:24 03/18/18 08:24 03/18/18 08:24 03/18/18 08:24 Oxygen Delivery Method Room Air Weight: 83.7 kg Body Mass Index (BMI) 25.7 Intake and Output for Last 24 Hours Intake Total 1496 / 1496 780 / 780 Balance 1496 / 1496 780 / 780 Laboratory Tests Past 24 Hrs WBC 5.0 RBC 5.43 Hgb 16.3 Hct 47.5 MCV 87.5 MCH 30.0 MCHC 34.3 Discharge Diet: Low fat/ Low Cholesterol, 2000 mg Sodium Diet Discharge Activity: Return to Normal Activity Home Medications: Medications to take at Discharge Pantoprazole Sodium [Protonix] 20 mg PO QHS 09/02/15 Paroxetine HCl [Paxil] 10 mg PO DAILY 09/02/15 Apixaban [Eliquis] 5 mg PO BID #60 tablet 03/18/18 Diltiazem CD [Cardizem CD] 120 mg PO DAILY #30 capsule 03/18/18 Following Prescrptions Were Given to Patient: Diltiazem CD [Cardizem CD] 120 mg PO DAILY #30 capsule Apixaban [Eliquis] 5 mg PO BID #60 tablet Primary Care Physician: Luan Tyler [Primary Care Provider] - Please follow up with your Primary Care Physician in: within 1-2 weeks Please Follow Up With: Roel Mckoy MD When: in 3-4 weeks Disposition: Home Minutes spent on discharge:: 35 Patient Condition:: Stable Medical Necessity - Tobacco Use Smoking Status: Never smoker Tobacco Use: Non-smoker Meaningful Use Info Meaningful Use Diagnoses (Choose all that apply): None applicable Code Visit OBSV Bushra WHYTE M: [id number] Observation care discharge 03/18/18 1241 <Electronically signed by Charity Vincent MD> Date Charity Vincent MD Cosigner Signature (if applicable): Date CC: md Luan Tyler; Charity Vincent MD Signed DISCHARGE INSTRUCTION Observed: 03/18/2018 Status: F Source: [place] 11:42 [facility] REPOSITORY [facility] Medical Records Department [address] [place] [address] Instructions for Home/Discharge Instructions 03/18/18 1138 MR#: [id number] Acct: [id number] Name: CRISTINA GÓMEZ Rep #: [id number] : 1975 42 From: Charity Vincent MD PCP: Luan Tyler md Status: ADM IN ADDENDUM by Charity Vincent MD on 03/18/18 at 1142 Clarification: Follow-up with Dr. Mckoy in 2 weeks for repeat EKG and blood pressure check. 03/18/18 1142 Date Charity Vincent MD cc: md Luan Tyler; Roel Mckoy MD * Signed - Discharge Diagnoses Current Active Problems: Current Active and Chronic Problems (Last Updated 08/15/17 @ 14:01 by Katya Alvarado) Atrial fibrillation with RVR (Acute) Chest pain (Acute) Hypokalemia (Acute) Anxiety and depression (Chronic) Arrhythmia (Chronic) DARA (obstructive sleep apnea) (Chronic) Reason(s) for Visit for Discharge Instructions: Palpitations, chest discomfort You will use the following diet at home:: Cardiac Your food should be the consistency of: Regular Your liquids should be the consistency of: Regular/Thin Discharge Activity: Return to Normal Activity Additional Instructions: You are being discharged on Eliquis and Cardizem. Continue to monitor your blood pressure and heart rate. Let your teacher industrial arts knowe if you experience any dizziness, SOB or chest discomfort Allergies/Adverse Reactions: Allergies No Known Allergies Allergy (Verified 03/17/18 04:03) Medications to take at Discharge Pantoprazole Sodium [Protonix] 20 mg PO QHS 09/02/15 Paroxetine HCl [Paxil] 10 mg PO DAILY 09/02/15 Apixaban [Eliquis] 5 mg PO BID #60 tablet 03/18/18 Diltiazem CD [Cardizem CD] 120 mg PO DAILY #30 capsule 03/18/18 The following prescriptions were given: Diltiazem CD [Cardizem CD] 120 mg PO DAILY #30 capsule Apixaban [Eliquis] 5 mg PO BID #60 tablet Primary Care Physician: Luan Tyler [Primary Care Provider] - Please follow up with your Primary Care Physician in: within 1-2 weeks Test Results: Test results from this visit will be discussed in further detail at your follow-up appointment, if applicable. Please Follow Up With: Roel Mckoy MD When: in 3-4 weeks Proposed Discharge Date: 03/18/18 03/18/18 1141 <Electronically signed by Charity Vincent MD> Date Charity Vincent MD CC: md Luan Tyler; Roel Mckoy MD STRESS TEST ECHO W/O Observed: 03/18/2018 Status: F Source: [place] 11:28 AM [facility] [place] Cardiovascular Services [address] [place] [address] Stress Test Echo w/o Contrast MR#: [id number] Acct: [id number] Name: CRISTINA GÓMEZ Rep #: [id number] : 1975 42 From: Roel Mckoy MD Primary Care: Luan Tyler md Status: ADM IN Ordering Dr: Roel Mckoy MD Sex: M C [id number] ECHO [id number] TAG_START Cardiovascular Services Stress Echocardiogram [address] [address] Ordering Physician: Roel Mckoy TAG_ENDED TAG_START Name: CRISTINA GÓMEZ Study Date: 03/18/2018 10:12 AM BP: 118/84 mmHg Patient Location: ICU : 1975 Gender: Male Height: 71 in Age: 42 yrs Weight: 175 lb History: DARA, New Onset Atrial Fibrillation, SVT, Depression, Anxiety, Loop Recorder Medications: Cardizem, Lovenox, Protonix, Paxil TAG_ENDED Reason For Study: Atrial Fibrillation Stress Results Protocol: Silvestre Protocol Maximum Predicted HR: 176 bpm Target HR: 150 bpm % Maximum Predicted HR: 102 % DurationHeart Rate Stage (mm:ss) (bpm) BP Comment Baseline 86 118/84No Chest Pain Silvestre Protocol Stage I 3:00 148 132/70No Chest Pain Silvestre Protocol Stage II 3:00 126 142/72No Chest Pain Silvestre Protocol Stage III 3:00 179 140/62No Chest Pain Recovery 122 122/60No Chest Pain Stress Duration: 9:00 mm:ss Maximum Stress HR: 179 bpm METS: 10 TAG_START I Segments Size 1-2 small X - Cannot 1 - Normal 2 - 3 - Akinetic 4 - Dyskinetic3-5 moderate Interpret Hypokinetic 6-14 large 5 - Aneurysmal 15-16 diffuse TAG_ENDED Baseline Echocardiogram Findings The estimated ejection fraction is 55 %. Stress Echo Wall motion Data Resting WM Intermediate WM Stress WM Wall Motion Stress No regional wall motion abnormalities noted. EKG Data Atrial fibrillation with controlled ventricular response. The patient exercised according to the regular Silvestre protocol for a total duration of 9:00. The maximum heart rate attained was 193 beats per minute. This was 109% of maximum predicted heart rate. The patient exercised into stage 4 of the Silvestre protocol. During stress, there were no ST or T wave changes noted to suggest ischemia. No clinical angina was noted. Interpretation Summary The estimated ejection fraction is 55 %. Normal, adequate, treadmill echocardiogram. Negative for ischemia by EKG and echocardiographic criteria. No anginal symptoms noted. Patient had baseline atrial fibrillation with controlled ventricular response to increased, which remained persistent during stress testing. He had rare PVCs. Appropriate blood pressure response to exercise. Average exercise capacity for age. Final LVEF of 65%. No complications. TAG_START TAG_ENDED Ordering Physician: Roel Mckoy Referring Physician: Roel Mckoy Performed By: Matt Bhat RCS 03/18/188 Date Roel Mckoy MD CC: md Luan Tyler; Yuli Zhang; Roel Mckoy MD Date Dictated: 03/18/18 1012 Date Transcribed: 03/18/181127 Associate Professor Of Mathematics: Signed ECHOCARDIOGRAM COMPLETE Observed: 03/18/2018 Status: F Source: [place] 11:25 AM [facility] Cardiovascular Services [address] [place] [id number] Echo Complete 03/18/18 1030 MR#: [id number] Acct: [id number] Name: CRISTINA GÓMEZ Rep #: [id number] : 1975 42 From: Roel Mckoy MD Attending Dr: Yuli Zhang Status: ADM IN Ordering Dr: Yuli Zhang Date: 03/17/18 Location: ICU Sex: M C Admitted: 03/17/18 [id number] ECHO [id number] TAG_START Cardiovascular Services Echocardiogram [address] [place], [place] [id number] Ordering Physician: Yuli Zhang TAG_ENDED TAG_START Name: CRISTINA GÓMEZ Study Date: 03/18/2018 10:30 AM BP: 111/77 mmHg [place] [facility] [place]: 2.0 m2 : 1975 Gender: Male Height: 71 in Age: 42 yrs Weight: 175 lb History: Afib/Flutter, GERD, DARA, Palpitations TAG_ENDED Reason For Study: Afib/Flutter Procedure This was a 2D Doppler, Color Flow transthoracic echocardiogram. Exam performed in department. Left Ventricle Normal size and thickness. The estimated ejection fraction is 55 %. Unable to assess diastolic dysfunction due to arrhythmia. No regional wall motion abnormalities noted. TAG_START I Segments Size 1-2 small X - Cannot 1 - Normal 2 - 3 - Akinetic 4 - Dyskinetic3-5 moderate Interpret Hypokinetic 6-14 large 5 - Aneurysmal 15-16 diffuse TAG_ENDED Right Ventricle Normal size and thickness. Normal systolic function. Atria Normal left atrium. Normal right atrium. Normal atrial septum. Mitral Valve The mitral valve is structurally normal. No prolapse or stenosis seen. Tricuspid Valve Normal tricuspid valve. Trivial tricuspid valve insufficiency. Right ventricular systolic pressure estimated to be 36 mmHg. Aortic Valve Normal aortic valve. Trisinus/trileaflet aortic valve. Pulmonic Valve Normal pulmonic valve. Great Vessels Normal aortic root. Normal arch. Normal inferior vena cava. Inferior vena cava collapse with sniff. Pericardium/Pleural No pericardial effusion. MMode/2D Measurements AND Calculations LVIDd: 4.4 cm IVSd: 1.1 cm LVOT diam: 2.0 cm LVIDs: 3.3 cm LVPWd: 1.00 cm LVOT area: 3.1 cm2 RVDd: 4.1 cm FS: 24.2 % Ao root diam: 4.0 cm LAV(MOD-bp): 57.9 ml LVAd ap4: 26.9 cm2 LA dimension: 3.5 cm LAV(MOD-bp) Indexed: 29.1 ml/m2 EDV(MOD-sp4): 76.8 ml LAV(MOD-sp2): 49.8 ml EDV(sp4-el): 80.0 ml LAV(MOD-sp4): 50.3 ml LVAs ap4: 17.2 cm2 ESV(MOD-sp4): 36.6 ml ESV(sp4-el): 37.1 ml EF(MOD-sp4): 52.3 % EF(sp4-el): 53.6 % SV(MOD-sp4): 40.2 ml SV(sp4-el): 42.9 ml LA A4 area: 19.4 cm2 RA A4 area: 18.1 cm2 Time Measurements MV dec time: 0.23 sec Doppler Measurements AND Calculations MV E max stanley: 72.6 cm/sec Lat Peak E' Stanley: 16.1 cm/sec Med Peak E' Stanley: 8.7 cm/sec E/E' lat: 4.5 E/E' med: 8.3 Ao V2 max: 98.4 cm/sec LV V1 max: 86.2 cm/sec SV(LVOT): 46.8 ml Ao max P.9 mmHg LV V1 max P.0 mmHg Ao V2 mean: 69.7 cm/sec LV V1 mean P.4 mmHg Ao mean P.1 mmHg LV V1 mean: 54.7 cm/sec Ao V2 VTI: 16.6 cm LV V1 VTI: 15.1 cm VIC(I,D): 2.8 cm2 VIC(V,D): 2.7 cm2 PA V2 max: 88.9 cm/sec TR max stanley: 231.5 cm/sec TR max P.4 mmHg Interpretation Summary The estimated ejection fraction is 55 %. Unable to assess diastolic dysfunction due to arrhythmia. Trivial tricuspid valve insufficiency. Right ventricular systolic pressure estimated to be 36 mmHg. Pt appears to be in atrial fibrillation. There is no comparison study available. TAG_START TAG_ENDED Ordering Physician: Yuli Zhang Referring Physician: Luan Tyler Performed By: Matt Bhat RCS 03/18/18 1124 Date Roel Mckoy MD CC: md Luan Tyler; Yuli Zhang Date Dictated: 03/18/18 1030 Date Transcribed: 03/18/181123 Associate Professor Of Mathematics: Signed BASIC METABOLIC Collected: 03/18/2018 Status: F Source: [place] PROFILE ([place]) 5:[place] [facility] [place] CODE TESTS RESULT OUT OF RANGE REFERENCE UNITS LAB L501.0100 74-106 mg/dL Normal GLU 94 Result Comment: Please note revised GLUCOSE reference range effective 2017. LAB L501.1000 7-18 mg/dL Normal BUN 13 LAB L501.1100 0.70-1.30 mg/dL Normal CREAT,SERUM 0.96 Result Comment: The validity of the calculated GFR AND GFRAA in patients over 70 years has not been determined. Clinical correlation is essential. LAB L501.1110 >60 mL/min Normal EST GFR 90 Result Comment: Non- GFR Calc LAB L501.1115 >60 mL/min Normal EST GFR - AA 109 Result Comment: GFR Calc LAB L501.1255 ml/min Normal Estimated CRCL 104.58 LAB L501.1300 10-20 RATIO BUN/CRE Normal 13.5 LAB L501.2200 8.5-10 mg/dL .1 CA Normal 8.6 LAB L501.5300 136-14 mmol/L 5 NA Normal 141 LAB L501.5600 3.5-5. mmol/L 1 K Normal 4.1 LAB L501.5900 98-107 mmol/L CL Normal 105 LAB L501.6100 21.0-3 mmol/L 2.0 CO2 Normal 29.0 LAB L501.6200 5-15 GAP Normal 7 Performed By: #### L500.2500 #### [facility] [place], [address] CBC W/DIFF, AUTOMATED Collected: 03/18/2018 Status: F Source: [place] 5:40 AM [facility] [place] TYPE CODE TESTS RESULT OUT OF RANGE REFERENCE UNITS LAB L100.1000 4.4-11.0 K/mm3 Normal WBC 5.0 LAB L100.1200 4.6-6.2 M/mm3 Normal RBC 5.43 LAB L100.1300 13.0-16.5 g/dl Normal HGB 16.3 LAB L100.1400 40-54 % Normal HCT 47.5 LAB L100.1500 80-94 fL Normal MCV 87.5 LAB L100.1600 27.0-32.0 pg Normal MCH 30.0 LAB L100.1700 32-36 g/gl Normal MCHC 34.3 LAB L100.1810 11.6-14.6 % Normal RDW CV 12.7 LAB L100.1820 35.1-43.9 fl Normal RDW SD 40.2 LAB L100.1900 150-450 K/mm3 Normal PLT 226 LAB L100.2000 6.2-12.0 fl Normal MPV 10.6 LAB L100.2100 47-70 % Low NEUT% 41.1 LAB L100.2200 19-41 % High LY% 47.7 LAB L100.2300 0-10 % Normal MONO% 8.6 LAB L100.2400 0-5 % Normal EO% 1.6 LAB L100.2500 0-1 % Normal BASO% 1.0 LAB L100.2550 0.0-0.9 % Normal IM GRAN % 0.000 Result Comment: IG% - Immature Granulocytes (promyelocytes, myelocytes and metamyelocytes) > 1% indicates that a LEFT SHIFT is Present. LAB L100.2620 2.0-7.7 X10 3/uL Normal Absolute Neut 2.1 LAB L100.2720 0.83-4.51 X10 3/ul Normal Absolute Lymph 2.39 Performed By: #### L100.0100 #### [facility] [address] [place] [address]. [place], [address] CONSULTATION Observed: 03/17/2018 Status: F Source: [place] 11:10 AM [facility] [place] [facility] Medical Records Department [address] [place] [address] Consultation 03/17/18 1102 MR#: [id number] Acct: [id number] Name: CRISTINA GÓMEZ Rep #: [id number] : 1975 42 From: Roel Mckoy MD PCP: Luan Tyler md Status: ADM IN Y Location: ICU [id number] Problem List (1) Atrial fibrillation with RVR Status: Acute (2) Chest pain Status: Acute Qualifiers: Chest pain type: unspecified Qualified Code(s): R07.9 - Chest pain, unspecified (3) Arrhythmia Status: Chronic Qualifiers: Arrhythmia type: unspecified cardiac arrhythmia Qualified Code(s): I49.9 - Cardiac arrhythmia, unspecified (4) DARA (obstructive sleep apnea) Status: Chronic (5) Palpitations Status: Acute Reason for Consult Date of Consultation: 03/17/18 Reason for Consultation: Atrial fibrillation, palpitations, chest pain. History of Present Illness: The patient is a 42 year old M nondiabetic, non-smoker, patient of Dr. Landeros, [facility] of [facility], history of obstructive sleep apnea but does not use his CPAP, occasional alcohol use, does use chewing tobacco. Patient has never been diagnosed with atrial fibrillation before but has had palpitations in the past specifically according to him supraventricular tachycardia which lasted about a minute. He did have a loop recorder inserted about 2 years ago. He also states he had a heart catheterization about 5-6 years ago which was reportedly normal. His last stress test was 2 years ago which was reportedly normal per the patient and his significant other. Yesterday evening, while sitting in the formerly [facility] house, the patient developed palpitations, and when they did not resolved he was put on the monitor at the fire station and found to be in atrial fibrillation with rapid ventricular response. When it did not improve after a few minutes he was brought here by squad for evaluation. In the emergency room he was found to have atrial fibrillation with rapid ventricular response, and was treated with IV Cardizem and placed on a Cardizem drip. In addition he has complained of intermittent chest pain which he describes as a pressure-like sensation and non-pleuritic over the last 3 days. His pain lasted 1-2 minutes, had no associated shortness of breath, nausea, vomiting or pleuritic nature. Overnight the patient's heart rate was controlled with IV Cardizem drip and it has been discontinued this morning. His troponins are negative x2 at this point. His EKG from 02/04/18 showed normal sinus rhythm, normal axis, normal intervals. No previous myocardial infarction. His EKG from 03/17/18 shows atrial fibrillation with controlled ventricular spines, and J-point elevation along the inferior and lateral leads. Patient denies any presyncope, syncope, flulike symptoms, or recent colds. [] Past Medical History Allergies/Adverse Reactions: Allergies No Known Allergies Allergy (Verified 03/17/18 04:03) Home Medications: Ambulatory Orders Medication Instructions Recorded Pantoprazole Sodium [Protonix] 20 mg PO QHS 09/02/15 Paroxetine HCl [Paxil] 10 mg PO DAILY 09/02/15 Past Medical History (Chronic Problems): Chronic Problems (Last Updated 08/15/17 @ 14:01 by Katya Alvarado) Anxiety and depression (Chronic) Arrhythmia (Chronic) DARA (obstructive sleep apnea) (Chronic) Other specified cardiac device in situ (Chronic) GERD (gastroesophageal reflux disease) (Chronic) Surgical History: - - Loop recorder, cholecystectomy, appendectomy, neck surgery with fusion secondary to trauma. Psychiatric History: Anxiety, Depression - *Family History Maternal Family History: Family History (Last Reviewed 12/12/17 @ 13:42 by Grace Berman) Father Hypertension Sister SVT (supraventricular tachycardia) History Items: - - Patient notes a maternal and paternal family history of heart disease. Paternal Family History: Family History (Last Reviewed 12/12/17 @ 13:42 by Grace Berman) Father Hypertension Sister SVT (supraventricular tachycardia) History Items: - - Patient notes a maternal and paternal family history of heart disease. Lives: Spouse/ Significant Other, With Family Smoking Status: Never smoker Tobacco Use: Non-smoker Alcohol: None Drugs: None Review of Systems - Review of Systems General: Denies: Fever, Night Sweats, Fatigue Cardiovascular: Reports: Chest Discomfort, Chest Discomfort at Rest, Palpitations. Denies: Shortness of Breath, Orthopnea, PND, Peripheral Edema, Lightheadedness, Dizziness, Near Syncope, Syncope Respiratory: Denies: Cough, Sputum Production, Hemoptysis Gastrointestinal: Denies: Hematemesis, Hematochezia, Melena Genitourinary: Denies: Dysuria, Hematuria Skin: Denies: Rash Subjectve: Patient laying in bed, no acute distress. Objective: Vital Signs Temp Pulse Resp BP Pulse Ox 98.2 F 60 18 108/70 98 03/17/18 08:00 03/17/18 08:00 03/17/18 08:00 03/17/18 08:00 03/17/18 08:00 Oxygen Delivery Method Room Air Weight: 184 lb 8.43 oz Body Mass Index (BMI) 25.7 Intake and Output for Last 24 Hours Intake Total 536 / 536 Balance 536 / 536 General: Awake, Alert, Oriented x 3 HEENT: PERRL, EOMI, Sclera Non Icteric Neck: Supple, Good ROM, No Lymph Node Enlargement Lungs: Clear to auscultation Cardiovascular: Irregular Rhythm, Normal S1, Normal S2, No Murmurs, No Rubs, No Gallops Vascular: No Carotid Bruits, Normal Femoral Pulses, Normal Radial Pulses, Normal Dorsalis Pedal Pulse, Normal Posterior Tibial Pulses Abdomen: Bowel Sounds Present, Soft, Non Tender, No HSM, No Organomegaly Extremities: No Cyanosis, No Clubbing, No edema Neurological: No Focal Motor or Sensory Deficit 03/17/18 04:25: Troponin I < 0.015, Triglycerides 60, Cholesterol 159, LDL Cholesterol 106, VLDL Cholesterol 12, HDL Cholesterol 41 03/17/18 07:23: Troponin I < 0.015 03/17/18 10:25: Troponin I < 0.015 03/17/18 10:25: Sodium 142, Potassium 3.9, Chloride 108 H, Carbon Dioxide 28.0, Anion Gap 6, BUN 10, Creatinine 0.89, Est GFR (MDRD) Af Amer 119, Est GFR (MDRD) Non-Af 98, BUN/Creatinine Ratio 11.2, Glucose 117 H, Calcium 8.1 L, Total Bilirubin 0.80 03/17/18 10:25: WBC 4.8, RBC 4.78, Hgb 14.5, Hct 41.8, MCV 87.4, MCH 30.3, MCHC 34.7, RDW 12.7, RDW Differential 40.8, Plt Count 214, MPV 10.1, Immature Gran % (Auto) 0.000, Neut % (Auto) 49.9, Lymph % (Auto) 41.2 H, Wake % (Auto) 7.7, Eos % (Auto) 1.0, Baso % (Auto) 0.2, Absolute Neuts (auto) 2.4, Total Counted Not Reportable Rhythm: Telemetry shows atrial fibrillation with controlled ventricular response. EKG: As above ECHO: Pending Stress Test: Pending Cardiac Cath: PCI: CT Surgery: Holter monitor: EPS: PPM: CXR: Chest CT Scan: Assessment/Plan 1. Atrial fibrillation: Patient has recurrent palpitations and in fact has a loop recorder placed several years ago. His last catheterization was around 5 or 6 years ago and was reportedly normal. Nonetheless the patient has developed chest pain on and off for the past 3 days which appears to be pressure-like in quality and last 1-2 minutes. Superimposed upon this the patient developed atrial fibrillation with rapid ventricular response. He has known sleep apnea but does not use a CPAP as he is unable to tolerate the mask. At this point I recommend the patient be completely ruled out for myocardial infarction with a third set of troponins. If all 3 are negative I recommend he undergo a 2D echo with Doppler as well as a treadmill echocardiogram to assess for possible coronary ischemia. If either 1 of these are grossly abnormal he may require a diagnostic coronary angiogram. If his echo and stress test are within normal limits we will hold off on catheterization. In the meantime we have discontinued his IV Cardizem drip and will switch him to Cardizem CD 120 mg p.o. daily. In addition we will check a sed rate a TSH and T4 as well. Patient denies [id number] medications, and has not had alcohol in several weeks. I would not recommend a drug screening at this time. In addition he will continue on full dose Lovenox therapy at 1 mg/kg subcu twice daily. Would recommend switching him over to Eliquis therapy if his stress test is negative and would then recommend DC cardioversion in 3 weeks time if he does not spontaneously convert. Another alternative would be a transesophageal echocardiogram guided DC cardioversion, but he would still require anticoagulation therapy. I will defer this to Dr. Petersen his primary teacher industrial arts. 2. Hypercholesterolemia: Patient's LDL and HDL cholesterol are fairly well controlled given his risk factors. 3. Thank you very much for the opportunity to participate in the cardiac care of your patient. Consultation time took place between 830 and 9:05 AM. Code Visit Inpatient E AND M: [id number] Init Hosp L2 03/17/18 1110 <Electronically signed by Roel Mckoy MD> Date Roel Mckoy MD Cosigner Signature (if applicable): Date CC: md Luan Tyler; Roel Mckoy MD Signed TROPONIN-I Collected: 03/17/2018 Status: F Source: [place] 10:25 AM [facility] [place] Order Comment: 'TROP' Serial specimen #1, #2 or #3: 3 TYPE CODE TESTS RESULT OUT OF RANGE REFERENCE UNITS LAB L501.4010 <0.045 ng/mL Normal < 0.015 TROPONIN-I Result Comment: TROPONIN-I EXPECTED VALUES <0.045 Negative 0.045 - 0.590 Consistent with Cardiac Damage > OR = 0.600 Critical Value Not every elevated troponin is indicative of CA. These values should be used with clinical judgement in examining the patient's clinical picture for diagnosis. To establish a diagnosis of CA versus myocardial injury, there must be a demonstrated rise and/or fall in the troponin values, in addition to ischemic symptoms, EKG changes, new regional wall motion abnormality, and/or angiographical evidence. PLEASE NOTE: REFERENCE RANGES EDITED 17 Performed By: #### L501.4010 #### [facility] [place], [address] CBC W/DIFF, AUTOMATED Collected: 03/17/2018 Status: F Source: [place] 10:25 AM [facility] [place] TYPE CODE TESTS RESULT OUT OF RANGE REFERENCE UNITS LAB L100.1000 4.4-11.0 K/mm3 Normal WBC 4.8 LAB L100.1200 4.6-6.2 M/mm3 Normal RBC 4.78 LAB L100.1300 13.0-16.5 g/dl Normal HGB 14.5 LAB L100.1400 40-54 % Normal HCT 41.8 LAB L100.1500 80-94 fL Normal MCV 87.4 LAB L100.1600 27.0-32.0 pg Normal MCH 30.3 LAB L100.1700 32-36 g/gl Normal MCHC 34.7 LAB L100.1810 11.6-14.6 % Normal RDW CV 12.7 LAB L100.1820 35.1-43.9 fl Normal RDW SD 40.8 LAB L100.1900 150-450 K/mm3 Normal PLT 214 LAB L100.2000 6.2-12.0 fl Normal MPV 10.1 LAB L100.2100 47-70 % Normal NEUT% 49.9 LAB L100.2200 19-41 % High LY% 41.2 LAB L100.2300 0-10 % Normal MONO% 7.7 LAB L100.2400 0-5 % Normal EO% 1.0 LAB L100.2500 0-1 % Normal BASO% 0.2 LAB L100.2550 0.0-0.9 % Normal IM GRAN % 0.000 Result Comment: IG% - Immature Granulocytes (promyelocytes, myelocytes and metamyelocytes) > 1% indicates that a LEFT SHIFT is Present. LAB L100.2620 2.0-7.7 X10 3/uL Normal Absolute Neut 2.4 LAB L100.2720 0.83-4.51 X10 3/ul Normal Absolute Lymph 1.97 Performed By: #### L100.0100 #### [facility] [address] [facility] [place], [place], [address] ERYTHROCYTE SED RATE Collected: 03/17/2018 Status: F Source: [place] 10:25 AM [facility] [place] TYPE CODE TESTS RESULT OUT OF RANGE REFERENCE UNITS LAB L102.0000 0-15 mm/hr Normal SED RATE < 1 Performed By: #### L101.9900 #### [facility] [address] [facility] [id number] COMPREHENSIVE METABOLIC Collected: 03/17/2018 Status: F Source: [facility] 10:25 AM [facility] [place] TYPE CODE TESTS RESULT OUT OF RANGE REFERENCE UNITS LAB L501.0100 74-106 mg/dL High GLU 117 Result Comment: Fasting Glucose result from 100 to 125 mg/dL suggests IMPAIRED HOMEOSTASIS per A.D.A. criteria. Please note revised GLUCOSE reference range effective 2017. LAB L501.1000 7-18 mg/dL Normal BUN 10 LAB L501.1100 0.70-1.30 mg/dL Normal CREAT,SERUM 0.89 Result Comment: The validity of the calculated GFR AND GFRAA in patients over 70 years has not been determined. Clinical correlation is essential. LAB L501.1110 >60 mL/min Normal EST GFR 98 Result Comment: Non- GFR Calc LAB L501.1115 >60 mL/min Normal EST GFR - AA 119 Result Comment: GFR Calc LAB L501.1255 ml/min Normal Estimated CRCL 112.81 LAB L501.1300 10-20 RATIO BUN/CRE Normal 11.2 LAB L501.1500 6.4-8. g/dL Low 2 T PROT 6.2 LAB L501.1800 3.2-5. g/dL 0 ALB Normal 3.2 LAB L501.1950 2.2-4. g/dL 2 GLOB Normal 3.0 LAB L501.2000 0.9-2. RATIO 4 A/G Normal 1.1 LAB L501.2200 8.5-10 mg/dL Low .1 CA 8.1 LAB L501.4100 15-37 U/L Low AST 10 LAB L501.4305 45-117 U/L ALK P Normal 47 LAB L501.4405 16-61 U/L ALT Normal 19 LAB L501.4600 0.20-1 mg/dL .00 T BILI Normal 0.80 LAB L501.5300 136-14 mmol/L 5 NA Normal 142 LAB L501.5600 3.5-5. mmol/L 1 K Normal 3.9 LAB L501.5900 98-107 mmol/L High CL 108 LAB L501.6100 21.0-3 mmol/L 2.0 CO2 Normal 28.0 LAB L501.6200 5-15 GAP Normal 6 Performed By: #### L500.4050 #### [facility] [address] [place], [address] HISTORY AND PHYSICAL Observed: 03/17/2018 Status: F Source: [place] EXAM 4:31 AM [facility] [place] [facility] Medical Records Department [address] [place] [address] History and Physical 03/17/18 0423 MR#: [id number] Acct: [id number] Name: CRISTINA GÓMEZ Rep #: [id number] : 1975 42 From: Yuli Zhang PCP: Luan Tyler md Status: ADM IN Y Location: ICU [id number] Problem List (1) Atrial fibrillation with RVR Status: Acute (2) Chest pain Status: Acute Qualifiers: Chest pain type: unspecified Qualified Code(s): R07.9 - Chest pain, unspecified (3) Hypokalemia Status: Acute (4) Anxiety and depression Status: Chronic (5) Arrhythmia Status: Chronic Qualifiers: Arrhythmia type: unspecified cardiac arrhythmia Qualified Code(s): I49.9 - Cardiac arrhythmia, unspecified (6) GERD (gastroesophageal reflux disease) Status: Chronic Qualifiers: Esophagitis presence: esophagitis presence not specified Qualified Code(s): K21.9 - Gastro-esophageal reflux disease without esophagitis (7) DARA (obstructive sleep apnea) Status: Chronic History of Present Illness Date of Admission: 03/17/18 Chief Complaint: Palpitations, chest pain The patient is a 42 y/o M w/ PMHx: DARA, GERD w/ Hiatal Hernia, Anxiety and Depression, Tachycardic dysrhythmia who presented to OSH ED on 03/17/18 with onset of left sided, chest pain, described as pressure and tightness without radiation intermittently w/ palpitations x 3 days, worsened on day of transition to OSH ED w/ at that time associated dyspnea starting at 9 pm, rated at that time 3-4/10 in severity, prompting transition to ED with noted new onset atrial fibrillation with RVR [facility] continued cardiac evaluation and management. Patient normally follows w/ Dr. Petersen for his noted tachycardic dysrhythmia but has never had atrial fibrillation prior. At OSH ([facility]) ED work-up included VS: T 98.1, HR 100, RR 20, BP 165/93, 99% on RA, CBC w/ WBC 7.9, Hgb 17.3, Plts 283 without shift, CMP w/ K 3.1, BUN/Cr 13/1.0, glucose 142, Trop <0.01, D-dimer 232, follow-up CTPA negative for acute PE, no aneurysm, no infection, EKG atrial fibrillation w/ RVR. At the OSH patient was administered Potassium 40 mEq x 1, 20 mg IV cardizem and transitioned to Cardizem drip with rate improvement from 150s-->100. EMS had noted to [facility] upon presentation to their facility that upon evaluation initially at patient's home his rate was > 200. The patient noted that his chest pressure completely resolved with rate control. Past Medical History Past Medical History (Chronic Problems): Chronic Problems (Last Updated 08/15/17 @ 14:01 by Katya Alvarado) Anxiety and depression (Chronic) Arrhythmia (Chronic) DARA (obstructive sleep apnea) (Chronic) Other specified cardiac device in situ (Chronic) GERD (gastroesophageal reflux disease) (Chronic) Medical History: Medical History (Last Updated 08/15/17 @ 14:01 by Katya Alvarado) Other specified cardiac device in situ (Chronic) Z95.818 Palpitations (Acute) R00.2 GERD (gastroesophageal reflux disease) (Chronic) K21.9 Anxiety F41.9 Hiatal hernia K44.9 Inguinal hernia K40.90 DARA (obstructive sleep apnea) G47.33 Allergies No Known Allergies Allergy (Verified 03/17/18 04:03) Home Medications: Ambulatory Orders Medication Instructions Recorded Pantoprazole Sodium [Protonix] 20 mg PO DAILY 09/02/15 Paroxetine HCl [Paxil] 10 mg PO DAILY 09/02/15 Surgical History: Surgical History (Last Reviewed 12/12/17 @ 13:42 by Grace Berman) History of cholecystectomy Z90.49 History of nasal surgery Z98.890 Hx of appendectomy Z90.49 Surgical History: - - Loop recorder, cholecystectomy, appendectomy, neck surgery with fusion secondary to trauma. Psychiatric History: Anxiety, Depression Lives: Spouse/ Significant Other, With Family Smoking Status: Never smoker Tobacco Use: Non-smoker Alcohol: None Drugs: None - *Family History Maternal Family History: Family History (Last Reviewed 12/12/17 @ 13:42 by Grace Berman) Father Hypertension Sister SVT (supraventricular tachycardia) History Items: - - Patient notes a maternal and paternal family history of heart disease. Paternal Family History: Family History (Last Reviewed 12/12/17 @ 13:42 by Grace Berman) Father Hypertension Sister SVT (supraventricular tachycardia) History Items: - - Patient notes a maternal and paternal family history of heart disease. Review of Systems Constitutional: Reports: Fatigue. Denies: Chills, Fever, Weight Change HEENT: Denies: Head Aches, Sinus Congestion, Sinus Drainage Cardiovascular: Reports: Chest Pain, Chest Pressure, Chest Tightness, Palpitations. Denies: Light Headedness, Orthopnea, Syncope Respiratory: Reports: Shortness of Breath, Shortness of breath at rest, Shortness of breath upon exertion. Denies: Cough, Sputum production Gastrointestinal: Denies: Abdominal Pain, Nausea, Vomiting Genitourinary: Denies: Dysuria Musculoskeletal: Denies: Joint Pain, Joint Tenderness Skin: Denies: Rash, Wounds Neurological: Denies: Numbness, Tingling, Focal weakness Psychiatric: Denies: Anxiety, Depression, Homicidal Ideations, Suicidal Ideations Hematologic/ Lymphatic: Denies: Easy Bruising, Easy Bleeding VTE Information - Inpt Only VTE Present on Admission: No VTE Mechan Device Prophylaxis: SCD's VTE Pharm Prophylaxis ordered?: Yes Patient Problems: Active and Suspected Problems (Last Updated 08/15/17 @ 14:01 by Katya Alvarado) Atrial fibrillation with RVR (Acute) Chest pain (Acute) Hypokalemia (Acute) Subjective: Patient seated upright in the bed, no acute distress, denies any current chest discomfort. Objective: Physical Examination: General: awake, alert, oriented x 3 and cooperative, seated upright in bed in no apparent distress. Skin: normal color, turgor, no icterus, cyanosis. HEENT: AT/NC, EOMI, PERRLA, MMM, no carotid bruits or JVD noted. Lungs: CTA bilaterally, moderate effort, mild decrease BL bases, no rales, ronchi or wheezing. Heart: Regular, rate controlled; no gallop, rub audible. Abdomen: soft, NTTP, ND, normal BS, no HSM. Extremities: no cyanosis, clubbing, or edema. Neurological: patient awake, alert, oriented x 3; cognitive function intact; pupils equally reactive to light and accomodation; cranial nerves II-XII grossly normal, moving all 4 extremities, no focal deficits, strength preserved. Psychiatric: affect appears normal, no acute evidence of depressive or anxiety feelings. - Physical Exam Vital Signs Pulse 76 03/17/18 03:51 Weight: 184 lb 8.43 oz Body Mass Index (BMI) 25.7 Assessment/Plan All Active Problems (Last Updated 08/15/17 @ 14:01 by Katya Alvarado) Atrial fibrillation with RVR (Acute) Chest pain (Acute) Hypokalemia (Acute) Palpitations (Acute) The patient is a 42 y/o M w/ PMHx: DARA, GERD w/ Hiatal Hernia, Anxiety and Depression, Tachycardic dysrhythmia who presented to OSH ED on 03/17/18 with onset of left sided, chest pain, described as pressure and tightness without radiation intermittently w/ palpitations x 3 days, worsened on day of transition to OSH ED w/ at that time associated dyspnea starting at 9 pm, rated at that time 3-4/10 in severity, prompting transition to ED with noted new onset atrial fibrillation with RVR upon ED work-up with transition to [facility] on 03/17/18 for continued cardiac evaluation and management. (1) Chest pain w/ New onset, Paroxsymal atrial fibrillation: OSH EKG in ED w/ atrial fibrillation w/ RVR. Patient administered cardizem bolus at OSH ED and transitioned to cardizem drip with improvement. Will admit directed to PCU, maintain on telemetry, obtain cardiac enzyme serial set, obtain magnesium level, obtain ECHO, obtain TSH level. Will continue on cardizem drip with plan for oral transition after 24 hours if appropriate. Will initiate therapeutic lovenox pending CM assist w/ assessment for oral regimen costs if felt appropriate upon discharge, i.e. planned later cardioversion. Cardiology consulted, pending as given history of exact noted onset of symptoms if does not convert may be appropriate for cardioversion. From review of Dr. Petersen records patient had implantable loop recorder prior that did not demonstrate any episodes of AF. (2) Hypokalemia: Admission K+ 3.1, supplementation given at OSH ED, repeat level in AM. (3) Anxiety and Depression: Continue home paxil regimen. (4) DARA: CPAP non-compliant but given presentation likely contributing, will order CPAP and encourage. (5) GERD w/ Hiatal Hernia: PPI. (6) DVT Prophylaxis: SCDs, lovenox therapeutic regimen. Code Visit Inpatient E AND M: [id number] Init Hosp L3 03/17/18 0431 <Electronically signed by Yuli Zhang > Date Yuli Zhang Cosigner Signature: Date (if applicable) CC: md Luan Tyler; Yuli Zhang Signed THYROID STIM HORMONE Collected: 03/17/2018 Status: F Source: [place] ([place] 4:[place] [facility] [place] CODE TESTS RESULT OUT OF RANGE REFERENCE UNITS LAB L501.9520 0.358-3.74 uIU/mL Normal TSH 1.72 Performed By: #### L501.9520 #### [facility] [address] [place], [place], [id number] LIPID PROFILE Collected: 03/17/2018 Status: F Source: [place] 4:25 [place] [facility] [place] Order Comment: 'TROP' Serial specimen #1, #2, #3, or #4: 1 TYPE CODE TESTS RESULT OUT OF RANGE REFERENCE UNITS LAB L501.4900 200 mg/dL Normal CHOL 159 Result Comment: <200 mg/dL Desirable 200-240 mg/dL Borderline >240 mg/dL High Risk LAB L501.5000 mg/dL Normal TRIG 60 Result Comment: The drugs N-Acetylcysteine and Metamizole may falsely depress this assay. Serum Triglycerides Reference Interval Normal <150 mg/dL Borderline high 150 - 199 mg/dL High 200 - 499 mg/dL Very High > or = 500 mg/dL LAB L501.6400 mg/dL Normal HDL 41 Result Comment: The drugs N-Acetylcysteine and Metamizole may falsely depress this assay. Reference Range HDL <40 mg/dL Low HDL Cholesterol HDL >or= 60 mg/dL High HDL Cholesterol LAB L501.6500 0-130 mg/dL Normal LDL 106 LAB L501.6600 5-40 mg/dL Normal VLDL 12 Performed By: #### L500.4100, L501.4010 #### [facility] [address] [place], [place], [id number] TROPONIN-I Collected: 03/17/2018 Status: F Source: [place] 4:25 AM [facility] [place] Order Comment: 'TROP' Serial specimen #1, #2, #3, or #4: 1 TYPE CODE TESTS RESULT OUT OF RANGE REFERENCE UNITS LAB L501.4010 <0.045 ng/mL Normal < 0.015 TROPONIN-I Result Comment: TROPONIN-I EXPECTED VALUES <0.045 Negative 0.045 - 0.590 Consistent with Cardiac Damage > OR = 0.600 Critical Value Not every elevated troponin is indicative of CA. These values should be used with clinical judgement in examining the patient's clinical picture for diagnosis. To establish a diagnosis of CA versus myocardial injury, there must be a demonstrated rise and/or fall in the troponin values, in addition to ischemic symptoms, EKG changes, new regional wall motion abnormality, and/or angiographical evidence. PLEASE NOTE: REFERENCE RANGES EDITED 17 Performed By: #### L500.4100, L501.4010 #### [facility] [address] [place], [address] TROPONIN Collected: 03/17/2018 Status: F Source: [place] 2:06 AM [facility] TYPE CODE TESTS RESULT OUT OF REFERENCE UNITS RANGE LAB TROPONIN 0.00 - 0.05 ng/ml I(LOINC) TROPONIN I <0.01 Result Comment: Elevated troponin (above the 99th percentile) usually indicates myocardial ischemia. Results must be interpreted within the clinical setting. 1.Non-ischemic pathology can also cause elevated troponin levels (e.g., acute pulmonary embolism, myocarditis, pericarditis, heart failure, intracranial injury, rhabdomyolisis, sepsis, shock and renal insufficiency). 2.Approximately 1% of healthy adults have elevated troponin levels. 3.Analytical false positive results rarely occur(due to multiple interferences such as heterophile antibodies). Performed By: #### [id number] #### [facility],[address] [place] [address] CT CHEST (PE PROTOCOL) Observed: 03/17/2018 Status: F Source: [place] 12:58 AM [place] [address] Patient: CRISTINA GÓMEZ Phone#: : 1975 Age: 42 Gender: M Pt. Type: ER Account: [id number] Location: [facility] Ordering: SHAWN CERVANTES Exam Date: 03/17/2018/0:45 Family Phys: LUAN TYLER Charge Code: [id number] Physician: [place] Order #: [id number] DLP Dose#: PROCEDURE: CT CHEST WITH CONTRAST FOR PE COMPARISON: [facility], CT, CHEST PE W CON, 01/01/2014, 10:45. INDICATIONS: Embolism TECHNIQUE: After obtaining the patient's consent, CT images were obtained with non-ionic intravenous contrast material. Multi-planar images were created to optimize visualization of vascular anatomy with MPR/MIPS and 3D imaging. All CT scans at this facility use dose modulation, iterative reconstruction, and/or weight based dosing when appropriate to reduce radiation dose to as low as reasonably achievable. IV CONTRAST: Omnipaque 350,77ml TOTAL DOSE: 5.5 CTDIvol(mGy) FINDINGS: VASCULATURE: Normal. No visible pulmonary arterial thrombus or attenuation. AORTA: Normal. No aneurysm or dissection. LUNGS: Normal. No visible pulmonary disease. BRITTNI: Normal. No mass or adenopathy. MEDIASTINUM: Normal. No mass or adenopathy. CARDIAC: Mild cardiomegaly. PLEURA: Normal. No mass or effusion. CHEST WALL: Normal. No mass or axillary adenopathy. LIMITED ABDOMEN: Moderate to marked stool retention. BONES: Normal. No bony lesion or fracture. OTHER: Negative. CONCLUSION: No acute disease. There is no evidence of pulmonary embolus. Continued Report - Page 2 of 2 Patient: CRISTINA GÓMEZ Phone#: : 1975 Age: 42 Gender: M Pt. Type: ER Account: [id number] Location: [facility] Ordering: SHAWN CERVANTES Exam Date: 03/17/2018/0:45 Family Phys: LUAN TYLER Charge Code: [id number] Physician: [place] Order #: [id number] DLP Dose#: Dictated by: Soumya Art MD on 03/17/2018 at 11:12 Approved by: Soumya Art MD on 03/17/2018 at 11:12 CHEST 1 VIEW Observed: 03/16/2018 Status: F Source: DEZWENDY WYMAN 11:53 PM [place] [address] Patient: CRISTINA GÓMEZ Phone#: : 1975 Age: 42 Gender: M Pt. Type: ER Account: [id number] Location: 052 Ordering: SHAWN CERVANTES Exam Date: 03/16/2018/23:42 Family Phys: LUAN TYLER Charge Code: [id number] Physician: [place] Order #: [id number] DLP Dose#: PROCEDURE: X-RAY CHEST 1 VIEW COMPARISON: [facility], XR, CHEST PA/LAT, 07/24/2016, 11:25. INDICATIONS: Chest Pain FINDINGS: LUNGS: Normal. No significant pulmonary parenchymal abnormalities. VASCULATURE: Normal. Unremarkable pulmonary vasculature. CARDIAC: Normal. No cardiac silhouette abnormality or cardiomegaly. MEDIASTINUM: Normal. No visible mass or adenopathy. PLEURA: Normal. No effusion or pleural thickening. BONES: Normal. No fracture or visible bony lesion. OTHER: Negative. CONCLUSION: No acute disease. No significant change has occurred. Dictated by: Soumya Art MD on 03/17/2018 at 10:51 Approved by: Soumya Art MD on 03/17/2018 at 10:51 CBC Collected: 03/16/2018 Status: F Source: [facility] 11:30 PM [facility] REPOSITORY TYPE CODE TESTS RESULT OUT OF RANGE REFERENCE UNITS LAB CBC(LOINC) CBC Result Comment: CBC-COMPLETE BLOOD COUNT LAB WBC(LOINC) 4.5 - 10.8 x 10EE3/UL WBC 7.9 LAB RBC(LOINC) 4.50 - x 10EE6/UL 6.00 RBC 5.63 LAB HEMOGLOBIN(LOINC) 13.0 - g/dl 17.5 HEMOGLOBIN 17.3 LAB HEMATOCRIT(LOINC) 40.0 - % 52.0 HEMATOCRIT 48.6 LAB MCV(LOINC) 81 - 98 fl MCV 86 LAB MCH(LOINC) 27 - 33 pg MCH 31 LAB MCHC(LOINC) 32 - 36 X10 3 MCHC 36 LAB RDW/CV(LOINC) 12.0 - % 15.6 RDW/CV 13.0 LAB PLATELET(LOINC) 150 - 450 x10EE3/UL PLATELET 283 LAB MPV(LOINC) 6.4 - 10.5 fl MPV 9.0 Result Comment: AUTOMATED DIFFERENTIAL LAB NEUT %(LOINC) 46.0 - 76.0 % Low NEUT % 31.0 LAB LYMPH %(LOINC) 20.0 - 45.0 % LYMPH % High 57.1 LAB MONOS %(LOINC) 0.0 - 10.0 % MONOS % High 10.1 LAB EO %(LOINC) 0.0 - 7.0 % EO % 1.1 LAB BASO %(LOINC) 0.0 - 2.0 % BASO % 0.7 LAB Lymph #(LOINC) 0.80 - 2.80 x10EE3/U L Lymph # High 4.50 LAB Neut #(LOINC) 1.50 - 7.10 x10EE3/U L Neut # 2.50 LAB Wake #(LOINC) 0.20 - 1.00 x10EE3/U L Wake # 0.80 LAB EO #(LOINC) 0.00 - 0.50 x10EE3/U L EO # 0.10 LAB Baso #(LOINC) 0.00 - 0.10 x10EE3/U L Baso # 0.10 LAB MANUAL DIFF(LOINC) MANUAL DIFF N/A LAB MORPHOLOGY(LOINC ) MORPHOLOGY N/A Result Comment: {CD] Performed By: #### [id number] #### [place] [address] TROPONIN Collected: 03/16/2018 Status: F Source: [facility] 11:30 PM [facility] REPOSITORY TYPE CODE TESTS RESULT OUT OF REFERENCE UNITS RANGE LAB TROPONIN 0.00 - 0.05 ng/ml I(LOINC) TROPONIN I <0.01 Result Comment: Elevated troponin (above the 99th percentile) usually indicates myocardial ischemia. Results must be interpreted within the clinical setting. 1.Non-ischemic pathology can also cause elevated troponin levels (e.g., acute pulmonary embolism, myocarditis, pericarditis, heart failure, intracranial injury, rhabdomyolisis, sepsis, shock and renal insufficiency). 2.Approximately 1% of healthy adults have elevated troponin levels. 3.Analytical false positive results rarely occur(due to multiple interferences such as heterophile antibodies). Performed By: #### [id number] #### [place] [address] CMP WITH EGFR Collected: 03/16/2018 Status: F Source: [place]Z [place] 11:30 PM [facility] REPOSITORY TYPE CODE TESTS RESULT OUT OF RANGE REFERENCE UNITS LAB CMP with eGFR(LOINC) CMP with eGFR Result Comment: COMPREHENSIVE METABOLIC PANEL LAB SODIUM(LOINC) 136 - 145 mmol/l SODIUM 140 LAB POTASSIUM(LOINC) 3.5 - 5.1 mmol/L Low POTASSIUM 3.1 LAB CHLORIDE(LOINC) 98 - 107 mmol/L CHLORIDE 101 LAB CO2(LOINC) 21.0 - mmol/L 31.0 CO2 27.6 LAB GLUCOSE(LOINC) 74 - 106 mg/dl GLUCOSE High 142 LAB BUN(LOINC) 6 - 20 mg/dl BUN 13 LAB CREATININE(LOINC) 0.7 - 1.3 mg/dl CREATININE 1.0 LAB AST/SGOT(LOINC) 13 - 39 U/L AST/SGOT Low 12 LAB ALK PHOS(LOINC) 38 - 126 U/L ALK PHOS 42 LAB CALCIUM(LOINC) 8.6 - mg/dl 10.2 CALCIUM 9.4 LAB TOTAL 6.4 - 8.3 g/dl PROTEIN(LOINC) TOTAL PROTEIN 7.2 LAB ALBUMIN(LOINC) 3.4 - 4.8 g/dL ALBUMIN 4.6 LAB GLOBULIN(LOINC) 1.5 - 3.8 G/DL GLOBULIN 2.6 LAB A/G RATIO(LOINC) 0.9 - 1.6 A/G High RATIO 1.8 LAB TOTAL BILI(LOINC) 0.0 - 1.5 mg/dl TOTAL BILI 0.9 LAB B/C RATIO(LOINC) 0 - 30 ratio B/C RATIO 13 LAB ALT/SGPT(LOINC) 10 - 40 U/L ALT/SGPT 15 LAB ANION GAP(LOINC) 10 - 20 mmol/L ANION GAP 15 LAB AGE(LOINC) years AGE 42 LAB eGFR(LOINC) 60 - 999 ML/MINUTE eGFR >60 LAB eGFR(AA)(LOINC) 60 - 999 ML/MINUTE eGFR(AA) >60 Result Comment: ACCORDING TO THE NATIONAL KIDNEY DISEASE EDUCATION PROGRAM(NKDE), A NORMAL eGFR IS A VALUE GREATER THAN OR EQUAL TO 60 ML/MIN/1.73 SQ METERS. CHRONIC KIDNEY DISEASE: <60mL/MIN/1.73 SQ METERS KIDNEY FAILURE: <15mL/MIN/1.73 SQ METERS THIS TEST SHOULD ONLY BE USED FOR PATIENTS 18 YEARS OF AGE AND OLDER. Performed By: #### [id number] #### [address] [address] D-DIMER, QUANTITATIVE Collected: 03/16/2018 Status: F Source: [facility] 11:30 PM [facility] REPOSITORY TYPE CODE TESTS RESULT OUT OF REFERENCE UNITS RANGE LAB D-DIMER, QUANTITATI VE(LOINC) D-DIMER, QUANTITATIVE Result Comment: QUANT D-DIMER LAB D-DIMER 0 - 230 ng/ml QUANT(LOINC) High D-DIMER QUANT 232 Performed By: #### [id number] #### [address] [address] PROTHROMBIN TIME AND Collected: 03/16/2018 Status: F Source: [facility] INR 11:30 PM [facility] REPOSITORY TYPE CODE TESTS RESULT OUT OF REFERENCE UNITS RANGE LAB PROTHROMBIN TIME AND INR(LOINC) PROTHROMBIN TIME AND INR Result Comment: PROTHROMBIN TIME AND INR LAB PT-COUMADIN(LOINC) sec PT-COUMADIN 12.1 LAB INR(LOINC) 0.8 - 1.2 INR 1.1 Result Comment: THE HEMOSIL THROMBOPLASTIN REAGENT USED IN THE PROTHROMBIN TIME TEST INTERACTS WITH THE DRUG CUBICIN (DAPTOMYCIN) AND WILL RESULT IN FALSELY ELEVATED PT / INR RESULTS INR INTERPRETATION INR INDICATION PREVENTION AND TREATMENT OF THROMBOEMBOLISM ASSOCIATED WITH: 2.0 - 3.0 ATRIAL FIBRILLATION, BIOPROSTHETIC HEART VALVES, PULMONARY EMBOLISM, VENOUS THROMBOSIS, SYSTEMIC EMBOLISM POST MYOCARDIAL INFARCTION 2.5 - 3.5 MECHANICAL HEART VALVES Performed By: #### [id number] #### [address] [address] APTT Collected: 03/16/2018 Status: F Source: [facility] 11:30 PM [facility] REPOSITORY TYPE CODE TESTS RESULT OUT OF RANGE REFERENCE UNITS LAB PTT(LOINC) 21.6 - 35.4 sec PTT 27.7 Performed By: #### [id number] #### [address] [address] MAGNESIUM Collected: 03/16/2018 Status: F Source: [place] W[place] 11:30 PM [facility] TYPE CODE TESTS RESULT OUT OF REFERENCE UNITS RANGE LAB MAGNESIUM( 1.6 - 2.6 mg/dl LOINC) MAGNESIUM 2.2 Performed By: #### [id number] #### [facility],[address] [place] [id number] BNP (B-TYPE NATRIURETIC Collected: 03/16/2018 Status: F Source: DEZ WY[place]PT[place]) 11:30 PM [facility] TYPE CODE TESTS RESULT OUT OF RANGE REFERENCE UNITS LAB BNP(LOINC) 1 - 100 pg/ml BNP 5 Performed By: #### [id number] #### [facility],[address] [place] [id number] EMERGENCY REPORT Observed: 03/16/2018 Status: F Source: [place] 11:21 PM [facility] [place]PORT NAME ACCOUNT SEX AGE ADMIT DISCHARGE PT MED. RECORD# NUMBER DATE DATE TYPE DALIA [id number] M 42 03/16/18 03/17/18 3 [place] [address] ROOM: ER DATE OF : 1975 DICTATING PHYSICIAN: Shawn Cervantes CHIEF COMPLAINT/HISTORY OF PRESENT ILLNESS: This is a 42-year-old white male complaining of left parasternal chest pain off and on for the past 3 days. However, tonight around 9:00 p.m. he started to note his heart racing, so he called the ambulance. When the ambulance got there the paramedics told me they recorded a heart rate of 212 beats per minute. He was transported here and when he arrived here he was in atrial fibrillation with a rapid ventricular rate at approximately 150 beats per minute. He has had these symptoms before and was seen at [facility] and the [facility]. He has seen Dr. Petersen, the Leasing Representative at [facility]. They had put in a loop monitor and monitored his heart rate but they had not been able to find any arrhythmia, other than 1 very short lived run of SVT. He had a normal stress test 2 years ago. PAST MEDICAL HISTORY: Anxiety. He has had some very short lived funs of SVT and he has had palpitations in the past, but no real diagnosis has been established yet. He has been admitted at [facility] once and up at [facility] once for an evaluation of this and he still continues to wear his loop monitor. He denies any other medical problems. PAST SURGICAL HISTORY: Appendectomy, a cholecystectomy. He has had orthopedic surgery on his neck in the past. ALLERGIES: No known drug allergies. SOCIAL HISTORY: He is not a smoker, but he does chew tobacco. Admits to occasional alcohol use. Denies any drugs. Lives at home with is family. REVIEW OF SYSTEMS: Does admit to chest pain, shortness of breath. Denies any cough, sputum, wheezing, abdominal pain, nausea, vomiting, diarrhea, constipation, melena, hematochezia, headache, numbness, unsteady gait, weakness, neck or back pain, joint pain, skin rash or swelling, hives, hayfever, swollen glands. Further review of systems negative. PHYSICAL EXAMINATION: Vital signs: Temperature 98.1, pulse 152, respirations 20, blood pressure 165/93, pulse oximetry 99%. The patient is alert and oriented x3. He appears in some mild distress, secondary to chest pain, but he is pleasant and cooperative, makes eye contact. Speaks in full sentences. HEENT: Head appears Page 1 of 3 CRISTINA GÓMEZ Emergency Room Report atraumatic. Pupils are equal and reactive to light. Red reflex intact bilaterally. Extraocular muscles intact. No conjunctival injection. No scleral icterus or lid edema. Nose exhibits no rhinorrhea or epistaxis. Mouth: Mucous membranes are moist. No pharyngeal erythema. Uvula is midline and elevates. Neck is supple. Trachea is midline. No JVD or lymphadenopathy. No posterior cervical tenderness. No nuchal rigidity. Lungs are clear to auscultation in all lung hill. No adventitious sounds are noted. No accessory muscle use. CVS: Heart rate and rhythm is irregularly irregular and very rapid at approximately 150 beats per minute. No murmur noted. Abdomen is soft and nontender with normoactive bowel sounds x4 quadrants. No guarding or rigidity. No rebound. No palpable abdominal masses. No hepatosplenomegaly. Back exhibits no midline or paraspinal region tenderness. No increased paraspinal muscle rigidity. Negative Lul sign. Extremities: No edema or cyanosis. Peripheral pulses are intact. No motor or sensory deficits are noted. Hand locum tenens hospitalist strong, symmetric. Skin is warm and dry. No diaphoresis or rash. Neurologic examination shows the patient to be alert and oriented x4. No motor or sensory deficits are noted. Normal speech. Patient is pleasant, cooperative with normal affect, although he does appear to be mildly anxious. DIAGNOSTIC DATA: His EKG done at 2325 hours shows atrial fibrillation with rapid ventricular rate at a rate of 157 beats per minute. There was some nonspecific ST segment changes noted. [place] is approximately 60 degrees. Patient's chest x-ray shows no acute infiltrate or failure. No cardiomegaly. No pneumothorax. EMERGENCY DEPARTMENT COURSE AND TREATMENT: We did give the patient Cardizem 20 mg IV bolus. We pushed it slowly over about 3 minutes and this did start to bring his heart rate down into about the 120s, but then his heart rate started to go back up to about 140 so we started him on a Cardizem drip at 5 mg a minute and presently when I was just in the room, his heart rate is 100 a minute, still irregular and still in atrial fibrillation but he feels much better. His chest pain is pretty much resolved. He does have a history of anxiety and he was getting kind of anxious so his blood pressure was good. We did give him 1 mg of Ativan as well. Presently I am waiting for his blood work to come back and he wants to be admitted up at [facility] because that is where they have seen him for this in the past. He has seen Dr. Petersen the Leasing Representative up there and he saw his partner as well, so per the patient's request, once I have my workup back, I will try to get him admitted up at [facility] since that is what he wants. At this point, he certainly does appear to be stable. Presently I am waiting on some blood work and then will reevaluate. DIAGNOSIS: Atrial fibrillation with rapid ventricular rate. Dictated By: Shawn Cervantes DO 03/17/18 00:12 JOB #: [id number] Transcribed By: kellie 03/17/18 08:58 Electronically signed by: Page 2 of 3 CRISTINA GÓMEZ Emergency Room Report E-Sign: Dr. Shawn Cervantes D.O. 03/20/18 23:45 Page 3 of 3 CRISTINA GÓMEZ Emergency Room Report EMERGENCY REPORT Observed: 03/16/2018 Status: F Source: [facility] 11:21 PM [facility]PORT NAME ACCOUNT SEX AGE ADMIT DISCHARGE PT MED. RECORD# NUMBER DATE DATE TYPE DALIA [id number] Loy 42 03/16/18 03/17/18 3 [place] [address] ROOM: ER DATE OF : 1975 DICTATING PHYSICIAN: Shawn Cervantes DIAGNOSTIC DATA: EKG showed atrial fibrillation with a rapid rate as noted. His blood work came back okay with the exception of his D-dimer. His D-dimer was high at 232 and his potassium was a little bit low at 3.1, so I did give him some oral potassium and we did a CT of the chest, which was negative for pulmonary embolism. No evidence of thoracic aortic aneurysm. No lymphadenopathy. Normal heart size. No focal infiltrate. No pleural effusion. No pneumothorax. White count was 7.9, hemoglobin 17.3, hematocrit 48.6, platelet count 283,000. Troponin was less than 0.01. Magnesium was 2.2. BNP was 5. Sodium 140, chloride 101, CO2 27.6, BUN 13, creatinine 1.0. Glucose 142. Liver functions came back within normal limits. Anion gap was 15. We did do a repeat EKG after we had given him the Cardizem and he had been on the infusion for a while. The second EKG was on March 17 at 0028 hours and it showed atrial fibrillation rate of 98 beats per minute. No acute ST segment changes were noted. [place] is approximately 60 degrees. EMERGENCY DEPARTMENT COURSE AND TREATMENT: We gave the patient Cardizem 20 mg IV bolus over 3 minutes and then we started him on a Cardizem infusion of 5 mg an hour and his heart rate has slowed down considerably and he has been running at approximately 100 a minute. DIAGNOSIS: New onset atrial fibrillation with rapid ventricular rate. PLAN/DISPOSITION: I did speak with Yuli Zhang at the [facility] transfer line. She did call us back with a room, so the patient does have a room assignment and they have accepted him for admission to their facility. 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 They have accepted him for admission. EMS is here and he will be transferred to [facility] for further workup and treatment. Dictated By: Shawn Cervantes DO 03/17/18 02:42 JOB #: [id number] Transcribed By: kellie 03/17/18 09:42 Page 1 of 2 [facility] Emergency Room Report Electronically signed by: E-Sign: Dr. Shawn Cervantes D.O. 03/20/18 23:46 Page 2 of 2 ONI GÓMEZUBEN Ph[facility] Emergency Room Report PACEMAKER CHECK Observed: 03/13/2018 Status: F Source: [place] 6:43 PM [facility] [address] [place] [address] Pacemaker Check Date of Service: 03/13/181615 MR#: [id number] Acct: [id number] Name: CRISTINA GÓMEZ Rep #: [id number] : 1975 From: Nelsy Awad Age/Sex: 42/M Location: [facility] Status: Signed Billing Codes ILR Device Interrogate: Yes 03/13/181616 <Electronically signed by Nelsy Awad > Date Nelsy Awad 03/13/18 1843<Electronically signed by Chino Petersen MD> Cosigner Signature: Date (if applicable) Chino Petersen MD CC: EMERGENCY REPORT Observed: 02/11/2018 Status: F Source: [place] 7:07 PM [facility] REPOSITORY [facility] EMERGENCY ROOM REPORT NAME ACCOUNT SEX AGE ADMIT DISCHARGE PT MED. RECORD# NUMBER DATE DATE TYPE DALIA [id number] M 42 02/04/18 02/05/18 3 [place] [address] ROOM: ER DATE OF : 1975 DICTATING PHYSICIAN: Alfredo Ibarra ADDENDUM After receiving a liter of fluid here in the emergency room patient is feeling much improved. His vital signs at discharge are 72 pulse, 16 respirations, 120/90 blood pressure, and his room air saturation was 97% on room air. Dictated By: Alfredo Ibarra DO 02/05/18 03:49 JOB #: [id number] Transcribed By: bm 02/05/18 22:27 Electronically signed by: E-SIGN ALFREDO IBARRA 02/11/18 19:06 Page 1 of 1 CRISTINA GÓMEZ Emergency Room Report EMERGENCY REPORT Observed: 02/11/2018 Status: F [facility] 7:07 PM [facility] REPORT NAME ACCOUNT SEX AGE ADMIT DISCHARGE PT MED. RECORD# NUMBER DATE DATE TYPE DALIA [id number] Loy 42 02/04/18 02/05/18 3 [place] [address] ROOM: ER DATE OF : 1975 DICTATING PHYSICIAN: Alfredo Ibarra CHIEF COMPLAINT: Patient states for a couple of days he has felt just kind of out of sorts when he gets up and walks around. HISTORY OF PRESENT ILLNESS: He states this all started 2 days ago when he was up to [place]. He was up there with his . He had a couple of drinks, not many. He states he rested and he states the next morning he got up and he felt fine when he was lying down but when he got up and around he just felt like he was a little off kilter. Denies headaches or neck pain. Denies any chest pain, shortness of breath, difficulty breathing. Denies any urinary problems. He states he rested in bed for several hours after the initial episode and then he got up and around, and he was doing okay, and then he states today he felt a little bit like that before. He thought maybe this was a stress problem or perhaps it was potassium because in the past he has had a low potassium problem. He also notes that he has had a previous cervical surgery about 4 years ago for strained ligaments and neuro impairment of his neck. He states also no history of brain tumors. No change in hearing, vision or speech. No loss of control or bowel or urine. No deformities to extremities. No history of this in the past. No fever or chills. Family doctor is Dr. Luan Tyler. SOCIAL HISTORY: He is . He drove here himself. 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 He states there has been a considerable amount of stress there lately with 2 new Trustees trying to exert influences on the way that the [facility] is run. PHYSICAL EXAMINATION: On exam, he is pleasant, alert and oriented. He seems just a little bit anxious. He was seen at 2253 in room #4. His head is normocephalic. Tympanic membranes, canals and pinnae are normal. Pharynx is symmetrical, no stridor, hoarseness or injection. Neck is easily supple. There is no anterior or posterior cervical lymphadenopathy. His neck is supple. There is no discomfort present. His tympanic membranes demonstrate no retrotympanic membranes or heme. Pupils are equal, round and reactive at 3.5 mm. His Babinski's are downwards. Romberg is negative. Face is symmetric. Speech is precise. Use of arms and legs appropriate. His lungs are totally clear. There is no expiratory wheeze or retractions. Heart rate and rhythm is regular. PMI is left breast. He has good radial pulses, dorsalis pedis pulses, and femoral pulses. No peripheral edema. He is alert and he has no evident cognitive impairment. On exam he is pleasant and alert. Skin turgor is good. Page 1 of 2 CRISTINA GÓMEZ Emergency Room Report DIAGNOSTIC DATA: Results of CT of his head showed an arachnoid cyst in the posterior fossa; however, this was unchanged from a CT of 28 Sep 2013. By direct conversation with Dr. Gonzales at 0105 hours 05 February 2018 there has been no change in this. The laboratory data was all excellent. Potassium was 3.7. EKG was a normal sinus mechanism without any evidence of an CA. There was no ectopy was seen. Troponin was negative. His heart rate on his EKG, which was performed at 2237 hours, was 80. This was a normal sinus mechanism. This was interpreted by Dr. Ibarra. EMERGENCY DEPARTMENT COURSE AND TREATMENT: I told him I thought this was probably dehydration. Certainly the events of this past several weeks when he has had problems where there have been some [place] issues up in [place] could play in to this but I think he is probably just fatigued. We checked his labs, put an IV in him and gave him a liter of fluid. DIAGNOSES: 1. Dehydration. 2. Unchanged arachnoid cyst in the posterior fossa. PLAN/DISPOSITION: Patient was discharged to home. Return p.r.n. if necessary. Follow up with Dr. Luan Tyler in the office. Patient was given an off work excuse and instructed to follow up with Dr. Luan Tyler or return p.r.n. if necessary. No medications at this time. Dictated By: Alfredo Ibarra DO 02/05/18 03:48 JOB #: [id number] Transcribed By: stella 02/05/18 22:03 Electronically signed by: E-SIGN ALFREDO IBARRA DO 02/11/18 19:06 Page 2 of 2 CRISTINA GÓMEZ Emergency Room Report URINALYSIS Collected: 02/04/2018 Status: F Source: [place] 11:50 PM [facility] REPOSITORY TYPE CODE TESTS RESULT OUT OF REFERENCE UNITS RANGE LAB URINALYSIS (LOINC) URINALYSIS Result Comment: URINALYSIS LAB Specimen Type(LOINC) Specimen Void Type LAB Color(LOINC) NORMAL: YELLOW Color p.yel LAB Clarity(LOINC) NORMAL: CLEAR Clarity clear LAB ph(LOINC) NORMAL: 5.0-8.0 ph 6.5 LAB Protein(LOINC) NORMAL: NEGATIVE Protein NEG LAB Glucose(LOINC) NORMAL: NORMAL Glucose NORM LAB Ketone(LOINC) NORMAL: NEGATIVE Ketone NEG LAB Bilirubin(LOINC) NORMAL: NEGATIVE Bilirubin NEG LAB Blood(LOINC) NORMAL: NEGATIVE Blood NEG LAB Urobilinog(LOINC) NORMAL: NORMAL Urobilinog NORM LAB Sp [place](LOINC) NORMAL: 1.010-1.030 Sp [place] 1.010 LAB Nitrite(LOINC) NORMAL: NEGATIVE Nitrite NEG LAB Leukocytes(LOINC) NORMAL: NEGATIVE Leukocytes NEG LAB Microscopic(LOINC ) Microscopic NOT INDICATED Performed By: #### [id number] #### [facility],[address] [place] [address] Observed: 02/04/2018 Status: F Source: [place] CULTURE URINE 11:50 PM [facility] REPOSITORY CULTURE URINE _URINE CULTURE_ M I C R O B I O L O G Y R E P O R T FINAL Antimicrobial Susceptibility and Organism Identification Report Specimen Number : [id number] Requested : 02/04/18 Specimen Source : URINE Collected : 02/04/18 23:50 [place] [facility] : Emergency Room Received : 02/04/18 23:50 Requesting Physician : STACEY [place] Patient/Specimen Tests and Comments Specimen Comments FINAL REPORT: NO GROWTH AT 48 HOURS Tech : Source : URINE ID # : [id number] FINAL Report Date : / / : Collected : 02/04/18 23:50 02/07/18.1229.ROZS. 02/06/18.1137.KLS. 02/07/18.1229.KLS.COMPLETE Performed By: #### [id number] #### [facility],[address] [place] [id number] BRAIN W/O CONTRAST Observed: 02/04/2018 Status: F Source: [place] 11:[address] [address] Patient: CRISTINA GÓMEZ Phone#: : 1975 Age: 42 Gender: M Pt. Type: ER Account: [id number] Location: 052 Ordering: DR. ALFREDO IBARRA Exam Date: 02/04/2018/23:21 Family Phys: LUAN TYLER Charge Code: [id number] Physician: [place] Order #: [id number] DLP Dose#: [id number] PROCEDURE: CT BRAIN WITHOUT CONTRAST COMPARISON: [facility], CT, BRAIN W/O CON, 09/28/2013, 18:15. INDICATIONS: Dizziness TECHNIQUE: CT images were obtained without contrast material. All CT scans at this facility use dose modulation, iterative reconstruction, and/or weight based dosing when appropriate to reduce radiation dose to as low as reasonably achievable. IV CONTRAST: No IV contrast used,0ml TOTAL DOSE: 57.5 CTDIvol(mGy) FINDINGS: CEREBRUM: No bleed or mass effect. Basal ganglia calcification felt to be physiologic and unchanged. CEREBELLUM: Prominent suprasellar cistern versus small posterior fossa arachnoid cyst; unchanged from 2013. BRAINSTEM: No edema, hemorrhage, mass, acute infarction, or inappropriate atrophy. CSF SPACES: Ventricles and sulci are appropriate for age. No hydrocephalus. SKULL: No mass or other significant visible lesion. SINUSES: Limited views demonstrate no significant mucosal thickening or fluid. ORBITS: Limited views are unremarkable. OTHER: Negative. CONCLUSION: 1. No acute process in the brain. 2. No change from 2013. Continued Report - Page 2 of 2 Patient: CRISTINA GÓMEZ Phone#: : 1975 Age: 42 Gender: M Pt. Type: ER Account: [id number] Location: 052 Ordering: DR. ALFREDO IBARRA Exam Date: 02/04/2018/23:21 Family Phys: LUAN TYLER Charge Code: [id number] Physician: [place] Order #: [id number] DLP Dose#: [id number] Dictated by: Ellis Morton MD on 02/05/2018 at 8:20 Approved by: Ellis Morton MD on 02/05/2018 at 8:20 CBC Collected: 02/04/2018 Status: F Source: [place] 10:50 PM [facility] REPOSITORY TYPE CODE TESTS RESULT OUT OF RANGE REFERENCE UNITS LAB CBC(LOINC) CBC Result Comment: CBC-COMPLETE BLOOD COUNT LAB WBC(LOINC) 4.5 - 10.8 x 10EE3/UL WBC 6.7 LAB RBC(LOINC) 4.50 - x 10EE6/UL 6.00 RBC 5.27 LAB HEMOGLOBIN(LOINC) 13.0 - g/dl 17.5 HEMOGLOBIN 16.0 LAB HEMATOCRIT(LOINC) 40.0 - % 52.0 HEMATOCRIT 45.2 LAB MCV(LOINC) 81 - 98 fl MCV 86 LAB MCH(LOINC) 27 - 33 pg MCH 30 LAB MCHC(LOINC) 32 - 36 X10 3 MCHC 35 LAB RDW/CV(LOINC) 12.0 - % 15.6 RDW/CV 13.1 LAB PLATELET(LOINC) 150 - 450 x10EE3/UL PLATELET 240 LAB MPV(LOINC) 6.4 - 10.5 fl MPV 8.7 Result Comment: AUTOMATED DIFFERENTIAL LAB NEUT %(LOINC) 46.0 - 76.0 % NEUT % 54.5 LAB LYMPH %(LOINC) 20.0 - 45.0 % LYMPH % 37.3 LAB MONOS %(LOINC) 0.0 - 10.0 % MONOS % 7.0 LAB EO %(LOINC) 0.0 - 7.0 % EO % 0.8 LAB BASO %(LOINC) 0.0 - 2.0 % BASO % 0.4 LAB Lymph #(LOINC) 0.80 - 2.80 x10EE3/U L Lymph # 2.50 LAB Neut #(LOINC) 1.50 - 7.10 x10EE3/U L Neut # 3.60 LAB Wake #(LOINC) 0.20 - 1.00 x10EE3/U L Wake # 0.50 LAB EO #(LOINC) 0.00 - 0.50 x10EE3/U L EO # 0.10 LAB Baso #(LOINC) 0.00 - 0.10 x10EE3/U L Baso # 0.00 LAB MANUAL DIFF(LOINC) MANUAL DIFF N/A LAB MORPHOLOGY(LOINC ) MORPHOLOGY N/A Result Comment: {CD] Performed By: #### [id number] #### [facility],[address] [place] [address] CMP WITH EGFR Collected: 02/04/2018 Status: F Source: [facility] 10:50 PM [facility] REPOSITORY TYPE CODE TESTS RESULT OUT OF RANGE REFERENCE UNITS LAB CMP with eGFR(LOINC) CMP with eGFR Result Comment: COMPREHENSIVE METABOLIC PANEL LAB SODIUM(LOINC) 136 - 145 mmol/l SODIUM 139 LAB POTASSIUM(LOINC) 3.5 - 5.1 mmol/L POTASSIUM 3.7 LAB CHLORIDE(LOINC) 98 - 107 mmol/L CHLORIDE 101 LAB CO2(LOINC) 21.0 - mmol/L 31.0 CO2 28.6 LAB GLUCOSE(LOINC) 74 - 106 mg/dl GLUCOSE 98 LAB BUN(LOINC) 6 - 20 mg/dl BUN 13 LAB CREATININE(LOINC) 0.7 - 1.3 mg/dl CREATININE 1.0 LAB AST/SGOT(LOINC) 13 - 39 U/L AST/SGOT Low 11 LAB ALK PHOS(LOINC) 38 - 126 U/L ALK PHOS Low 35 LAB CALCIUM(LOINC) 8.6 - mg/dl 10.2 CALCIUM 9.4 LAB TOTAL PROTEIN(LOINC) 6.4 - 8.3 g/dl TOTAL PROTEIN 6.8 LAB ALBUMIN(LOINC) 3.4 - 4.8 g/dL ALBUMIN 4.2 LAB GLOBULIN(LOINC) 1.5 - 3.8 G/DL GLOBULIN 2.6 LAB A/G RATIO(LOINC) 0.9 - 1.6 A/G RATIO 1.6 LAB TOTAL BILI(LOINC) 0.0 - 1.5 mg/dl TOTAL BILI 0.6 LAB B/C RATIO(LOINC) 0 - 30 ratio B/C RATIO 13 LAB ALT/SGPT(LOINC) 10 - 40 U/L ALT/SGPT 12 LAB ANION GAP(LOINC) 10 - 20 mmol/L ANION GAP 13 LAB AGE(LOINC) years AGE 42 LAB eGFR(LOINC) 60 - 999 ML/MINUTE eGFR >60 LAB eGFR(AA)(LOINC) 60 - 999 ML/MINUTE eGFR(AA) >60 Result Comment: ACCORDING TO THE NATIONAL KIDNEY DISEASE EDUCATION PROGRAM(NKDE), A NORMAL eGFR IS A VALUE GREATER THAN OR EQUAL TO 60 ML/MIN/1.73 SQ METERS. CHRONIC KIDNEY DISEASE: <60mL/MIN/1.73 SQ METERS KIDNEY FAILURE: <15mL/MIN/1.73 SQ METERS THIS TEST SHOULD ONLY BE USED FOR PATIENTS 18 YEARS OF AGE AND OLDER. Performed By: #### [id number] #### [address] [address] LIPASE Collected: 02/04/2018 Status: F Source: [facility] 10:50 PM [facility] REPOSITORY TYPE CODE TESTS RESULT OUT OF REFERENCE UNITS RANGE LAB LIPASE(LOIN 18.0 - 51.0 U/L C) Low LIPASE 8.0 Performed By: #### [id number] #### [address] [address] TROPONIN Collected: 02/04/2018 Status: F Source: [facility] 10:50 [facility] REPOSITORY TYPE CODE TESTS RESULT OUT OF REFERENCE UNITS RANGE LAB TROPONIN 0.00 - 0.05 ng/ml I(LOINC) TROPONIN I <0.01 Result Comment: Elevated troponin (above the 99th percentile) usually indicates myocardial ischemia. Results must be interpreted within the clinical setting. 1.Non-ischemic pathology can also cause elevated troponin levels (e.g., acute pulmonary embolism, myocarditis, pericarditis, heart failure, intracranial injury, rhabdomyolisis, sepsis, shock and renal insufficiency). 2.Approximately 1% of healthy adults have elevated troponin levels. 3.Analytical false positive results rarely occur(due to multiple interferences such as heterophile antibodies). Performed By: #### [id number] #### [address] [address] PACEMAKER CHECK Observed: 01/17/2018 Status: F Source: [place] 4:55 PM [facility] [place] [facility] [address] [place], [place] [address] Pacemaker Check Date of Service: 11/30/17 1631 MR#: [id number] Acct: [id number] Name: CRISTINA GÓMEZ Rep #: [id number] : 1975 From: Nelsy Awad Age/Sex: 42/M [place] [facility] Status: Signed 01/17/18 1655 <Electronically signed by Chino Petersen MD> Date Nelsy Awad Cosigner Signature: Date (if applicable) CC: CARDIOLOGY VISIT Observed: 12/13/2017 Status: F Source: [place] REPORT 8:17 AM [facility] [address] [place] [address]. [address] [place] [address] OFFICE VISIT Date of Service: 12/12/17 MR#: [id number] Acct: [id number] Name: CRISTINA GÓMEZ Rep #: [id number] : 1975 Provider: TERRI Pruitt Age/Sex: 42/M [place] [facility] Status: Signed HPI HPI Details: CRISTINA GÓMEZ, is a 42 M who presents to the office today for a cardiovascular outpatient follow-up. He has a history of vasovagal symptoms, near syncope, palpitations, and tachycardia dysrhythmia. Pt denies chest, arm, jaw, or neck discomfort. His exercise tolerance is stable. Pt denies symptoms of CHF, palpitations, lightheadedness, dizziness, near syncopal or syncopal episodes. Pt denies edema or claudication issues. Pt. denies orthopnea, PND, fever, chills, blood in urine, blood in stool, myalgia, or unexplainable fatigue. He states some palpitations that he feels is related to PVCs. He states this lasts for a few beats. He denies any secondary symptoms. This occurs infrequently. He states left elbow tendonitis that causes some left lower arm numbness. Intake Vital Signs12/12/17 Height 5 ft 10 in 12/12/17 Weight: 176 lb 12/12/17 Body Mass Index (BMI) 25.2 12/12/17 Blood Pressure 112/80 12/12/17 Blood Pressure Location Lt brachial Intake Visit Reasons: 1 Y FU English [employer] Required: No Accompanied by: None Is patient in pain?: No Allergies No Known Allergies Allergy (Verified 12/12/17 13:41) Medications Pantoprazole Sodium [Protonix] 20 mg PO DAILY 09/02/15 [History Confirmed 07/09/17] Paroxetine HCl [Paxil] 10 mg PO DAILY 09/02/15 [History Confirmed 07/09/17] PFSH Medical History Other specified cardiac device in situ (Chronic) Palpitations (Acute) GERD (gastroesophageal reflux disease) (Chronic) Anxiety (Chronic) Hiatal hernia (Chronic) Inguinal hernia (Chronic) DARA (obstructive sleep apnea) (Chronic) Surgical History History of cholecystectomy (Resolved) History of nasal surgery (Resolved) Hx of appendectomy (Resolved) Family History Father Hypertension Sister SVT (supraventricular tachycardia) Social History Smoking Status: Never smoker alcohol intake: never substance use type: does not use caffeine: Yes Type: coffee Number of servings: 1 ROS Const Const: Negative for fatigue, weakness, body ache, fever(s) or chills ENT ENT: Negative for dizziness Cardio Chest Pain: No Palpitations: Yes Edema: None Muscle aches with walking: None Resp Respiratory: Negative for SOB with activity, SOB at rest, SOB orthopnea\SOB lying down or paroxysmal nocturnal dyspnea GI GI: Negative nausea, black,tarry stools, bright, red blood in stools or vomiting blood/hematemesis : Negative for hematuria or frequent nighttime urination/ nocturia Musc Musc: Negative for muscle aches/ myalgia Skin Skin: Negative non-healing lesions or rash Neuro Neuro: Positive for other (left arm numbness); negative for weakness, dizziness, lightheadedness, near syncope, syncope or orthostatic symptoms Endo Endo: Negative for fatigue Allergy Allergy/Immunology: Negative for rash Cardiology Exam Const Appearance: cooperative, healthy appearing, comfortable and no acute distress Orientation: alert, awake and oriented x3 Head Head: normal to inspection Ears: hearing grossly normal bilaterally Nose: external nose normal Face and Sinus: face symmetric Mouth: oral mucosae normal Eyes General: appearance normal, both eyes and all related structures Eyelids: eyelids normal Neck Neck: no JVD and normal visual inspection Carotids: normal carotid upstroke Chest Chest inspection: normal inspection of the chest and normal respiratory effort; negative cough Auscultation: Bilateral: Clear to Auscultation Cardio Rate: regular rate Rhythm: regular rhythm Heart sounds: S1 normal and S2 normal; negative rub or gallop GI GI: normal to inspection Neuro General: alert, awake, oriented x3 and CN's II-XI intact bilaterally Skin Skin: no rashes or lesions noted Extremities Pulses: Normal: Right Posterior Tibial Pulse, Left Posterior Tibial Pulse, Right Radial Pulse, Left Radial Pulse Lower Extremity Edema: None: Bilateral Psych Psychological: normal affect Supplemental Info Loop recorder check from November 2017 showed no bradycardia, no tacky, no pauses, and no AT/AF episodes, battery of okay, and presenting rhythm of normal sinus rhythm at 68 bpm Stress test from September 2016 was an adequate exercise tolerance test and was negative by ECG, rare PVCs were noted during recovery, isolated PVCs during exercise, and exellent functional capacity. Assessment AND Plan 1. Palpitations R00.2 Plan Patient does describe some occasional palpitations. 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 He denies any symptoms noted during episodes of palpitations. His most recent loop recorder showed no bradycardia, no tacky, no pauses, and no AT/AF episodes. Battery was okay. Presenting rhythm was NSR at 68 bpm. He is not on any medications at this time for this. He will continue to monitor symptoms and contact office if he notices an increase in frequency and or develops any secondary symptoms. We will continue to follow this through his loop recorder. 2. Other specified cardiac device in situ Z95.818 Plan His loop recorder appears to be functioning appropriately. We will continue to monitor this on a routine/scheduled basis. Plan Detail Additional Comments Thank you for allowing us to participate in the patients plan of care, if you have any questions please do not hesitate to call. This note was generated using a voice recognition system and there may be incorrect words, spelling or punctuation that were not noted when reviewing the office note prior to saving. Follow Up 14 Months (PFM) Coding Level of Care Code Off vis,est,level 3 Diagnoses Palpitations R00.2 Other specified cardiac device in situ Z95.818 Coding Level of Care Code Off vis,est,level 3 Diagnoses Palpitations R00.2 Other specified cardiac device in situ Z95.818 12/13/17 0817 <Electronically signed by Quique QUINONEZ> Date Quique QUINONEZ Cosigner Signature: Date (if applicable) CC: Luan Tyler PACEMAKER CHECK Observed: 09/14/2017 Status: F Source: [place] 11:35 AM [facility] [address] [place] [address] Pacemaker Check Date of Service: 08/30/17 1515 MR#: [id number] Acct: [id number] Name: CRISTINA GÓMEZ Rep #: [id number] : 1975 From: Nelsy Awad Age/Sex: 41/M Location: [facility] Status: Signed Comments Summary Comments: Remote Implantable Loop Recorder Evaluation: Remote interrogation shows no patient activated symptoms, no tachy, no pauses, no cuco and no AT/AF episodes since 06/18/17. Battery ok. Presenting rhythm shows NSR @ 80 bpm. Next remote check scheduled for in 3 mos. Device Device Date Interviewed: 08/30/17 Follow-up Location: remote Interview Reason: scheduled follow up Nascar Racer: [employer] Name: Reveal LinQ Model: LNQ11 Serial #: [id number] Implant Date: 06/08/16 Year(s): 1 Implant Physician: Dr. Edinson Freeman Patient Characteristics Atrial Indication: Sinus bradycardia, Paroxysmal atrial fibrillation Ejection fraction %: 55 to 59 (08/04/2013) By: Echo Underlying rhythm: Sinus rhythm Device Characteristics Type: Implantable loop recorder Billing Codes ILR Device Interrogate: Yes Assessment AND Plan Problems 1. Other specified cardiac device in situ Z95.818 2. Palpitations R00.2 09/14/17 1040 <Electronically signed by Nelsy Awad > Date Nelsy Awad 09/14/17 1135<Electronically signed by Chino Petersen MD> Cosigner Signature: Date (if applicable) Chino Petersen MD CC: EMERGENCY DEPARTMENT Observed: 07/09/2017 Status: F Source: [place] SUMMARY 10:11 AM [facility] [place] [facility] Medical Records Department [address] [place] [address] Emergency Department Summary 07/09/17 0907 MR#: [id number] Acct: [id number] Name: CRISTINA GÓMEZ Rep #: [id number] : 1975 41 From: Dinah Torres MD PCP: Luan Tyler Status: REG ER - ER Visit Summary Date of Service: 07/09/17 Chief Complaint: Right small finger laceration History of Present Illness: The patient is a 41 M presenting with right small finger laceration. Patient states he was using a saw and looked down and noticed bleeding of his right small finger. He is unsure how this occurred. This was not a work-related injury. He is unsure of his last tetanus immunization. No other injuries. Physical Examination: Vitals are stable. Patient is afebrile. Alert no acute distress. HEENT exam is unremarkable. Lungs are clear and equal bilaterally. Heart is regular rate and rhythm. Extremities: 1.5 cm laceration to the dorsal finger pad of the distal right small finger, 2 cm laceration to the lateral nail on the volar aspect of the finger. Tendon function is intact. Skin is warm and dry. No focal neurologic deficit. Normal strength and sensation Remainder of exam is unremarkable. Emergency Department Course and Treatment: Patient was given tetanus IM. Laceration was repaired under sterile conditions. Irrigated with saline. 4, 5-0 simple sutures were placed in the dorsal laceration. 3, 5-0 simple sutures were placed in the volar laceration. Wound was cleaned and dressed. Advised wound care instructions. Advised to return to ED for any signs of infection. Disposition: Discharge home Impression: Right small finger laceration, laceration repair This note was generated with [employer] dictation software. It may contain incorrect words, spelling, and punctuation that were not noted in review of the chart prior to signing ED Disposition - Plan for ED Patient: Chief Complaint: Laceration Referrals: Luan Tyler [Primary Care Provider] - What to do if you have Problems For any increased pain, shortness of breath, bleeding, nausea or vomiting, chest pain, or any unexpected problems, contact your Primary Care Provider. Call [facility] ([phone]) or report to the closest Emergency Room. Call 911 if necessary. 07/09/17 1011 <Electronically signed by Dinah Torres MD> Date Dinah Torres MD Cosigner Signature (If Indicated): Date CC: Luan Tyler DISCHARGE INSTRUCTION Observed: 07/09/2017 Status: F Source: [place] 10:11 AM [facility] [place] [facility] Medical Records Department [address] [place] [address] Discharge Instruction 07/09/17 1011 MR#: [id number] Acct: [id number] Name: CRISTINA GÓMEZ Rep #: [id number] : 1975 41 From: Dinah Torres MD PCP: Luan Tyler Status: REG ER ED Disposition - Plan for ED Patient: Chief Complaint: Laceration Instructions: ED Laceration Hand Referrals: Luna Tyler [Primary Care Provider] - What to do if you have Problems For any increased pain, shortness of breath, bleeding, nausea or vomiting, chest pain, or any unexpected problems, contact your Primary Care Provider. Call [facility] ([phone]) or report to the closest Emergency Room. Call 911 if necessary. 07/09/17 1011 <Electronically signed by Dinah Torres MD> Date Dinah Torres MD Cosigner Signature (If Indicated): Date CC: Luan Tyler HAND MIN 3 VIEWS Observed: 07/09/2017 Status: F Source: [place] 9:06 AM [facility] [place] [facility] Imaging Services [address] [place] [address] Hand Min 3 Views MR#: [id number] Acct: [id number] Name: CRISTINA GÓMEZ Rep #: [id number] : 1975 M 41 From: Raheem Torres MD PCP: Luan Tyler Status: REG ER Study: Hand Min 3 Views Date of Exam: 07/09/17 Exam# [id number] Ordering Dr: Dinah Torres MD STUDY: X-RAY - RIGHT HAND REASON FOR EXAM: Male, 41 years old. Laceration to the distal aspect of the fifth digit. TECHNIQUE: 3 view(s) of the hand. COMPARISON: None. FINDINGS: Normal radiocarpal articulation. Normal distal radioulnar joint. Normal visualized carpal bones. Normal carpal articulations Normal carpometacarpal articulation of the thumb. Normal second through fifth carpometacarpal joints. Normal metacarpi. Normal metacarpophalangeal joint of the thumb. Normal interphalangeal joint of the thumb. Normal proximal and distal phalanges of the thumb. Normal metacarpophalangeal joints of the second through fifth fingers. Normal proximal and distal interphalangeal joints of the second through fifth fingers. Normal phalanges of the second through fifth fingers. Soft tissue injury. RAD/Hand Min 3 Views IMPRESSION: Soft tissue injury. No bony abnormality is seen. No radiopaque foreign body is present. Electronically Signed: Raheem Torres MD at 9:31 EST Tel [phone], Service support , CC: Dinah Torres MD; Luan Tyler Associate Professor Of Mathematics: Signed ALLERGIES ALLERGIES DATE TYPE / CODE NAME / CODE REACTION SEVERITY SOURCE 05/20/2018 Drug No Known Unknown Rebecca Allergy/962554782(S Allergies/F0019 [facility] NOMED CT) [address](RXNORM) Hospital Repository NG/104705435(SNOMED NO KNOWN [facility]) ALLERGIES Health System Repository Drug NO KNOWN Exline Class/284142792(SNO ALLERGIES Clinic Main [facility] CT) [place] Repository Miscellaneous No Known Drug Moderate Dez Pomralfne Allergy/135611786(S Allergies (Severity [facility] NOMED CT) Modifier) [facility] (Qualifier Repository Value) ENCOUNTERS ENCOUNTERS ADMIT/DISCHARGE ACCOUNT NUMBER ADMITTING ENCOUNTER LOCATION SOURCE CLASS 06/11/2018/06/11/19 [id number] EPIFANIO Emergency Buildin[address] [place] [address] DR STACI Tomlinson Room: ERBed: [facility] Repository 05/27/2018/05/28/19 [id number] Ambulatory [address] Repository 05/26/2018/05/28/[id number] Repository 05/26/2018/05/26/[id number] TRO Emergency Buildin[address] [place] [address] FREDDY Frost Room: ERBed: [facility] Repository 05/20/2018/05/20/20 [id number] Ambulatory BMSBuilding: Rebecca 18 BMS.[facility] Repository 05/08/2018/05/09/20 [id number] Ambulatory [address] Repository 05/06/2018/12/20 [id number] SID, Inpatient Exline 18 ROEL Le Encounter [facility] Repository 05/05/2018/05/06/20 [id number] YAMILE, Emergency Buildin[address] [place] [address] Room: ERBed: [facility] Repository 05/01/2018/05/01/20 [id number] Emergency [address] ding:ED Repository 04/30/2018/04/30/20 [id number] Ambulatory [address] Repository 04/29/2018 [id number] Ambulatory [facility] MEDICAL Repository CENTERBuildi ng:AGCARDPHR A 04/28/2018/04/30/20 [id number] JAVI, Inpatient Exline 18 EIMARCUS Z Encounter [facility] Repository 04/25/2018/04/28/20 [id number] SONALI BAILON, Inpatient ABuilding:CC Patricia Palacio Encounter URoom: Health 0326Bed: A [facility] Repository 04/25/2018/04/25/20 [id number] YAMILE, [facility] Room: ERBed: [facility] Repository 04/20/2018/04/20/20 [id number] TIA, Emergency Buildin[address] [place], [place] [address]dione LUCILLE BAILON Room: ERBed: [facility] Repository 04/08/2018/04/08/20 [id number] Emergency [address] ding:ED Repository 04/07/2018/04/07/20 [id number] Emergency [address] ding:ED Repository 04/01/2018/04/01/20 [id number] Ambulatory BMSBuilding: Rebecca 18 BMS.[facility] Repository 03/20/2018/03/20/20 [id number] Ambulatory BMSBuilding: [place] 18 BMS.[facility] Repository 03/17/2018/03/18/20 [id number] White, Inpatient [place] 18 Yuli [facility] ding:ICURoom Repository : [id number]: 1 03/17/2018 [id number] White, Ambulatory BMSBuilding: Rebecca Yuli BMS.[facility] Repository 03/17/2018 [id number] [place], Ambulatory BMSBuilding: Rebecca Yuli BMS.CF.[facility] Repository 03/17/2018 [id number] White, Ambulatory BMSBuilding: Rebecca Yuli BMS.[facility] Repository 03/17/2018 [id number] White, Ambulatory BMSBuilding: Rebecca Yuli BMS.CF.[facility] Repository 03/17/2018/03/18/20 [id number] Ambulatory BMSBuilding: [place] 18 [facility] Repository 03/16/2018/03/17/20 [id number] SHAWN CERVANTES Emergency Buildin[address] [place] [address] 18 DO Room: ERBed: [facility] Repository 03/13/2018/03/13/20 [id number] Ambulatory BMSBuilding: [place] 18 BMS.[facility] Repository 02/04/2018/02/06/20 [id number] STACEY Emergency [facility]in[address] [place] [address] 18 ALFREDO DO Room: ERBed: [facility] Repository 12/12/2017/12/13/19 [id number] Ambulatory BMSBuilding: [place] 18 BMS.[facility] Repository 11/30/2017/12/01/19 [id number] Ambulatory BMSBuilding: [place] 18 BMS.[facility] Repository 09/13/2017/09/14/19 [id number] Ambulatory BMSBuilding: [place] 18 BMS.[facility] Repository 08/30/2017/08/31/19 [id number] Ambulatory BMSBuilding: [place] 18 BMS.[facility] Repository 08/15/2017 [id number] Ambulatory BMSBuilding: [place] BMS.[facility] Repository 07/09/2017/07/09/19 [id number] Emergency [address] ding:ED Repository PAYERS PAYERS ENCOUNTER GUARANTOR PAYER SUBSCRIBER SOURCE 06/11/2018 CRISTINA Wyman MILLERDOB: Insurance:AULTCARE MILLERDOB: [facility] [id number] [facility] [id number] [facility] CR Number: 1 CR Repository [address] [place] [address], [id number] [address] [place] [address]Htt: Date:Plan Name:A2 [place] [address] (HP) 05/26/2018 CRISTINA GÓMEZDOB: Insurance:AULTCARE [facility] [id number] [facility] [id number] Hospital CR Number: 1 CR Repository [address] [place] [address], [id number] [address] [place] [address]Ptg: Date:Plan Name:A2 [place] [phone] (HP) 05/20/2018 CRISTINA Bay Primary CRISTINA Fernandez [id number] CR Insurance:AULTCAREPoli MILLERDOB: [address] Number: [id number] Women's Hospital [address]Skx: [id number] Repository Date:1353-91-00SZ BOX (HP) [place], [place] [address]CX: 05/20/2018 Secondary NOT GIVENUNK [place] Insurance:SELF PAY [facility] Number: Effective Repository Date:2018-05-20 05/05/2018 CRISTINA Wyman DRY BRANCHDOB: Insurance:AULTCARE MILLERDOB: [facility] [id number] [facility] [id number] Hospital CR Number: 1 CR Repository [address] [place] [address], [id number] [address] [place] [address]Bvl: Date:Plan Name:A2 In [address] (HP) 05/01/2018 CRISTINA Bay Primary CRISTINA Bay Rebecca [id number] CR Insurance:AULTCAREPoli MILLERDOB: [address], Number: [id number] Women's Hospital [address]Lgx: [id number] Repository Date:7373-29-22EB BOX (HP) [place] [address]ZJ: 05/01/2018 Secondary NOT GIVENUNK Rebecca Insurance:SELF PAY [facility] Number: Effective Repository Date:2018-05-01 04/29/2018 CRISTINA Bay Primary CRISTINA Bay [facility] MILLERDOB: Insurance:AUCAREPolRegional Rehabilitation HospitalDOB: Health System cy Number: [id number] Repository [address] [id number] [address] [place] [address], Date: [place] [address]Hxr: () 04/25/2018 CRISTINA Bay Primary CRISTINA Bay [facility] MILLERDOB: Insurance:AUCARE MILLERDOB: [facility] INSCOPolicy Number: [id number] Repository [facility] [address] [id number] [facility] [address] [place] [address], Date:2018-04-[address] [place] [address] [id number] [place] [address]Miv: [address]~NAVEED Name:SENIOR QUALITY ANALYST Javon ER@[facility].[address] ()Tel: (168) OMTel: ([phone]) [address]WP: () [phone] (HP) () 04/25/2018 CRISTINA Bay [facility] CRISTINA Wyman DRY BRANCHDOB: Insurance:AUCARE DRY BRANCHDOB: [facility] [id number] [facility] CR Number: 1 CR Repository [address] [place] [address], [id number] [address]Vev: Date:Plan Name:[facility] [id number] (HP) 04/20/2018 CRISTINA Bay [facility] CRISTINA Garces [facility] DRY BRANCHDOB: Insurance:AULTCARE MILLERDOB: [facility] [id number] [facility] CR Number: 1 CR Repository [address] [place] [address], [id number] [address]Lvz: Date:Plan Name:[facility] [id number] () 04/08/2018 CRISTINA Bay Primary CRISTINA Bay Rebecca [id number] CR Insurance:AULTCAREPoli DALIADOB: [address], cy Number: [id number] Women's Hospital [address]Fdy: [id number] Repository Date:6346-47-10AD [address]OX () [address], [place] [address]DW: 04/08/2018 Secondary NOT GIVENUNK [place] Insurance:SELF PAY [facility] Number: Effective Repository Date:2018-04-08 04/07/2018 CRISTINA Bay Primary CRISTINA Fernandez [id number] CR Insurance:AULTCAREPoli DALIADOB: [address], Number: [id number] Women's Hospital [address]Smm: [id number] Repository Date:0062-55-38BV [address]OX () [address], [place] [address]NJ: 04/07/2018 Secondary NOT GIVENUNK Rebecca Insurance:SELF PAY [facility] Number: Effective Repository Date:2018-04-07 04/01/2018 CRISTINA Bay Primary CRISTINA Fernandez [id number] CR Insurance:AULTCAREPoli DALIADOB: [address], Number: [id number] Women's Hospital [address]Hxa: [id number] Repository Date:6531-61-11AC BOX () [address], [place] [address]GT: 04/01/2018 Secondary NOT GIVENUNK Rebecca Insurance:SELF PAY [facility] Number: Effective Repository Date:2018-04-01 03/20/2018 CRISTINA Bay Primary CRISTINA Fernandez [id number] Insurance:AULTCAREPoli DALIADOB: [facility] cy Number: [id number], [id number] [place]ository [place] [address]Qkc: Date:4251-43-44GM [address] [place] [address] () [address]VP: 03/20/2018 Secondary NOT GIVENUNK Rebecca Insurance:SELF PAY [facility] Number: Effective Repository Date:2018-03-20 03/17/2018 CRISTINA Bay Primary CRISTINA [id number] CR Insurance:AULTCAREPoli DALIADOB: [address] cy Number: [id number] Women's Hospital [address]Vbp: [id number] Repository Date:2353-01-30MH BOX (PL) [address], [place] [address]FS: 03/17/2018 Secondary NOT GIVENUNK [place] Insurance:SELF PAY [facility] Number: Effective Repository Date:2018-03-17 03/17/2018 CRISTINA Bay Primary CRISTINA Fernandez [id number] Insurance:AULTCAREPoli MILLERDOB: [facility] cy Number: [id number], [id number] [place]ository [place] [address]Xvb: Date:2116-94-19LB [address] [place] [address] () [address]AE: 03/17/2018 Secondary NOT GIVENUNK Rebecca Insurance:SELF PAY [facility] Number: Effective Repository Date:2018-03-17 03/17/2018 CRISTINA Bay Primary CRISTINA Fernandez [id number] Insurance:AULTCAREPoli MILLERDOB: [facility] cy Number: [id number], [id number] [place]ository [place] [address]Iix: Date:7272-76-04MS [address] [place] [address] () [address]SL: 03/17/2018 Secondary NOT GIVENUNK Rebecca Insurance:SELF PAY [facility] Number: Effective Repository Date:2018-03-17 03/17/2018 CRISTINA Bay Primary CRISTINA Fernandez [id number] Insurance:AULTCAREPoli MILLERDOB: [facility] cy Number: [id number], [id number] Repository [place] [address]Cxv: Date:7208-16-82DO [address] [place] [address] () [address]CZ: 03/17/2018 Secondary NOT GIVENUNK Rebecca Insurance:SELF PAY [facility] Number: Effective Repository Date:2018-03-17 03/17/2018 CRISTINA Phu Primary CRISTINA Bay Rebecca [id number] Insurance:AULTCAREPoli MILLERDOB: [facility] cy Number: [id number], [id number] [place]ository [place] [address]Eab: Date:0081-59-30AD [address] [place] [address] () [address]HN: 03/17/2018 Secondary NOT GIVENUNK Rebecca Insurance:SELF PAY [facility] Number: Effective Repository Date:2018-03-17 03/17/2018 CRISTINA Bay Primary CRISTINA Bay [place] [id number] CR Insurance:AULTCAREPoli MILLERDOB: [address], Number: [id number] Women's Hospital [address]Vrz: [id number] Repository Date:0362-87-17SO BOX () [address] [place] [address]PM: 03/17/2018 Secondary NOT GIVENUNK Rebecca Insurance:SELF PAY [facility] Number: Effective Repository Date:2018-03-17 03/16/2018 CRISTINA Bay Primary CRISTINA Wyman MILLERDOB: Insurance:AULTCARE MILLERDOB: [facility] [id number] [facility] [id number] [facility] CR Number: 1 CR Repository [address] [place] [address], [id number] [address] [place] [address]Npe: Date:Plan Name:[facility] [address] (CJ) 03/13/2018 CRISTINA Bay Primary CRISTINA Bay [place] [id number] Insurance:AULTCAREPoli MILLERDOB: [facility] cy Number: [id number] [address], [id number] Repository [place] [address]Bxl: Date:3963-55-98LX [address] [place] [address] () [address]CZ: 03/13/2018 Secondary NOT GIVENUNK Rebecca Insurance:SELF PAY [facility] Number: Effective Repository Date:2018-03-13 02/04/2018 CRISTINA Bay Primary CRISTINA Phu Wyman MILLERDOB: Insurance:AULTCAREPoli DALIADOB: [facility] [id number] cy Number: [id number] [facility] [id number] [address] [place] [address] [address] [place] [address], Date:2646-83-98Vxjc[address] [address]Pej: Name:[place] [address] (IR) 12/12/2017 CRISTINA Phu Primary CRISTINA Bay Rebecca [id number] Insurance:AULTCAREPoli MILLERDOB: [facility] cy Number: [id number], [id number] [place]ository [place] [address]Kcd: Date:4471-17-33SF [address] [place] [address] () [address]RO: 12/12/2017 Secondary NOT GIVENUNK [place] Insurance:SELF PAY [facility] Number: Effective Repository Date:2017-12-12 11/30/2017 CRISTINA T Primary CRISTINA T Rebecca [id number] Insurance:AULTCAREPoli MILLERDOB: [facility] cy Number: [id number], [id number] [place]ository [place] [address]Ysl: Date:1495-58-27CG [address] [place] [address] () [address]RI: 11/30/2017 Secondary NOT GIVENUNK Rebecca Insurance:SELF PAY [facility] Number: Effective Repository Date:2017-11-30 2017 CRISTINA Phu Primary CRISTINA Bay [place] [id number] Insurance:AULTCAREPoli MILLERDOB: [facility] cy Number: [id number], [id number] [place]ository [place] [address]Tyo: Date:2390-65-45CK [address] [place] [address] () [address]XC: 2017 Secondary NOT GIVENUNK Rebecca Insurance:SELF PAY [facility] Number: Effective Repository Date:2017 08/30/2017 CRISTINA Phu Primary CRISTINA Bay [place] [id number] Insurance:AULTCAREPoli MILLERDOB: [facility] cy Number: [id number], [id number] [place]ository [place] [address]Aeq: Date:3433-12-04EZ [address], [place] () [address]QH: 08/30/2017 Secondary NOT GIVENUNK [place] Insurance:SELF PAY [facility] Number: Effective Repository Date:2017-08-30 08/15/2017 CRISTINA Bay Primary CRISTINA Fernandez [id number] Insurance:AULTCAREPoli MILLERDOB: [facility] cy Number: [id number], [id number] [place]ository [place] [address]Kuj: Date:8056-06-02FC [address] [place] [address] () [address]GJ: 08/15/2017 Secondary NOT GIVENUNK Rebecca Insurance:SELF PAY [facility] Number: Effective Repository Date:2017-08-15 07/09/2017 CRISTINA Bay Primary CRISTINA Bay Rebecca [id number] Insurance:AULTCAREPoli MILLERDOB: [facility] cy Number: [id number], [id number] [place]ository [place] [address]Yew: Date:0326-55-99[address], [place] ([place]) [address]ZR: 07/09/2017 Secondary NOT GIVENUNK [place] Insurance:SELF PAY [facility] Number: Effective Repository Date:2017-07-09
== END 2018-05-01 23:41 | disposition short-term general hospital (02) ==
PROVIDERS: Emergency Provider Emergency Medicine; Family Provider Family Medicine; PCP Family Medicine
DX: R07.89 Other chest pain (principal); I48.0 Paroxysmal atrial fibrillation; K21.9 Gastro-esophageal reflux disease without esophagitis; F32.9 Major depressive disorder, single episode, unspecified; Z79.01 Long term (current) use of anticoagulants; Z79.82 Long term (current) use of aspirin; Z79.899 Other long term (current) drug therapy
CPT/HCPCS: 71045; 80048; 84484; 85025; 93005; 99285; A4216

== ENCOUNTER → 2018-08-20 11:20 | Outpatient (CLI) | payer OTHER, SELFPAY ==
[2018-08-14 14:24] VITALS: BMI 23.6
--- NOTE | 2018-08-20 13:49 | STRESSREP ---
Stress Test Report Date: 08-20-18 Procedure: Exercise tolerance test Indications: CAD; status post open heart surgery; precardiac rehabilitation evaluation Consent: Per the patient Procedure: The patient exercised on a Silvestre protocol for 9 minutes completing Stage III achieving a peak heart rate of 134 bpm (76 % predicted maximal heart rate) with a peak blood pressure 144/80 mmHg and a peak MET capacity of approximately 10 MET's. The baseline ECG demonstrated normal sinus rhythm. The peak exercise ECG demonstrated no obvious ECG changes. There was a rare PVC during exercise. The functional capacity was considered good. The patient had no complaint of chest discomfort during exercise or recovery. The examination was discontinued secondary to fatigue. Impression: 1. Technically adequate (percent predicted maximal heart rate greater than 85%) exercise tolerance test 2. Peak exercise ECG with no obvious ECG changes 3. There was a rare PVC during exercise This note was generated with [employer] software. It may contain incorrect words, spelling, and punctuation that were not noted in checking the note before signing.
== END ==
PROVIDERS: Family Provider Family Medicine; PCP Family Medicine; Referring Provider Internal Medicine Cardiovascular Disease; Visit Provider Internal Medicine Cardiovascular Disease
DX: Q24.5 Malformation of coronary vessels (principal)
CPT/HCPCS: 93017

== ENCOUNTER → 2019-12-14 | Outpatient (CLI) | payer OTHER, SELFPAY ==
[2019-09-08 14:26] VITALS: BMI 23.0
== END | disposition home or self-care (01) ==
LOC: LABSPEC 10:03
PROVIDERS: PCP Family Medicine; Referring Provider Nurse Practitioner Family; Visit Provider Nurse Practitioner Family
DX: Z20.828 Contact with and (suspected) exposure to other viral communicable diseases (principal)
CPT/HCPCS: 87635; 94799; U0003

== ENCOUNTER → 2020-01-09 10:40 | Outpatient (CLI) | payer OTHER, SELFPAY ==
[2019-12-25 15:21] VITALS: BMI 25.1
--- NOTE | 2020-01-09 10:43 | ECHOD_ITS ---
Reason For Study: ARRHYTHMIA Procedure This was a 2D Doppler, Color Flow transthoracic echocardiogram. The exam was of adequate technical quality. Exam performed in department. Left Ventricle Normal LV size. Left ventricular systolic function is normal. The estimated ejection fraction is 60 %. No evidence for diastolic dysfunction. No regional wall motion abnormalities noted. Right Ventricle Normal RV size. Normal systolic function. Atria Normal left atrium. The right atrium is mildly enlarged. No doppler evidence for ASD. Mitral Valve There is no mitral annular calcification. Normal mitral valve. Trivial mitral valve insufficiency. Tricuspid Valve Normal tricuspid valve. Mild tricuspid valve insufficiency. Right ventricular systolic pressure estimated to be 25 mmHg. Aortic Valve Trisinus/trileaflet aortic valve. Normal aortic valve. Pulmonic Valve The pulmonic valve is not well visualized. Trivial pulmonic valve insufficiency. Great Vessels Normal sized aortic root. Pericardium/Pleural No pericardial effusion. MMode/2D Measurements & Calculations LVIDd: 5.0 cm IVSd: 0.78 cm Ao root diam: 2.9 cm LVIDs: 3.6 cm LVPWd: 0.75 cm RVDd: 3.8 cm FS: 28.2 % LAV(MOD-bp): 51.9 ml LVAd ap4: 34.9 cm2 SV(MOD-sp4): 69.9 ml LAV(MOD-bp) Indexed: 26.0 ml/m2 EDV(MOD-sp4): 132.0 ml LAV(MOD-sp2): 44.6 ml EDV(sp4-el): 135.3 ml LAV(MOD-sp4): 51.0 ml LVAs ap4: 22.6 cm2 ESV(MOD-sp4): 62.1 ml ESV(sp4-el): 62.4 ml EF(MOD-sp4): 53.0 % EF(sp4-el): 53.9 % SV(sp4-el): 73.0 ml LA A4 area: 18.8 cm2 LA dimension(2D): 3.6 cm RA A4 area: 20.3 cm2 Time Measurements MV dec time: 0.25 sec Doppler Measurements & Calculations MV E max salvador: 68.0 cm/sec Lat Peak E' Salvador: 17.4 cm/sec Med Peak E' Salvador: 8.1 cm/sec MV A max salvador: 45.7 cm/sec E/E' lat: 3.9 E/E' med: 8.4 MV E/A: 1.5 Ao V2 max: 113.1 cm/sec LV V1 max: 90.5 cm/sec PA V2 max: 91.8 cm/sec Ao max P.1 mmHg LV V1 max P.3 mmHg TR max salvador: 232.6 cm/sec TR max P.8 mmHg Interpretation Summary Left ventricular systolic function is normal. The estimated ejection fraction is 60 %. The right atrium is mildly enlarged. Trivial mitral valve insufficiency. Mild tricuspid valve insufficiency. Trivial pulmonic valve insufficiency. Right ventricular systolic pressure estimated to be 25 mmHg. No evidence for diastolic dysfunction. Ordering Physician: Quique Pruitt/Chino Petersen Referring Physician: MIGUEL TYLER Performed By: Sheryl Zhu RDCS
== END ==
PROVIDERS: PCP Family Medicine; Referring Provider Nurse Practitioner Family; Visit Provider Nurse Practitioner Family
DX: I48.0 Paroxysmal atrial fibrillation (principal); Q24.5 Malformation of coronary vessels; G47.33 Obstructive sleep apnea (adult) (pediatric); Z95.818 Presence of other cardiac implants and grafts; Z98.890 Other specified postprocedural states
CPT/HCPCS: 93306

== ENCOUNTER → 2020-02-09 22:09 | Outpatient (CLI) | payer OTHER, SELFPAY ==
[2019-12-25 15:21] VITALS: BMI 25.1
== END ==
PROVIDERS: PCP Family Medicine; Referring Provider Nurse Practitioner Family; Visit Provider Nurse Practitioner Family
DX: G47.33 Obstructive sleep apnea (adult) (pediatric) (principal)
CPT/HCPCS: 95811

== ENCOUNTER → 2020-10-14 06:47 | Outpatient (CLI) | payer OTHER, SELFPAY ==
[2020-10-06 15:21] VITALS: BMI 26.2
--- NOTE | 2020-10-14 09:04 | STRESSREP_ITS ---
Stress Test Report Date: 10-14-2020 Procedure: Exercise tolerance test/imaging study Indications: CAD; status post LAD myocardial bridge surgery; atrial fibrillat ion; pericardial effusion status post pericardiocentesis Consent: Per the patient Procedure: The patient exercised on a Silvestre protocol for 12 minutes completing Stage IV achieving a peak heart rate of 157 bpm (90% predicted maximal heart rate) with a peak blood pressure 144/70 mmHg and a peak MET capacity of 13 METs. The baseline ECG demonstrated normal sinus rhythm. The peak exercise ECG dem onstrated no obvious ECG changes. There was a rare ventricular couplet near peak exercise. The functional capacity was considered good. There was no complaint of chest discomfort during exercise or recovery. The examination was discontinued secondary to dyspnea. Impression: 1. Technically adequate (percent predicted maximal heart rate greater than 85%) exercise tolerance test 2. Peak exercise ECG with no obvious ECG changes 3. There was a rare ventricular couplet near peak exercise 4. Nuclear images pending Myocardial perfusion imaging study: Technique: The patient was injected with 11.1 mCi of technetium 99m Cardiolite and subsequently rest SPECT Cardiolite nuclear imaging was obtained in the horizontal long, vertical long, and short axis views. The patient exercised on a Silvestre protocol for 12 minutes completing Stage IV achieving a peak heart rate of 157 bpm (90% predicted maximal heart rate) with a peak blood pressure 144/70 mmHg and a peak MET capacity of 13 METs. The patient was injected with 32.7 mCi of technetium 99m Cardiolite and subsequently stress SPECT Cardiolite nuclear imaging was obtained in the horizontal long, vertical long, and short axis views. A gated Cardiolite study at peak stress was obtained. Interpretation: Rest and stress SPECT Cardiolite nuclear imaging status post realignment, normalization, and attenuation correction, demonstrates the appearance of relative uniform tracer uptake and myocardial perfusion appearing within normal limits. There is end systolic thickening and brightening. The gated Cardiolite study demonstrates myocardial thickening and inward wall motion. The reported LVEF is 50%. Impression: 1. Rest and stress SPECT Cardiolite nuclear imaging demonstrate relative uniform tracer uptake and myocardial perfusion appearing within normal limits. 2. The gated Cardiolite study reports an LVEF of 50%. This note was generated with Tallyfyation software. It may contain incorrect words, spelling, and punctuation that were not noted in checking the note before signing.
== END ==
PROVIDERS: PCP Family Medicine; Referring Provider Internal Medicine Cardiovascular Disease; Visit Provider Internal Medicine Cardiovascular Disease
DX: Q24.5 Malformation of coronary vessels (principal); I48.0 Paroxysmal atrial fibrillation; Z95.818 Presence of other cardiac implants and grafts; Z98.890 Other specified postprocedural states
CPT/HCPCS: 78452; 93017; A9500; A4216

== ENCOUNTER → 2021-12-26 | Outpatient (CLI) | payer OTHER, SELFPAY ==
[2021-12-26 07:28] LABS: Absolute Lymphocyte Count 1.61 X10^3/uL (0.83-4.51); Absolute Neutrophil Count 3.3 X10^3/uL (2.0-7.7); Basophil# 0.05 X10^3/uL; Basophil% 0.9 % (0-1); Eosinophil# 0.01 X10^3/uL; Eosinophils% 0.2 % (0-5); Hematocrit 47.4 % (40-54); Hemoglobin 16.8 g/dL (13.0-16.5); Lymphocyte # 1.61 X10^3/ul (0.83-4.51); Lymphocyte % 29.9 % (19-41); Mean Corp Hgb Conc 35.4 g/dL (32-36); Mean Corpuscular Volume 87.5 fL (80-94); Mean Platelet Vol. 9.9 fl (6.2-12.0); Monocyte# 0.45 X10^3/uL; Monocyte% 8.4 % (0-10); NRBC Flagged by Analyzer 0 % (0-5); Neutrophil # 3.25 X10^3/uL (2.7-7.7); Neutrophil % 60.4 % (47-70); Platelet Count 254 K/mm3 (150-450); RBC Distribution Width CV 12.3 % (11.6-14.6); Red Blood Count 5.42 M/mm3 (4.6-6.2); White Blood Count 5.4 K/mm3 (4.4-11.0)
[2021-12-26 08:17] LABS: AST(SGOT) 18 U/L (15-37); Alanine Aminotransfer ALT/SGPT 28 U/L (16-61); Albumin, Serum 3.7 g/dL (3.2-5.0); Alkaline Phosphatase 74 U/L (45-117); Anion Gap 3 (5-15); BUN 9 mg/dL (7-18); Bilirubin, Direct 0.21 mg/dL (0.00-0.30); Calcium,Total 8.7 mg/dL (8.5-10.1); Chloride 106 mmol/L (98-107); Cholesterol 142 mg/dL (200); EST Glomerular Filtration Rate 85 mL/min (>60); Est Glom Filt Rate - Afr Amer 102 mL/min (>60); Globulin 3.4 g/dL (2.2-4.2); Glucose 101 mg/dL (74-106); High Density Lipoprotein 50 mg/dL; Potassium 3.9 mmol/L (3.5-5.1); Protein, Total 7.1 g/dL (6.4-8.2); Sodium Level 139 mmol/L (136-145); Thyroid Stim Hormone (TSH) 0.81 uIU/mL (0.358-3.74); Triglycerides 96 mg/dL; Very Low Density Lipoprotein 19 mg/dL (5-40)
== END | disposition home or self-care (01) ==
LOC: LAB 07:09
PROVIDERS: PCP Family Medicine; Visit Provider Internal Medicine Cardiovascular Disease
DX: I48.0 Paroxysmal atrial fibrillation (principal); Q24.5 Malformation of coronary vessels; Z95.818 Presence of other cardiac implants and grafts; Z98.890 Other specified postprocedural states
CPT/HCPCS: 36415; 80048; 80061; 80076; 84443; 85025

== ENCOUNTER → 2021-12-27 | Outpatient (CLI) | payer OTHER, SELFPAY ==
--- NOTE | 2021-12-27 06:07 | ECHOD_ITS ---
Reason For Study: Dyspnea/SOB Procedure This was a 2D Doppler, Color Flow transthoracic echocardiogram. The exam was of adequate technical quality. Exam performed in department. Left Ventricle Normal LV size. Apical false tendon noted. Left ventricular systolic function is normal. The estimated ejection fraction is 55 %. Diastolic function is indeterminate. No regional wall motion abnormalities noted. Right Ventricle Normal RV size. Normal systolic function. Atria Normal left atrium. Normal right atrium. No doppler evidence for ASD. Mitral Valve There is no mitral annular calcification. Normal mitral valve. Trivial mitral valve insufficiency. Tricuspid Valve Normal tricuspid valve. Mild to moderate (1-2+) eccentric tricuspid valve insufficiency. Right ventricular systolic pressure estimated to be 21 mmHg. Aortic Valve Trisinus/trileaflet aortic valve. Normal aortic valve. Pulmonic Valve The pulmonic valve is not well visualized. Trivial pulmonic valve insufficiency. Great Vessels Normal sized aortic root. Pericardium/Pleural No pericardial effusion. MMode/2D Measurements & Calculations LVIDd: 4.8 cm IVSd: 0.99 cm Ao root diam: 3.0 cm LVIDs: 3.5 cm LVPWd: 0.93 cm LA dimension: 3.9 cm RVDd: 3.4 cm FS: 26.9 % LAV(MOD-bp): 52.0 ml LVAd ap4: 28.3 cm2 LVAd ap2: 28.6 cm2 LAV(MOD-bp) Indexed: 25.5 ml/m2 LVLd ap4: 7.9 cm LVLd ap2: 7.9 cm LAV(MOD-sp2): 48.2 ml EDV(MOD-sp4): 82.9 ml EDV(MOD-sp2): 83.2 ml LAV(MOD-sp4): 46.4 ml EDV(sp4-el): 86.2 ml EDV(sp2-el): 87.5 ml LVAs ap4: 18.6 cm2 LVAs ap2: 19.0 cm2 LVLs ap4: 6.8 cm LVLs ap2: 7.3 cm ESV(MOD-sp4): 41.2 ml ESV(MOD-sp2): 44.8 ml ESV(sp4-el): 42.9 ml ESV(sp2-el): 42.0 ml EF(MOD-sp4): 50.3 % EF(MOD-sp2): 46.1 % EF(sp4-el): 50.3 % SV(MOD-sp4): 41.7 ml SV(MOD-sp2): 38.4 ml SV(sp4-el): 43.3 ml LA A4 area: 17.7 cm2 RA A4 area: 17.6 cm2 Time Measurements MV dec time: 0.17 sec Doppler Measurements & Calculations MV E max stanley: 80.5 cm/sec MV V2 max: 74.1 cm/sec MV P1/2t max stanley: 74.5 cm/sec MV A max stanley: 51.4 cm/sec MV max P.2 mmHg MV P1/2t: 57.6 msec MV E/A: 1.6 MV V2 mean: 40.9 cm/sec MV mean P.80 mmHg MV dec slope: 379.0 cm/sec2 MV V2 VTI: 18.3 cm MVA(P1/2t): 3.8 cm2 Ao V2 max: 95.8 cm/sec LV V1 max: 79.0 cm/sec PA V2 max: 97.4 cm/sec Ao max P.7 mmHg LV V1 max P.5 mmHg Ao V2 mean: 70.5 cm/sec LV V1 mean P.5 mmHg Ao mean P.2 mmHg LV V1 mean: 58.6 cm/sec Ao V2 VTI: 20.4 cm LV V1 VTI: 16.7 cm PI end-d stanley: 91.5 cm/sec TR max stanley: 211.9 cm/sec TR max P.0 mmHg ECHO/Echo Complete Interpretation Summary Left ventricular systolic function is normal. The estimated ejection fraction is 55 %. Apical false tendon noted. Trivial mitral valve insufficiency. Mild to moderate (1-2+) eccentric tricuspid valve insufficiency. Trivial pulmonic valve insufficiency. Right ventricular systolic pressure estimated to be 21 mmHg. Diastolic function is indeterminate. Ordering Physician: Chino Petersen Referring Physician: Luan Arnold Performed By: Matt Bhat RCS
--- NOTE | 2021-12-27 09:55 | STRESSREP_ITS ---
Stress Test Report Date: 12-27-2021 Procedure: Exercise tolerance test/imaging study Indications: Shortness of breath/dyspnea on exertion, CAD, status post open he art surgery, PAF, status post COVID-19 Consent: Per the patient Procedure: The patient exercised on a Silvestre protocol for 12 minutes completing Stage IV achieving a peak heart rate of 153 bpm (88% predicted maximal heart rate) with a peak blood pressure 158/78 mmHg and a peak MET capacity of 13 METs. The baseline ECG demonstrated normal sinus rhythm. The peak exercise ECG demonstrated no ECG change. There was a rare PVC during exercise and an isolated ventricular couplet in early recovery. The functional capacity was considered good. There was no complaint of chest discomfort during exercise or recovery. The examination was discontinued secondary to dyspnea. Impression: 1. Technically adequate (percent predicted maximal heart rate greater than 85%) exercise tolerance test 2. Peak exercise ECG with no obvious ECG changes 3. There was a rare PVC during exercise and an isolated ventricular couplet in early recovery 4. Nuclear images pending Myocardial perfusion imaging study: Technique: The patient was injected with 11.8 mCi of technetium 99m Cardiolite and subsequently rest SPECT Cardiolite nuclear imaging was obtained in the horizontal long, vertical long, and short axis views. The patient exercised on a Silvestre protocol for 12 minutes completing Stage IV achieving a peak heart rate of 153 bpm (88% predicted maximal heart rate) with a peak blood pressure 158/78 mmHg and a peak MET capacity of 13 METs. The patient was injected with 34.5 mCi of technetium 99m Cardiolite and subsequently stress SPECT Cardiolite nuclear imaging was obtained in the horizontal long, vertical long, and short axis views. A gated Cardiolite study at peak stress was obtained. Interpretation: Rest and stress SPECT Cardiolite nuclear imaging status post realignment, normalization, and attenuation correction, demonstrates the appearance of relative uniform tracer uptake and myocardial perfusion appearing within normal limits. There is end systolic thickening and brightening. The gated Cardiolite study demonstrates myocardial thickening and inward wall motion. The reported LVEF is 57%. Impression: 1. Rest and stress SPECT Cardiolite nuclear imaging demonstrate relative uniform tracer uptake and myocardial perfusion appearing within normal limits. 2. The gated Cardiolite study reports an LVEF of 57%. This note was generated with Renew Fibre[employer] software. It may contain incorrect words, spelling, and punctuation that were not noted in checking the note before signing.
== END | disposition home or self-care (01) ==
PROVIDERS: PCP Family Medicine; Referring Provider Internal Medicine Cardiovascular Disease; Visit Provider Internal Medicine Cardiovascular Disease
DX: I48.0 Paroxysmal atrial fibrillation (principal); R06.09 Other forms of dyspnea; Q24.5 Malformation of coronary vessels; Z95.818 Presence of other cardiac implants and grafts; Z98.890 Other specified postprocedural states
CPT/HCPCS: 78452; 93017; 93306; A9500; A4216

== ENCOUNTER 2022-07-31 09:33 | Day surgery (SDC) | payer OTHER, SELFPAY ==
[2022-07-28 10:56] VITALS: BMI 27.8
--- NOTE | 2022-07-28 16:46 | HP.PCM_ITS ---
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 He is here today to his his loop recorder removed. [facility] Medical History?(Updated 06/15/22 @ 14:[address] Chino Petersen MD) Anxiety Anxiety and depression Atrial fibrillation with RVR Chest pain Coronary-myocardial bridge (~07/16/18) GERD (gastroesophageal reflux disease) Hiatal hernia History of left heart catheterization (LHC) (~04/26/18) Hypokalemia Inguinal hernia DARA (obstructive sleep apnea) DARA (obstructive sleep apnea) Other specified cardiac device in situ (~09/06/15) Palpitations Paroxysmal atrial fibrillation Pericardial effusion Surgical History? History of cholecystectomy History of fusion of cervical spine (~09/2013) History of heart surgery History of nasal surgery History of radiofrequency ablation procedure for cardiac arrhythmia (~05/16/19) Hx of appendectomy Family History? Father HypertensionSister SVT (supraventricular tachycardia) Social History? Smoking Status:? Never smoker Smokeless tobacco user:? chewing tobacco alcohol intake:? current alcohol intake frequency: 0-2 drinks per day Alcohol type: beer substance use type:? does not use caffeine:? Yes Type: coffee Number of servings: 1 ROS Const Const: Negative for fatigue, weakness, body ache, fever(s), headache(s), chills, frequent falls, night sweats, daytime sleepiness, difficulty sleeping, excessive sweating, weight gain, weight loss, increased appetite, poor appetite, anorexia or other Eyes Eyes: Negative for blurry vision or double vision ENT ENT: Negative for headache(s), dizziness or balance problems Cardio Chest Pain: No Palpitations: No Edema: None Muscle aches with walking: None Resp Respiratory: Negative for SOB with activity, SOB at rest, SOB orthopnea\SOB lying down, Cough, Coughing up blood/hemoptysis, chest congestion, pain on inspiration, snoring, stridor, wheezing, crackles, paroxysmal nocturnal dyspnea or other Musc Musc: Negative for muscle aches/ myalgia, muscle weakness, joint pain or balance problems Neuro Neuro: Positive for other (noting tremors to bilat hands, progressively worse since surgery); Negative for dizziness, lightheadedness, near syncope, syncope, orthostatic symptoms, frequent falls, headache(s), weakness, confusion, memory loss, restless legs, blurry vision, double vision, vertigo, seizures or lack of coordination Endo Endo: Negative for fatigue or excessive sweating Cardiology Exam Const Appearance: cooperative, healthy appearing, comfortable, no acute distress, well developed and well groomed Nutritional Appearance: average body habitus Head Head: normal to inspection, normocephalic and atraumatic Ears: hearing grossly normal bilaterally Nose: external nose normal Face and Sinus: face symmetric Eyes Eyelids: eyelids normal Conjunctivae: conjunctivae normal Pupils: PERRL EOM: EOM intact bilaterally Neck Neck: normal visual inspection and full ROM Carotids: normal carotid upstroke Chest Chest inspection: normal inspection of the chest, symmetric chest movement, midline sternotomy incision and normal respiratory effort Auscultation: Bilateral: Clear to Auscultation Cardio Palpation: normal PMI Rate: regular rate Rhythm: regular rhythm Heart sounds: S1 normal and S2 normal GI GI: normal to inspection, soft and bowel sounds present Neuro General: patient alert, patient awake, patient oriented x3, gait normal and moves all extremities Skin Skin: no rashes or lesions noted Extremities Pulses: Normal: Right Radial Pulse and Left Radial Pulse Lower Extremity Edema: None: Bilateral Psych Psychological: normal affect Assessment & Plan Assessment/Plan (1) History of radiofrequency ablation procedure for cardiac arrhythmia: (2) Status post placement of implantable loop recorder: (3) Paroxysmal atrial fibrillation: (4) Coronary-myocardial bridge: PLAN: Plan Patient will have his loop recorder removed. He will follow-up in our office accordingly.
--- NOTE | 2022-08-07 11:48 | CL.IE_ITS ---
Patient: CRISTINA GÓMEZ Study Date: 07/31/2022 Performing: Edinson Freeman MD : 1975 Age: 46 Gender: male PROCEDURES PERFORMED [id number])REMOVAL OF LOOP RECORDER INDICATIONS End-of-life PROCEDURE DETAILS The patient was brought to the Catheterization Lab in the postabsorptive nonsedated state. Informed consent was obtained prior to the procedure. Local anesthetic was given subcutaneously to the left upper chest area with Lidocaine 2%. Incision was made to the left upper chest. ICM Loop Recorder was removed. Skin closure was completed with 4-0 Vicryl. The patient tolerated the procedure well. Estimated Blood Loss: 5 ml's IMPLANTED / EX-PLANTED DEVICES EXPLANTED DEVICE(S): ICM Loop Recorder - Weaving Inspector: [employer], Model # , Serial # DEVICE PARAMETERS CONCLUSIONS / RECOMMENDATIONS Device Conclusions: Successful removal loop recorder. Device Recommendations: Follow up with Primary Care Physician PROCEDURE MEDICATIONS Versed 1 mg IV Oxygen: 2 L/min via nasal cannula Antibiotic given in appropriate timeframe. Ancef 2 Gm IV @ 07/31/2022 11:33:38 Signed By Edinson Freeman MD On 08/07/2022 11:47:00 Edinson Freeman MD
== END 2022-07-31 12:55 | disposition home or self-care (01) ==
LOC: CLSP 09:35
PROVIDERS: PCP Family Medicine; Visit Provider Internal Medicine Cardiovascular Disease
DX: Z45.09 Encounter for adjustment and management of other cardiac device (principal); I48.0 Paroxysmal atrial fibrillation; Q24.5 Malformation of coronary vessels; G47.33 Obstructive sleep apnea (adult) (pediatric); F41.9 Anxiety disorder, unspecified; F32.A Depression, unspecified; F17.220 Nicotine dependence, chewing tobacco, uncomplicated; Z79.899 Other long term (current) drug therapy
CPT/HCPCS: 33286; 99152; 99153; J7040

== ENCOUNTER 2022-08-24 08:05 | Emergency (ER) | payer OTHER, SELFPAY ==
[2022-08-24 08:07] VITALS: BP 130/80; PULSE 86; RESP 16; TEMP 36.6; O2SAT 98; BMI 29.1
--- NOTE | 2022-08-24 08:31 | EDS_ITS ---
HPI History of Present Illness Chief Complaint: Lower Extremity Injury Narrative Narrative: 46-year-old male past medical history of atrial fibrillation status post multiple ablations, hyperlipidemia, not currently on blood thinners presents with left thigh pain that he has had for the last 3 to 4 days. On the inner aspect of his left thigh. Sometimes is dull and achy and otherwise sharp and stabbing. He has not noticed any redness to the area, or leg swelling. No chest pain or shortness of breath. He denies any DVT or PE risk factors. 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 No recent trauma to his left lower extremity. [facility] Medical History (Updated 08/24/22 @ 08:52 by Marco Quevedo MD) Anxiety Anxiety and depression Atrial fibrillation with RVR Chest pain Coronary-myocardial bridge (~07/16/18) GERD (gastroesophageal reflux disease) Hiatal hernia History of left heart catheterization (LHC) (~04/26/18) Hypokalemia Inguinal hernia DARA (obstructive sleep apnea) DARA (obstructive sleep apnea) Other specified cardiac device in situ (~09/06/15) Palpitations Paroxysmal atrial fibrillation Pericardial effusion Home Medications atorvastatin 10 mg tablet 10 mg PO QHS 12/08/21 [History Last Taken Unknown] metoprolol succinate 25 mg tablet,extended release 24 hr 25 mg PO BID 12/08/21 [History Last Taken Unknown] venlafaxine 75 mg tablet 75 mg PO BID 12/08/21 [History Last Taken Unknown] nitroglycerin 0.4 mg sublingual tablet 0.4 mg sublingual Q5M PRN Chest Pain #25 tabs 06/15/22 [Rx Last Taken Unknown] Allergy/AdvReac Type Severity Reaction Status Date / Time No Known Allergies Allergy Verified 08/24/22 08:09 Family History Father Hypertension Sister SVT (supraventricular tachycardia) Surgical History History of cholecystectomy History of fusion of cervical spine (~09/2013) History of heart surgery History of nasal surgery History of radiofrequency ablation procedure for cardiac arrhythmia (~05/16/19) Hx of appendectomy Social History Smoking Status: Never smoker Smokeless tobacco user: chewing tobacco alcohol intake: current alcohol intake frequency: 0-2 drinks per day Alcohol type: beer substance use type: does not use caffeine: Yes Type: coffee Number of servings: 1 ROS ROS ED ROS Narrative Constitutional: No fever, no chills. HEENT: No sore throat. No neck pain. No loss of vision. No rhinorrhea. Cardiovascular: No chest pain. No palpitations. No pedal edema. Respiratory: No cough, no shortness of breath. Abdominal: No abdominal pain. No nausea. No vomiting. Genitourinary: No dysuria. No hematuria. Musculoskeletal: Positive left medial thigh pain. No swelling or erythema. No arthralgias. Neurologic: No headaches. No dizziness. No lightheadedness. Skin: No rash. No change in color. Psychiatric: No depression. No anxiety. EXAM Physical Exam Narrative Exam Narrative: Afebrile. Vital signs noted. HEENT: Normocephalic. Atraumatic. PERRL, EOMI. Neck soft and supple. No point tenderness or step off. Cardiovascular: Regular rate and rhythm. No murmurs, rubs, or gallops appreciated. Respiratory: No tachypnea. Lungs clear to auscultation bilaterally. Gastrointestinal: Abdomen soft, nontender, with normoactive bowel sounds. No rebound or guarding. Neurological: Awake. Alert. Nonfocal, nonlateralizing. Skin: No rash. Normal color. No pallor. Musculoskeletal: No pedal edema. Full range of motion extremities. Minimal tenderness left medial thigh, no erythema, palpable cord, or overt swelling of left leg noted. No pain with logrolling of femur. Palpable dorsalis pedis pulses. Normal temperature of left lower extremity. Const Vital Signs: 08/24/22 08:07 Temperature 98 F Temperature Source Temporal Pulse Rate 86 Respiratory Rate 16 Blood Pressure 130/80 H Blood Pressure Mean 96 Pulse Ox 98 Oxygen Delivery Method Room Air MDM MDM MDM Narrative Medical decision making narrative: In the differential diagnosis is DVT. I am not concerned for arterial clot as he has strong dorsalis pedis pulse on the left. He could also have more of a muscle strain. I am less concern for femur fracture as he has not had any recent trauma. I do feel that it is probably more muscular in nature/more of a muscle strain. I do not feel laboratory work is indicated because I do not feel that it would contribute much to the diagnosis. I do not feel this is an infectious process. DVT study was obtained to the left lower extremity which was reported by the commercial hvac technician as negative. At this point in time, I feel he can be discharged safely home to treat this more as a muscle strain. He will take [id number] analgesics and follow-up with a primary care provider. Return instructions to the emergency department were reviewed. Disposition is discharged home in stable condition. Radiography Diagnostic Testing: Clinical Impression(s) from Imaging Studies Venous Doppler Study 08/24/22 08:31 Interpretation Summary Deep veins of the left lower extremity are patent and compressible segmentally. There is no evidence of left lower extremity deep vein thrombosis. The left great saphenous vein appears patent and compressible segmentally. Ordering Physician: Marco Quevedo Referring Physician: Luan Arnold MD Performed By: Veena Mendosa RVT Discharge Plan Triage Chief Complaint: Lower Extremity Injury ED Provider: Marco Quevedo Dx/Rx/DC Orders Clinical Impression: Left thigh pain, Muscle strain Instructions: ED Pain, Acute, Uncertain Cause, ED Muscle Strain, Extremity Prescriptions: No Action venlafaxine 75 mg tablet 75 mg PO BID atorvastatin 10 mg tablet 10 mg PO QHS metoprolol succinate 25 mg tablet extended release 24 hr 25 mg PO BID Label Comments: TAKE ONE TABLET BY MOUTH TWICE DAILY nitroglycerin 0.4 mg tablet, sublingual 0.4 mg Sublingual Q5M PRN (Reason: Chest Pain) Qty: 25 3RF Primary Care Provider: Luan Arnold Referrals: Luan Arnold MD [Primary Care Provider] - 1 Week if not improving Activity Restrictions/Additional Instructions: Activity as tolerated. Disposition Disposition: Home, Self Care Discharge Date/Time: 08/24/22 08:56
--- NOTE | 2022-08-24 08:31 | VDLE_ITS ---
Reason For Study: Pain Procedure LEFT This is a venous duplex using B-mode, color GSV is normal. flow and spectral Doppler. CFV is compressible, spontaneous, phasic, Exam performed portable in ED. competent, and demonstrates normal A preliminary report was called and/or faxed augmentation. to Dr. Quevedo. FV is compressible, spontaneous, phasic, competent and demonstrates normal augmentation. POP V is compressible, spontaneous, phasic, competent and demonstrates normal augmentation. T/P Trunk is compressible. PTV is compressible. LT PerV is compressible. VL/Venous Duplex US, Unilateral Interpretation Summary Deep veins of the left lower extremity are patent and compressible segmentally. There is no evidence of left lower extremity deep vein thrombosis. The left great saphenous vein lisa ears patent and compressible segmentally. Ordering Physician: Marco Quevedo Referring Physician: Luan Arnold MD Performed By: Veena Mendosa RVT
== END 2022-08-24 08:56 | disposition home or self-care (01) ==
PROVIDERS: Emergency Provider Emergency Medicine; PCP Family Medicine; Visit Provider Emergency Medicine
DX: S76.912A Strain of unspecified muscles, fascia and tendons at thigh level, left thigh, initial encounter (principal); I48.0 Paroxysmal atrial fibrillation; X58.XXXA Exposure to other specified factors, initial encounter; E78.5 Hyperlipidemia, unspecified; F17.220 Nicotine dependence, chewing tobacco, uncomplicated; Z79.899 Other long term (current) drug therapy
CPT/HCPCS: 93971; 99282

== ENCOUNTER 2023-06-09 09:30 | Emergency (ER) | payer OTHER, SELFPAY ==
[2023-06-09 09:30] VITALS: BP 138/79; PULSE 89; RESP 16; TEMP 35.3; O2SAT 99; BMI 29.5
--- NOTE | 2023-06-09 09:33 | EDS_ITS ---
HPI History of Present Illness Chief Complaint: Shortness of Breath [facility] Medical History (Updated 06/09/23 @ 11:[address] Yuniel Elias, DO) Anxiety Anxiety and depression Atrial fibrillation with RVR Chest pain Coronary-myocardial bridge (~07/16/18) GERD (gastroesophageal reflux disease) Hiatal hernia History of left heart catheterization (LHC) (~04/26/18) Hypokalemia Inguinal hernia DARA (obstructive sleep apnea) DARA (obstructive sleep apnea) Other specified cardiac device in situ (~09/06/15) Palpitations Paroxysmal atrial fibrillation Pericardial effusion Home Medications atorvastatin 10 mg tablet 10 mg PO QHS 12/08/21 [History Last Taken Unknown] metoprolol succinate 25 mg tablet,extended release 24 hr 25 mg PO BID 12/08/21 [History Last Taken Unknown] nitroglycerin 0.4 mg sublingual tablet 0.4 mg sublingual Q5M PRN Chest Pain #25 tabs 06/15/22 [Rx Last Taken Unknown] venlafaxine 75 mg tablet 75 mg PO DAILY 12/12/22 [History Last Taken Unknown] benzonatate 100 mg capsule 100 mg PO TID PRN cough #21 caps 06/09/23 [Rx Last Taken Unknown] codeine sulfate 15 mg tablet 15 mg PO Q6H PRN cough 3 days #12 tabs 06/09/23 [Rx Last Taken Unknown] Allergy/AdvReac Type Severity Reaction Status Date / Time No Known Allergies Allergy Verified 12/12/22 08:41 Family History Father Hypertension Sister SVT (supraventricular tachycardia) Surgical History History of cholecystectomy History of fusion of cervical spine (~09/2013) History of heart surgery History of nasal surgery History of radiofrequency ablation procedure for cardiac arrhythmia (~05/16/19) Hx of appendectomy Social History Smoking Status: Never smoker Smokeless tobacco user: chewing tobacco alcohol intake: current alcohol intake frequency: 0-2 drinks per day Alcohol type: beer substance use type: does not use caffeine: Yes Type: coffee Number of servings: 1 EXAM Physical Exam Const Vital Signs: 06/09/23 09:30 06/09/23 10:07 06/09/23 10:21 Temperature 95.6 F L Temperature Source Temporal Pulse Rate 89 Respiratory Rate 16 Respiratory Effort Short of Breath Respiratory Depth Normal Respiratory Pattern Normal Blood Pressure 138/79 H Blood Pressure Mean 98 Pulse Ox 99 96 Oxygen Delivery Method Room Air 06/09/23 11:25 Temperature Temperature Source Pulse Rate 84 Respiratory Rate 17 Respiratory Effort Respiratory Depth Respiratory Pattern Blood Pressure 143/101 H Blood Pressure Mean 115 Pulse Ox 96 Oxygen Delivery Method [facility] [place] Narrative Medical decision making narrative: HISTORY OF PRESENT ILLNESS: 47-year-old male here with shortness of breath. He states He developed shortness of breath wheezing and is concerned about pneumonia. He notes this began about a week ago. States he is coughing up yellow-green sputum. Denies chest pain but notes constant cough with chest tightness associated with cough. Denies any palpitations, bleeding diathesis. Vomiting. 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 The patient denies recent surgery in the last 4 weeks or immobilization in the last 3 days, denies previous diagnosis of DVT or PE, hemoptysis, unilateral leg swelling or malignancy with treatment the last 6 months or palliative. No estrogen use noted. REVIEW OF SYSTEMS: Pertinent positives: Shortness of breath, cough Pertinent negatives: Chest pain, leg swelling, hemoptysis PHYSICAL EXAM: Nursing triage notes reviewed, Vital signs reviewed Constitutional: please see mdm HENT: MMM Eyes: Pupils equal round and reactive to light, Extraocular muscles intact Neck: No stridor, no JVD, full neck ROM Lungs: Clear to auscultation, No wheezing or rales. No increased work of breathing, no conversational dyspnea, no accessory muscle use, no nasal flaring. No respiratory distress noted Heart: Regular rate and rhythm, No murmurs, No rubs and No gallops, 2+ distal pulses (radial, femoral, posterior tibial) in all extremities Abdomen: Soft, there is no tenderness, rigidity, rebound or guarding, no obvious peritoneal signs, no palpable pulsatile abdominal masses, no auscultated abdominal bruit : No CVAT Extremities: No edema Neuro: No focal neurological deficits, cranial nerves II through XII intact, 5/5 strength in all extremities. Intact sensation to light touch in all extremities, 2+ reflexes bilateral patella tendons. Normal gait. No ataxia. Skin: No rash or lesions noted MEDICAL DECISION MAKING: Chief Complaint: Shortness of breath External records reviewed: Imaging reviewed: Chest x-ray from 2018 shows no acute process Factors affecting care: Hyperlipidemia, atrial fibrillation, cardiac arrhythmia, GERD Social determinants of health: none History obtained from others: none Consults: none MDM Narrative: Patient was initially hemodynamically stable, afebrile and nontoxic-appearing. I considered the following differential diagnosis: ALL IMAGES (IF OBTAINED) HAVE BEEN PERSONALLY REVIEWED AND INTERPRETED BY MYSELF. EKG with normal sinus rhythm, normal axis, normal intervals, no STEMI I have personally reviewed the patient's chest x-ray. Chest x-ray is unremarkable for pulmonary edema, pneumothorax, pneumonia or focal cardiopulmonary abnormality. CBC without leukocytosis, severe anemia, no thrombocytopenia. BMP without evidence of significant electrolyte abnormalities, no anion gap, no acute kidney injury. High-sensitivity troponin is negative, no evidence of myocardial ischemia BNP within normal limits suggestive of no increased volume overload or CHF RSV positive The synthesis of the patient's history, physical exam, labs images suggest RSV. Will give short course of cough medicine. Gave strict return precautions and follow-up instructions. The patient and/or family, caregivers express understanding. The patient and/or family, caregivers agrees with the plan. Shared decision making: I will have a discussion with the patient and or visitors regarding risk/benefits of further testing or admission. They will be made aware of of the risk/benefits inherent in this decision they will be given the opportunity to voice understanding. Total critical care time today provided was at least 0 minutes. This excludes separately billable procedures. Critical care time (if documented) is secondary to the patient having high probability of clinically significant/life threatening deterioration in the patient's condition which required my urgent intervention. Impression: 1. Cough 2. Shortness of breath 3. RSV Dispo: Discharge home Lab Data Labs: Laboratory Results - last 24 hr 06/09/23 09:50 WBC 7.1 RBC 5.24 Hgb 15.3 Hct 45.4 MCV 86.6 MCH 29.2 MCHC 33.7 RDW Std Deviation 39.0 RDW Coeff of Jeanie 12.3 Plt Count 252 MPV 9.6 Immature Gran % (Auto) 0.600 Neut % (Auto) 63.5 Lymph % (Auto) 22.0 [place] % (Auto) 12.3 H Eos % (Auto) 0.6 Baso % (Auto) 1.0 Absolute Neuts (auto) 4.5 Absolute Lymphs (auto) 1.56 Nucleated RBC % 0 Sodium 137 Potassium 3.6 Chloride 106 Carbon Dioxide 27.0 Anion Gap 4 L BUN 14 Creatinine 0.97 Estim Creat Clear Calc 105.77 Est GFR (MDRD) Af Amer 106 Est GFR (MDRD) Non-Af 87 BUN/Creatinine Ratio 14.5 Glucose 106 Calcium 8.7 Troponin I High Sens 4 B-Natriuretic Peptide 17.4 Radiography Diagnostic Testing: Clinical Impression(s) from Imaging Studies Chest X-Ray 06/09/23 09:48 IMPRESSION: Normal x-ray examination of the chest. Electronically Signed: Dallas Brennan MD at 10:51 EST , Discharge Plan Triage Chief Complaint: Shortness of Breath ED Provider: Yuniel Elias Dx/Rx/DC Orders Clinical Impression: RSV infection Instructions: RSV (Respiratory Syncytial Virus) Prescriptions: New codeine sulfate 15 mg tablet 15 mg PO Q6H PRN (Reason: cough) 3 Days Qty: 12 0RF benzonatate 100 mg capsule 100 mg PO TID PRN (Reason: cough) Qty: 21 0RF No Action atorvastatin 10 mg tablet 10 mg PO QHS metoprolol succinate 25 mg tablet extended release 24 hr 25 mg PO BID Patient Comments: TAKE ONE TABLET BY MOUTH TWICE DAILY venlafaxine 75 mg tablet 75 mg PO DAILY nitroglycerin 0.4 mg tablet, sublingual 0.4 mg Sublingual Q5M PRN (Reason: Chest Pain) Qty: 25 3RF Stand Alone Forms: ED Work / School Excuse Primary Care Provider: Luan Arnold Referrals: Luan Arnold MD [Primary Care Provider] - Activity Restrictions/Additional Instructions: Thank you for trusting us with your care today! You have been diagnosed with an RSV infection. Please take Tylenol (2 pills, 650 mg), ibuprofen (2 pills, 400 mg) every 6 hours as needed for pain and fever control. Please take codeine cough suppresant as prescribed. This medicine is a narcotic medicine. Please do not take more than prescribed as it can cause respiratory depression if taken an overdose. Please return to the emergency department if your symptoms change or worsen. specifically if develop worsening shortness of breath, chest pain, if you lose consciousness or if your symptoms change or worsen in any way. Please follow with your primary care physician for further outpatient evaluation and management. Disposition Disposition: Home, Self Care Discharge Date/Time: 06/09/23 11:34
--- NOTE | 2023-06-09 09:48 | RAD_ITS ---
STUDY: X-RAY CHEST REASON FOR EXAM: Male, 47 years old. Cough, r/o PNA TECHNIQUE: PA and lateral views of the chest. COMPARISON: May 01, 2018 FINDINGS: There are monitoring devices. The lungs are clear and expanded. There is no demonstrated pleural abnormality. Sternal cerclage wires are present from a prior sternotomy. Normal mediastinum and brittni. Normal visualized pulmonary arteries. Normal visualized aortic arch and descending thoracic aorta. Normal visualized thoracic spine. Normal visualized ribs, clavicles, and shoulders. There is no demonstrated abnormality of the visualized soft tissue structures of the upper abdomen. RAD/Chest PA and Lateral IMPRESSION: Normal x-ray examination of the chest. Electronically Signed: Dallas Brennan MD at 10:51 EST ,
[2023-06-09 10:07] VITALS: O2SAT 96
[2023-06-09] MEDS: Benzonatate 100 MG Capsule PO (10:10)
--- OUTSIDE RECORDS SUMMARY | 2023-06-09 10:10 | XMS RPT_ITS | CCD ---
Author Name Unknown Address [address] [facility] [address] [place] [address] Organization [facility] Care Team Providers Care Sand Technologist Name Role Phone NIRU Awad, Ailin Granado Unavailable Unavailable NIRU Awad Sue M Unavailable Unavailable NIRU Awad Sue M Unavailable Unavailable NIRU Awad Sue M Unavailable Unavailable Tiera Reed Unavailable Unavailable Chino Coronado MD Unavailable [phone] Ayanna MARRUFO, Sarah Montgomery Unavailable Unavailable NIRU Awad Sue M Unavailable Unavailable Unavailable Unavailable Unavailable NESTOR LYON Unavailable Unavailable NESTOR LYON Unavailable Unavailable PHYSICIAN, NOT RECORDED Unavailable Unavaila Rosa Epps Unavailable Unavailable BE MYERS Unavailable Unavailable JUNIE JORDAN Unavailable Unavailable JUNIE REYES Attending Unavailable CHINO CORONADO Referring Unavailable LUAN ARNOLD Primary Care Unavailable JUNIE REYES Attending Unavailable CHINO CORONADO Referring Unavailable LUAN ARNOLD Primary Care Unavailable NIRU Awad Sue M Unavailable Unavailable NIRU Awad Sue M Unavailable Unavailable NIRU Awad Sue M Unavailable Unavailable NIRU Awad Sue M Unavailable Unavailable LUAN ARNOLD Referring Unavailable RONAN OVALLE Admitting Unavailable HABERBERGER RONAN M Primary Care Unavailable RONAN OVALLE Attending Unavailable LUAN ARNOLD Consulting Unavailable PROVIDER, UNKNOWN Consulting Unavailable PROVIDER, UNKNOWN Consulting Unavailable PROVIDER, UNKNOWN Consulting Unavailable Luan Arnold MD Primary Care Provider Valentine Bliss MD Unavailable Chino Coronado Unavailable LUAN ARNOLD Primary Care Unavailable Luan Arnold MD Unavailable Cardiology Provider Unavailable Unavailable Cyndee BAILON, Juan [place] Unavailable [facility] Unavailable [facility] Unavailable Gastroenterology Provider Unavailable Daniel Estrada MD, Dr. Smith Ortega Unavailable Arsh BAILON, Dr. Fraire Unavailable Trinity BAILON, Dr Chino Ortega Unavailable Stephen BLENDING TANK HELPER, Viky Unavailable Hubert LOGANC, Norma Le Unavailable Beto BLENDING TANK HELPER, Hannah E Unavailable Unavailable Arturo BLENDING TANK HELPER, Vale Unavailable Unavailable Nash, Jocelyne C Unavailable Unavailable Javier BLENDING TANK HELPER, Katya Unavailable Unavailable King TERRI-C, Jason Parada Unavailable Joanna MARRUFO, Shira Montgomery Unavailable Unavaila sophia Mcnamara BLENDING TANK HELPER, Luis Unavailable Unavailable Jacinto MARRUFO, Armida Y Unavailable Unavailable Deondre LOGANC, Marisol Le Unavailable Alberto Black)[place] Unavailable Unavailab josé antonio Veloz PERFORMANCE SOLUTIONS SPECIALIST, Fannie Unavailable Unavailable Kacey BLENDING TANK HELPER, Lana M Unavailable Unavailab josé antonio Mahoney BLENDING TANK HELPER, Simi Canales Unavailable Unavailab josé antonio Macias MA, Katya Unavailable Unavailable Rebeca BLENDING TANK HELPER, Gertrude Unavailable Unavailabl e Unavailable Unavailable Medications Current Medications Medication Drug Class(es) Dates Sig (Normalized) Sig (Original) atorvastatin 10 mg oral tablet (4 sources) HMG-CoA Reductase Inhibitor Start: 10-25-2022 take 1 tablet by mouth once daily at bedtime Atorvastatin Calcium 10 MG Oral Tablet ; 1 (one) Tablet qhs for 0 days Quantity: 90 {Tablet} Refills: 3 Ordered: 25-Oct-2022 MD Luan Arnold Start: 25-Oct-2022 Completed/Discontinued Medications Medication Drug Class(es) Dates Sig (Normalized) Sig (Original) acyclovir 400 mg oral tablet (2 sources) Herpesvirus Nucleoside Analog DNA Polymerase Inhibitor, Herpes Simplex Virus Nucleoside Analog DNA Polymerase Inhibitor, Herpes Zoster Virus Nucleoside Analog DNA Polymerase Inhibitor take 1 tablet by mouth five times daily Acyclovir 400 MG Oral Tablet ; 1 po 5 times daily x 7 days (400 MG) Status: Inactive amoxicillin 500 mg oral tablet (2 sources) Penicillin-class Antibacterial Start: 01-26-2012 End: 02-05-2012 take 1 tablet by mouth three times daily AMOXICILLIN, 500MG (Oral Tablet) ; 1 Tablet TID for 10 days Quantity: 30 {Tablet} Refills: 0 Ordered: 26-Jan-2012 AGATHA Mendosa Start: 26-Jan-2012 End: 05-Feb-2012 Status: Inactive amoxicillin 875 mg / clavulanate 125 mg oral tablet (2 sources) Penicillin-class Antibacterial Start: 11-23-2022 End: 12-03-2022 amoxicillin 875 mg-potassium clavulanate 125 mg tablet ; 1 (one) Tablet bid for 10 days Quantity: 20 {Tablet} Refills: 0 Ordered: 23-Nov-2022 MD Luan Arnold Start: 23-Nov-2022 End: 03-Dec-2022 Status: Inactive Comments: take w food Problems Active Problems Problem Classification Problem Date Documented Da te Episodic/Chronic Abdominal hernia (8 sources) Diaphragmatic hernia without mention of obstruction or gangrene; Translations: [Inguinal hernia, without mention of obstruction or gangrene, unilateral or unspecified (not specified as recurrent)] 04-09-2012 Episodic Abdominal pain (12 sources) Abdominal pain, generalized; Translations: [Abdominal pain, left upper quadrant] 08-15-2021 Episodic Administrative/social admission (20 sources) Discharge status; Translations: [Encounter for administrative examinations, unspecified] Onset: 07-10-2018 07-31-2018 Episodic Anxiety disorders (20 sources) Panic disorder with agoraphobia; Translations: [Agoraphobia with panic disorder] Onset: 02-05-2007 02-05-2007 Chronic Cardiac and circulatory congenital anomalies (9 sources) Myocardial bridge of coronary artery; Translations: [Malformation of coronary vessels] Onset: 06-15-2018 07-19-2018 Chronic Cardiac dysrhythmias (18 sources) Multiple premature ventricular complexes; Translations: [Ventricular premature depolarization] Onset: 05-25-2014 05-25-2014 Chronic Cardiac dysrhythmias (20 sources) Palpitations; Translations: [Sinus bradycardia] Onset: 09-04-2013 09-04-2013 Episodic Chronic obstructive pulmonary disease and bronchiectasis (10 sources) Bronchitis; Translations: [Bronchitis, not specified as acute or chronic] 11-23-2022 Episodic Conduction disorders (13 sources) Presence of other cardiac implants and grafts; Translations: [Presence of other cardiac implants and grafts] Onset: 10-11-2015 10-11-2015 Chronic Coronary atherosclerosis and other heart disease (10 sources) Coronary arteriosclerosis; Translations: [Atherosclerotic heart disease of [place] coronary artery without angina pectoris] Onset: 04-28-2018 07-31-2018 Chronic Past or Other Problems Problem Classification Problem Date Documented Date Episodic/Chronic Conditions associated with dizziness or vertigo (13 sources) Dizziness; Translations: [Dizziness and giddiness] Onset: 09-04-2013 09-04-2013 Episodic Headache; including migraine (1 source) Headache; Translations: [Headache] Onset: 01-01-2007 01-01-2007 Episodic Other circulatory disease (20 sources) Electrocardiogram abnormal; Translations: [Abnormal electrocardiogram [ECG] [EKG]] Onset: 04-24-2012 Resolved: 09-22-2016 09-22-2016 Episodic Other lower respiratory disease (1 source) Dyspnea; Translations: [Shortness of breath] Onset: 05-06-2018 05-09-2018 Episodic Syncope (1 source) Near syncope; Translations: [Syncope and collapse] Onset: 02-04-2014 Episodic Unclassified (13 sources) FH: Hypertension; Translations: [Family history of ischemic heart disease and other diseases of the circulatory system] 10-22-2013 Episodic Unclassified (2 sources) Insect Bite/Sting - This occurred 2 week(s) ago. Current symptoms include itching at the site of the bite or sting. The patient describes this as worsening. Note for Insect bite/sting : Pt does not know what bit him if anything. States has red [place] areas on front and back of upper and lower legs. reviewed by B 12-29-2022 Unclassified (2 sources) Cold Symptoms - Symptoms include nasal congestion and productive cough (green mucous), but do not include fever or headache. The onset was gradual 5 day(s) ago. The symptoms occur constantly. The patient describes this as mild and worsening. Current treatment includes non-prescription cold medication. Note for Upper respiratory infection : reviewed by B 11-23-2022 Unclassified (2 sources) Cold Symptoms - Symptoms include dry cough and wheezing (when sleeping per ). The onset was gradual 4 day(s) ago. The symptoms occur constantly. The patient describes this as mild and unchanged. The patient is not currently being treated for this problem. Risk factors do not include smoking. The patient has not been exposed to an individual with a cough, an individual with an upper respiratory infection, an individual with similar symptoms, an individual with strep or secondhand smoke. Patient denies history of seasonal allergies, recurrent sinusitis, recurrent strep pharyngitis, asthma, tonsillectomy or recurrent ear infections. Note for Upper respiratory infection : chest congestion-- thinks he has bronchitis again reviewed by [facility] 08-31-2022 Unclassified (2 sources) Cold Symptoms - Symptoms include sneezing, nasal congestion, runny nose, productive cough and headache. The onset was sudden 4 day(s) ago. The symptoms occur constantly. The patient describes this as moderate in severity and worsening. Current treatment includes non-prescription cold medication. Note for Upper respiratory infection : Has a history of pneumonia. reviewed by [facility] 05-01-2022 Unclassified (2 sources) Aspiration - 3 days ago aspirated on snuff. Now has chest burning and cough. No fever. Also has red lump on both arms for several months and getting larger. No pain or itching. 03-13-2022 Unclassified (2 sources) Testicular symptoms - Symptoms include testicular pain. Symptoms are located in the left testicle. Onset was 1 month(s) ago. The symptoms occur constantly. The patient describes this as worsening. Associated symptoms do not include fever. Note for Testicular symptoms : no swelling noted. Nothing seems to make worse. 03-08-2020 Unclassified (2 sources) Erectile dysfunction - Note for Erectile dysfunction : Consultation to discuss ED. Desire is still there but can get full erection. 02-25-2020 Unclassified (2 sources) Anxiety - Note for Anxiety : Is currently on Paroxetine 10mg daily. Has had increased anxiety the past month. Medication is not controlling symptoms. He has been noticing more sx since his last ablation in late Apr. 06-04-2019 Unclassified (2 sources) Abdominal pain - The abdominal pain has been occurring in a persistent pattern for 2 weeks (pt states that this burning pain started after heart cath was done on 11/18/2018.). The course has been constant. The pain is described as a burning. The pain is located in the epigastrium (will radiate up the center/left side of anterior chest). Note for Abdominal pain : For the past 2 days, been taking Rantidine 150mg once daily---is helping some. Takes Generic Nexium 20mg daily.With activity, will have heart palpitations. He has a very complex cardiac hx , had a cardiac bridge and then a procedure to repair this. 11-29-2018 Unclassified (2 sources) [ADDITIONAL REASON] Transition into care - The patient is transitioning into care from an emergency room ([facility] 11/15/2018--pt was seen for cardiac dysrhythmia. Patient was discharged to home. Heart cath preformed at on 11/18/2018.) and a summary of care was reviewed. 11-29-2018 Unclassified (2 sources) Follow up from hospital stay - Name of Hospital: [facility]. Date of Admission: 07/26/2018. Date of Discharge: 07/31/2018. The patient was hospitalized for Pericardial Effusion. New medications include Cochicine and Medications discontinued include Eliquis. Consultations ordered while in the hospital include cardiology (08/22/2018) and F/u with Surgeon 08/07/2018. Patient was discharged to home. Note for Follow up from hospital stay : Patient is to be set up with cardiac rehab. he was hospitalized late Jun for surgery to unroof a myocardial bridge , then back in w pericarditisIf patient is not sitting straight up, will start to have heart palpations, shortness of breath.States that he is having increased anxiety recently. Started back taking Paroxetine 10mg daily. reviewed by [facility] 08-02-2018 Unclassified (2 sources) Cold Symptoms - Symptoms include sore throat, productive cough (chest pain with cough, green phlem when coughing) and headache, but do not include nasal congestion, runny nose, fever or chills. The onset was sudden 5 day(s) ago. The symptoms occur constantly. The patient describes this as moderate in severity and unchanged. Current treatment includes non-prescription cold medication. Risk factors do not include smoking. The patient has been exposed to an individual with similar symptoms. Note for Upper respiratory infection : reviewed by [facility] 04-30-2017 Unclassified (2 sources) Abdominal pain - The onset of the abdominal pain has been gradual and has been occurring in an intermittent (worse right after meals) pattern for 3 weeks. The course has been recurrent. The pain is described as a moderate colicky pain (feels like having spasms in stomach). The pain is located in the epigastrium and does not radiate. The symptoms are aggravated by meals (1/2 to 1 hour after eating) but have no relieving factors. There has been no associated bloating, constipation or diarrhea. Note for Abdominal pain : patient has history of ulcers, has been on protonix for a few years and doesnt think it is helping anymore 03-20-2017 Unclassified (2 sources) Follow up consultation - The patient is here to follow-up after Emergency Room/Urgent Care ([facility]. Diagnosis: [place] Palsy) on : (07/07/16.). Note for Consultation follow-up : Pt is taping right eye at night and has to force it to blink. Vision is not blurry. Right side of face still feels numb. Able to swallow without difficulty. Continues to have pain behind right ear which radiates down the neck. Starting to notice some slight improvement. Has 5 days left on Acyclovir. reviewed by [facility] 07-10-2016 Unclassified (2 sources) [ADDITIONAL REASON] Transition into care - The patient is transitioning into care from an emergency room and a summary of care was reviewed. 07-10-2016 Unclassified (2 sources) Blood Sugar - Patient is here today with a concern of low blood sugar. For the past couple of weeks, has noticed that his blood sugar will be low in the mornings. Ate breakfast this morning about 5:30am. Took his blood sugar about 6:30am, was 55. Drank orange juice and had biscuits and gravy, blood sugar went up to 90. At 7:30 am, his blood sugar was down to 64. Before coming here to the office, he rechecked his blood sugar and was about 102. When his blood sugar drops, he feels tired, weak, jittery. Will eat and feel better afterwards. No issues with blood sugar dropping in the afternoon or evening. Family members on his mother's side have Type 2 Diabetes. For the past couple of weeks also, been having a dull pain of the front of his neck. Will last for about a minute and resolve. Would like to have bloodwork done to check his thyroid. Denies sore throat, heat/cold intolerance. 06-22-2016 Unclassified (2 sources) Palpitations - The symptoms first began 2 week(s) ago. The onset has been spontaneous. The symptoms occur 5 time(s) per day . The symptoms are intermittent. The palpitations are described as skipped. Associated features include dizziness and tired/fatigue. There are no precipitating factors. Note for Palpitations : he has a hx of bradycardia. Ariel had similar sx several years ago and wore a 30 day event monitor that was nor mal. he did well for vannesa past 2 years. Casey ruiz was in gym about 10 days ago and had an event that made him actually hit the floor and fel like he was going tp pass out. He was working out at [employer] so they put him on monitor and he was havuing PVCs, 08-18-2015 Unclassified (2 sources) Follow up consultation - The patient is here to follow-up after hospitalization ([facility] with symptomatic bradycardia.) on : (02-04-14 to 01-27-14.). Note for Consultation follow-up : Continues with occasional episodes of bradycardia. These were felt to be due to vagal response from GERD. He had EGD and esophageal manometry done. Changed to Protonix which seems to help sx more. 04-10-2014 Unclassified (2 sources) Chest pain - Last week with exercise experienced chest pain. Has had the chest pain off and on all week with exertion. No nausea. Had same symptoms a year ago. 01-14-2013 Unclassified (2 sources) Gastroesophageal Reflux Disease - The episodes occur 2 time(s) a day. Management changes made at the last visit include changing medication dose (Dr Juno Caban changed rx from Prilosec to Prevacid 15mg.). The last clinic visit was 2 year(s) ago. Symptoms include heartburn and acid taste in the mouth. The patient describes this as worsening (Worse in the past 2 weeks.). Note for Gastroesophageal reflux disease : Would like to discuss increase in dosage. When he switched from prilosec to prevacid his sx worsened. Prilosec had been 20mg bid. 10-30-2012 Unclassified (2 sources) Follow up consultation - The patient is here to follow-up after Emergency Room/Urgent Care ([facility] with chest pain.) on : (03-31-12). Note for Consultation follow-up : Continues with chest pain on occasion. Frequency of chest pain has been increasing. It has been going on for 2 years and has had extensive work up including stress test. he has a known hx of HH as well. In ER cardiac enzymes were all negative.Pt finds that if he pushes on epigastrium the pain improves. Juno Caban did and EGD about 2 years ago before GB was removed. 04-09-2012 Unclassified (2 sources) Cold Symptoms - Symptoms include sneezing, nasal congestion and ear pain (right side.), but do not include fever. The onset was sudden 2 week(s) ago. The symptoms occur constantly. The patient describes this as moderate in severity and worsening. Current treatment includes non-prescription cold medication. Medical history includes seasonal allergies. Note for Upper respiratory infection : reviewed by [facility] 03-12-2012 Unclassified (2 sources) Sleep Apnea - Has been having symptoms of sleep apnea. Occasionally snores. Wakes gasping for air. Requesting sleep study. Pt is very fatigued on awakening and through out the day. 12-12-2011 Unclassified (2 sources) Abdominal pain - Continues with LUQ pain. Has been gradually getting worse over the past couple of weeks. No diarrhea. Has occasional constipation along with bright red blood in stool. Has increased fiber and constipation has improved. Also complains of sinus pressure. He has a hx of hemorhoids as well.Since my visit with him in Jan 2011 he underwent EGD which showed hiatal hernia. Also had his GB removed. This has not helped sx however. He also had a normal stress cardiolyet a few weeks ago. Pt states he just wants further testing to make sure there is nothing else going on but otherwise feels this stress related. 07-26-2011 Unclassified (2 sources) Chest and left arm pain - 35 year old here today complaining of chest pain that radiates down his left arm. Said that he goes to the chiropractor once a week to have back adjusted - last time was Sunday. On Sunday he started having episodes of chest/arm pain so isn't sure if might be due to the adjustment. Denies recent strenuous movements/activities. Says the pain is intermittent and occurs about 2-3 times per day with each episode lasting about 1-2 minutes. Says the pain is along upper left chest. No numbness or tingling in hands/fingers. No neck pain, SOB, nausea/vomiting. Pain does not occur with exertion. No history of any cardiac problems. He feels it is probably from the chiropractic adjustment but he wanted to make sure. Has indigestion even after gallbladder was removed - was taking prilosec and didn't notice improvement so started taking something from the [employer] store and has noticed improvement with that. Admits he has anxiety. Says it seems to be worse in the winter - occurring on a daily basis. Used to take zoloft and ativan. 05-29-2011 Unclassified (2 sources) Abdominal pain - The onset of the pain has been acute and has been occurring in an intermittent pattern for 1 week. The course has been increasing. The pain is described as a moderate dull ache. The pain is located in the epigastrium. Note for Abdominal pain : Is under a lot of stress the past few weeks and wants something to settle his stomach. No nausea or vomiting. Is taking Prilosec 20mg every few days with no relief. 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 When he had a few days off sx were much improved. 01-31-2011 Unclassified (2 sources) Leg Pain - The leg pain began gradually over time (3 days ago started.). The symptoms have been occurring in an increasing (Seems worse when he is up and moving around or when he is driving.) pattern. The symptoms are described as a cramping and are mild in severity. The symptoms occur when climbing stairs and when walking. There is involvement of the left calf. There are no precipitating factors. Relief is provided by rest (and elevation). There has been no associated blurred vision, chest pain, dizziness, dyspnea, fatigue, muscle weakness, pallor of extremity, paresthesias, numbness and tingling in toes, foot/leg ulcers, calf swelling, cool extremity, fever or chills. There is a medical history of hypertension. There is a family history of hypertension. Note for Leg Pain : Pain shoots up from mid calf to the knee - none above the knee. Sometimes is a throbbing pain, feels deep. No personal or family history of blood disorders. No recent long trips. No history of injury. 12-26-2010 Unclassified (2 sources) Ear pain - The onset of the pain has been acute and has been occurring in a persistent pattern for 3 weeks. The course has been increasing. The pain is described as a severe dull aching and sharp pain (when biting down). The pain is described as being located in the inner ear. The pain is felt in the right ear. Note for Ear pain : Pain goes down into jaw/teeth as well as up right side of head (to [place] area). Unsure when last dental visit was - knows is overdue. Has pain without movement of jaw but is worsened when bites down. Pain is 5-6/10. Has taken ibuprofen which helps. Had something similar a couple of years ago. Used to wear a bite block but stopped because didn't feel he needed it anytmore. No drainage from the ear. No difficulty hearing. Has ringing in the ears but says that has been chronic from damage. 11-30-2010 Unclassified (2 sources) Follow up consultation - The patient is here to follow-up after Emergency Room/Urgent Care on : (10-19-10). Current symptoms include chest pain (States pain as a cramping, pulling pain in left chest area.). Note for Follow up consultation : Also has LUQ abdominal pain on occasion for 6 months wtih no improvement. Normal stress test 11/24 2009, labs in ER all normal except sugar of 140 but was not fasting. Pt took prilosec last year w no improvement. Pt had appendectomy 7 weeks ago 10-26-2010 Unclassified (2 sources) left lower pain - Pt. here with c/o left lower pain in the groin/abdomen area and it radiates down to his testicles also sometimes around to his back.. Been going on for about two weeks. Describs it has feeling like it is bulging and it peterson and sharp pain and for w few of them days he was having to urinate constantly and was burning. Don't recall straining or anythihg to cause it. 08-09-2010 Unclassified (2 sources) Increased BloodPressure - Has been taking BP at home over thelast couple of days and is concerned with the increase in pressure. 159/109 while standing. After sitting awhile it was 149/100. Is having BEST over the past few days also. 06-29-2010 Unclassified (2 sources) Back pain - The onset of the pain has been acute and has been occurring in a persistent pattern for 6 months. The course has been increasing. The pain is characterized as a dull ache and stabbing. The pain is located in the lower back (left side) and radiates to the lower abdomen (left side). There are no precipitating factors. The symptoms are aggravated by exertion and are relieved by rest. Note for Back pain : About 6 months ago was laying on abdomen and on arising pt had acute pain L side of abdomen and back.No injuries in hx, pain is worse when stressed, c/o indigestion, heart burn , and eroctation. No tobacco and minimal caffeine, no wt changes. 06-01-2010 Unclassified (2 sources) No better - Pt was seen recetnly for hemorrhoids and given annusol cream. At times feels like they are getting better but yeaterday they bled a lot and still very painful. 05-06-2010 Unclassified (2 sources) Hemorrhoids - Hemorrhoids which started Sunday and is getting worse. Has not tried any OTC products. Painful to sit or walk. 05-03-2010 Unclassified (2 sources) Arm pain - The onset of the pain has been acute and has been occurring in an intermittent pattern for 4 days. The course has been increasing. The pain is described as moderate (c/o muscle weakness and tingeling in fingers. Lt arm is worse than the right.). Note for Arm pain : had stress test ( normal ) in november for left side cp. C/o a numb tingly sensation worsening in both arms. Remote hx of neck injury. 03-02-2010 Results Test Name Value Interpretation Reference Range Facil ity Vital Signs Date Time Vital Sign Value Performing Clinician Faci lity 12-29-2022 13:43-0400 Body weight 92.53 kg Luis Mcnamara LPN [employer] 12-29-2022 13:43-0400 Diastolic blood pressure 72 mm[Hg] Luis Mcnamara LPN [employer] Encounters Encounter Date Encounter Type Care Provider Facility Start: 12-29-2022 End: 12-29-2022 Office outpatient visit 15 minutes Luan Arnold MD Work Phone: [employer] Start: 11-23-2022 End: 11-23-2022 Office outpatient visit 15 minutes Luan Arnold MD Work Phone: [employer] Start: 11-13-2022 End: 11-13-2022 ambulatory LUAN ARNOLD Facility:[facility] Start: 11-13-2022 End: 11-13-2022 Patient encounter procedure Sana Ram PA-C Work Phone: [facility] Procedures Date Procedure Procedure Detail Performing Clinician Start: 10-25-2022 End: 10-25-2022 Depression screening Luan Arnold MD Work Phone: Start: 10-25-2022 End: 10-25-2022 Scr dep neg, no plan reqd Luan Arnold MD Work Phone: Start: 10-10-2022 End: 10-10-2022 Lab findings surveillance Lana Drake ach [employer] Plan of Treatment Date Care Activity Detail Author Start: 07-09-2027 Urine microalbumin profile DTAP,TDAP,TD (3 - Td or Tdap) [facility] Start: 07-27-2023 LIPID SCREEN LIPID SCREEN [facility] Start: 01-19-2023 [facility] Start: 05-21-2022 DEPRESSION ASSESSMENT DEPRESSION ASSESSMENT [facility] Start: 04-24-2022 DIABETES SCREEN DIABETES SCREEN [facility] Start: 07-27-2019 Hepatitis B surface antibody level LDL CHOLESTEROL [facility] Start: 2018 COLOGUARD (FIT-DNA) COLOGUARD (FIT-DNA) [facility] Start: 2018 Colonoscopy COLONOSCOPY [facility] Start: 2018 COLORECTAL CANCER SCREENING COLORECTAL CANCER SCREENING [facility] Start: [address] COLONOGRAPHY [facility] Start: 2018 FECAL OCCULT BLOOD FECAL OCCULT BLOOD [facility] Start: 2018 SIGMOIDOSCOPY SIGMOIDOSCOPY [facility] Start: 04-18-2018 End: 04-18-2018 Ambulatory [facility] Start: 01-19-2018 Influenza vaccination INFLUENZA VACCINE (#1) [facility] Work Phone: Start: 09-24-2017 End: 09-24-2017 Appointment Appointment [facility] Work Phone: Start: 09-24-2017 End: 09-24-2017 Appointment Appointment [facility] Work Phone: Start: 05-17-2017 End: 05-17-2017 Appointment Appointment [facility] Work Phone: Start: 02-21-2017 End: 02-21-2017 Appointment Appointment [facility] Work Phone: Start: 02-05-2017 End: 02-07-2017 Follow Up Appt 3 months Follow Up Appt 3 months [facility] Work Phone: Start: 02-05-2017 End: 02-07-2017 Pacer Clinic [facility] Work Phone: Start: 02-05-2017 End: 02-05-2017 Appointment Appointment [facility] Work Phone: Start: 02-05-2017 End: 02-07-2017 Follow Up Appt 3 months Follow Up Appt 3 months [facility] Work Phone: Start: 02-05-2017 End: 02-07-2017 Pacer Clinic Pacer Clinic [facility] Work Phone: Start: 01-29-2017 End: 01-29-2017 Appointment Appointment [facility] Work Phone: Start: 11-10-2016 End: 11-10-2016 Appointment Appointment [facility] Work Phone: Start: 11-02-2016 End: 11-02-2016 Follow Up Appt 3 months Follow Up Appt 3 months [facility] Work Phone: Start: 11-02-2016 End: 11-02-2016 Pacer Clinic Pacer Clinic [facility] Work Phone: Start: 11-02-2016 End: 11-02-2016 Follow Up Appt 3 months Follow Up Appt 3 months [facility] Work Phone: Start: 11-02-2016 End: 11-02-2016 Pacer Clinic Pacer Clinic [facility] Work Phone: Start: 09-25-2016 End: 09-25-2016 Cardiovascular stress test using treadmill Treadmill stress test (no imaging) [facility] Work Phone: Start: 09-25-2016 End: 09-25-2016 Follow Up Appt 1 year Follow Up Appt 1 year [facility] Work Phone: Start: 09-25-2016 End: 09-25-2016 PFM PFM [facility] Work Phone: Start: 09-25-2016 End: 09-25-2016 Appointment Appointment [facility] Work Phone: Start: 09-25-2016 End: 09-25-2016 Cardiovascular stress test using treadmill Treadmill stress test (no imaging) [facility] Work Phone: Start: 09-25-2016 End: 09-25-2016 Follow Up Appt 1 year Follow Up Appt 1 year [facility] Work Phone: Start: 09-25-2016 End: 09-25-2016 PFM PFM [facility] Work Phone: Start: 08-04-2016 End: 08-07-2016 Follow Up Appt 3 months Follow Up Appt 3 months [facility] Work Phone: Start: 08-04-2016 End: 08-07-2016 Pacer Clinic [facility] Clinic [facility] Work Phone: Start: 08-04-2016 End: 08-07-2016 Follow Up Appt 3 months Follow Up Appt 3 months [facility] Work Phone: Start: 08-04-2016 End: 08-07-2016 Pacer Clinic [facility] Work Phone: Start: 05-03-2016 End: 05-04-2016 Follow Up Appt 3 months Follow Up Appt 3 months [facility] Work Phone: Start: 05-03-2016 End: 05-04-2016 Pacer Clinic Pacer Clinic [facility] Work Phone: Start: 05-03-2016 End: 05-04-2016 Follow Up Appt 3 months Follow Up Appt 3 months [facility] Work Phone: Start: 05-03-2016 End: 05-04-2016 Pacer Clinic Pacer Clinic [facility] Work Phone: Start: 02-01-2016 End: 02-01-2016 Follow Up Appt 3 months Follow Up Appt 3 months [facility] Work Phone: Start: 02-01-2016 End: 02-01-2016 Pacer Clinic Pacer Clinic [facility] Work Phone: Start: 02-01-2016 End: 02-01-2016 Follow Up Appt 3 months Follow Up Appt 3 months [facility] Work Phone: Start: 02-01-2016 End: 02-01-2016 Pacer Clinic Pacer Clinic [facility] Work Phone: Start: 01-04-2016 End: 01-06-2016 Follow Up Appt 1 month Follow Up Appt 1 month [facility] Work Phone: Start: 01-04-2016 End: 01-06-2016 Pacer Clinic Pacer Clinic [facility] Work Phone: Start: 01-04-2016 End: 01-06-2016 Follow Up Appt 1 month Follow Up Appt 1 month [facility] Work Phone: Start: 01-04-2016 End: 01-06-2016 Pacer Clinic Pacer Clinic [facility] Work Phone: Start: 12-06-2015 End: 12-13-2015 Follow Up Appt 1 month Follow Up Appt 1 month [facility] Work Phone: Start: 12-06-2015 End: 12-13-2015 Pacer Clinic Pacer Clinic [facility] Work Phone: Start: 12-06-2015 End: 12-13-2015 Follow Up Appt 1 month Follow Up Appt 1 month [facility] Work Phone: Start: 12-06-2015 End: 12-13-2015 Pacer Clinic [facility] Clinic [facility] Work Phone: Start: 11-05-2015 End: 11-23-2015 Follow Up Appt 1 month Follow Up Appt 1 month [facility] Work Phone: Start: 11-05-2015 End: 11-23-2015 Pacer Clinic Pacer Clinic [facility] Work Phone: Start: 11-05-2015 End: 11-23-2015 Follow Up Appt 1 month Follow Up Appt 1 month [facility] Work Phone: Start: 11-05-2015 End: 11-23-2015 Pacer Clinic Pacer Clinic [facility] Work Phone: Start: 10-27-2015 End: 11-10-2015 Follow Up Appt 1 month Follow Up Appt 1 month [facility] Work Phone: Start: 10-27-2015 End: 11-10-2015 Pacer Clinic Pacer Clinic [facility] Work Phone: Start: 10-27-2015 End: 11-10-2015 Follow Up Appt 1 month Follow Up Appt 1 month [facility] Work Phone: Start: 10-27-2015 End: 11-10-2015 Pacer Clinic Pacer Clinic [facility] Work Phone: Start: 08-31-2015 End: 09-02-2015 *BMP *BMP [facility] Work Phone: Start: 08-31-2015 End: 09-02-2015 CBC W Auto Differential panel - Blood *CBC without Diff [facility] Work Phone: Start: 08-31-2015 End: 11-10-2015 Implantable Loop Recorder Implantable Loop Recorder [facility] Work Phone: Start: 08-31-2015 End: 09-02-2015 *BMP *BMP [facility] Work Phone: Start: 08-31-2015 End: 09-02-2015 CBC W Auto Differential panel - Blood *CBC without Diff [facility] Work Phone: Start: 08-31-2015 End: 11-10-2015 Implantable Loop Recorder Implantable Loop Recorder [facility] Work Phone: Start: 08-25-2015 End: 08-25-2015 Implantable Loop Recorder Implantable Loop Recorder [facility] Work Phone: Start: 08-25-2015 End: 08-25-2015 Implantable Loop Recorder Implantable Loop Rec[employer] [facility] Work Phone: Start: 08-24-2015 End: 11-10-2015 *BMP *BMP [facility] Work Phone: Start: 08-24-2015 End: 11-10-2015 *CBC with Differential *CBC with Differential [facility] Work Phone: Start: 08-24-2015 End: 11-10-2015 Follow Up Appt Other Follow Up Appt Other [facility] Work Phone: Start: 08-24-2015 End: 11-10-2015 Magnesium mass conc *Magnesium [facility] Work Phone: Start: 08-24-2015 End: 11-10-2015 Thyrotropin Qn *TSH [facility] Work Phone: Start: 08-24-2015 End: 11-10-2015 *BMP *BMP [facility] Work Phone: Start: 08-24-2015 End: 11-10-2015 *CBC with Differential *CBC with Differential [facility] Work Phone: Start: 08-24-2015 End: 11-10-2015 Follow Up Appt Other Follow Up Appt Other [facility] Work Phone: Start: 08-24-2015 End: 11-10-2015 Magnesium *Magnesium [facility] Work Phone: Start: 08-24-2015 End: 11-10-2015 Thyroid stimulating hormone (TSH) *TSH [facility] Work Phone: Start: 12-08-2013 End: 12-09-2013 [employer] mobile cv telemetry w/i&report 30 days 30 Day Holter Monitor [facility] Work Phone: Start: 12-08-2013 End: 12-09-2013 Remote 30 day ecg rev/report 30 Day Holter Monitor [employer] Work Phone: Start: 10-22-2013 End: 10-22-2013 Follow Up Appt Other Follow Up Appt Other [facility] Work Phone: Start: 10-22-2013 End: 10-22-2013 Follow Up Appt Other Follow Up Appt Other [facility] Work Phone: Start: 2013 Fasting lipid profile LIPID SCREENING [facility] Work Phone: Start: 09-04-2013 End: 09-05-2013 Cardiovascular function eval w/tilt table w/mntr Tilt Table Test [facility] Work Phone: Start: 09-04-2013 End: 09-04-2013 Ecg routine ecg w/least 12 lds w/i&r EKG (In office) [facility] Work Phone: Start: 09-04-2013 End: 09-04-2013 Follow Up Appt 6 weeks Follow Up Appt 6 weeks [facility] Work Phone: Start: 09-04-2013 End: 09-04-2013 MMM MMM [facility] [employer] [facility] [employer] Work Phone: Start: 09-04-2013 End: 09-04-2013 [employer] mobile cv telemetry w/i&report 30 days 30 Day Holter Monitor [employer] Work Phone: Start: 09-04-2013 End: 09-04-2013 Electrocardiogram, complete EKG (In office) [employer] Work Phone: Start: 09-04-2013 End: 09-04-2013 Follow Up Appt 6 weeks Follow Up Appt 6 weeks [facility] [employer] [facility] [employer] Work Phone: Start: 09-04-2013 End: 09-04-2013 MMM MMM [facility] Work Phone: Start: 09-04-2013 End: 09-04-2013 Remote 30 day ecg rev/report 30 Day Holter Monitor [facility] Work Phone: Start: 09-04-2013 End: 09-05-2013 Tilt table evaluation Tilt Table Test [facility] Work Phone: Start: 04-24-2012 End: 10-22-2013 *BMP *BMP [facility] Work Phone: Start: 04-24-2012 End: 04-24-2012 Cta hrt cornry art/bypass grfts contrst 3d post CTA [facility] Work Phone: Start: 04-24-2012 End: 04-24-2012 Ecg routine ecg w/least 12 lds w/i&r EKG (In office) [facility] Work Phone: Start: 04-24-2012 End: 10-22-2013 Follow Up Appt Other Follow Up Appt Other [facility] Work Phone: Start: 04-24-2012 End: 10-22-2013 *BMP *BMP [facility] Work Phone: Start: 04-24-2012 End: 04-24-2012 Ct angio hrt w/3d image CTA [facility] Work Phone: Start: 04-24-2012 End: 04-24-2012 Electrocardiogram, complete EKG (In office) [facility] Work Phone: Start: 04-24-2012 End: 10-22-2013 Follow Up Appt Other Follow Up Appt Other [facility] Work Phone: Start: 1992 Third diphtheria, tetanus and acellular pertussis (DTaP) vaccination TDAP (ADULT) [facility] Work Phone: Start: 09-14-1991 ANNUAL PCP TEAM CHRONIC DISEASE VISIT ANNUAL PCP TEAM CHRONIC DISEASE VISIT [facility] Start: 09-14-1991 HEPATITIS C SCREENING HEPATITIS C SCREENING [facility] Start: 09-14-1991 HIV SCREENING HIV SCREENING [facility] Start: 09-14-1991 Tetanus vaccination TETANUS [facility] Work Phone: Start: 1986 HIV screening HIV SCREENING DISCUSSION [facility] Work Phone: Start: 03-15-1974 COVID-19 VACCINE (#1) COVID-19 VACCINE (#1) [facility] Start: 1973 HEPATITIS B (1 of 3 - 3-dose series) HEPATITIS B (1 of 3 - 3-dose series) [facility] Influenza (3 yea rs and up) [facility] Immunizations Immunization Date Immunization Notes Care Provider Juana figueroa 10-25-2022 measles, mumps and rubella virus vaccine Luan Arnold MD Work Phone: [facility] Payers Date Payer Category Payer Unknown [id number] 2018 Unknown [id number] 1975 Unknown [id number] 1973 Unknown [id number] 1973 Unknown [id number] 1973 Unknown [id number] Social History Date Type Detail Facility Start: 04-02-2018 End: 11-13-2022 Tobacco smoking status NHIS Never smoker [facility] Work Phone: Start: 1975 Sex Assigned At Not on file [facility] Work Phone: Start: 11-13-2022 Tobacco use and exposure User of smokeless tobacco [facility] Work Phone: History of tobacco use [facility] Work Phone: Start: 11-13-2022 Alcohol intake Current drinke r of alcohol (finding) [facility] Start: 04-24-2019 Alcohol Comment occasional [facility] Caffeine Use Caffeine Use [employer] Exercise History: Exercise Histo ry: ; Inactive. [employer] Tobacco Use: Tobacco Use: ; N ever smoker. [employer] Male [employer] Work Phone: Progress note 11-13-2022 Note Date & Type Note Facility 11-13-2022 Note HNO ID: [id number] Author: Sana Ram PA-C Service: ? Author Type: Physician Magnet[employer] Type: Progress Notes Filed: 11/13/2022 12:56 PM Note Text: This note was created using [employer]. Subjective Shawn Caban is a 47 year old male. HPI Presents with a chief complaint of a red juan ramon on his right elbow area. He noticed this this morning. He has a cane Kassidy puppy that he plays with that sometimes will scratch and bite at him playfully. He wanted to make sure however he did not have a streak from an infection. No fevers or chills. No drainage from the area. No significant pain. Review of Systems Constitutional: Negative. HENT: Negative. Respiratory: Negative. Cardiovascular: Negative. Gastrointestinal: Negative. Musculoskeletal: Streak of right elbow area All other systems reviewed and are negative. PAST MEDICAL HISTORY Diagnosis Date Anxiety Arrhythmia Cardiac device in situ Chest pain Coronary artery disease 04/28/2018 Depression Epigastric pain 08/06/13 GERD (gastroesophageal reflux disease) 08/06/13 Hiatal hernia Hypokalemia Inguinal hernia Light headedness 08/06/13 DARA (obstructive sleep apnea) DARA (obstructive sleep apnea) 07/26/2018 PAF (paroxysmal atrial fibrillation) (HCC) Palpitations Paroxysmal atrial fibrillation (HCC) 04/29/2018 Current Outpatient Medications Medication Sig Dispense Refill apixaban (ELIQUIS) 5 mg tab(s) Take 1 tablet by mouth twice daily. 60 tablet 5 metoprolol succinate ER (TOPROL XL) 25 mg 24 hr tablet Take 0.5 tablets by mouth twice daily. 90 tablet 3 esomeprazole (NEXIUM) 40 mg capsule Take 1 capsule by mouth once daily. aspirin 81 mg chewable tablet Take 1 tablet by mouth once daily. 90 tablet 1 iv contrast (will be provided with radiology test) CT Pulm Vein - No IV access, insert saline lock prior to the sedation, infusion, injection for imaging exam. Discontinue saline lock post exam. If Pt. has a central line or IVAD, may access for administration according to line specific nursing protocol. Once exam is complete flush line and de-access according to line specific nursing protocol in the CT contrast administration guidelines link. 1 Each 0 flecainide (TAMBOCOR) 100 mg tablet Take 1 tablet by mouth twice daily. (Patient not taking: Reported on 11/13/2022) 60 tablet 3 No current facility-administered medications for this visit. PAST SURGICAL HISTORY Procedure Laterality Date AFIB PVI W/COMPL EP STUDY 04/2019 ESOPHAGOGASTRODUODENOSCOPY TRANSORAL DIAGNOSTIC 08/06/13 GASTROESOPHAG REFLX TEST W/TELEMTRY PH ELTRD 08/06/13 LAPAROSCOPIC APPENDECTOMY 2010 LAPAROSCOPY SURG CHOLECYSTECTOMY 2010 PAST SURGICAL HISTORY OF fusion c4 and c5 XTRNL PT ACTIV ECG TRANSMIS W/DARIEL XTRNL PT ACTIV ECG TRANSMIS W/DARIEL FAMILY HISTORY Problem Relation Age of Onset Diabetes Maternal Grandfather Heart Paternal Grandmother Cancer Paternal Grandmother Hypertension Father Cancer Paternal Grandfather lung Heart Sister SVT No Known Problems Mother Social History Tobacco Use Smoking status: Never Smokeless tobacco: Current Types: Chew Substance Use Topics Alcohol use: Yes Comment: occasional Drug use: No Objective BP 122/66 Pulse 80 Temp 36.3 ?C (97.3 ?F) Resp 16 Wt 93.4 kg (206 lb) SpO2 97% BMI 29.56 kg/m? Physical Exam Vitals reviewed. Constitutional: Appearance: Normal appearance. HENT: Head: Normocephalic and atraumatic. Skin: General: Skin is warm and dry. Comments: Patient has a linear abrasion over the antecubital fossa of the right elbow. There is no sign of infection. No bite juan ramon noted. Neurological: Mental Status: He is alert. Assessment and Plan ASSESSMENT/PLAN: 1. Abrasion of skin - ICD9: 919.0, ICD10: T14.8XXA Does not appear to be lymphangitic streaking. Appears to be an abrasion. Discussed red flags to be seen again. Patient agreeable. Sana Ram PA-C [facility] History of Present illness Narrative 11-13-2022 Sana Ram PA-C - 11/13/2022 12:52 PM EDT Note Date & Type Note Facility 11-13-2022 History of Presen t illness Narrative Images from the original note were not included. This note was created using [employer]. Subjective Shawn Caban is a 47 year old male. HPI Presents with a chief complaint of a red juan ramon on his right elbow area. He noticed this this morning. He has a cane Kassidy puppy that he plays with that sometimes will scratch and bite at him playfully. He wanted to make sure however he did not have a streak from an infection. No fevers or chills. No drainage from the area. No significant pain. Review of Systems Constitutional: Negative. HENT: Negative. Respiratory: Negative. Cardiovascular: Negative. Gastrointestinal: Negative. Musculoskeletal: Streak of right elbow area All other systems reviewed and are negative. PAST MEDICAL HISTORY Diagnosis Date Anxiety Arrhythmia Cardiac device in situ Chest pain Coronary artery disease 04/28/2018 Depression Epigastric pain 08/06/13 GERD (gastroesophageal reflux disease) 08/06/13 Hiatal hernia Hypokalemia Inguinal hernia Light headedness 08/06/13 DARA (obstructive sleep apnea) DARA (obstructive sleep apnea) 07/26/2018 PAF (paroxysmal atrial fibrillation) ([facility]) Palpitations Paroxysmal atrial fibrillation (HCC) 04/29/2018 Current Outpatient Medications Medication Sig Dispense Refill apixaban (ELIQUIS) 5 mg tab(s) Take 1 tablet by mouth twice daily. 60 tablet 5 metoprolol succinate ER (TOPROL XL) 25 mg 24 hr tablet Take 0.5 tablets by mouth twice daily. 90 tablet 3 esomeprazole (NEXIUM) 40 mg capsule Take 1 capsule by mouth once daily. aspirin 81 mg chewable tablet Take 1 tablet by mouth once daily. 90 tablet 1 iv contrast (will be provided with radiology test) CT Pulm Vein - No IV access, insert saline lock prior to the sedation, infusion, injection for imaging exam. Discontinue saline lock post exam. If Pt. has a central line or IVAD, may access for administration according to line specific nursing protocol. Once exam is complete flush line and de-access according to line specific nursing protocol in the CT contrast administration guidelines link. 1 Each 0 flecainide (TAMBOCOR) 100 mg tablet Take 1 tablet by mouth twice daily. (Patient not taking: Reported on 11/13/2022) 60 tablet 3 No current facility-administered medications for this visit. PAST SURGICAL HISTORY Procedure Laterality Date AFIB PVI W/COMPL EP STUDY 04/2019 ESOPHAGOGASTRODUODENOSCOPY TRANSORAL DIAGNOSTIC 08/06/13 GASTROESOPHAG REFLX TEST W/TELEMTRY PH ELTRD 08/06/13 LAPAROSCOPIC APPENDECTOMY 2010 LAPAROSCOPY SURG CHOLECYSTECTOMY 2010 PAST SURGICAL HISTORY OF fusion c4 and c5 XTRNL PT ACTIV ECG TRANSMIS W/R&I </30 DAYS XTRNL PT ACTIV ECG TRANSMIS W/R&I </30 DAYS FAMILY HISTORY Problem Relation Age of Onset Diabetes Maternal Grandfather Heart Paternal Grandmother Cancer Paternal Grandmother Hypertension Father Cancer Paternal Grandfather lung Heart Sister SVT No Known Problems Mother Social History Tobacco Use Smoking status: Never Smokeless tobacco: Current Types: Chew Substance Use Topics Alcohol use: Yes Comment: occasional Drug use: No Objective BP 122/66 Pulse 80 Temp 36.3 C (97.3 F) Resp 16 Wt 93.4 kg (206 lb) SpO2 97% BMI 29.56 kg/m Physical Exam Vitals reviewed. Constitutional: Appearance: Normal appearance. HENT: Head: Normocephalic and atraumatic. Skin: General: Skin is warm and dry. Comments: Patient has a linear abrasion over the antecubital fossa of the right elbow. There is no sign of infection. No bite juan ramon noted. Neurological: Mental Status: He is alert. Assessment and Plan ASSESSMENT/PLAN: 1. Abrasion of skin - ICD9: 919.0, ICD10: T14.8XXA Does not appear to be lymphangitic streaking. Appears to be an abrasion. Discussed red flags to be seen again. Patient agreeable. Sana Ram PA-C documented in this encounter [facility] History of Past illness Narrative 07-18-2018 Note Date & Type Note Facility documented as of this encounter (statuses as of 11/13/2022) [facility] Evaluation note Note Date & Type Note Facility documented in this encounter [facility] Summary Purpose Family History Cancer Status:Active Comments:Paterna l Grandmother. Paternal Grandfather. Cerebrovascular Accident Status:Active Comment s:Negative Family History Of. Coronary Artery Disease Status:Active Comments :Negative Family History Of. Diabetes Mellitus Type II Status:Active Commen ts:Family Members In General. on mother's side Hypertension Status:Active Comments:Father. Cancer Status:Active Comments:Paterna l Grandmother. Paternal Grandfather. Cerebrovascular Accident Status:Active Comment s:Negative Family History Of. Coronary Artery Disease Status:Active Comments :Negative Family History Of. Diabetes Mellitus Type II Status:Active Commen ts:Family Members In General. on mother's side Hypertension Status:Active Comments:Father. Advance Directives No Advanced Directives Records FoundNo Advanced Directives Records FoundNo Advanced Directives Records FoundNo Advanced Directives Records FoundNo Advanced Directives Records FoundNo Advanced Directives Records Found Additional Source Comments (unrecognized sect ion and content) No Status Records FoundNo Status Records FoundNo Status Records FoundNo Status Records FoundNo Status Records FoundNo Status Records Found INFORMATION SOURCE (unrecogn ized section and content) DATE CREATED AUTHOR AUTHOR'S ORGANIZ ATION 05/05/2018 [facility] DATE CREATED AUTHOR AUTHOR'S ORGANIZ ATION 07/04/2018 [facility] DATE CREATED AUTHOR AUTHOR'S ORGANIZ ATION 12/12/2019 [facility] DATE CREATED AUTHOR AUTHOR'S ORGANIZ ATION 02/05/2021 [facility] DATE CREATED AUTHOR AUTHOR'S ORGANIZ ATION 11/14/2022 [facility] Reason for Visit (unrecogniz ed section and content) Reason Comments Derm Problem red line on inner el bow area right arm x this am, puppy bites Specialty Diagnoses / Procedures Referred By Ashkan t Referred To Contact Internal Medicine / [facility] Diagnoses Examination red line up right arm, want's to rule out infection Procedures OFFICE/OUTPATIENT ESTABLISHED MOD MDM 30-39 MIN EST SAME DAY Self Sana Ram, AGATHA [address] [place] [address] Referral ID Status Reason Start Date Expiration Date Visits Re quested Visits Authorized [id number] Closed 11/13/2022 05/20/2023 1 1 Source Comments (unrecognize d section and content) In the event this informatio n is protected by the Federal Confidentiality of Alcohol and Drug Abuse Patient Records regulations: The Federal rules restrict any use of the information to criminally investigate or prosecute any alcohol or drug abuse patient.[facility] Care Teams (unrecognized sec tion and content) FOR RECORDS PERTAINING TO PATIENTS WHO ARE OR HAVE BEEN ENROLLED IN A CHEMICAL DEPENDENCY/SUBSTANCEABUSE PROGRAM, SOME INFORMATION MAY BE OMITTED. This clinical summary was aggregated from multiple sources. Caution should be exercised in using it in the provision of clinical care. This summary normalizes information from multiple sources, and as a consequence, information in this document may materially change the coding, format and clinical context of patient data. In addition, data may be omitted in some cases. CLINICAL DECISIONS SHOULD BE BASED ON THE PRIMARY CLINICAL RECORDS. [facility] [employer] [facility]. provides no warranty or guarantee of the accuracy or completeness of information in this document.
[2023-06-09 10:11] LABS: Absolute Lymphocyte Count 1.56 X10^3/uL (0.83-4.51); Absolute Neutrophil Count 4.5 X10^3/uL (2.0-7.7); Basophil# 0.07 X10^3/uL; Eosinophil# 0.04 X10^3/uL; Eosinophils% 0.6 % (0-5); Hematocrit 45.4 % (40-54); Hemoglobin 15.3 g/dL (13.0-16.5); Lymphocyte # 1.56 X10^3/ul (0.83-4.51); Mean Corp Hgb Conc 33.7 g/dL (32-36); Mean Corpuscular Hgb 29.2 pg (27.0-32.0); Mean Corpuscular Volume 86.6 fL (80-94); Mean Platelet Vol. 9.6 fl (6.2-12.0); Monocyte# 0.87 X10^3/uL; Monocyte% 12.3 % (0-10); NRBC Flagged by Analyzer 0 % (0-5); Neutrophil # 4.51 X10^3/uL (2.7-7.7); Neutrophil % 63.5 % (47-70); Platelet Count 252 K/mm3 (150-450); RBC Distribution Width CV 12.3 % (11.6-14.6); Red Blood Count 5.24 M/mm3 (4.6-6.2); White Blood Count 7.1 K/mm3 (4.4-11.0)
[2023-06-09 10:23] LABS: Anion Gap 4 (5-15); BUN 14 mg/dL (7-18); BUN/Creat Ratio 14.5 RATIO (10-20); Calcium,Total 8.7 mg/dL (8.5-10.1); Chloride 106 mmol/L (98-107); Creatinine, Serum 0.97 mg/dL (0.70-1.30); EST Glomerular Filtration Rate 87 mL/min (>60); Est Glom Filt Rate - Afr Amer 106 mL/min (>60); Estimated Creatinine Clearance 105.77 ml/min; Glucose 106 mg/dL (74-106); Potassium 3.6 mmol/L (3.5-5.1); Sodium Level 137 mmol/L (136-145); Troponin-I HS 4 pg/mL (3.0-78.0)
[2023-06-09 10:31] LABS: BNP,B-Type NATRIURETIC PEPTIDE 17.4 pg/mL (0-100)
[2023-06-09 11:25] VITALS: BP 143/101; PULSE 84; RESP 17; O2SAT 96
== END 2023-06-09 11:34 | disposition home or self-care (01) ==
PROVIDERS: Emergency Provider Emergency Medicine; PCP Family Medicine; Visit Provider Emergency Medicine
DX: R05.9 Cough, unspecified (principal); R06.02 Shortness of breath; B97.4 Respiratory syncytial virus as the cause of diseases classified elsewhere; G47.33 Obstructive sleep apnea (adult) (pediatric); F17.220 Nicotine dependence, chewing tobacco, uncomplicated
CPT/HCPCS: 71046; 80048; 83880; 84484; 85025; 87631; 93005; 99284; A4216

== ENCOUNTER 2023-08-31 21:36 | Emergency (ER) | payer OTHER, SELFPAY ==
[2023-08-31 21:38] VITALS: BP 149/102; PULSE 84; RESP 17; TEMP 36.4; O2SAT 99; BMI 29.5
--- NOTE | 2023-08-31 21:56 | CT_ITS ---
INDICATION: chest/ abdomen pain EXAMINATION: CTA CHEST, ABDOMEN AND PELVIS WITH CONTRAST - TECHNIQUE: A CTA of the chest, abdomen, and pelvis is obtained with sagittal and coronal reconstructed MIP views. Three-dimensional surface rendered sequence of the thoracic and abdominal aorta was obtained. A radiation dose optimization technique was used for this scan. 100 mL of Isovue-370. Oral contrast: None. COMPARISON: None. FINDINGS: CT CHEST: THORACIC AORTA: No atheromatous disease, no aneurysmal changes or dissection. ABDOMINAL AORTA: No aneurysm or dissection. No significant atheromatous disease. The iliac arteries are unremarkable. Status post median sternotomy. LUNGS: The lungs are well-expanded without acute or chronic changes. No effusions or pneumothorax. MEDIASTINUM: The thyroid gland is normal. No mediastinal or hilar adenopathy. HEART: Heart is normal size. No pericardial effusion. No CAD. CT ABDOMEN AND PELVIS: LIVER: The liver enhances homogeneously. 1 cm cyst in the medial segment left lobe of the liver.. GALLBLADDER: The gallbladder is nonvisualized. SPLEEN: Normal. PANCREAS: No masses or inflammation. ADRENAL GLANDS: Normal. KIDNEYS AND URETERS: The kidneys both enhance appropriately. There are normal size and shape. No hydronephrosis or nephrolithiasis. No renal masses or cysts. STOMACH: Normal. SMALL BOWEL: No abnormal distention of the small bowel. MESENTERY: No mesenteric inflammation. No ascites. COLON: No significant diverticulosis, masses or inflammation. The colon otherwise is normal. There is a large fatty ileocecal valve. APPENDIX: The appendix is not visualized. IVC: Normal. RETROPERITONEUM: No retroperitoneal lymphadenopathy. PELVIC STRUCTURES: Normal bladder. SOFT TISSUES ABDOMEN: The anterior abdominal wall is normal. SOFT TISSUE CHEST: The extrathoracic soft tissues are normal. BONES: No fractures or significant degenerative disease. CT/CTA Chst, Abd, Pel W and/or WO IMPRESSION: Normal contrast-enhanced CT of the chest. Normal contrast-enhanced CT of the abdomen and pelvis. Electronically Signed: Simón Bagley MD at 23:51 EDT ,
[2023-08-31 21:57] VITALS: O2SAT 96
--- NOTE | 2023-08-31 21:57 | EKG12_ITS ---
Test Reason : CHEST PAIN Blood Pressure : / mmHG Vent. Rate : 086 BPM Atrial Rate : 086 BPM P-R Int : 188 ms QRS Dur : 076 ms QT Int : 366 ms P-R-T Axes : 039 034 032 degrees QTc Int : 437 ms Normal sinus rhythm Normal ECG Confirmed by Elpidio Hewitt ([id number]), online editor GRISELDA JULIAN ([id number]) on 09/03/2023 6:37:44 AM Referred By: WINSTON Confirmed By:Elpidio Hewitt
--- NOTE | 2023-08-31 21:58 | EDS_ITS ---
HPI History of Present Illness Chief Complaint: Chest Pain Detail of Chief Complaint: Chest pain Informant: patient Narrative Narrative: Patient presents to the emergency department with complaint of chest discomfort. Patient states that he has had what he thinks may be heartburn since this morning around 10 AM. Intermittent episodes of pain and pressure in his upper abdomen and chest. Tonight he did not feel good so he went to bed and became very pale and diaphoretic and experienced pain between his shoulder blades as well. Presents to the ER for evaluation. Patient tells me he has history of open heart surgery for myocardial bridging. His surgery was about 5 years ago. At that time he was noted to have a 40% occlusion in his LAD. Patient also has history of GERD and anxiety and paroxysmal A-fib. Recently wore a loop r ecorder. Currently he describes his discomfort in his chest as a 2 out of 10. [facility] Medical History (Updated 08/31/23 @ 23:[address] Kellen Nguyen, ) Anxiety Anxiety and depression Atrial fibrillation with RVR Chest pain Coronary-myocardial bridge (~07/16/18) GERD (gastroesophageal reflux disease) Hiatal hernia History of left heart catheterization (LHC) (~04/26/18) Hypokalemia Inguinal hernia DARA (obstructive sleep apnea) DARA (obstructive sleep apnea) Other specified cardiac device in situ (~09/06/15) Palpitations Paroxysmal atrial fibrillation Pericardial effusion Home Medications atorvastatin 10 mg tablet 10 mg PO QHS 12/08/21 [History Last Taken Unknown] metoprolol succinate 25 mg tablet,extended release 24 hr 25 mg PO BID 12/08/21 [History Last Taken Unknown] venlafaxine 75 mg tablet 75 mg PO DAILY 12/12/22 [History Last Taken Unknown] Allergy/AdvReac Type Severity Reaction Status Date / Time No Known Allergies Allergy Verified 08/31/23 21:37 Family History Father Hypertension Sister SVT (supraventricular tachycardia) Surgical History History of cholecystectomy History of fusion of cervical spine (~09/2013) History of heart surgery History of nasal surgery History of radiofrequency ablation procedure for cardiac arrhythmia (~05/16/19) Hx of appendectomy Social History Smoking Status: Never smoker Smokeless tobacco user: chewing tobacco alcohol intake: current alcohol intake frequency: 0-2 drinks per day Alcohol type: beer substance use type: does not use caffeine: Yes Type: coffee Number of servings: 1 ROS ROS ED ROS Narrative Diaphoresis Review of Systems ROS Unobtainable: other Constitutional Constitutional ED: Reports lethargy; Denies chills, fever(s), sweats or weight loss Eyes Eyes: Denies blurry vision, change in vision or diplopia ENT ENT ED: Denies rhinorrhea or sore throat Cardiovascular Cardiovascular: Reports chest pain; Denies orthopnea or racing heartbeat Respiratory/Chest Respiratory/Chest: Reports dyspnea; Denies cough, dyspnea on exertion, orthopnea or sputum Gastrointestinal Gastrointestinal: Reports nausea; Denies abdominal pain, diarrhea or vomiting Genitourinary Genitourinary ED: Denies dysuria, hematuria or urinary frequency Musculoskeletal Musculoskeletal: Denies arthralgias, back pain, myalgias or neck pain Integumentary Denies abscess, Abrasions or rash Neurologic Neurologic: Denies headache(s) or weakness Psychiatric Psychiatric: Denies anxiety, depression or suicidal thoughts Endocrine Endocrinology: Denies polydipsia, polyphagia or polyuria Hematologic/Lymphatic Hematologic/Lymphatic: Denies easy bleeding, easy bruising or lymphadenopathy Allergic/Immunologic Allergic/Immunologic ED: Denies mouth swelling, tongue swelling or urticaria EXAM Physical Exam Const Vital Signs: 08/31/23 21:38 08/31/23 21:38 08/31/23 22:16 Temperature 97.5 F L Temperature Source Temporal Pulse Rate 84 80 Respiratory Rate 17 Respiratory Effort Normal Blood Pressure 149/102 H 149/101 H Blood Pressure Mean 117 Pulse Ox 99 Oxygen Delivery Method 08/31/23 21:57 Temperature Temperature Source Pulse Rate Respiratory Rate Respiratory Effort Blood Pressure Blood Pressure Mean Pulse Ox 96 Oxygen Delivery Method Room Air Positive well nourished and well developed General Appearance ED: well developed and NAD HEENT Reports TM's clear and moist mucous membranes normocephalic and atraumatic; Negative for trauma or tenderness Tympanic Membrane ED: Yes TM's clear Eyes PERRL and EOMs intact bilaterally General Eye ED: Negative for pale conjunctiva or scleral icterus Neck no lymphadenopathy, supple and no JVD General: Negative for tenderness Chest Wall inspection of chest normal and palpation of chest normal Chest: Negative for tenderness Resp normal respiratory effort and clear to auscultation bilaterally Effort and Inspection: Negative for respiratory distress or pain with movement Auscultation: Negative for rhonchi, wheezes or diminished lung sounds Cardio regular rate, regular rhythm, S1 normal heart sound, S2 normal heart sound and no murmurs Peripheral Pulses: pulses 2+ throughout GI normal to inspection, nondistended, normoactive bowel sounds, soft to palpation, non-distended and no masses GI Narrative: Mild tenderness over the epigastric region with some guarding. There is no rebound, rigidity, or pineal signs. Back/Spine no CVA tenderness and no thoracic nor lumbar tenderness Extremity normal to inspection General Extremety ED: Negative for edema General Extremity: Negative for edema Neuro oriented x3, CN's II-XII intact bilaterally, no sensory deficits noted and gait normal Sensorium / Orientation: awake, alert, oriented to person, oriented to place and oriented to time Motor Exam: strength 5/5 throughout and strength abnormal Psych mental status grossly normal Skin no rashes or lesions noted and no wounds Heart Score History: Moderately Suspicious ECG: Normal Age: >45 - <65 years Risk Factors: 1 or 2 Risk Factors Troponin: </= Normal Limit Score: 3 MDM MDM MDM Narrative Medical decision making narrative: Patient presents with upper abdomen pain and chest discomfort. In the differential would be GERD versus peptic ulcer versus acute coronary syndrome or aortic dissection. IV line established. Patient placed on quality assurance monitor. EKG obtained showed a sinus rhythm with ventricular rate of 86 bpm with no acute ST segment changes. CBC with differential showed a white count 7.1 with h emoglobin 16.8 and platelet count of 325. Chemistries unremarkable. LFTs were normal. Lipase normal. Troponin was normal at 4. Patient had a CTA of the chest abdomen pelvis ordered results which are currently pending. Care of patient turned over to evening physician awaiting CTA results. Patient and his would like to go home as long as the CTA looks okay they do not want to be admitted. Given that he has had ongoing discomfort since this morning and a negative troponin I feel it is less likely this is an acute coronary syndrome but they understand I cannot completely rule this etiology. Lab Data Attestation: I reviewed the patient's lab results. Labs: Laboratory Results - last 24 hr 08/31/23 22:00 WBC 7.1 RBC 5.63 Hgb 16.8 H Hct 49.2 MCV 87.4 MCH 29.8 MCHC 34.1 RDW Std Deviation 38.6 RDW Coeff of Jeanie 12.1 Plt Count 325 MPV 10.6 Immature Gran % (Auto) 0.100 Neut % (Auto) 36.5 L Lymph % (Auto) 50.1 H Grayson % (Auto) 10.9 H Eos % (Auto) 1.1 Baso % (Auto) 1.3 H Absolute Neuts (auto) 2.6 Absolute Lymphs (auto) 3.55 Nucleated RBC % 0 Sodium 138 Potassium 3.2 L Chloride 104 Carbon Dioxide 27.0 Anion Gap 7 BUN 10 Creatinine 1.12 Estim Creat Clear Calc 91.54 Est GFR (MDRD) Af Amer 89 Est GFR (MDRD) Non-Af 74 BUN/Creatinine Ratio 8.9 L Glucose 107 H Calcium 9.1 Total Bilirubin 0.70 Direct Bilirubin 0.14 AST 16 ALT 27 Alkaline Phosphatase 78 Troponin I High Sens 4 Total Protein 7.9 Albumin 4.1 Globulin 3.8 Lipase 23 Discharge Plan Triage Chief Complaint: Chest Pain ED Provider: Kellen Nguyen Dx/Rx/DC Orders Clinical Impression: Abdominal pain, Chest pain Instructions: ED Chest Pain, Uncertain Cause, ED Abdominal Pain Unkn Cause Male... Prescriptions: No Action atorvastatin 10 mg tablet 10 mg PO QHS metoprolol succinate 25 mg tablet extended release 24 hr 25 mg PO BID Patient Comments: TAKE ONE TABLET BY MOUTH TWICE DAILY venlafaxine 75 mg tablet 75 mg PO DAILY Primary Care Provider: Luan Arnold Referrals: Luan Arnold MD [Primary Care Provider] - 3-5 Days
[2023-08-31 22:16] VITALS: BP 149/101; PULSE 80
[2023-08-31] MEDS: Nitroglycerin SL (ED/IMG/CATH) 0.4 MG TABLET SL (22:16)
[2023-08-31] MEDS: Ondansetron 4 MG/2 ML Vial IV (22:16)
[2023-08-31] MEDS: Aspirin 81 MG TAB.CHEW 324 MG PO (22:16)
[2023-08-31 22:20] LABS: Absolute Lymphocyte Count 3.55 X10^3/uL (0.83-4.51); Absolute Neutrophil Count 2.6 X10^3/uL (2.0-7.7); Basophil# 0.09 X10^3/uL; Basophil% 1.3 % (0-1); Eosinophil# 0.08 X10^3/uL; Eosinophils% 1.1 % (0-5); Hematocrit 49.2 % (40-54); Hemoglobin 16.8 g/dL (13.0-16.5); Lymphocyte # 3.55 X10^3/ul (0.83-4.51); Lymphocyte % 50.1 % (19-41); Mean Corp Hgb Conc 34.1 g/dL (32-36); Mean Corpuscular Hgb 29.8 pg (27.0-32.0); Mean Corpuscular Volume 87.4 fL (80-94); Mean Platelet Vol. 10.6 fl (6.2-12.0); Monocyte# 0.77 X10^3/uL; Monocyte% 10.9 % (0-10); NRBC Flagged by Analyzer 0 % (0-5); Neutrophil # 2.59 X10^3/uL (2.7-7.7); Neutrophil % 36.5 % (47-70); Platelet Count 325 K/mm3 (150-450); RBC Distribution Width CV 12.1 % (11.6-14.6); RBC Distribution Width SD 38.6 fl (35.1-43.9); Red Blood Count 5.63 M/mm3 (4.6-6.2); White Blood Count 7.1 K/mm3 (4.4-11.0)
[2023-08-31] MEDS: 0.9% Normal Saline (1000mL) 1,000 ML 150 ML IV (22:20)
[2023-08-31 22:37] VITALS: BP 127/80; PULSE 75; RESP 24; O2SAT 98
[2023-08-31 22:40] LABS: AST(SGOT) 16 U/L (15-37); Alanine Aminotransfer ALT/SGPT 27 U/L (16-61); Albumin, Serum 4.1 g/dL (3.2-5.0); Alkaline Phosphatase 78 U/L (45-117); Anion Gap 7 (5-15); BUN 10 mg/dL (7-18); BUN/Creat Ratio 8.9 RATIO (10-20); Bilirubin, Direct 0.14 mg/dL (0.00-0.30); Calcium,Total 9.1 mg/dL (8.5-10.1); Chloride 104 mmol/L (98-107); Creatinine, Serum 1.12 mg/dL (0.70-1.30); EST Glomerular Filtration Rate 74 mL/min (>60); Est Glom Filt Rate - Afr Amer 89 mL/min (>60); Estimated Creatinine Clearance 91.54 ml/min; Globulin 3.8 g/dL (2.2-4.2); Glucose 107 mg/dL (74-106); Lipase 23 U/L (13-75); Potassium 3.2 mmol/L (3.5-5.1); Protein, Total 7.9 g/dL (6.4-8.2); Sodium Level 138 mmol/L (136-145); Troponin-I HS (w/2H Reflex) 4 pg/mL (3.0-78.0)
[2023-08-31 23:00] VITALS: BP 110/72; PULSE 77; RESP 16; O2SAT 98
[2023-08-31] MEDS: Mag Hydrox/Al Hydrox/Simeth 30 ML UDC PO (23:02)
[2023-09-01] VITALS: BP 124/88; PULSE 78; RESP 18; TEMP 36.1; O2SAT 96
[2023-09-01 00:11] VITALS: BP 124/88; PULSE 78; RESP 16; TEMP 36.1; O2SAT 96
[2023-09-01 00:14] LABS: Reflex Troponin-HS? (from REC) Y
== END 2023-09-01 00:14 | disposition home or self-care (01) ==
PROVIDERS: Emergency Provider Emergency Medicine; PCP Family Medicine; Visit Provider Emergency Medicine
DX: R10.9 Unspecified abdominal pain (principal); I48.0 Paroxysmal atrial fibrillation; R07.9 Chest pain, unspecified; F41.9 Anxiety disorder, unspecified; G47.33 Obstructive sleep apnea (adult) (pediatric); F32.A Depression, unspecified; Z79.899 Other long term (current) drug therapy
CPT/HCPCS: 71275; 74174; 80048; 80076; 83690; 84484; 85025; 93005; 96361; 96374; 99285; Q9967; J2405

== ENCOUNTER 2023-12-25 08:10 | Day surgery (SDC) | payer OTHER, SELFPAY ==
[2023-12-25] VITALS (8 sets, daily range): BP systolic 92–122; BP diastolic 64–90; PULSE 64–74; RESP 16–20; TEMP 36.1; O2SAT 95–98; BMI 27.8
--- NOTE | 2023-12-25 08:28 | PRE.ANES_ITS ---
ASA Classification* ASA Classification ASA Classification: 3 Assessment & Plan Anesthesia* Anesthesia Assessment Anesthesia Assessment: Discussed sedation and/or anesthesia options, risks, benefits, and alternatives with patient/parents/legal guardian/POA. Questions invited. The patient/parents/legal guardian/POA seems to understand and agrees to proceed with anesthesia plan. Reviewed the physical assessment, medical history, allergy history and patient home medications list prior to surgery/procedure/anesthetic and documented any changes. Performed airway and anesthesia risk assessments. Anesthesia Type Anesthesia Type: MAC (*see written preanesthesia record for full assessment) Anesthesia Focused Assessment* Airway Assessment Mouth opens: >3 cm Mallampati Score: II Focused Labs Anesthesia Preop lab: CBC WBC 7.1 K/mm3 (4.4-11.0) 08/31/23 22:00 RBC 5.63 M/mm3 (4.6-6.2) 08/31/23 22:00 Hgb 16.8 g/dL (13.0-16.5) H 08/31/23 22:00 Hct 49.2 % (40-54) 08/31/23 22:00 Plt Count 325 K/mm3 (150-450) 08/31/23 22:00 CHEMISTRY Potassium 3.2 mmol/L (3.5-5.1) L 08/31/23 22:00 Sodium 138 mmol/L (136-145) 08/31/23 22:00 Magnesium 2.2 mg/dL (1.8-2.4) 08/24/15 14:23 BUN 10 mg/dL (7-18) 08/31/23 22:00 Creatinine 1.12 mg/dL (0.70-1.30) 08/31/23 22:00 Glucose 107 mg/dL (74-106) H 08/31/23 22:00 TSH 0.81 uIU/mL (0.358-3.74) 12/26/21 07:11 COAG PT 14.0 SECONDS (11.9-14.4) 08/07/12 09:27 Pre-Assessment Diagnosis/Proposed Procedure Planned Operative Procedure(s): COLONOSCOPY Anesthesia History 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 When Was Last Pacemaker Check QUESTION #4 FULL TEXT: You/Your Family Experience fever (hyperthermia) with Anesthesia Last Oral Intake Last Oral intake: Last Oral Intake NPO since Meds taken in AM with sips of water? 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 clerk Female No 12/20/23 12:03 HX of Motion Sickness No 12/20/23 12:03 HX of N/V After Surgery Yes 12/20/23 12:03 Non-Smoker Yes 12/20/23 12:03 Duration of Surgery greater No 12/20/23 12:03 than 60 minutes Number of Risk Factors 2 12/20/23 12:03 PONV Score Moderate Risk 12/20/23 12:03 Height & Weight Height & Weight: Anesthesia: Height & Weight Height 5 ft 10 in 12/04/23 13:40 Respiratory Assessment Respiratory Assessment - chief deputy court clerk: Respiratory Tract Infection Hx - chief deputy court clerk Hx Respiratory Tract Infection No 12/20/23 12:03 STOP Sleep Apnea STOP Sleep Apnea - chief deputy court clerk: STOP Sleep Apnea - chief deputy court clerk Hx Hypertension No 12/20/23 12:03 Hx Sleep Apnea Yes 12/20/23 12:03 CPAP No 12/20/23 12:03 BIPAP No 12/20/23 12:03 Do you snore loudly (louder than talking or can be heard Do you often feel tired/ fatigued/ sleepy during daytime? Has anyone observed you stop breathing during sleep? STOP Results Positive 12/20/23 12:03 QUESTION #5 FULL TEXT : Do you snore loudly (louder than talking or can be heard through closed doors)? 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 Specify any problems Hx of Preganancy in last 3 N/A 12/20/23 12:03 Months Nurse Filling Out Transfusion [email or web address] 12/20/23 12:03 & Questions: Date: 12/20/23 12/20/23 12:03 Time: 12:06 12/20/23 12:03 Patient unable to answer at this time (ie. confused, unrespo /Reproduction History /Reproductive History - chief deputy court clerk: /Reproductive Hx- chief deputy court clerk Hx Now Gestational Age (in weeks): EDC: Hx Hx Para Hx Section SAB Active Medications Active Medications: Current Medications Generic Name Dose Route Start Last Admin Trade Name Freq PRN Reason Stop Dose Admin Lactated Ringer's 1,000 mls @ 15 mls/hr 12/25/23 08:30 IV .Q48H SHI PFSH Medical History Wears dentures Wears contact lenses Wears glasses CPAP (continuous positive airway pressure) dependence Sleep apnea History of stress test History of echocardiogram Cardiology follow-up encounter Pericardial effusion History of left heart catheterization (LHC) (~04/26/18) Coronary-myocardial bridge (~07/16/18) Paroxysmal atrial fibrillation DARA (obstructive sleep apnea) Anxiety and depression Hypokalemia Chest pain Atrial fibrillation with RVR Other specified cardiac device in situ (~09/06/15) Palpitations Hiatal hernia Inguinal hernia DARA (obstructive sleep apnea) Anxiety GERD (gastroesophageal reflux disease) Home Medications ?Medication ?Instructions ?Recorded ?Last Taken ?Type atorvastatin 10 mg tablet 10 mg PO QHS 12/08/21 Unknown History metoprolol succinate 25 mg 25 mg PO BID 12/08/21 Unknown History tablet,extended release 24 hr venlafaxine 75 mg tablet 75 mg PO DAILY 12/12/22 Unknown History Allergy/AdvReac Type Severity Reaction Status Date / Time No Known Allergies Allergy Verified 12/20/23 12:03 Family History Father Hypertension Sister SVT (supraventricular tachycardia) Surgical History History of heart surgery History of radiofrequency ablation procedure for cardiac arrhythmia (~05/16/19) History of fusion of cervical spine (~09/2013) History of nasal surgery Hx of appendectomy History of cholecystectomy Social History Smoking Status: Never smoker Smokeless tobacco user: chewing tobacco alcohol intake: current alcohol intake frequency: 0-2 drinks per day Alcohol type: beer substance use type: does not use caffeine: Yes Type: coffee Number of servings: 1 Review of Systems (Anesthesia) ROS Narrative System reviewed and no additional complaints, except as documented.
[2023-12-25] MEDS: Lactated Ringers 1,000 ML 15 ML IV (08:37)
--- NOTE | 2023-12-25 08:38 | PCM.HP.BLA ---
History and Physical Date of Admission: 12/25/23 Date of Service: 12/04/23 MR#: [id number] Acct: [id number] Name: CRISTINA GÓMEZ Rep #: [id number] : 1975 Provider: Dr. Marlena Zambrano MD Age/Sex: 48/M Location: [facility] Status: Signed Intake Vital Signs 08/30/2420:38 12/03/2412:40 Height 5 ft 10 in 5 ft 10 in Weight: 203 lb 4 oz BMI 29.1 BP 128/84 H Blood Pressure Location Rt brachial Position Sitting Respiration 18 Pulse 81 Pulse Source Monitor Temp 98 F Temp Source Temporal Pulse Oximetry (%) 97 Oxygen Delivery Method room air Intake Visit Reasons: POSITIVE COLOGUARD Chief Complaint: Positive cologuard Is patient in pain?: No Allergies No Known Allergies Allergy (Verified 12/04/23 13:41) Medications ?Medication ?Instructions ?Recorded ?Confirmed ?Type atorvastatin 10 mg tablet 10 mg PO QHS 12/08/21 12/04/23 History metoprolol succinate 25 mg 25 mg PO BID 12/08/21 12/04/23 History tablet,extended release 24 hr venlafaxine 75 mg tablet 75 mg PO DAILY 12/12/22 12/04/23 History Have you fallen in the past year?: No [facility] Medical History (Updated 12/04/23 @ 13:40 by Shira Trejo LPN) Pericardial effusion History of left heart catheterization (LHC) (~04/26/18) Coronary-myocardial bridge (~07/16/18) Paroxysmal atrial fibrillation DARA (obstructive sleep apnea) Anxiety and depression Hypokalemia Chest pain Atrial fibrillation with RVR Other specified cardiac device in situ (~09/06/15) Palpitations Hiatal hernia Inguinal hernia DARA (obstructive sleep apnea) Anxiety GERD (gastroesophageal reflux disease) Surgical History History of heart surgery History of radiofrequency ablation procedure for cardiac arrhythmia (~05/16/19) History of fusion of cervical spine (~09/2013) History of nasal surgery Hx of appendectomy History of cholecystectomy Family History Father HypertensionSister SVT (supraventricular tachycardia) Social History Smoking Status: Never smoker Smokeless tobacco user: chewing tobacco alcohol intake: current alcohol intake frequency: 0-2 drinks per day Alcohol type: beer substance use type: does not use caffeine: Yes Type: coffee Number of servings: 1 HPI HPI HPI: 48-year-old male presents for colonoscopy due to positive Cologuard. Patient states last colonoscopy was greater than 10 years ago but negative. Patient states he does occasionally have bright red blood per rectum but does have known hemorrhoids. Otherwise patient goes daily. Patient denies any family history of colon cancer. Patient denies any nausea or vomiting. Patient states he does have reflux but watches his diet and only has it maybe once a week- no meds. ROS General General: No weight change, appetite, fatigue, colon cancer, breast cancer or weakness HEENT HEENT: No difficulty swallowing, eye injury, eye surgery, swollen glands or hoarseness Endo Endocrine: No thyroid disease, diabetes mellitus, thyroid cancer, Hair loss, heat intolerance or cold intolerance Skin Skin: No rash or changing moles Musc Musculoskeletal: Yes arthritis; No back problems, rheumatoid arthritis, gout or joint pain Cardio Cardiovascular: Yes heart disease, atrial fibrillation and high blood pressure; No murmur, pacemaker, heart attack, heart stent, palpitations, shortness of breat with exertion or chest pain Psych Psychiatric: Yes anxiety; No depression or hearing voices Resp Respiratory: No shortness of breath, No sleep apnea, No cough, No COPD, No asthma, No emphysema and No wheezing Gastro Gastrointestinal: No abdominal pain, No nausea or vomiting, No diarrhea, No constipation, No blood in stool, Yes acid reflux, No hemorrhoids, Yes ulcers, No gallbladder problem and No black,tarry stools Hardeep Hematologic: No blood thinners, No blood disorders, No bleeding, No anemia and No blood clots Neuro Neurologic: No numbness, No tingling and No weakness Exam Const General: cooperative, healthy appearing, comfortable and no acute distress [facility] Head: normocephalic and atraumatic Neck Neck: supple Resp Effort & Inspection: normal respiratory effort Cardio Rate: regular rate GI Inspection: non-distended Palpation: soft and nontender Skin General: no rashes or lesions noted Neuro General: CN's II-XI intact bilaterally Extrem General: normal to inspection Psych Mental Status: mental status grossly normal Attitude: cooperative Assessment and Plan Assessment and Plan (1) Positive colorectal cancer screening using Cologuard test: Status: Acute Plan I have discussed the above with the patient. I have offered the patient colonoscopy for evaluation. I have explained the risks/benefits of the procedure and described the procedure. I have discussed the risks with the patient, including but not limited to: infection, bleeding, perforation of the GI tract requiring emergency surgery, inability to complete the procedure, injury to any internal organs, complications of anesthesia, etc. - the patient understands and agrees to proceed. I have answered all the patient's questions to the patient's satisfaction and the patient has no further questions. The patient has been given instructions for the colon cleansing preparation. Marlena Zambrano M.D. Pager: [phone] [facility] [address] [place] [address], [address] [place] [address] Office: [phone] Coding Level of Care Code Off vis,new,level 3 Diagnoses Positive colorectal cancer screening using Cologuard test R19.5 Clinical Quality Measures Falls Risk Screening/Assistive Devices Have you fallen in the past year?: No 12/05/23 1033 <Electronically signed by Marlena Zambrano MD> Date Marlena Zambrano MD
--- NOTE | 2023-12-25 09:30 | COLBX_PTH ---
PATIENT: CRISTINA GÓMEZ LOC: EN U#:[id number] AGE/SX: 48/M ROOM: RE12/25/[address]: Dr. Marlena Zambrano MD : 1975 BED: DIS: 12/25/2023 SPEC #: [id number] RECD: 12/25/23 13:27 STATUS: ISMAEL LUCHO #: [id number] MCKAYLA: 12/25/23 09:[address]: Marlena Zambrano DEPT: SURGICAL PATHOLOGY RECD BY: Ira Luciano ENTERED: 12/26/23 07:29 SP TYPE: COLON BX OTHR DR: Dr. Luan Arnold MD Tissues: Transverse colon Procedures: Surgery Specimen Level IV HEADER OPERATION: Colonoscopy with polypectomy PRE-OP DIAGNOSIS: Positive colorectal cancer screening using Cologuard TISSUE SUBMITTED: Transverse colon polyp MICROSCOPIC DIAGNOSIS Transverse colon polyp, polypectomy: Fragments of tubular adenoma. RALPH/ 12/27/2023 MICROSCOPIC DESCRIPTION Slides are reviewed. GROSS DESCRIPTION Received in fixative is one container labeled with the patient's name and designated Transverse colon polyp. The specimen consists of multiple irregular fragments of light webb soft tissue that in aggregate measure 0.8 x 0.3 x 0.1 cm. The specimen is totally submitted in one cassette. RALPH/ 12/26/2023 TC:1 CPT:29926
--- NOTE | 2023-12-25 10:00 | PCM.POST.ANE ---
Anesthesia: Postop Eval I Current Vital Signs Temperature: 97 F Pulse Rate: 66 Blood Pressure: 97/65 Respiratory Rate: 20 Pulse Ox: 95 Oxygen Delivery Method: Room Air Assessment Airway patent: Yes Spontaneous unlabored respirations: Yes Mental status: Asleep nausea: No Vomiting: No Anesthesia Complication: No Fluid Hydration Crystalloid volume administer (ml): 400 Total IV fluid infused: 400 Progress Note Anesthesia document: Postop Eval 1 completed: Yes
--- NOTE | 2023-12-25 10:04 | OP.COLON_ITS ---
Patient Name: Shawn Caban Procedure Date: 12/25/2023 9:21 AM Date of : 1975 Age: 48 Procedure: Colonoscopy Indications: Positive Cologuard test Providers: Marlena Zambrano MD Referring MD: Luan Arnold Medicines: Monitored Anesthesia Care Patient Profile: This is a 48 year old male. Last Colonoscopy: more than 10 years ago. Complications: No immediate complications. Procedure: Pre-Anesthesia Assessment: - Prior to the procedure, a History and Physical was performed, and patient medications and allergies were reviewed. The patient's tolerance of previous anesthesia was also reviewed. The risks and benefits of the procedure and the sedation options and risks were discussed with the patient. All questions were answered, and informed consent was obtained. Prior Anticoagulants: The patient has taken no anticoagulant or antiplatelet agents. ASA Grade Assessment: Per anesthesia. After reviewing the risks and benefits, the patient was deemed in satisfactory condition to undergo the procedure. After I obtained informed consent, the scope was passed under direct vision. Throughout the procedure, the patient's blood pressure, pulse, and oxygen saturations were monitored continuously. The Colonoscope was introduced through the anus and advanced to the cecum, identified by the appendiceal orifice, ileocecal valve and palpation. The colonoscopy was performed without difficulty. The patient tolerated the procedure well. The quality of the bowel preparation was good. Scope In: 9:31:35 AM Scope Withdrawal Time 0 hours 14 minutes 56 seconds Scope Out: 9:54:42 AM Total Procedure Duration Time 0 hours 23 minutes 7 seconds Findings: The perianal and digital rectal examinations were normal. A less than 5 mm polyp was found in the transverse colon. The polyp was semi-pedunculated. The polyp was removed with a cold snare. Resection and retrieval were complete. The exam was otherwise without abnormality on direct and retroflexion views. Impression: - One less than 5 mm polyp in the transverse colon, removed with a cold snare. Resected and retrieved. - The examination was otherwise normal on direct and retroflexion views. Recommendation: - Discharge patient to home. - Resume previous diet. - Continue present medications. - Await pathology results. - Repeat colonoscopy in 5 years for surveillance based on pathology results. Procedure Code(s): --- Professional --- 63730, Colonoscopy, flexible; with removal of tumor(s), polyp(s), or other lesion(s) by snare technique Diagnosis Code(s): --- Professional --- D12.3, Benign neoplasm of transverse colon (hepatic flexure or splenic flexure) R19.5, Other fecal abnormalities CPT copyright 2021 [employer]. All rights reserved. The codes documented in this report are preliminary and upon marksmanship instructor review may be revised to meet current compliance requirements. MD Marlena Shields MD 12/25/2023 10:03:33 AM This report has been signed electronically. Number of Addenda: 0 Note Initiated On: 12/25/2023 9:21 AM
--- NOTE | 2023-12-25 10:04 | POSTOPAN2_ITS ---
Anesthesia Postop Eval I Sum Postop Eval Completion status Anesthesia document: Postop Eval 1 completed: Yes Anesthesia Postop Eval I Summary Anesthesia Postop Eval I Summary: Anesthesia Postop Eval I: Assessment Summary Airway patent Yes 12/25/23 10:02 PRESSURE SEALER [email or web address] Spontaneous unlabored Yes 12/25/23 10:02 PRESSURE SEALER AND [email or web address] respirations Mental status Asleep 12/25/23 10:02 PRESSURE SEALER [email or web address] nausea No 12/25/23 10:02 PRESSURE SEALER AND [email or web address] Vomiting No 12/25/23 10:02 PRESSURE SEALER AND [email or web address] Anesthesia Postop Eval I: Fluid Summary Crystalloid volume administer 400 12/25/23 10:02 PRESSURE SEALER AND [email or web address] (ml) Colloids volume administered ( ml) Blood Product volume administered (ml) Total IV fluid infused 400 12/25/23 10:02 PRESSURE SEALER AND [email or web address].[email or web address] Anesthesia Postop Eval I: Summary Notes Anesthesia Complication No 12/25/23 10:02 PRESSURE SEALER AND [email or web address] Anesthesia Complication Comment: Post-operative progress note Anesthesia: Postop Eval II Evaluation Mental status: Awake Pain Level: 0 nausea: No Vomiting: No
--- NOTE | 2023-12-25 10:04 | OP.CCLET_ITS ---
12/25/2023 Luan Arnold Re : Colonoscopy procedure for Shawn Caban Dear [place] This procedure was performed on Monday, December 25, 2023. My impressions and recommendations are as follows: Impressions : - One less than 5 mm polyp in the transverse colon, removed with a cold snare. Resected and retrieved. - The examination was otherwise normal on direct and retroflexion views. Recommendations : - Discharge patient to home. - Resume previous diet. - Continue present medications. - Await pathology results. - Repeat colonoscopy in 5 years for surveillance based on pathology results. My findings are described in the full procedure note, which is enclosed. If I can be of further assistance, please feel free to contact me at Doctor phone number(s): , Work: . Sincerely, MD Marlena Shields MD 12/25/2023 10:03:33 AM This report has been signed electronically.
--- NOTE | 2023-12-25 10:04 | PCM.POSTANE2 ---
Anesthesia Postop Eval I Sum Postop Eval Completion status Anesthesia document: Postop Eval 1 completed: Yes Anesthesia Postop Eval I Summary Anesthesia Postop Eval I Summary: Anesthesia Postop Eval I: Assessment Summary Airway patent Yes 12/25/23 10:02 REAL ESTATE [email or web address] Spontaneous unlabored Yes 12/25/23 10:02 REAL ESTATE [email or web address] respirations Mental status Asleep 12/25/23 10:02 REAL ESTATE [email or web address] nausea No 12/25/23 10:02 REAL ESTATE [email or web address].[email or web address] Vomiting No 12/25/23 10:02 REAL ESTATE [email or web address].[email or web address] Anesthesia Postop Eval I: Fluid Summary Crystalloid volume administer 400 12/25/23 10:02 REAL ESTATE [email or web address].JDEF (ml) Colloids volume administered ( ml) Blood Product volume administered (ml) Total IV fluid infused 400 12/25/23 10:02 REAL ESTATE [email or web address].JDEF Anesthesia Postop Eval I: Summary Notes Anesthesia Complication No 12/25/23 10:02 REAL ESTATE [email or web address].JDEF Anesthesia Complication Comment: Post-operative progress note Anesthesia: Postop Eval II Evaluation Mental status: Awake Pain Level: 0 nausea: No Vomiting: No
== END 2023-12-25 10:41 | disposition home or self-care (01) ==
LOC: EN 08:11 → AC 08:12
PROVIDERS: PCP Family Medicine; Referring Provider Family Medicine; Visit Provider Surgery
PROC: 0DJD8ZZ Inspection of Lower Intestinal Tract, Via Natural or Artificial Opening Endoscopic (ICD-10-PCS; CPT 45378; principal; 2023-12-25 09:25)
DX: R19.5 Other fecal abnormalities (principal); I48.0 Paroxysmal atrial fibrillation; K63.5 Polyp of colon; F41.8 Other specified anxiety disorders; Z79.899 Other long term (current) drug therapy; Z90.49 Acquired absence of other specified parts of digestive tract; F17.220 Nicotine dependence, chewing tobacco, uncomplicated
CPT/HCPCS: 45385; 88305; J7120; J2405

== ENCOUNTER → 2025-02-26 | Outpatient (CLI) | payer OTHER, SELFPAY ==
--- NOTE | 2025-02-26 17:00 | STRESSREP ---
Stress Test Report Exercise myocardial perfusion stress test. 49-year-old man with a history of coronary disease. Stress protocol: Resting EKG demonstrates normal sinus rhythm with a rate of 73 bpm resting blood pressure is 134/70 mmHg. The patient exercised according to the regular Silvestre protocol for a total duration of 12 minutes attaining a maximum heart rate of 162 bpm which was 95% of maximum predicted heart rate; the maximum workload was 13.7 metabolic equivalents. At rest there were no ST or T wave changes noted to suggest ischemia and at peak exercise upsloping ST changes only were noted which did not meet the criteria for ischemia. No clinical angina was noted the test was terminated due to the target heart rate being achieved/fatigue. The peak blood pressure was 162/70 mmHg. Rate-pressure product was 26,002. Myocardial perfusion protocol. 13 mCi of technetium 99m sestamibi was injected at rest. The patient exercised according to regular Silvestre protocol for total duration of [12minutes ] and at peak exercise [38.8 ] mCi of technetium 99m sestamibi was injected stress images were obtained stress and rest images were reconstructed in comparing the short axis vertical long and horizontal long axis. Gated images were also obtained. Perfusion SPECT analysis: Review of the stress images demonstrate normal uptake of tracer noted in all areas of the myocardium. The resting images similarly demonstrate normal uptake of tracer noted in all areas of the myocardium. No areas of reversibility are noted to suggest ischemia no previous infarct was noted. Gated SPECT analysis: The gated ejection fraction is [58 ]%. Conclusion: [ Normal] exercise myocardial perfusion stress test at a high workload.
== END | disposition home or self-care (01) ==
LOC: CVS 06:44
PROVIDERS: Referring Provider Internal Medicine Cardiovascular Disease; Visit Provider Internal Medicine Cardiovascular Disease
DX: I25.10 Atherosclerotic heart disease of native coronary artery without angina pectoris (principal); Q24.5 Malformation of coronary vessels
CPT/HCPCS: 78452; 93017; A9500; A4216